=== PATIENT | female | born 1950 | race Caucasian/White ===

== ENCOUNTER → 2020-10-03 | Outpatient (CLI) | payer MEDICARE, OTHER ==
[2020-10-03 12:34] VITALS: BP 112/69; PULSE 80; RESP 16; TEMP 98.2
--- NOTE | 2020-10-03 12:59 | P.GSHP ---
History of Present Illness H&P Date: 10/03/20 Chief Complaint: mass right teresa Wu is a 70 year old white female seen in consultation for DR. Santizo regarding a mass in her right breast. She states she noted a lump in her right breast approximately 2 weeks ago. She had a bilateral mammogram in November 2018 the lateral attachment to the patient stated that they did not see any lesions of concern. She had a diagnostic mammogram of her right breast on which revealed a mass in the 12 o'clock position of the right breast corresponding to the palpable abnormality. She then underwent an ultrasound which revealed a 3.6 x 3.7 cm irregular mass at the same location in the right breast. She does not complain of any trauma to her breast. She has not noted any other lumps masses or nodules in her breast. No nipple discharge or skin changes. No history of any infection in her breast. She has not had any surgery in her breast. Caffeine: One cup per day Nicotine: Negative Theophylline: rare hormones: none Family history: sister: breast cancer at 58 2 maternal aunts: breast cancer Hormonal History: menarche: 14 , breast fed: yes, age at first : 19 menopause: 51 hormones: bio-identical 2 years BCP: 20 years Surgical History: back surgery (2) gallbladder tonsil Medical History: none Social History: smoke: stopped in 1979, first has been a smoker and she was with him for 24 years alcohol: wine in evening occasional drugs: none - Constitutional Constitutional: Denies chills, Denies fever - EENT Eyes: denies blurred vision, denies pain Ears: deny: decreased hearing, tinnitus Ears, nose, mouth and throat: Denies headache, Denies sore throat - Breasts Breasts: bilateral: as per HPI - Cardiovascular Cardiovascular: Denies chest pain, Denies shortness of breath - Respiratory Respiratory: Reports cough - Gastrointestinal Gastrointestinal: Denies abdominal pain, Denies diarrhea, Denies nausea, Denies vomiting - Genitourinary (Female) Genitourinary: Denies dysuria, Denies hematuria - Menstruation Menstruation: Reports postmenopausal - Musculoskeletal Musculoskeletal: Denies myalgias - Integumentary Integumentary: Denies pruritus, Denies rash - Neurological Neurological: Denies numbness, Denies weakness - Psychiatric Psychiatric: Denies anxiety, Denies depression - Endocrine Endocrine: Denies fatigue, Denies weight change - Hematologic/Lymphatic Comment: none - Allergic/Immunologic Allergic/Immunologic: Reports as per HPI Past Medical History Past Medical History: Hyperlipidemia History of Any Multi-Drug Resistant Organisms: None Reported Past Surgical History: Cholecystectomy, Tonsillectomy Additional Past Surgical History / Comment(s): laminectomy 1998 & 2000; cholecystectomy 1974; Past Anesthesia/Blood Transfusion Reactions: No Reported Reaction Past Psychological History: No Psychological Hx Reported Smoking Status: Former smoker Past Alcohol Use History: Occasional Additional Past Alcohol Use History / Comment(s): Started smoking in her 30's off and on until about the age of 39 Past Drug Use History: None Reported - Past Family History Father Family Medical History: Myocardial Infarction ([place]) Mother Family Medical History: COPD Sister(s) Family Medical History: Cancer Additional Family Medical History / Comment(s): right breast cancer Medications and Allergies Home Medications Medication Instructions Recorded Confirmed Type Ascorbic Acid [Vitamin C] 500 mg PO DAILY 10/02/20 10/03/20 History Cholecalciferol [Vitamin D3] 2,000 unit PO TID 10/02/20 10/03/20 History Ibuprofen [Motrin] 400 mg PO DAILY PRN 10/02/20 10/03/20 History Multivit-Min/Iron/Folic/Lutein 1 each PO DAILY 10/02/20 10/03/20 History [Centrum Silver Women Tablet] Rosuvastatin [Crestor] 5 mg PO HS 10/02/20 10/03/20 History Ubidecarenone [Co Q-10] 200 mg PO HS 10/02/20 10/03/20 History Allergies Allergy/AdvReac Type Severity Reaction Status Date / Time codeine AdvReac Abdominal Verified 10/03/20 12:24 Pain Surgical - Exam Vital Signs Temp Pulse Resp BP Pulse Ox 98.2 F 80 16 112/69 97 10/03/20 12:26 10/03/20 12:26 10/03/20 12:26 10/03/20 12:26 10/03/20 12:26 BMI 24.2 - General well developed, well nourished, no distress - Eyes normal ocular movement - ENT no hearing loss, no congestion - Neck no masses, trachea midline - Respiratory normal expansion, normal respiratory effort, clear to auscultation - Cardiovascular Rhythm: regular Heart Sounds: normal: S1, S2 - Abdomen Abdomen: soft, non tender, no guarding, no rigid, no rebound - Integumentary normal turgor - Neurologic no disoriented, no combative - Musculoskeletal normal gait - Psychiatric oriented to time, oriented to person, oriented to place, speech is normal breast exam: BRA: 36B inspection: Lateral ptosis grade 2/3 Palpation: Right breast: Multiple positional exam 7 x 4 cm mass in the 12 o'clock position no other dominant masses or nodules of concern Right axilla: No adenopathy of concern Left breast colon was a positional exam fibrocystic changes no dominant masses or nodules of concern Left axilla: No adenopathy of concern Results Diagnostic right breast mammogram and ultrasound reviewed Assessment and Plan Assessment: Impression: 1. Mass right breast 2. Abnormal right breast mammogram and ultrasound 3. Normal mammogram approximately 1 year ago by history 4. High cholesterol 5. Family history of cancer Plan: 1. Ultrasound-guided core biopsy right breast 2. Follow up after core biopsy 3. mammogram of the left breast Cc: Dr. Santizo [facility] [address] [place] [id number] encounter 30 minutes, > 50% of time in planning and counselling
== END | disposition home or self-care (01) ==
LOC: WWCWWP 11:33
PROVIDERS: ATTEND Surgery
DX: Z53.9 Procedure and treatment not carried out, unspecified reason (principal)

== ENCOUNTER → 2020-10-04 | Day surgery (SDC) | payer MEDICARE, OTHER ==
[2020-10-04 07:21] VITALS: RESP 16
[2020-10-04 08:48] VITALS: BP 109/65; PULSE 78; TEMP 98
--- NOTE | 2020-10-04 09:22 | USB ---
EXAMINATION TYPE: US biopsy breast VAD RT, MG diagnostic mammo RT wo CAD DATE OF EXAM: 10/04/2020 CLINICAL HISTORY: R92.8 Abnormal Mammogram. TECHNIQUE: Ultrasound guided core biopsy of right 1:00 breast. COMPARISON: NONE FINDINGS: The procedure of ultrasound guided core biopsy was explained to the patient. Benefits, alternatives, and risks were discussed. An informed consent was then obtained. The patient was placed in supine positioning for imaging and for the procedure. The overlying skin was prepped and draped in usual sterile fashion. Lidocaine buffered with bicarbonate was used as anesthetic into the skin and subcutaneous tissue up to area of concern in the right 1:00 breast. Under ultrasound guidance, a 12-gauge vacuum assisted biopsy gun device was used to obtain 4 core samples. Following this, a biopsy clip was left in lesion. Postprocedural mammogram demonstrates appropriate placement of microclip marker. The patient tolerated the procedure well without any immediate complication. The patient was kept in the radiology department for short stay after the procedure and then discharged home in stable condition. IMPRESSION: Successful, uncomplicated ultrasound guided core biopsy of area of concern in the right 1:00 breast, full pathology results to follow. Pathology Results: Malignant RIGHT BREAST, 1:00, ULTRASOUND GUIDED CORE BIOPSY: Invasive poorly differentiated ductal carcinoma (Grade 3). See Surgical Pathology Cancer Case Summary. Recommendation Surgical consult of the right breast. NORA
== END ==
LOC: RADUSWWP 07:08
PROVIDERS: ATTEND Surgery
DX: C50.911 Malignant neoplasm of unspecified site of right female breast (principal); Z17.1 Estrogen receptor negative status [ER-]; R92.8 Other abnormal and inconclusive findings on diagnostic imaging of breast
CPT/HCPCS: 88305; 88342; 88341; 77065; 19083; A4648; J2001

== ENCOUNTER → 2020-10-12 | Outpatient (CLI) | payer MEDICARE, OTHER ==
[2020-10-12 10:18] VITALS: BP 128/73; PULSE 80; RESP 18; TEMP 98
--- NOTE | 2020-10-12 10:48 | P.PN ---
Subjective Progress Note Date: 10/12/20 Principal diagnosis: right breast invasive ductal cancer tripple negative Jazmin is a 70 year old white female seen in consultation for DR. Santizo regarding a mass in her right breast. She states she noted a lump in her right breast approximately 2 weeks ago. She had a bilateral mammogram in November 2018. She had a diagnostic mammogram of her right breast on which revealed a mass in the 12 o'clock position of the right breast corresponding to the palpable abnormality. She then underwent an ultrasound which revealed a 3.6 x 3.7 cm irregular mass at the same location in the right breast. She does not complain of any trauma to her breast. She has not noted any other lumps masses or nodules in her breast. No nipple discharge or skin changes. No history of any infection in her breast. She has not had any surgery in her breast. She had an ultrasound core biopsy on 10-04-20. This revealed an invasive poorly differentiated ductal carcinoma grade 3, negative. Negative HER-2 negative. Caffeine: One cup per day Nicotine: Negative Theophylline: rare hormones: none Family history: sister: breast cancer at 58 2 maternal aunts: breast cancer Hormonal History: menarche: 14 , breast fed: yes, age at first : 19 menopause: 51 hormones: bio-identical 2 years BCP: 20 years Surgical History: back surgery (2) gallbladder tonsil Medical History: none Social History: smoke: stopped in 1979, first has been a smoker and she was with him for 24 years alcohol: wine in evening occasional drugs: none - Constitutional Constitutional: Denies chills, Denies fever - EENT Eyes: denies blurred vision, denies pain Ears: deny: decreased hearing, tinnitus Ears, nose, mouth and throat: Denies headache, Denies sore throat - Breasts Breasts: bilateral: as per HPI - Cardiovascular Cardiovascular: Denies chest pain, Denies shortness of breath - Respiratory Respiratory: Reports cough - Gastrointestinal Gastrointestinal: Denies abdominal pain, Denies diarrhea, Denies nausea, Denies vomiting - Genitourinary (Female) Genitourinary: Denies dysuria, Denies hematuria - Menstruation Menstruation: Reports postmenopausal - Musculoskeletal Musculoskeletal: Denies myalgias - Integumentary Integumentary: Denies pruritus, Denies rash - Neurological Neurological: Denies numbness, Denies weakness - Psychiatric Psychiatric: Denies anxiety, Denies depression - Endocrine Endocrine: Denies fatigue, Denies weight change - Hematologic/Lymphatic Comment: none - Allergic/Immunologic Allergic/Immunologic: Reports as per HPI Objective - Exam BMI - Constitutional General appearance: Present: average body habitus - EENT Eyes: Present: EOMI ENT: Present: hearing grossly normal - Neck Neck: Present: normal ROM - Respiratory Respiratory: bilateral: CTA - Cardiovascular Rhythm: regular Heart sounds: normal: S1, S2 - Integumentary Integumentary: Present: normal turgor - Musculoskeletal Musculoskeletal: Present: gait normal - Psychiatric Psychiatric: Present: A&O x's 3, appropriate affect, intact judgment & insight - Additional findings Additional findings: Breast examination.: Right breast mass 8 cm x 9 cm prior measurement was 7 x 4 cm questionable may be some inflammatory reaction/hematoma although no ecchymosis to suggest hematoma is noted Right axilla: No adenopathy of concern Assessment and Plan Plan: Impression: 1. right breast [id number] 2. high cholesterol Plan: 1. appointment with medical oncology 2. Presentation at tumor board 3. Possible mastectomy with sentinel node biopsy possible axillary node dissection 4. Patient given the option of seeing a plastic surgeon and she has declined at this time 5. Left breast mammogram this had not been done for over a year Tumor stage and risk and benefits of surgical intervention are discussed with the patient and her daughter. At this time the patient states that she is not interested in the lumpectomy and although she understands she will receive chemotherapy and this could shrink the tumor she would prefer to have surgery prior to chemotherapy intervention. She is going to see medical oncology prior to the final decision. She believes that the tumor has increased in size since she was last seen. The risk of the procedure include but are not limited to bleeding, infection, reaction to the anesthetic. The is a possibility of lymphedema, decreased sensation to the upper arm, or injury to the thoracodorsal or long thoracic nerves. The patient understands and wishes to proceed with surgery. CC: Dr. Santizo [facility] [address] [place] [id number] encounter 30 minutes, > 50 % of time in planning and counselling
--- NOTE | 2020-10-12 14:23 | MM ---
Reason for exam: additional evaluation requested from prior study. Last mammogram was performed less than 1 month ago. History: Patient is postmenopausal and has history of breast cancer at age 70. Family history of breast cancer in sister at age 50 and breast cancer in 2 maternal aunts. Malignant US biopsy breast VAD RT of the right breast, October 04, 2020. Ultrasound-guided core biopsy. MG 3D Diag Mammo W/Cad LT Spot compression CC and LM view(s) were taken of the left breast. Prior study comparison: October 04, 2020, right breast MG diagnostic mammo RT wo CAD. There are scattered fibroglandular densities. 8mm 2 o'clock mass with clip. This looks slightly irregular. Possible subtle isodense subareolar nodulrity on the CC view. These results were verbally communicated with the patient and result sheet given to the patient on 10/12/20. ASSESSMENT: Incomplete: need additional imaging evaluation, BI-RAD 0 RECOMMENDATION: Ultrasound of the left breast. (2 o'clock and periareolar)
--- NOTE | 2020-10-12 14:30 | USB ---
Reason for exam: additional evaluation requested from abnormal screening. History: Patient is postmenopausal and has history of breast cancer at age 70. Family history of breast cancer in sister at age 50 and breast cancer in 2 maternal aunts. Malignant US biopsy breast VAD RT of the right breast, October 04, 2020. Ultrasound-guided core biopsy. US Breast Limited LT Left limited breast ultrasound including focal area of concern, retroareolar and axilla demonstrates a 0.9 x 0.6 x 0.5cm oval, cluster, irregular lesion, partially cystic lesion at 2 o'clock, may have been previously biopsied, a 0.3 x 0.2 x 0.2cm oval, cystic lesion at 2 o'clock and ductal ectasia at the posterior nipple. These results were verbally communicated with the patient and result sheet given to the patient on 10/12/20. ASSESSMENT: Suspicious, BI-RAD 4 RECOMMENDATION: Ultrasound core biopsy of the left breast. Called office with mammographic findings and has scheduled an appointment for the patient for 10/25/20 at 2:[address] Levin. Biopsy scheduled for 10/17/20 at 8:30. PRELIMINARY REPORT CALLED AND FAXED TO DR. LEVIN ON 10/12/20.
== END | disposition home or self-care (01) ==
LOC: WWCWWP 09:27
PROVIDERS: ATTEND Surgery
DX: R92.8 Other abnormal and inconclusive findings on diagnostic imaging of breast (principal)
CPT/HCPCS: 77065; 76642; G0279; 77061

== ENCOUNTER → 2020-10-13 | Outpatient (CLI) | payer MEDICARE, OTHER ==
--- NOTE | 2020-10-13 17:46 | ECHOF ---
Referral Reason:[id number] MEASUREMENTS -------- HEIGHT: 162.6 cm WEIGHT: 64.4 kg BP: RVIDd: 3.3 cm (< 3.3) IVSd: 1.1 cm (0.6 - 1.1) LVIDd: 2.7 cm (3.9 - 5.3) LVPWd: 1.3 cm (0.6 - 1.1) IVSs: 1.5 cm LVIDs: 1.8 cm LVPWs: 1.7 cm LAESV Index (A-L): 23.38 ml/m Ao Diam: 2.9 cm (2.0 - 3.7) AV Cusp: 2.1 cm (1.5 - 2.6) MV EXCURSION: 16.649 mm (> 18.000) MV EF SLOPE: 143 mm/s (70 - 150) EPSS: 0.6 cm MV E Carlos: 0.66 m/s MV DecT: 235 ms MV A Carlos: 0.78 m/s MV E/A Ratio: 0.85 RAP: 5.00 mmHg RVSP: 32.49 mmHg FINDINGS -------- Sinus rhythm. This was a technically adequate study. The left ventricular size is normal. There is mild concentric left ventricular hypertrophy. Overa ll left ventricular systolic function is normal with, an EF between 55 - 60 %. The diastolic fillin g pattern is normal for the age of the patient 9.82. The right ventricle is normal in size. Normal LA size by volume 22+/-6 ml/m2. The right atrial size is normal. Interatrial and interventricular septum intact. The aortic valve is trileaflet and appears structurally normal. Trace amount of aortic regurgitatio n. There is no evidence of aortic stenosis. Mild mitral annular calcification present. There is trace mitral regurgitation. The tricuspid valve appears structurally normal. Mild tricuspid regurgitation present. Right vent ricular systolic pressure is normal at < 35 mmHg. The right ventricular systolic pressure, as measu red by Doppler, is 32.49mmHg. There is no pulmonic regurgitation present. The aortic root size is normal. Normal inferior vena cava with normal inspiratory collapse consistent with estimated right atrial pre ssure of 5 mmHg. There is no pericardial effusion. CONCLUSIONS -------- 1. There is mild concentric left ventricular hypertrophy. 2. Overall left ventricular systolic function is normal with, an EF between 55 - 60 %. 3. Trace amount of aortic regurgitation. 4. There is trace mitral regurgitation. 5. Mild tricuspid regurgitation present. BATCH ANALYST: Monique Pryor RDCS
== END | disposition home or self-care (01) ==
LOC: RADECHMAIN 14:48
PROVIDERS: ATTEND Internal Medicine Hematology & Oncology
DX: Z01.818 Encounter for other preprocedural examination (principal); I07.1 Rheumatic tricuspid insufficiency; Z88.5 Allergy status to narcotic agent
CPT/HCPCS: 93306

== ENCOUNTER → 2020-10-14 | Outpatient (CLI) | payer MEDICARE, OTHER ==
--- NOTE | 2020-10-15 11:48 | PE ---
Nuclear medicine PET/CT HISTORY: Breast carcinoma right, initial Patient received 12.2 mCi F-18 FDG intravenously in delayed scanning was performed from skull base to the mid thighs. Localization and attenuation correction CT scan was performed. Correlation to mammogram and ultrasound 10/12/2020 Chest and neck: There is no supraclavicular, cervical adenopathy. The superior mediastinum, retrocava l pretracheal mediastinum, bilateral hilar regions show adenopathy and associated hypermetabolic upta ke. Right breast mass is large and shows postbiopsy changes, associated hypermetabolic uptake. Left u pper lobe nodular density is present on axial image 89 measuring 12 mm without significant uptake. Ad ditional nodular uptake axial image 93 measures 1 cm and shows no suspicious uptake. No pleural or pe ricardial effusion. ABDOMEN: Pericaval node is present near the intrahepatic inferior vena cava with associated uptake. T here is abnormal uptake within the portal region, associated adenopathy. There is no ascites. Osseous structures show focus of uptake within the sacrum. Thoracic vertebral body also shows a focus of uptake. IMPRESSION: Metastatic disease.
== END | disposition home or self-care (01) ==
LOC: RADPETMAIN 08:17
PROVIDERS: ATTEND Internal Medicine Hematology & Oncology
DX: C50.211 Malignant neoplasm of upper-inner quadrant of right female breast (principal); C79.9 Secondary malignant neoplasm of unspecified site
CPT/HCPCS: 78815; A9552

== ENCOUNTER → 2020-10-17 | Day surgery (SDC) | payer MEDICARE, OTHER ==
[2020-10-17 07:53] VITALS: RESP 16
[2020-10-17 09:23] VITALS: BP 119/65; PULSE 77; TEMP 98.2
--- NOTE | 2020-10-17 16:32 | USB ---
EXAMINATION TYPE: US biopsy breast VAD LT DATE OF EXAM: 10/17/2020 CLINICAL HISTORY: R92.8 ABN MAMMO. TECHNIQUE: Ultrasound guided vaccuum assisted core biopsy of left breast. COMPARISON: 10/12/2020 FINDINGS: The ultrasound guided core biopsy procedure was explained to the patient. The risks, benefits, alternatives were discussed. An informed consent was then obtained. Timeout was performed. The patient was placed in supine positioning for imaging and for the procedure. The overlying skin was prepped with betadine and sterilely draped in usual sterile fashion. Lidocaine 1% was used as anesthetic into the skin and deeper breast tissue up to area of concern in the breast. A small skin skye was made with surgical scalpel. Under ultrasound guidance, a 12-gauge vacuum assisted biopsy device was used to obtain 4 core samples. A biopsy clip was left in lesion. Coil clip was placed. Good hemostasis was obtained with direct pressure. Discharge instructions were discussed with the patient. The patient will follow up with the referring physician for results. Postprocedure mammogram: The patient was transferred to mammography for physician ordered post procedure mammogram for clip placement verification. The clip is in the expected region of the biopsy. The patient tolerated the procedure well without any immediate complication. The patient was discharged to home in stable condition. IMPRESSION: 1. Successful ultrasound guided biopsy left breast. Recommendations: 1. Recommendations are pending pathology results. Pathology Results: Malignant LEFT BREAST, 2:00, ULTRASOUND GUIDED CORE BIOPSY: Invasive moderately differentiated ductal carcinoma (Grade 2). See Surgical Pathology Cancer Case Summary. Recommendation Surgical consult of the left breast. NORA
--- NOTE | 2020-10-17 16:32 | MM ---
EXAMINATION TYPE: US biopsy breast VAD LT DATE OF EXAM: 10/17/2020 CLINICAL HISTORY: R92.8 ABN MAMMO. TECHNIQUE: Ultrasound guided vaccuum assisted core biopsy of left breast. COMPARISON: 10/12/2020 FINDINGS: The ultrasound guided core biopsy procedure was explained to the patient. The risks, benef its, alternatives were discussed. An informed consent was then obtained. Timeout was performed. The patient was placed in supine positioning for imaging and for the procedure. The overlying skin w as prepped with betadine and sterilely draped in usual sterile fashion. Lidocaine 1% was used as ane sthetic into the skin and deeper breast tissue up to area of concern in the breast. A small skin lianna k was made with surgical scalpel. Under ultrasound guidance, a 12-gauge vacuum assisted biopsy device was used to obtain 4 core samples . A biopsy clip was left in lesion. Coil clip was placed. Good hemostasis was obtained with direct pressure. Discharge instructions were discussed with the ridge bryan. The patient will follow up with the referring physician for results. Postprocedure mammogram: The patient was transferred to mammography for physician ordered post proced ure mammogram for clip placement verification. The clip is in the expected region of the biopsy. The patient tolerated the procedure well without any immediate complication. The patient was dischar ged to home in stable condition. IMPRESSION: 1. Successful ultrasound guided biopsy left breast. Recommendations: 1. Recommendations are pending pathology results.
--- NOTE | 2020-10-24 10:23 | P.PN ---
Progress Note - Text Progress Note Date: 10/24/20 I have called Jazmin today and discuss the results of her left breast core biopsy. This is also an invasive ductal carcinoma. I've also discussed with Dr. Winston her PET scan findings. She was scheduled to begin chemotherapy later this week. She understands that the results of the left breast biopsy will not change her recommendation for adjuvant chemotherapy. She has had no complications related to the core biopsy. It will be seen again in January. She has any questions or concerns I will see her sooner.
== END ==
LOC: RADUSWWP 07:20
PROVIDERS: ATTEND Surgery
DX: C50.912 Malignant neoplasm of unspecified site of left female breast (principal); Z17.0 Estrogen receptor positive status [ER+]; R92.8 Other abnormal and inconclusive findings on diagnostic imaging of breast; Z88.5 Allergy status to narcotic agent
CPT/HCPCS: 88305; 88342; 88341; 77065; 19083; A4648; J2001

== ENCOUNTER → 2020-10-18 | Outpatient (CLI) | payer MEDICARE, OTHER ==
--- NOTE | 2020-10-19 09:06 | BMR ---
EXAMINATION TYPE: MR breast BILAT wo/w con DATE OF EXAM: 10/18/2020 COMPARISON: Outside 3-D right breast diagnostic mammogram September 28, 2020 BI-RADS 0. Outside diagno stic right breast ultrasound September 28, 2020 BI-RADS 5. Diagnostic left breast mammogram October BI-RADS 0. Diagnostic left breast ultrasound October 12, 2020 BI-RADS 4. 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 Repeat left breast ultrasound October 17, 2020, pathology pending. TECHNIQUE: A series of fat and water weighted images in the long and short axis views of both breasts are obtained in conjunction with dynamic contrast MRI with subtraction technique. The patient was i njected with 6.5 mL intravenous Gadavist gadolinium contrast. Three-dimensional and additional post processing imaging is created on independent workstation and reviewed during official interpretation of this study. FINDINGS: Scattered fibroglandular tissue redemonstrated bilaterally greatest in the subareolar regio n. T2 and STIR weighted images show occasional tiny punctate cyst at the level of the fibroglandular tissue bilaterally. T1 nonfat saturated images show no suspicious axillary adenopathy bilaterally. Dy namic postcontrast imaging shows moderate background fibroglandular enhancement anteriorly in both br easts. Delayed dynamic postcontrast imaging shows no suspicious abnormal intramammary adenopathy. With regards to the left breast there is artifact from 2 adjacent biopsies noted in the posterior dep th central aspect. There is 5 mm focus of adjacent enhancement lateral aspect of the clips correspond ing to the small scarlike opacity on mammogram in the lesion identified on ultrasound which was recen tly sampled. Remainder of left breast shows no suspicious enhancement. No abnormal skin thickening is seen. The chest wall is intact. With regards to the right breast large enhancing mass middle depth 12 to 1:00 position has artifact f rom biopsy clip centrally and measures roughly 3.8 cm AP diameter by 4.3 cm transversely subtraction image 398 series 702 and 4.6 cm craniocaudal dimension sagittal image 165 series 703. There are a few small adjacent rim-enhancing satellite foci along the posterior medial aspect of the mid to inferior lesion, for reference image 374 series 702. Anteriorly there is a contiguous lobulated enhancement s lightly outer aspect measuring 2.3 cm AP diameter by 1.2 cm transversely image 398 series 702 corresp onding to sagittal image 237 series 703 extending towards but not involving the skin surface. Total l ength of abnormal enhancement greatest AP diameter of 7.4 cm reference image 404 series 701 No additional areas of abnormal enhancement identified. No suspicious skin thickening is seen. Chest wall remains intact. Scattered pulmonary nodules are present correlating with recent PET CT, for reference medial anterior right upper lobe roughly 7 mm nodule axial image 75 series 601. IMPRESSION: Large lesion right breast corresponds to known poorly differentiated cancer interval deve lopment since November 2018. No skin involvement or chest wall invasion. No multicentric disease or ax illary adenopathy. Only area of concern left breast corresponds to level of repeat biopsy recently sh ould be correlated with repeat biopsy results, time of initial biopsy at this level presumed benign n ot provided. BI-RADS 6 biopsy-proven cancer right breast. BI-RADS 4 suspicious abnormality left breast recently sampled October 17, 2020. Recommendation: Probable metastatic disease noted on PET CT report October 14, 2020. Appropriate onco logic management advised.
== END | disposition home or self-care (01) ==
LOC: RADMRIMAIN 11:41
PROVIDERS: ATTEND Internal Medicine Hematology & Oncology
DX: C50.211 Malignant neoplasm of upper-inner quadrant of right female breast (principal)
CPT/HCPCS: C8937; C8908; A9585; 77049

== ENCOUNTER → 2020-10-30 | Outpatient (CLI) | payer MEDICARE, OTHER ==
--- NOTE | 2020-10-31 03:15 | MR ---
EXAMINATION TYPE: MR thoracic spine wo/w con DATE OF EXAM: 10/30/2020 COMPARISON: None HISTORY: Metastatic breast cancer CONTRAST: Standard multiplanar, multisequence MRI departmental protocol utilizing 6.5 mL intravenous Gadavist g adolinium contrast. There is 13 mm rounded focus of decreased signal on the T1 images in the T4 vertebral body. This show s slight enhancement thoracic vertebra have normal alignment. There is no significant compression def ormity. There is no paraspinal mass. The posterior elements are intact. Thoracic spinal cord has normal signal pattern. There is no spinal stenosis. Cervical spinal cord is intact. There are multiple lateral meningoceles in the lower thoracic spine with ectasia of the neura l foramina. IMPRESSION: T4 low signal lesion on T1 images with slight enhancement is consistent with metastatic disease and n ot changed compared to the PET CT scan 10/14/2020. No pathologic fracture. Normal thoracic spinal cord .
== END | disposition home or self-care (01) ==
LOC: RADMRIMAIN 15:45
PROVIDERS: ATTEND Internal Medicine Hematology & Oncology
DX: C50.211 Malignant neoplasm of upper-inner quadrant of right female breast (principal); C80.1 Malignant (primary) neoplasm, unspecified; M89.9 Disorder of bone, unspecified
CPT/HCPCS: 72157; A9585

== ENCOUNTER → 2020-10-31 | Outpatient (CLI) | payer MEDICARE, OTHER ==
--- NOTE | 2020-11-01 02:52 | MR ---
EXAMINATION TYPE: MR pelvis wo/w con DATE OF EXAM: 10/31/2020 COMPARISON: None HISTORY: Breast cancer CONTRAST: Standard multiplanar, multisequence MRI departmental protocol utilizing 12.2 mL intravenous gadoliniu m contrast. There is no free fluid in the pelvis. Intestinal pattern in the pelvis is fairly normal. Urinary blad steven appears normal. Uterus is anteverted. There is no evidence of a pelvic mass. The hip joints are i ntact. There is no evidence of hip dysplasia. No significant arthritic disease. Sacroiliac joints servando ear intact. There is 2.2 cm focus of increased signal on the T1 and T2 images involving the inferior aspect of th e S1 vertebral body. This shows some enhancement with the contrast. There is no expansion into the sp inal canal. IMPRESSION: Exam shows evidence of metastatic disease in the S1 vertebral body not changed compared to PET CT sca n of 10/14/2020.
== END | disposition home or self-care (01) ==
LOC: RADMRIMAIN 16:17
PROVIDERS: ATTEND Internal Medicine Hematology & Oncology
DX: C50.211 Malignant neoplasm of upper-inner quadrant of right female breast (principal); C80.1 Malignant (primary) neoplasm, unspecified
CPT/HCPCS: 72197; A9585

== ENCOUNTER → 2021-01-25 | Outpatient (CLI) | payer MEDICARE, OTHER ==
[2021-01-25 13:22] VITALS: BP 115/74; PULSE 97; RESP 18; TEMP 98.4
--- NOTE | 2021-01-25 14:10 | P.PN ---
Subjective Progress Note Date: 01/25/21 Principal diagnosis: right breast invasive ductal cancer Jazmin is a 70 year old white female seen in consultation for DR. Santizo regarding a mass in her right breast. She states she noted a lump in her right breast in September 2020. She had a diagnostic mammogram of her right breast on which revealed a mass in the 12 o'clock position of the right breast corresponding to the palpable abnormality. She then underwent an ultrasound which revealed a 3.6 x 3.7 cm irregular mass at the same location in the right breast. She does not complain of any trauma to her breast. She has not noted any other lumps masses or nodules in her breast. No nipple discharge or skin changes. No history of any infection in her breast. She has not had any surgery in her breast. 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 She was seen by medical oncology and started on AC chemotherapy. She has completed 4 fusions of AC. She has completed 3 infusions of Taxol. PET scan done prior to initiating chemotherapy revealed evidence of lesions suspicious for bony metastases in the spine. She states that she will be finished with her chemotherapy in approximately 1 week. She is going to have a PET scan performed in approximately 1 month. Following the PET scan the operative procedure will be determined. Caffeine: One cup per day Nicotine: Negative Theophylline: rare hormones: none Family history: sister: breast cancer at 58 2 maternal aunts: breast cancer Hormonal History: menarche: 14 , breast fed: yes, age at first : 19 menopause: 51 hormones: bio-identical 2 years BCP: 20 years Surgical History: back surgery (2) gallbladder tonsil Medical History: none Social History: smoke: stopped in 1979, first has been a smoker and she was with him for 24 years alcohol: wine in evening occasional drugs: none - Constitutional Constitutional: Denies chills, Denies fever - EENT Eyes: denies blurred vision, denies pain Ears: deny: decreased hearing, tinnitus Ears, nose, mouth and throat: Denies headache, Denies sore throat - Breasts Breasts: bilateral: as per HPI - Cardiovascular Cardiovascular: Denies chest pain, Denies shortness of breath - Respiratory Respiratory: Reports cough - Gastrointestinal Gastrointestinal: Denies abdominal pain, Denies diarrhea, Denies nausea, Denies vomiting - Genitourinary (Female) Genitourinary: Denies dysuria, Denies hematuria - Menstruation Menstruation: Reports postmenopausal - Musculoskeletal Musculoskeletal: Denies myalgias - Integumentary Integumentary: Denies pruritus, Denies rash - Neurological Neurological: Denies numbness, Denies weakness - Psychiatric Psychiatric: Denies anxiety, Denies depression - Endocrine Endocrine: Denies fatigue, Denies weight change - Hematologic/Lymphatic Comment: none - Allergic/Immunologic Allergic/Immunologic: Reports as per HPI Objective - Vital Signs Vital signs: Vital Signs Temp 98.4 F 01/25/21 13:17 Pulse 97 01/25/21 13:17 Resp 18 01/25/21 13:17 BP 115/74 01/25/21 13:17 Pulse Ox 97 01/25/21 13:17 Intake & Output 01/24/21 01/25/21 01/25/21 18:59 06:59 18:59 Weight 61.235 kg - Constitutional General appearance: Present: average body habitus - EENT Eyes: Present: EOMI ENT: Present: hearing grossly normal - Neck Neck: Present: normal ROM - Respiratory Respiratory: bilateral: CTA - Cardiovascular Rhythm: regular Heart sounds: normal: S1, S2 - Gastrointestinal General gastrointestinal: Present: soft - Integumentary Integumentary: Present: normal turgor - Musculoskeletal Musculoskeletal: Present: gait normal - Psychiatric Psychiatric: Present: A&O x's 3, appropriate affect, intact judgment & insight - Additional findings Additional findings: Breast Exam: BRA: 36C inspection: grade 2/3 ptosis bilateral Palpation: Right breast: Fibrocystic changes, approximately 4 x 2 cm fullness in the 12 o'clock position of the right breast consistent with the area where the tumor was present in the past no other dominant masses or nodules of concern Right axilla: No adenopathy of concern Light left breast: Fibrocystic changes no dominant masses or nodules of concern Left axilla: No adenopathy of concern Assessment and Plan Assessment: Impression: 1. Metastatic right breast invasive ductal carcinoma/excellent response to chemotherapy with marked decrease in size of the tumor still palpable fullness in the 12 o'clock position of the right breast 2. Fibrocystic breast changes 3. Prior PET scan suspicious for metastatic disease to the spine 4. Patient has completed 4 cycles of A/C and is presently receiving Taxol will have repeat PET scan following the Taxol Plan: 1. Complete Taxol with PET scan to follow this 2. Patient to follow up here after the PET scan 3. Probable lumpectomy CC: Dr. Winston/Dr. Santizo
== END ==
LOC: WWCWWP 12:51
PROVIDERS: ATTEND Surgery
DX: C50.911 Malignant neoplasm of unspecified site of right female breast (principal); N60.19 Diffuse cystic mastopathy of unspecified breast; Z87.891 Personal history of nicotine dependence

== ENCOUNTER → 2021-02-23 | Outpatient (CLI) | payer MEDICARE, OTHER ==
--- NOTE | 2021-02-26 08:40 | PE ---
EXAMINATION TYPE: PET CT fusion skull to thigh DATE OF EXAM: 02/23/2021 COMPARISON: Prior PET/CT October 14, 2020. HISTORY: Right-sided breast cancer progress study. Completed chemotherapy February 01, 2021. TECHNIQUE: Following the intravenous administration of 10.7 mCi of F-18 FDG, whole body images are p erformed from the skull base to the midthigh. Images are reviewed on the computer in the coronal, ax ial, and sagittal planes. Reconstructed rotating images are created on independent workstation and r eviewed on the computer. A localization and attenuation correction CT is performed in conjunction w ith the PET scan. Blood glucose level equals 147. SCAN: Subsequent Scan FINDINGS: SKULL BASE AND NECK: No new areas of abnormal hypermetabolic uptake. CHEST, MEDIASTINUM, AND HILAR REGION: Interval improvement in right breast and neoplasm size measurin g 2.6 x 2.0 cm current study axial image 116 with improvement from 3.7 x 3.0 cm in prior study with c entral surgical clip, max SUV is 9.61 currently. The max SUV not provided on prior report. Interval resolution of abnormal enlarged thoracic hypermetabolic adenopathy. No residual enlarged or abnormal hypermetabolic lymph nodes are seen. Increased hypermetabolic uptake in the right upper extremity along anterior and lateral muscle extend ing from shoulder level presumed postinflammatory. ABDOMEN AND PELVIS: Nonspecific bowel uptake. Normal excretion. Marked interval improvement in hyperm etabolic enlarged adenopathy in the diann hepatis and upper abdomen along with the peripancreatic reg ion. No new areas of abnormal hypermetabolic uptake. OSSEOUS STRUCTURES: S1 sclerotic lesion axial image 192 redemonstrated. No abnormal hypermetabolic up take currently. No new areas of abnormal hypermetabolic uptake. OTHER CT: New right Subclavian Mediport catheter terminates in right atrium. Subcentimeter left thyr oid nodule redemonstrated. [id number] mucosal thickening inferior right maxillary sinus. Mild bilateral lower lung linear scarring and/or atelectasis. Normal appendix from cecum. Some divert icula in the sigmoid colon. S-shaped scoliosis. IMPRESSION: Overall significant partial positive treatment response as detailed above.
== END | disposition home or self-care (01) ==
LOC: RADPETMAIN 07:27
PROVIDERS: ATTEND Internal Medicine Hematology & Oncology
DX: C50.211 Malignant neoplasm of upper-inner quadrant of right female breast (principal)
CPT/HCPCS: 78815; A9552

== ENCOUNTER → 2021-03-15 | Outpatient (CLI) | payer MEDICARE, OTHER ==
[2021-03-15 15:08] VITALS: BP 113/73; PULSE 88; RESP 18; TEMP 98.1
--- NOTE | 2021-03-15 16:25 | P.PN ---
Subjective Progress Note Date: 03/15/21 Principal diagnosis: stage 4 invasive ductal right breast cancer Jazmin is a 70 year old white female seen in consultation for DR. Santizo regarding a mass in her right breast. She states she noted a lump in her right breast in September 2020. She had a diagnostic mammogram of her right breast on which revealed a mass in the 12 o'clock position of the right breast corresponding to the palpable abnormality. She then underwent an ultrasound which revealed a 3.6 x 3.7 cm irregular mass at the same location in the right breast. She did not complain of any trauma to her breast. She had not noted any other lumps masses or nodules in her breast. No nipple discharge or skin changes. No history of any infection in her breast. She has not had any surgery in her breast. 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 She was seen by medical oncology and completed AC chemotherapy. She has had infusions of Taxol. PET scan done prior to initiating chemotherapy revealed evidence of lesions suspicious for bony metastases in the spine. Repeat PET scan much improved. Note from DR. Winston on 02-27-21 reviewed. She sates she finished her Taxol on February 01. The lesion started to grow again after this. She did not have genetic testing done. Additionally the patient had a left breast ultrasound-guided core biopsy on which was also positive for invasive moderately differentiated ductal c arcinoma. The patient is not complaining of any left breast lesions at this time. She had her first COVID shot in her left arm 2 weeks ago. Her case was discussed with Dr. Winston. After discussion with Dr. Winston he is recommended mastectomy. The patient is in agreement and would like to have bilateral mastectomy. Caffeine: One cup per day Nicotine: Negative Theophylline: rare hormones: none Family history: sister: breast cancer at 58 2 maternal aunts: breast cancer Hormonal History: menarche: 14 , breast fed: yes, age at first : 19 menopause: 51 hormones: bio-identical 2 years BCP: 20 years Surgical History: back surgery (2) gallbladder tonsil Medical History: none Social History: smoke: stopped in 1979, first has been a smoker and she was with him for 24 years alcohol: wine in evening occasional drugs: none - Constitutional Constitutional: Denies chills, Denies fever - EENT Eyes: denies blurred vision, denies pain Ears: deny: decreased hearing, tinnitus Ears, nose, mouth and throat: Denies headache, Denies sore throat - Breasts Breasts: bilateral: as per HPI - Cardiovascular Cardiovascular: Denies chest pain, Denies shortness of breath - Respiratory Respiratory: Reports cough - Gastrointestinal Gastrointestinal: Denies abdominal pain, Denies diarrhea, Denies nausea, Denies vomiting - Genitourinary (Female) Genitourinary: Denies dysuria, Denies hematuria - Menstruation Menstruation: Reports postmenopausal - Musculoskeletal Musculoskeletal: Denies myalgias - Integumentary Integumentary: Denies pruritus, Denies rash - Neurological Neurological: Denies numbness, Denies weakness - Psychiatric Psychiatric: Denies anxiety, Denies depression - Endocrine Endocrine: Denies fatigue, Denies weight change - Hematologic/Lymphatic Comment: none - Allergic/Immunologic Allergic/Immunologic: Reports as per HPI Objective - Vital Signs Vital signs: Vital Signs Temp 98.1 F 03/15/21 15:05 Pulse 88 03/15/21 15:05 Resp 18 03/15/21 15:05 BP 113/73 03/15/21 15:05 Pulse Ox 97 03/15/21 15:05 Intake & Output 03/14/21 03/15/21 03/15/21 18:59 06:59 18:59 Weight 63.049 kg - Exam BMI 23.9 - Constitutional General appearance: Present: average body habitus - EENT Eyes: Present: EOMI ENT: Present: hearing grossly normal - Neck Neck: Present: normal ROM - Respiratory Respiratory: bilateral: CTA - Cardiovascular Rhythm: regular Heart sounds: normal: S1, S2 - Gastrointestinal General gastrointestinal: Present: soft - Integumentary Integumentary: Present: normal turgor - Musculoskeletal Musculoskeletal: Present: gait normal - Psychiatric Psychiatric: Present: A&O x's 3, appropriate affect, intact judgment & insight - Additional findings Additional findings: Bresat exam: BRA: 36B inspection: grade 3 ptosis bilateral palpation: Right breast: Multi-positional exam large mass 6 x 4 cm 12 o'clock position Right axilla: No adenopathy of concern Left breast: Multiple positional exam fibrocystic changes no dominant masses or nodules of concern Left axilla: No adenopathy of concern Assessment and Plan Assessment: Impression: 1. Stage IV triple negative right breast cancer status post neoadjuvant c hemotherapy with increase in size of lesion over the past month; left breast invasive ductal carcinoma 2. PET scan from 02-23-21 improved Plan: 1. Bilateral mastectomy, bilateral sentinel node injection, bilateral sentinel node biopsy Risks and benefits of the procedure discussed with the patient. She understands and wishes to proceed. Risks include but are not limited to bleeding, infection, reaction to the anesthetic. We have discussed the options including lumpectomy and sentinel node biopsy versus bilateral mastectomy. She understands that she may have residual metastatic disease and despite the fact that she would prefer to have a bilateral mastectomy. We are going to leave the Port-A-Cath in place at this time. She has declined plastic surgery at this time was offered but declined. She understands that she had metastatic disease prior to the initiation of the neoadjuvant chemotherapy. She also understands that bilateral mastectomy will not increase her survival if the metastatic disease becomes active.
== END ==
LOC: WWCWWP 14:37
PROVIDERS: ATTEND Surgery
DX: C50.912 Malignant neoplasm of unspecified site of left female breast (principal); C50.911 Malignant neoplasm of unspecified site of right female breast; Z87.891 Personal history of nicotine dependence; Z92.21 Personal history of antineoplastic chemotherapy

== ENCOUNTER 2021-03-27 06:46 | Day surgery (SDC) | payer MEDICARE, OTHER ==
[2021-03-23 09:41] VITALS: BMI 24.0
[~2021-03-27 06:46] MED LIST: DEXAMETHASONE SOD PHOSPHATE 4 MG/ML 1 ML VIAL IV ONE; HEPARIN SODIUM,PORCINE/PF 5,000 UNIT/0.5 ML SYRINGE SQ PRN; LACTATED RINGERS 1,000 ML IV SCH; ONDANSETRON 4 MG/2 ML VIAL IVP ONE; Pre Op ABX Message 1 EACH MISC MISCELLANE ONE
[2021-03-27] MEDS ORDERED: HYDROmorphone 0.5 MG/0.5 ML SYRINGE IVP PRN (07:00)
[2021-03-27] MEDS ORDERED: ALPRAZolam 0.25 MG TAB ONE (07:38)
[2021-03-27] MEDS ORDERED: LIDOCAINE 1% (10MG/ML) FOR IV START INTRADERMA ONE (07:50)
--- NOTE | 2021-03-27 08:39 | P.NAPBC ---
NAPBC Queries - NAPBC Queries Was patient's case review presented at [facility] tumor board? If no, comment.: Yes Was patient's pathology reviewed at [facility]? If no, comment.: Yes Was breast conservation surgery offered? If no, comment.: Yes Was sentinel node biopsy offered? If no, comment.: Yes Was diagnosis confirmed by percutaneous core biopsy? If no, comment.: Yes Is patient mastectomy patient?: Yes Was a preop referral to reconstructive surgeon offered?: Yes Clinical Stage: stage 4 right breast cancer/ stage 1 left breast cancer
[2021-03-27] MEDS ORDERED: PHENYLEPHRINE-0.9% NACL SYG 1,000 MCG/10 ML SYRINGE ONE (08:41)
[2021-03-27] MEDS ORDERED: PROPOFOL 10 MG/ML 20 ML VIAL IV ONE (08:41)
[2021-03-27] MEDS ORDERED: LIDOCAINE 1% INJ 10MG/ML (20 ML MDV) ONE (08:41)
[2021-03-27] MEDS ORDERED: fentaNYL (PF) 50 MCG/ML 2 ML AMP ONE (08:41)
[2021-03-27] MEDS ORDERED: SUCCINYLCHOLINE CHLORIDE 100 MG/5 ML SYR IV ONE (08:41)
[2021-03-27] MEDS ORDERED: MIDAZOLAM 2 MG/2 ML VIAL ONE (08:41)
[2021-03-27] MEDS ORDERED: SODIUM CHLORIDE 0.9% 100 ML with ceFAZolin 2,000 MG IV ONE ×2 (08:57)
[2021-03-27] MEDS ORDERED: METHYLENE BLUE 50 MG/10 ML AMPUL MISCELLANE ONE ×2 (09:23)
--- NOTE | 2021-03-27 09:52 | NM ---
EXAMINATION TYPE: NM sentinel node injection, NM sentinel node injection DATE OF EXAM: 03/27/2021 COMPARISON: NONE HISTORY: Breast cancer. Presurgical sentinel lymph node injections TECHNIQUE AND FINDINGS: The procedure of sentinel lymph node injection was explained to the patient. The benefits, alternatives, and risks were discussed. An informed consent was then obtained. Overlying skin is cleaned with sterile alcohol. Following this, [id number] (accession [id number]), 524 (acces barbara [id number]) uCi Tc99m Tilmanocept was injected in the upper outer aspect of the bilateral nipple i ntradermally. The patient tolerated the procedure well without any immediate complication. The patient was kept in the radiology department for short stay after the procedure and then taken to surgery for surgical p rocedure what is presumed intraoperative gamma probe will be used for sentinel lymph node detection. IMPRESSION: Bilateral breast radiotracer injection for sentinel node localization as above.
[2021-03-27] MEDS ORDERED: LACTATED RINGERS 1,000 ML IV ONE (10:52)
--- NOTE | 2021-03-27 12:10 | P.OP ---
Date of Procedure: 03/27/21 Preoperative Diagnosis: Bilateral breast cancer, right stage IV, left stage I Postoperative Diagnosis: Same Procedure(s) Performed: Bilateral mastectomy with bilateral sentinel node injection and bilateral sentinel node biopsy Anesthesia: JAXSON Surgeon: Henny Levin Estimated Blood Loss (ml): 40 IV fluids (ml): 1,100 Urine output (ml): 200 Pathology: other (bilateral breaet and sentinal node biopsies) Condition: stable Disposition: floor Indications for Procedure: bilateral invasive ductal breast cancer, status post neoadjuvant chemotherapy Operative Findings: tumor right breast Description of Procedure: The patient is a 70-year-old white female status post bilateral breast core biopsy positive for invasive ductal carcinoma. Additionally patient was noted to have metastatic disease prior to neoadjuvant treatment. She underwent neoadjuvant treatment and continues to have a mass in the right breast and has opted for bilateral mastectomy. She understands that this will not treat the metastatic disease. Bilateral injection of radioactive periareolar tracer was placed before she was brought to the operative suite. Following induction of anesthesia 5 mL of half-strength methylene blue was then injected into the periareolar area on each side after each side was prepped using alcohol. The breast was massaged. Both breast and axilla were prepped and draped in a sterile fashion. The left side was approached initially. A superior and inferior skin flap was developed. This was carried down to the chest wall. The breast was removed from medial to lateral. The breast was removed at the area of the pectoralis major muscle. Examination of the axilla revealed 2 radioactive lymph nodes which were blue. The first node had a 10 second count of 1594 and the second had a 10 second count of 1300. The 10 second background count was approximately 50. No other palpable or blue nodes were noted . The chest wall and the axilla were well irr igated. Surgicel in powder form was placed. The deep tissues were closed using 3-0 Vicryl suture. Prior to this 2 ELIZABETH drains were placed and secured with nylon suture. The skin was closed using a 4-0 Monocryl. The breast was marked with a short suture superior, and long suture laterally. The area of the right breast was then approached. All instruments and gowns were changed. The marking on the right breast was performed for superior and inferior skin flaps. These were developed using electrocautery device as well as the Harmonic scalpel. The tumor itself was noted to be close to the underlying skin. We were however able to dissect this free with a plane which appeared to be free from any tumor. Following this the breast was removed from medial to lateral using the electrocautery device and the Harmonic scalpel. The breast was removed. The breast was marked with a short suture superior and lateral being a long suture. The area of the axilla was approached. Careful dissection was performed in the axilla and a blue radioactive lymph node was identified. The 10 second count on was 533, the 10 second background count was 30. This node was removed using the electrocautery device and the Harmonic scalpel. After we were assured that hemostasis was attained Surgicel in powder form was placed. The deep tissues were closed using 3-0 Vicryl suture. The skin was closed using 4-0 Monocryl. 2 ELIZABETH drains have been placed and were secured using a nylon suture. All instrument and sponge counts were correct at the end of the case. The drains were holding suction without difficulty. The patient tolerated the procedure in stable condition.
[2021-03-27] MEDS ORDERED: MAG HYDROX/AL HYDROX/SIMETH 30 ML CUP PO PRN (12:11)
[2021-03-27] MEDS ORDERED: NALOXONE 0.4 MG/ML 1 ML VIAL IV PRN (12:11)
[2021-03-27] MEDS ORDERED: ONDANSETRON 4 MG/2 ML VIAL IVP PRN (12:11)
[2021-03-27] MEDS: MORPHINE SULFATE 4 MG/ML SYRINGE IV PRN ×2 (13:55→18:42)
[2021-03-27] MEDS: HEPARIN SODIUM,PORCINE/PF 5,000 UNIT/0.5 ML SYRINGE SQ SCH (17:50)
[2021-03-27] MEDS: DEXTROSE 5%-0.45% NACL 1,000 ML IV SCH ×2 (19:27→21:58)
[2021-03-27] MEDS: CALCIUM CARBONATE 500 MG CHEWABLE PO SCH (19:56)
--- NOTE | 2021-03-27 20:18 | P.CONS ---
History of Present Illness - Reason for Consult Consult date: 03/27/21 Medical management Requesting physician: Henny Gomes - Chief Complaint Mastectomy - History of Present Illness Consultation: This is a very pleasant 70-year-old patient whose undergone bilateral mastectomy. Patient is a Hemovac in place. Patient was diagnosed of breast cancer in September 2020. This was a rather aggressive tumor triple negative. Did receive chemotherapy by Dr. Omalley. Patient has been at the operative site. No nausea vomiting. Did tolerate her dinner. Patient used to take lipid-lowering medications discontinued the treatment for cancer. Also is taking medications for insomnia. States that it for ALLERGIES sometimes. Denies any cardiac and pulmonary history. Review of systems: GEN.: Tired EYES: None HEENT: None NECK: None RESPIRATORY: None CARDIOVASCULAR: None GASTROINTESTINAL: None GENITOURINARY: None MUSCULOSKELETAL: None LYMPHATICS: None HEMATOLOGICAL: None PSYCHIATRY: None NEUROLOGICAL: None Past medical history to include: Breast cancer, hyperlipidemia, urinary stress incontinence insomnia Social history: Patient is a . Does not smoke. Alcohol occasionally. Physical examination: VITAL SIGNS: 97.6, 80, 16, 1 22 x 71, 95% on room air GENERAL: BMI 23.5, laying in bed, awake. EYES: Pupils equal. Conjunctiva normal. HEENT: External appearance of nose and ears normal, oral cavity grossly normal. NECK: JVD not raised; masses not palpable. HEART: First and second heart sounds are normal; no edema. LUNGS: Respiratory rate normal; clear to auscultation. CHEST wall: Dressing across the chest with Hemovac in place. ABDOMEN: Soft, nontender, liver spleen not palpable, no masses palpable. PSYCH: Alert and oriented x3; mood and affect normal. NEUROLOGICAL: Cranial nerves grossly intact; no facial asymmetry, power and sensation grossly intact. LYMPHATICS: No lymph nodes palpable in the axilla and neck INVESTIGATIONS, reviewed in the clinical context: Coronavirus [PCR]-not detected Assessment and plan: --Bilateral mastectomy with bilateral sentinel node injection and bilateral sentinel node biopsy for bilateral invasive ductal breast cancer status post neoadjuvant chemotherapy -Bilateral invasive ductal breast cancer status post neoadjuvant chemotherapy, with tumor in the right breast -Hyperlipidemia Currently off lipid-lowering medications -Chronic idiopathic insomnia Use melatonin when necessary -Chronic urinary stress and urge incontinence Care was discussed with the patient. Questions answered. Patient should follow-up with her family doctor upon discharge Thank you Dr. Gomes Past Medical History Past Medical History: Cancer, Hyperlipidemia Additional Past Medical History / Comment(s): BREAST CANCER History of Any Multi-Drug Resistant Organisms: None Reported Past Surgical History: Cholecystectomy, Tonsillectomy Additional Past Surgical History / Comment(s): laminectomy 1998 & 2000; Past Anesthesia/Blood Transfusion Reactions: No Reported Reaction Past Psychological History: No Psychological Hx Reported Smoking Status: Former smoker Past Alcohol Use History: Occasional Additional Past Alcohol Use History / Comment(s): Started smoking in her 30's off and on until about the age of 39 Past Drug Use History: None Reported - Past Family History Father Family Medical History: CVA/TIA, Myocardial Infarction (PR) Mother Family Medical History: Cancer, Congestive Heart Failure (CHF), COPD Additional Family Medical History / Comment(s): pancreatic cancer Sister(s) Family Medical History: Cancer Additional Family Medical History / Comment(s): right breast cancer Medications and Allergies Home Medications Medication Instructions Recorded Confirmed Type Cholecalciferol [Vitamin D3] 1,000 unit PO QAM 10/02/20 03/27/21 History Acetaminophen Tab [Tylenol Tab] 500 mg PO Q6H 01/25/21 03/27/21 History Calcium Carbonate [Calcium] 600 mg PO BID 01/25/21 03/27/21 History Loratadine [Claritin] 10 mg PO DAILY 01/25/21 03/27/21 History Melatonin 5 mg PO HS 01/25/21 03/27/21 History Vitamin B Complex 1 each PO QAM 01/25/21 03/27/21 History diphenhydrAMINE [Benadryl] 25 mg PO HS PRN 01/25/21 03/27/21 History Allergies Allergy/AdvReac Type Severity Reaction Status Date / Time codeine AdvReac Abdominal Verified 03/27/21 19:56 Pain paclitaxel [From Taxol] AdvReac Rash/Hives Verified 03/27/21 19:56 Physical Exam Vitals: Vital Signs Temp Pulse Resp BP BP Pulse Ox 03/27/21 20:00 97.6 F 80 16 122/71 95 03/27/21 17:10 98.0 F 79 16 133/76 96 03/27/21 16:10 77 16 137/73 97 03/27/21 15:10 78 16 129/76 97 03/27/21 14:40 78 16 146/78 98 03/27/21 14:10 85 16 149/82 97 03/27/21 13:55 79 16 144/78 97 03/27/21 13:40 79 16 148/73 94 L 03/27/21 13:25 97.7 F 80 16 149/80 97 03/27/21 13:15 91 18 125/66 97 03/27/21 13:00 89 18 127/69 97 03/27/21 12:45 89 18 125/68 99 03/27/21 12:30 88 18 130/71 99 03/27/21 12:16 97.2 F L 92 18 127/74 99 03/27/21 07:18 97.3 F L 86 16 115/68 97 Intake and Output 03/27/21 03/27/21 03/27/21 06:59 14:59 22:59 Intake Total 1600 Output Total 240 1400 Balance 1360 -1400 Intake: IV 1600 Output: Urine 200 1400 Estimated Blood Loss 40 Other: Voiding Method Toilet # Voids 2 Weight 62.1 kg
[2021-03-27] MEDS ORDERED: MELATONIN 5 MG TABLET PO SCH (21:00)
[2021-03-27] MEDS: HYDROcodone/APAP 5-325MG 1 EACH TAB PO PRN (21:57)
[2021-03-28] MEDS: HEPARIN SODIUM,PORCINE/PF 5,000 UNIT/0.5 ML SYRINGE SQ SCH ×2 (00:02→08:47)
[2021-03-28 00:39] VITALS: TEMP 98.1
[2021-03-28] MEDS: HYDROcodone/APAP 5-325MG 1 EACH TAB PO PRN ×2 (03:24→08:50)
[2021-03-28 06:42] LABS: Basophils % (A) 0 %; Eosinophils # (A) 0.1 k/uL (0-0.7); Eosinophils % (A) 1 %; HCT 37.1 % (34.0-46.0); HGB 12.7 gm/dL (11.4-16.0); Lymphocytes # (A) 2.1 k/uL (1.0-4.8); Lymphocytes % (A) 29 %; MCH 33.9 pg (25.0-35.0); MCHC 34.3 g/dL (31.0-37.0); MCV 98.9 fL (80.0-100.0); Mean Platelet Volume 7.1; Monocytes # (A) 0.5 k/uL (0-1.0); Monocytes % (A) 6 %; Neutrophils # (A) 4.6 k/uL (1.3-7.7); Neutrophils % (A) 62 %; Platelet Count 182 k/uL (150-450); RBC 3.75 m/uL (3.80-5.40); RDW 12.8 % (11.5-15.5); WBC 7.4 k/uL (3.8-10.6)
[2021-03-28] MEDS: CALCIUM CARBONATE 500 MG CHEWABLE PO SCH (08:47)
[2021-03-28 08:57] VITALS: BP 106/70; PULSE 71; RESP 16
[2021-03-28] MEDS ORDERED: CHOLECALCIFEROL 25 MCG (1000 IU) TABLET PO SCH (09:00)
[2021-03-28] MEDS ORDERED: NON FORMULARY DRUG (Vitamin B Complex [Vitamin B Complex] 1 EACH Capsule) PO SCH (09:00)
[2021-03-28] MEDS ORDERED: LORATADINE 10 MG TAB PO SCH (09:00)
--- NOTE | 2021-03-28 11:13 | P.PN ---
Subjective Progress Note Date: 03/28/21 Principal diagnosis: Postoperative day #1 bilateral mastectomy bilateral axillary mapping, bilateral sentinel node biopsy Postoperative day #1 bilateral mastectomy bilateral axillary mapping, bilateral sentinel node biopsy Patient is doing well postoperatively she is tolerating diet without difficulty. Her pain is under control. She has stable hemoglobin at 12.7, white count 7.4. ELIZABETH output is minimal and is serous in nature. Objective - Vital Signs Vital signs: Vital Signs Temp 98.1 F 03/28/21 08:15 Pulse 71 03/28/21 08:15 Resp 16 03/28/21 08:15 BP 106/70 03/28/21 08:15 Pulse Ox 97 03/28/21 08:15 Intake & Output 03/27/21 03/28/21 03/28/21 18:59 06:59 18:59 Intake Total 1600 1540 Output Total 1240 445 Balance 360 1095 Weight 62.1 kg Intake: IV 1600 Intake, IV Titration 1000 Amount Dextrose 5%-0.45% NaCl 1, 1000 000 ml @ 100 mls/hr IV . Q10H [facility] Rx#:[id number] Oral 540 Output: Drainage 45 #1 chest (right side) 10 #2 chest (right side) 5 #3 chest (left side) 20 #4 chest (left side) 10 Urine 1200 400 Estimated Blood Loss 40 Other: Voiding Method Toilet # Voids 2 1 - Constitutional General appearance: Present: average body habitus - EENT Eyes: Present: EOMI ENT: Present: hearing grossly normal - Neck Neck: Present: normal ROM - Respiratory Details: Mild wheeze left lower lung base otherwise clear bilateral - Cardiovascular Rhythm: regular Heart sounds: normal: S1, S2 - Integumentary Integumentary Comment(s): Incision clean and dry bilateral ELIZABETH output all 4 drains serous in nature ELIZABETH #1 10 mL right ELIZABETH #2 5 mL right ELIZABETH #3 20 mL left 2. Therefore 10 mL left - Musculoskeletal Musculoskeletal: Present: gait normal - Psychiatric Psychiatric: Present: A&O x's 3, appropriate affect, intact judgment & insight - Labs CBC & Chem 7: 03/28/21 06:19 Labs: Abnormal Lab Results - Last 24 Hours (Table) 03/28/21 Range/Units 06:19 RBC 3.75 L (3.80-5.40) m/uL Assessment and Plan Assessment: Impression: 1. Patient doing well postoperative status post bilateral mastectomy/bilateral sentinel node mapping/bilateral sentinel node biopsy Plan: 1. Discharged home to be followed as an outpatient
--- NOTE | 2021-03-28 11:15 | P.DS ---
Providers Attending physician: Henny Levin Consults: 03/27/21 12:16 Consult Physician Routine Consulting Provider: Jc Bean Consult Reason/Comments: medical managment Do you want consulting provider notified?: Yes Primary care physician: Miller El [facility] Course: Jazmin is a 70-year-old white female status post bilateral mastectomy and sentinel node biopsy on . Postoperatively she is doing well with no complications. She is going to be discharged home to be followed as an outpatient. Plan - Discharge Summary Discharge Rx Participant: Yes New Discharge Prescriptions: No Action Cholecalciferol [Vitamin D3] 1,000 unit PO QAM diphenhydrAMINE [Benadryl] 25 mg PO HS PRN PRN Reason: Allergy Symptoms Loratadine [Claritin] 10 mg PO DAILY Acetaminophen Tab [Tylenol Tab] 500 mg PO Q6H Vitamin B Complex 1 each PO QAM Melatonin 5 mg PO HS Calcium Carbonate [Calcium] 600 mg PO BID Discharge Medication List Cholecalciferol [Vitamin D3] 1,000 unit PO QAM 10/02/20 [History] Acetaminophen Tab [Tylenol Tab] 500 mg PO Q6H 01/25/21 [History] Calcium Carbonate [Calcium] 600 mg PO BID 01/25/21 [History] Loratadine [Claritin] 10 mg PO DAILY 01/25/21 [History] Melatonin 5 mg PO HS 01/25/21 [History] Vitamin B Complex 1 each PO QAM 01/25/21 [History] diphenhydrAMINE [Benadryl] 25 mg PO HS PRN 01/25/21 [History] Follow up Appointment(s)/Referral(s): Henny Levin MD [STAFF PHYSICIAN] - 1 Week Activity/Diet/Wound Care/Special Instructions: Do not drive if taking narcotic pain medication May shower after 48 hours Teach patient drain care/drain and record output of each drain daily and as needed Discharge Disposition: HOME SELF-CARE
--- NOTE | 2021-03-28 19:30 | P.PN ---
Progress Note - Text Progress Note Date: 03/28/21 - Chief Complaint Mastectomy Consultation: This is a very pleasant 70-year-old patient whose undergone bilateral mastectomy. Patient is a Hemovac in place. Patient was diagnosed of breast cancer in September 2020. This was a rather aggressive tumor triple negative. Did receive chemotherapy by Dr. Omalley. Patient has been at the operative site. No nausea vomiting. Did tolerate her dinner. Patient used to take lipid-lowering medications discontinued the treatment for cancer. Also is taking medications for insomnia. States that it for ALLERGIES sometimes. Denies any cardiac and pulmonary history. Today: Laying in bed. Pain control. Oral intake good. No nausea vomiting. Has been out of bed. Feeling much better. Review of systems: Was done for constitutional, cardiovascular, GI, pulmonary. relevant finding as above Today's medications reviewed in electronic records Past medical history to include: Breast cancer, hyperlipidemia, urinary stress incontinence insomnia Social history: Patient is a . Does not smoke. Alcohol occasionally. Physical examination: VITAL SIGNS: 98.1, 71, 16, 106/70, 97% room air GENERAL: BMI 23.5, comfortable EYES: Pupils equal. Conjunctiva normal. HEENT: External appearance of nose and ears normal, oral cavity grossly normal. NECK: JVD not raised; masses not palpable. HEART: First and second heart sounds are normal; no edema. LUNGS: Respiratory rate normal; clear to auscultation. CHEST wall: Dressing across the chest with Hemovac in place. ABDOMEN: Soft, nontender, liver spleen not palpable, no masses palpable. PSYCH: Alert and oriented x3; mood and affect normal. INVESTIGATIONS, reviewed in the clinical context: Coronavirus [PCR]-not detected Assessment and plan: --Bilateral mastectomy with bilateral sentinel node injection and bilateral sentinel node biopsy for bilateral invasive ductal breast cancer status post neoadjuvant chemotherapy -Bilateral invasive ductal breast cancer status post neoadjuvant chemotherapy, with tumor in the right breast -Hyperlipidemia Currently off lipid-lowering medications -Chronic idiopathic insomnia Use melatonin when necessary -Chronic urinary stress and urge incontinence Doing much better. Should follow up with PCP upon discharge. Discussed with patient. Thank you Dr. Gomes
== END 2021-03-28 13:09 | disposition home or self-care (01) ==
LOC: OR 06:46 → 6PED 12:36 → OR 03-28 13:09
PROVIDERS: ATTEND Surgery
DX: C50.211 Malignant neoplasm of upper-inner quadrant of right female breast (principal); C50.812 Malignant neoplasm of overlapping sites of left female breast; E78.5 Hyperlipidemia, unspecified; F51.01 Primary insomnia; N39.46 Mixed incontinence; Z79.899 Other long term (current) drug therapy; Z92.21 Personal history of antineoplastic chemotherapy; Z80.0 Family history of malignant neoplasm of digestive organs; Z80.3 Family history of malignant neoplasm of breast
CPT/HCPCS: 19307; 38792 ×2; 85025; 87635; A9520; J2250; J2270; J1100; J2405; J0690; J2001; J3010; J2370; J0330; J2704; Q9968; J1170; J1644 ×2; 88307; 88341; 88342

== ENCOUNTER → 2021-04-06 | Outpatient (CLI) | payer MEDICARE, OTHER ==
--- NOTE | 2021-04-06 15:21 | P.PN ---
Progress Note - Text Progress Note Date: 04/06/21 Jazmin is a 70 year old white female status post bilateral mastectomy on 03-27-21. The pathology on the left revealed no residual cancer in the left breast. [place] lymph node on the left was negative. On the right breast residual tumor 3.5 cm was identified all margins were negative. One sentinel node was removed which was positive for a 7 mm deposit of tumor. The patient states that she did well related to the mastectomies however she developed some nausea and vomiting and was seen in the emergency room and [facility] on Friday. The patient was treated with IV fluids and Zofran. She felt better after discharge from the ER and has not vomited today. The patient has not had any fever or chills. I performed all drains is minimal being less than 10 mL per day. Physical examination: Lungs: Bilateral wheezing at the bases Heart: Regular rate and rhythm Incisions: Bilateral clean and dry no evidence of any infection All ELIZABETH drains serous output with no evidence of any infection minimal in nature Impression/plan: 1. Patient doing well status post bilateral mastectomies 2. Nausea and vomiting does not appear to be related to the surgery/she has had this in the past and she has responded to fluids and Zofran, will discuss with Dr. Winston need for head CT to r/o mets should this continue 3. DC ELIZABETH drains 4. Follow up with Dr. Winston 5. One lymph node positive in the right axilla consider treatment with completion dissection versus radiation therapy 6. Follow-up here in 2 weeks 7. Presentation of case at tumor board Cc: Dr. Coles
[2021-04-06 15:32] VITALS: BP 153/92; PULSE 82; RESP 18; TEMP 98.2
== END ==
LOC: WWCWWP 15:03
PROVIDERS: ATTEND Surgery
DX: Z48.03 Encounter for change or removal of drains (principal); Z90.13 Acquired absence of bilateral breasts and nipples; Z85.3 Personal history of malignant neoplasm of breast; Z88.5 Allergy status to narcotic agent; Z88.8 Allergy status to other drugs, medicaments and biological substances

== ENCOUNTER 2021-04-11 23:25 | Inpatient (IN) | payer MEDICARE, OTHER ==
[2021-04-11] MEDS ORDERED: SODIUM CHLORIDE 0.9% 500 ML 500 ML IV STA (23:38)
[2021-04-11] MEDS ORDERED: SODIUM CHLORIDE 0.9% 1,000 ML IV STA ×2 (23:38)
[2021-04-11] MEDS ORDERED: LORazepam 2 MG/ML INJ IV PRN (23:39)
[2021-04-11] MEDS ORDERED: PROCHLORPERAZINE INJ 10 MG/2 ML VIAL IVP STA (23:39)
[2021-04-11] MEDS ORDERED: diphenhydrAMINE 50 MG/ML 1 ML VIAL IVP STA (23:39)
[2021-04-11] MEDS ORDERED: HYDROmorphone 1 MG/ML 1 ML SYRINGE IVP STA (23:39)
--- NOTE | 2021-04-11 23:40 | ED ---
Nausea/Vomiting/Diarrhea HPI - General Chief complaint: Nausea/Vomiting/Diarrhea Stated complaint: Nausea, vomiting Time Seen by Provider: 04/11/21 23:38 Source: patient, family, RN notes reviewed, old records reviewed Mode of arrival: wheelchair Limitations: no limitations - History of Present Illness Initial comments: This is a 68-year-old female who presents with significant illness. Persistent nausea vomiting and diarrhea. Weakness, unable to keep anything down persistent weight loss. Diagnosis but unsure final diagnosis, cancer unsure of his metastases breath long. We'll patient is unable to communicate secondary to severe persistent nausea vomiting MD complaint: nausea, vomiting, diarrhea, abdominal pain -: week(s) Description of Vomiting: food contents Description of Diarrhea: water Associated Abdominal Pain: Yes Location: diffuse Severity: severe Severity scale (1-10): 10 Quality: constant Consistency: constant Improves with: none Worsens with: eating, bowel movement, vomiting Context: other (Recent cancer diagnosis) Associated Symptoms: myalgias, diaphoresis, malaise, nausea/vomiting, shortness of breath, weakness - Related Data Home Medications Medication Instructions Recorded Confirmed Cholecalciferol [Vitamin D3 (10 1,000 unit PO DAILY 10/02/20 04/21/21 Mcg = 400 Iu)] Calcium Carbonate [Calcium] 600 mg PO BID 01/25/21 04/21/21 Vitamin B Complex 1 cap PO DAILY 01/25/21 04/21/21 HYDROcodone/APAP 7.5-325MG [[place] 1 tab PO Q6H PRN 04/12/21 04/21/21 7.5-325] Ondansetron HCl [Zofran] 4 mg PO QID PRN 04/12/21 04/21/21 Vitamin E 100 unit PO DAILY 04/12/21 04/21/21 Acetaminophen Tab [Tylenol] 500 mg PO Q6HR PRN 04/21/21 04/21/21 Dexamethasone [Decadron] See Taper PO QID 04/21/21 04/21/21 Pantoprazole Sodium [Protonix] 40 mg PO BID@0100,1300 04/21/21 04/21/21 Previous Rx's Medication Instructions Recorded Sennosides [Senokot] 8.6 mg PO BID PRN #30 tab 04/16/21 polyethylene glycoL 3350 [Miralax] 17 gm PO DAILY PRN 30 Days #30 04/16/21 powd.pack Apixaban [Eliquis Starter Pack 0 mg PO DIRECTED 30 Days #1 pack 04/23/21 (for VTE)] Allergies Allergy/AdvReac Type Severity Reaction Status Date / Time paclitaxel [From Taxol] Allergy Rash/Hives Verified 04/21/21 11:37 atorvastatin [From Lipitor] AdvReac SEVERE Verified 04/21/21 11:37 MUSCLE ACHES codeine AdvReac Abdominal Verified 04/21/21 11:37 Pain Review of Systems ROS Statement: Those systems with pertinent positive or pertinent negative responses have been documented in the HPI. ROS Other: All systems not noted in ROS Statement are negative. Past Medical History Past Medical History: Cancer, Hyperlipidemia History of Any Multi-Drug Resistant Organisms: None Reported Past Surgical History: Cholecystectomy, Tonsillectomy Additional Past Surgical History / Comment(s): laminectomy 1998 & 2000; double masectomy Past Anesthesia/Blood Transfusion Reactions: No Reported Reaction Past Psychological History: No Psychological Hx Reported Smoking Status: Former smoker Past Alcohol Use History: Occasional Past Drug Use History: None Reported - Past Family History Father Family Medical History: CVA/TIA, Myocardial Infarction ([place]) Mother Family Medical History: Cancer, Congestive Heart Failure (CHF), COPD Additional Family Medical History / Comment(s): pancreatic cancer Sister(s) Family Medical History: Cancer Additional Family Medical History / Comment(s): right breast cancer General Exam Limitations: altered mental status General appearance: alert, in no apparent distress, anxious, in distress Head exam: Present: atraumatic, normocephalic, normal inspection Eye exam: Present: normal appearance, PERRL, EOMI. Absent: scleral icterus, conjunctival injection, periorbital swelling ENT exam: Present: normal exam, mucous membranes moist Neck exam: Present: normal inspection. Absent: tenderness, meningismus, lymphadenopathy Respiratory exam: Present: normal lung sounds bilaterally. Absent: respiratory distress, wheezes, rales, rhonchi, stridor Cardiovascular Exam: Present: regular rate, normal rhythm, normal heart sounds. Absent: systolic murmur, diastolic murmur, rubs, gallop, clicks GI/Abdominal exam: Present: soft, normal bowel sounds. Absent: distended, tenderness, guarding, rebound, rigid Extremities exam: Present: normal inspection, full ROM, normal capillary refill. Absent: tenderness, pedal edema, joint swelling, calf tenderness Back exam: Present: normal inspection Neurological exam: Present: alert, oriented X3, CN II-XII intact Psychiatric exam: Present: normal affect, normal mood Skin exam: Present: warm, dry, intact, normal color. Absent: rash Course Vital Signs 04/11/21 04/12/21 04/12/21 23:26 03:21 06:39 Temperature 97.5 F L Pulse Rate 78 87 87 Respiratory 20 16 16 Rate Blood Pressure 203/102 130/83 127/72 O2 Sat by Pulse 96 97 98 Oximetry 04/12/21 04/12/21 07:27 11:59 Temperature Pulse Rate 75 78 Respiratory 20 16 Rate Blood Pressure 135/74 133/72 O2 Sat by Pulse 98 98 Oximetry - Reevaluation(s) Reevaluation #1: Medical record is reviewed Patient symptoms are significantly improved here in the ER Patient informed results and questions answered Patient reevaluated continuing to feel unwell symptoms worsening - Consultations Consultation #1: Spoke with limited who agree to admit the patient Medical Decision Making - Medical Decision Making 70 female history of cancer coming in with severe nausea vomiting and diarrhea. Patient will be admitted for symptom management - Lab Data Result diagrams: 04/13/21 06:05 04/15/21 03:40 Lab Results 04/12/21 04/12/21 04/12/21 Range/Units 00:17 00:17 00:17 WBC 9.1 (3.8-10.6) k/uL RBC 4.20 (3.80-5.40) m/uL Hgb 14.2 (11.4-16.0) gm/dL Hct 40.1 (34.0-46.0) % MCV 95.6 (80.0-100.0) fL MCH 33.9 (25.0-35.0) pg MCHC 35.5 (31.0-37.0) g/dL RDW 12.5 (11.5-15.5) % Plt Count 203 (150-450) k/uL MPV 7.4 Neutrophils % 82 % Lymphocytes % 11 % Monocytes % 5 % Eosinophils % 1 % Basophils % 0 % Neutrophils # 7.4 (1.3-7.7) k/uL Lymphocytes # 1.0 (1.0-4.8) k/uL Monocytes # 0.4 (0-1.0) k/uL Eosinophils # 0.1 (0-0.7) k/uL Basophils # 0.0 (0-0.2) k/uL Sodium 133 L (137-145) mmol/L Potassium 4.3 (3.5-5.1) mmol/L Chloride 103 (98-107) mmol/L Carbon Dioxide 23 (22-30) mmol/L Anion Gap 7 mmol/L BUN 15 (7-17) mg/dL Creatinine 0.49 L (0.52-1.04) mg/dL Est GFR (CKD-EPI)AfAm >90 (>60 ml/min/1.73 sqM) Est GFR (CKD-EPI)NonAf >90 (>60 ml/min/1.73 sqM) BUN/Creatinine Ratio (12.00-20.00) Ratio Glucose 162 H (74-99) mg/dL Plasma Lactic Acid Benny 1.7 (0.7-2.0) mmol/L Calcium 8.5 (8.4-10.2) mg/dL Phosphorus 3.2 (2.5-4.5) mg/dL Magnesium 2.1 (1.6-2.3) mg/dL Total Bilirubin 0.4 (0.2-1.3) mg/dL AST 29 (14-36) U/L ALT 12 (4-34) U/L Alkaline Phosphatase 58 (38-126) U/L Creatine Kinase 31 (30-135) U/L Troponin I (0.000-0.034) ng/mL Total Protein 6.4 (6.3-8.2) g/dL Albumin 4.1 (3.5-5.0) g/dL Globulin (1.6-3.3) g/dL Albumin/Globulin Ratio (1.60-3.17) g/dL Urine Color Urine Appearance (Clear) Urine pH (5.0-8.0) Ur Specific [place] (1.001-1.035) Urine Protein (Negative) Urine Glucose (UA) (Negative) Urine Ketones (Negative) Urine Blood (Negative) Urine Nitrite (Negative) Urine Bilirubin (Negative) Urine Urobilinogen (<2.0) mg/dL Ur Leukocyte Esterase (Negative) Coronavirus (PCR) (Not Detectd) 04/12/21 04/12/21 04/12/21 Range/Units 00:17 01:30 03:30 WBC (3.8-10.6) k/uL RBC (3.80-5.40) m/uL Hgb (11.4-16.0) gm/dL Hct (34.0-46.0) % MCV (80.0-100.0) fL MCH (25.0-35.0) pg MCHC (31.0-37.0) g/dL RDW (11.5-15.5) % Plt Count (150-450) k/uL MPV Neutrophils % % Lymphocytes % % Monocytes % % Eosinophils % % Basophils % % Neutrophils # (1.3-7.7) k/uL Lymphocytes # (1.0-4.8) k/uL Monocytes # (0-1.0) k/uL Eosinophils # (0-0.7) k/uL Basophils # (0-0.2) k/uL Sodium (137-145) mmol/L Potassium (3.5-5.1) mmol/L Chloride (98-107) mmol/L Carbon Dioxide (22-30) mmol/L Anion Gap mmol/L BUN (7-17) mg/dL Creatinine (0.52-1.04) mg/dL Est GFR (CKD-EPI)AfAm (>60 ml/min/1.73 sqM) Est GFR (CKD-EPI)NonAf (>60 ml/min/1.73 sqM) BUN/Creatinine Ratio (12.00-20.00) Ratio Glucose (74-99) mg/dL Plasma Lactic Acid Benny (0.7-2.0) mmol/L Calcium (8.4-10.2) mg/dL Phosphorus (2.5-4.5) mg/dL Magnesium (1.6-2.3) mg/dL Total Bilirubin (0.2-1.3) mg/dL AST (14-36) U/L ALT (4-34) U/L Alkaline Phosphatase (38-126) U/L Creatine Kinase (30-135) U/L Troponin I <0.012 (0.000-0.034) ng/mL Total Protein (6.3-8.2) g/dL Albumin (3.5-5.0) g/dL Globulin (1.6-3.3) g/dL Albumin/Globulin Ratio (1.60-3.17) g/dL Urine Color Colorless Urine Appearance Clear (Clear) Urine pH 6.0 (5.0-8.0) Ur Specific [place] 1.006 (1.001-1.035) Urine Protein Negative (Negative) Urine Glucose (UA) Negative (Negative) Urine Ketones Negative (Negative) Urine Blood Negative (Negative) Urine Nitrite Negative (Negative) Urine Bilirubin Negative (Negative) Urine Urobilinogen <2.0 (<2.0) mg/dL Ur Leukocyte Esterase Negative (Negative) Coronavirus (PCR) Not Detected (Not Detectd) 04/13/21 04/13/21 Range/Units 06:05 06:05 WBC 9.9 (3.8-10.6) k/uL RBC 3.83 (3.80-5.40) m/uL Hgb 12.3 (11.4-16.0) gm/dL Hct 37.1 (34.0-46.0) % MCV 96.9 (80.0-100.0) fL MCH 32.1 (25.0-35.0) pg MCHC 33.2 (31.0-37.0) g/dL RDW 13.2 (11.5-15.5) % Plt Count 182 (150-450) k/uL MPV 6.7 Neutrophils % 85 % Lymphocytes % 9 % Monocytes % 5 % Eosinophils % 1 % Basophils % 0 % Neutrophils # 8.4 H (1.3-7.7) k/uL Lymphocytes # 0.8 L (1.0-4.8) k/uL Monocytes # 0.5 (0-1.0) k/uL Eosinophils # 0.1 (0-0.7) k/uL Basophils # 0.0 (0-0.2) k/uL Sodium 136 (137-145) mmol/L Potassium 3.7 (3.5-5.1) mmol/L Chloride 107 (98-107) mmol/L Carbon Dioxide 23.2 (22-30) mmol/L Anion Gap 5.80 mmol/L BUN 10.0 (7-17) mg/dL Creatinine 0.5 L (0.52-1.04) mg/dL Est GFR (CKD-EPI)AfAm 114.5 (>60 ml/min/1.73 sqM) Est GFR (CKD-EPI)NonAf 98.8 (>60 ml/min/1.73 sqM) BUN/Creatinine Ratio 20.00 (12.00-20.00) Ratio Glucose 151 H (74-99) mg/dL Plasma Lactic Acid [place]enny (0.7-2.0) mmol/L Calcium 7.2 L (8.4-10.2) mg/dL Phosphorus (2.5-4.5) mg/dL Magnesium 2.1 (1.6-2.3) mg/dL Total Bilirubin 0.7 (0.2-1.3) mg/dL AST 20 (14-36) U/L ALT 11 (4-34) U/L Alkaline Phosphatase 58 (38-126) U/L Creatine Kinase (30-135) U/L Troponin I (0.000-0.034) ng/mL Total Protein 4.8 L (6.3-8.2) g/dL Albumin 3.40 L (3.5-5.0) g/dL Globulin 1.4 L (1.6-3.3) g/dL Albumin/Globulin Ratio 2.43 (1.60-3.17) g/dL Urine Color Urine Appearance (Clear) Urine pH (5.0-8.0) Ur Specific [place] (1.001-1.035) Urine Protein (Negative) Urine Glucose (UA) (Negative) Urine Ketones (Negative) Urine Blood (Negative) Urine Nitrite (Negative) Urine Bilirubin (Negative) Urine Urobilinogen (<2.0) mg/dL Ur Leukocyte Esterase (Negative) Coronavirus (PCR) (Not Detectd) - Radiology Data Radiology results: report reviewed (X-rays nonspecific), image reviewed Disposition Clinical Impression: Dehydration, Gastroenteritis, Intractable nausea and vomiting Disposition: ADMITTED IP TO THIS HOSP Condition: Fair Is patient prescribed a controlled substance at d/c from ED?: No
[2021-04-12 00:46] LABS: Basophils % (A) 0 %; Eosinophils # (A) 0.1 k/uL (0-0.7); Eosinophils % (A) 1 %; HCT 40.1 % (34.0-46.0); HGB 14.2 gm/dL (11.4-16.0); Lymphocytes % (A) 11 %; MCH 33.9 pg (25.0-35.0); MCHC 35.5 g/dL (31.0-37.0); MCV 95.6 fL (80.0-100.0); Mean Platelet Volume 7.4; Monocytes # (A) 0.4 k/uL (0-1.0); Monocytes % (A) 5 %; Neutrophils # (A) 7.4 k/uL (1.3-7.7); Neutrophils % (A) 82 %; Platelet Count 203 k/uL (150-450); RDW 12.5 % (11.5-15.5); WBC 9.1 k/uL (3.8-10.6)
[2021-04-12] MEDS ORDERED: NALOXONE 0.4 MG/ML 1 ML VIAL IV PRN (01:03)
[2021-04-12 01:07] LABS: ALT 12 U/L (4-34); AST 29 U/L (14-36); African American GFR (CKD) >90 (>60 ml/min/1.73 sqM); Albumin 4.1 g/dL (3.5-5.0); Alkaline Phosphatase 58 U/L (38-126); Anion Gap 7 mmol/L; Blood Urea Nitrogen 15 mg/dL (7-17); Calcium 8.5 mg/dL (8.4-10.2); Carbon Dioxide 23 mmol/L (22-30); Chloride 103 mmol/L (98-107); Creatine Kinase 31 U/L (30-135); Glucose 162 mg/dL (74-99); Magnesium 2.1 mg/dL (1.6-2.3); Non-African American GFR(CKD) >90 (>60 ml/min/1.73 sqM); Phosphorus 3.2 mg/dL (2.5-4.5); Potassium 4.3 mmol/L (3.5-5.1); Sodium 133 mmol/L (137-145); Total Bilirubin 0.4 mg/dL (0.2-1.3); Total Protein 6.4 g/dL (6.3-8.2)
[2021-04-12] MEDS: DEXTROSE 5%-0.45% NACL 1,000 ML IV SCH ×2 (03:22→11:51)
[2021-04-12] MEDS: HYDROmorphone 1 MG/ML 1 ML SYRINGE IVP PRN ×3 (03:22→20:30)
[2021-04-12 04:22] LABS: Appearance,Urine Clear (Clear); Bilirubin,Urine Negative (Negative); Blood,Urine Negative (Negative); Color,Urine Colorless; Glucose,Urine (UA) Negative (Negative); Ketones,Urine Negative (Negative); Leukocyte Esterase,Urine Negative (Negative); Nitrite,Urine Negative (Negative); Protein,Urine Negative (Negative); Specific Gravity,Urine 1.006 (1.001-1.035); Urobilinogen,Urine <2.0 mg/dL (<2.0)
[2021-04-12] MEDS: ONDANSETRON 4 MG/2 ML VIAL IVP PRN ×3 (11:56→23:25)
[2021-04-12] MEDS: SODIUM CHLORIDE 0.9% 1,000 ML IV SCH ×2 (11:58→22:33)
--- NOTE | 2021-04-12 12:43 | XR ---
EXAMINATION TYPE: XR abdomen 2V DATE OF EXAM: 04/12/2021 12:33 PM CLINICAL HISTORY: Nausea and vomiting TECHNIQUE: Single supine KUB image of the abdomen is obtained. COMPARISON: None. FINDINGS: Stool and gas are seen within the colon. There is a paucity of gas within the small bowel. These findings are suggestive of nonspecific, nonobstructive bowel gas pattern. No free air on the up right view. Blunting of the costophrenic angle suggestive of tiny pleural effusions. Degenerative sarah beth nges of the lower lumbar spine and hips. IMPRESSION: 1. Nonspecific, nonobstructive bowel gas pattern. No free air. 2. Minimal blunting of the cost phrenic angles may represent tiny pleural effusions.
--- NOTE | 2021-04-12 14:18 | P.HPIM ---
History of Present Illness 70-year-old female came in with intractable nausea vomiting. Patient last received chemotherapy for complaint of breast cancer month of January. is still having nausea vomiting denied any significant abdominal pain patient the didn't have a bowel movement for about a week.abdominal x-ray which did not show any increased bowel gas pattern on her bowel obstruction. Her abdomen is soft. Patient is bit hyponatremic and patient is on D5 half-normal saline which was switched to normal saline. Oncology evaluation that are pending and MRI of the head to evaluate for metastatic disease. Review of Systems REVIEW OF SYSTEMS: CONSTITUTIONAL: No fever, no malaise, no fatigue. HEENT: No recent visual problems or hearing problems. Denied any sore throat. CARDIOVASCULAR: No chest pain, orthopnea, PND, no palpitations, no syncope. PULMONARY: No shortness of breath, no cough, no hemoptysis. GASTROINTESTINAL: As mentioned in HPI NEUROLOGICAL: No headaches, no weakness, no numbness. HEMATOLOGICAL: Denies any bleeding or petechiae. GENITOURINARY: Denies any burning micturition, frequency, or urgency. MUSCULOSKELETAL/RHEUMATOLOGICAL: Denies any joint pain, swelling, or any muscle pain. ENDOCRINE: Denies any polyuria or polydipsia. The rest of the 14-point review of systems is negative. Past Medical History Past Medical History: Cancer, Hyperlipidemia Additional Past Medical History / Comment(s): Bilateral breast cancer treated with chemo/double mastectomy with +R sentinel node History of Any Multi-Drug Resistant Organisms: None Reported Past Surgical History: Cholecystectomy, Tonsillectomy Additional Past Surgical History / Comment(s): 03/27/21 double mastectomy, bilateral breast core biopsy, laminectomy 1998 & 2000 Past Anesthesia/Blood Transfusion Reactions: No Reported Reaction Smoking Status: Former smoker - Past Family History Father Family Medical History: CVA/TIA, Myocardial Infarction ([place]) Mother Family Medical History: Cancer, Congestive Heart Failure (CHF), COPD Additional Family Medical History / Comment(s): pancreatic cancer Sister(s) Family Medical History: Cancer Additional Family Medical History / Comment(s): right breast cancer Medications and Allergies Home Medications Medication Instructions Recorded Confirmed Type Cholecalciferol [Vitamin D3] 1,000 unit PO QAM 10/02/20 04/12/21 History Calcium Carbonate [Calcium] 600 mg PO BID 01/25/21 04/12/21 History Vitamin B Complex 1 cap PO QAM 01/25/21 04/12/21 History HYDROcodone/APAP 7.5-325MG [[place] 1 tab PO Q6H PRN 04/12/21 04/12/21 History 7.5-325] Ondansetron HCl [Zofran] 4 mg PO QID PRN 04/12/21 04/12/21 History Vitamin E 100 unit PO DAILY 04/12/21 04/12/21 History Allergies Allergy/AdvReac Type Severity Reaction Status Date / Time paclitaxel [From Taxol] Allergy Rash/Hives Verified 04/12/21 06:44 atorvastatin [From Lipitor] AdvReac SEVERE Verified 04/12/21 06:44 MUSCLE ACHES codeine AdvReac Abdominal Verified 04/12/21 06:44 Pain Physical Exam Vitals: Vital Signs Temp Pulse Pulse Resp BP BP Pulse Ox 04/12/21 13:48 97.7 F 81 16 149/79 92 L 04/12/21 11:59 78 16 133/72 98 04/12/21 07:27 75 20 135/74 98 04/12/21 06:39 87 16 127/72 98 04/12/21 03:21 87 16 130/83 97 04/11/21 23:26 97.5 F L 78 20 203/102 96 Intake and Output 04/11/21 04/12/21 04/12/21 22:59 06:59 14:59 Other: Weight 61.235 kg 61.235 kg PHYSICAL EXAMINATION: GENERAL: The patient is alert and oriented x3, not in any acute distress. Well developed, well nourished. HEENT: Pupils are round and equally reacting to light. EOMI. No scleral icterus. No conjunctival pallor. Normocephalic, atraumatic. No pharyngeal erythema. No thyromegaly. CARDIOVASCULAR: S1 and S2 present. No murmurs, rubs, or gallops. PULMONARY: Chest is clear to auscultation, no wheezing or crackles. ABDOMEN: Soft, nontender, nondistended, sluggish bowel sounds. No palpable organomegaly. MUSCULOSKELETAL: No joint swelling or deformity. EXTREMITIES: No cyanosis, clubbing, or pedal edema. NEUROLOGICAL: Gross neurological examination did not reveal any focal deficits. SKIN: No rashes. Results CBC & Chem 7: 04/12/21 00:17 04/12/21 00:17 Labs: Abnormal Lab Results - Last 24 Hours (Table) 04/12/21 Range/Units 00:17 Sodium 133 L (137-145) mmol/L Creatinine 0.49 L (0.52-1.04) mg/dL Glucose 162 H (74-99) mg/dL Thrombosis Risk Factor Assmnt - Choose All That Apply Any of the Below Risk Factors Present?: Yes Other Risk Factors: Yes Each Risk Factor Represents 2 Points: Age 61-74 years, Malignancy Other congenital or acquired thrombophilia - If yes, enter type in comment: No Thrombosis Risk Factor Assessment Total Risk Factor Score: 4 Thrombosis Risk Factor Assessment Level: Moderate Risk Assessment and Plan Plan: -Intractable nausea vomiting: Secondary to mucositis or peptic ulcer disease or gastritis: Patient will be started on Protonix IV fluid supportive care. -Triple negative breast cancer oncology evaluated the patient, MRI of the brain was ordered by oncology evaluate metastatic disease -Constipation secondary to [place] patient will be started on senna and MiraLAX on as-needed basis -Hyperlipidemia -DVT prophylaxis with Lovenox
[2021-04-12] MEDS: PROCHLORPERAZINE INJ 10 MG/2 ML VIAL IVP PRN (19:41)
[2021-04-12] MEDS: PANTOPRAZOLE 40 MG/10 ML VIAL IVP SCH (20:30)
--- NOTE | 2021-04-12 21:53 | P.CONS ---
History of Present Illness - Reason for Consult Consult date: 04/12/21 nausea and vomiting - Breast Cancer Requesting physician: Johann Watters - Chief Complaint Nausea and Vomiting - History of Present Illness Jazmin presented with persistent nausea and vomiting, not relieved with antiemetics. She is currently receiving taxol, which is a low emetgenic. Oncologic HX: Jazmin presented with rapidly enlarging R breast mass noted only few weeks ago , reported discomfort in breast without nipple drainage or skin changes. She had US of breast at [facility] reporting 3.5 cm R Breast mass. 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 She reported 1 sister with breast cancer, 2 maternal aunts with breast cancer Denied using Estrogen-based products. Denies anorexia or weight loss She is a lifetime non smoker, denies ETOH use 11/07/20: Tolerated cycle#1 of AC chemotherapy well (mild nausea & fatigue). 11/15/20-s/p 2 cycles of AC with neulasta, notes mild weakness in the legs, she does have insomnia the night of steroids, she has Hx of insomnia/broken sleep, worse now, uses mediation CDs, tylenol PM and benadryl. Continues on pepcid if she has heartburn. She has used some motrin. Denies F, chills, oral irr itation, she notes occasional labored breathing when she is fatigued, no other resp symptoms to report, no diarrhea, constipation (uses colace PRN), no swellling, or new pain. No other c/o questions or concerns. 02/27/21: PET Scan: improved R breast disease, but resolved systemic disease Review of Systems All systems: negative Constitutional: Reports as per HPI Past Medical History Past Medical History: Cancer, Hyperlipidemia Additional Past Medical History / Comment(s): Bilateral breast cancer treated with chemo/double mastectomy with +R sentinel node History of Any Multi-Drug Resistant Organisms: None Reported Past Surgical History: Cholecystectomy, Tonsillectomy Additional Past Surgical History / Comment(s): 03/27/21 double mastectomy, bilateral breast core biopsy, laminectomy 1998 & 2000 Past Anesthesia/Blood Transfusion Reactions: No Reported Reaction Smoking Status: Former smoker - Past Family History Father Family Medical History: CVA/TIA, Myocardial Infarction ([place]) Mother Family Medical History: Cancer, Congestive Heart Failure (CHF), COPD Additional Family Medical History / Comment(s): pancreatic cancer Sister(s) Family Medical History: Cancer Additional Family Medical History / Comment(s): right breast cancer Medications and Allergies Home Medications Medication Instructions Recorded Confirmed Type Cholecalciferol [Vitamin D3] 1,000 unit PO QAM 10/02/20 04/12/21 History Calcium Carbonate [Calcium] 600 mg PO BID 01/25/21 04/12/21 History Vitamin B Complex 1 cap PO QAM 01/25/21 04/12/21 History HYDROcodone/APAP 7.5-325MG [[place] 1 tab PO Q6H PRN 04/12/21 04/12/21 History 7.5-325] Ondansetron HCl [Zofran] 4 mg PO QID PRN 04/12/21 04/12/21 History Vitamin E 100 unit PO DAILY 04/12/21 04/12/21 History Allergies Allergy/AdvReac Type Severity Reaction Status Date / Time paclitaxel [From Taxol] Allergy Rash/Hives Verified 04/12/21 06:44 atorvastatin [From Lipitor] AdvReac SEVERE Verified 04/12/21 06:44 MUSCLE ACHES codeine AdvReac Abdominal Verified 04/12/21 06:44 Pain Physical Exam Vitals: Vital Signs Temp Pulse Pulse Resp BP BP Pulse Ox 04/12/21 19:57 98.8 F 80 16 147/77 96 04/12/21 13:48 97.7 F 81 16 149/79 92 L 04/12/21 11:59 78 16 133/72 98 04/12/21 07:27 75 20 135/74 98 04/12/21 06:39 87 16 127/72 98 04/12/21 03:21 87 16 130/83 97 04/11/21 23:26 97.5 F L 78 20 203/102 96 Intake and Output 04/12/21 04/12/21 04/12/21 06:59 14:59 22:59 Other: # Voids 1 Weight 61.235 kg 61.235 kg - Constitutional General appearance: cooperative, no acute distress - EENT Eyes: EOMI, PERRLA ENT: NA/AT, normal oropharynx - Neck Neck: normal ROM - Respiratory Respiratory: bilateral: CTA - Cardiovascular Rhythm: regularly irregular - Gastrointestinal General gastrointestinal: soft - Integumentary Integumentary: pale - Neurologic Neurologic: CNII-XII intact - Musculoskeletal Musculoskeletal: generalized weakness - Psychiatric Psychiatric: A&O x's 3, appropriate affect, intact judgment & insight Results CBC & Chem 7: 04/12/21 00:17 04/12/21 00:17 Labs: Abnormal Lab Results - Last 24 Hours (Table) 04/12/21 Range/Units 00:17 Sodium 133 L (137-145) mmol/L Creatinine 0.49 L (0.52-1.04) mg/dL Glucose 162 H (74-99) mg/dL Assessment and Plan (1) Dehydration Current Visit: Yes Status: Acute Code(s): E86.0 - DEHYDRATION SNOMED Code(s): 87686786 (2) Gastroenteritis Current Visit: Yes Status: Acute Code(s): K52.9 - NONINFECTIVE GASTROENTERITIS AND COLITIS, UNSPECIFIED SNOMED Code(s): 18570852 (3) Intractable nausea and vomiting Current Visit: Yes Status: Acute Code(s): R11.2 - NAUSEA WITH VOMITING, UNSPECIFIED SNOMED Code(s): 930845906 Plan: Assessment and Recommendations: Breast Cancer: - Will assess MRI Brain for metastatic disease with persistent nausea and vomiting Physician Attest: I have completed the full history and physical and agree with above dictation, dictated as a scribe
[2021-04-13] MEDS: HYDROmorphone 1 MG/ML 1 ML SYRINGE IVP PRN (01:27)
[2021-04-13] MEDS: PROCHLORPERAZINE INJ 10 MG/2 ML VIAL IVP PRN ×3 (02:29→16:20)
[2021-04-13] MEDS: ONDANSETRON 4 MG/2 ML VIAL IVP PRN ×2 (05:27→11:21)
[2021-04-13 06:45] LABS: Basophils % (A) 0 %; Eosinophils # (A) 0.1 k/uL (0-0.7); Eosinophils % (A) 1 %; HCT 37.1 % (34.0-46.0); HGB 12.3 gm/dL (11.4-16.0); Lymphocytes # (A) 0.8 k/uL (1.0-4.8); Lymphocytes % (A) 9 %; MCH 32.1 pg (25.0-35.0); MCHC 33.2 g/dL (31.0-37.0); MCV 96.9 fL (80.0-100.0); Mean Platelet Volume 6.7; Monocytes # (A) 0.5 k/uL (0-1.0); Monocytes % (A) 5 %; Neutrophils # (A) 8.4 k/uL (1.3-7.7); Neutrophils % (A) 85 %; Platelet Count 182 k/uL (150-450); RBC 3.83 m/uL (3.80-5.40); RDW 13.2 % (11.5-15.5); WBC 9.9 k/uL (3.8-10.6)
--- NOTE | 2021-04-13 07:16 | MR ---
EXAMINATION TYPE: MR brain wo/w con DATE OF EXAM: 04/13/2021 COMPARISON: NONE HISTORY: Metastatic disease, recently diagnosed breast cancer. TECHNIQUE: Multiplanar, multisequence images of the brain and brainstem is performed without and with IV contras t, utilizing 6.5 mL intravenous Gadavist . FINDINGS: Diffusion weighted images demonstrate no evidence of a recent infarct . There is mild vent ricular and sulcal prominence. Postcontrast images show multiple ring-enhancing foci with surrounding T2 hyperintense signal or vaso genic edema estimated near 50 scattered lesions. Approximately 20 lesions within the cerebellum are p resent. For reference of larger lesions right superior cerebellum bilaterally measures 2.5 x 1.7 cm a xial image 24. Lesion with most prominent vasogenic edema is superficial left parietal 1.9 x 1.5 cm l esion axial image 61. Midline structures demonstrate normal morphology. There is low lying cerebellar tonsils into foramen magnum measured 9 mm sagittal image 11. 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 The dural venous sinuses appear patent. The visualized sinuses are clear and the globes are intact . Increased fluid signal bilateral mastoid air cells should be correlated with point tenderness to ex clude mastoiditis. IMPRESSION: Significant brain metastatic disease as detailed above.
[2021-04-13] MEDS: PANTOPRAZOLE 40 MG/10 ML VIAL IVP SCH ×2 (08:32→20:41)
[2021-04-13] MEDS: ENOXAPARIN 40 MG/0.4 ML SYRINGE SQ SCH (08:32)
[2021-04-13] MEDS ORDERED: DEXAMETHASONE SOD PHOSPHATE 10 MG/ML 1 ML VIAL IV STA (10:13)
[2021-04-13] MEDS: DEXAMETHASONE SOD PHOSPHATE 4 MG/ML 1 ML VIAL IV SCH ×2 (10:43→16:21)
--- NOTE | 2021-04-13 12:44 | P.CONS ---
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 She has developed progressive nausea and vomiting over the past week with associated headache; MRI of the brain revealed significant intracranial metastases. She was initially diagnosed in September 2020, with a right breast cancer and metastatic disease found in mediastinal/hilar adenopathy, upper abdominal adenopathy and a small sacral metastasis. She initiated chemotherapy, finishing in January 2021. Posttreatment PET/CT revealed resolution of metastatic disease with residual right breast lesion. 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 Unfortunately, over the past week the patient has developed progressive difficulty with severe nausea and vomiting. She has had intermittent headaches. She states she was evaluated in the ER at [place], and treated with anti-emetics. She states that following one of the treatments with a steroid, she felt much better for 24 hours. She states she has had a little bit of unsteadiness with gait. Currently, the patient has trouble sitting up in bed without feeling severe nausea. Her MRI of the brain from April 13 showed a significant intracranial burden with greater than 20 lesions, measuring up to 2 cm with moderate vasogenic edema. Review of Systems Constitutional: Denies chills, Denies fever Eyes: denies blurred vision Ears: deny: decreased hearing Ears, nose, mouth and throat: Reports headache Cardiovascular: Denies chest pain Respiratory: Denies cough Gastrointestinal: Reports nausea, Reports vomiting, Denies abdominal pain Genitourinary: Denies flank pain Musculoskeletal: Reports gait dysfunction Neurological: Reports balance difficulties, Reports confusion, Reports headaches, Denies ataxia, Denies convulsions, Denies loss of vision, Denies numbness, Denies paresthesias Psychiatric: Denies anxiety, Denies confusion Past Medical History Past Medical History: Cancer, Hyperlipidemia Additional Past Medical History / Comment(s): Bilateral breast cancer treated with chemo/double mastectomy with +R sentinel node History of Any Multi-Drug Resistant Organisms: None Reported Past Surgical History: Cholecystectomy, Tonsillectomy Additional Past Surgical History / Comment(s): 03/27/21 double mastectomy, bilateral breast core biopsy, laminectomy 1998 & 2000 Past Anesthesia/Blood Transfusion Reactions: No Reported Reaction Smoking Status: Former smoker - Past Family History Father Family Medical History: CVA/TIA, Myocardial Infarction ([place]) Mother Family Medical History: Cancer, Congestive Heart Failure (CHF), COPD Additional Family Medical History / Comment(s): pancreatic cancer Sister(s) Family Medical History: Cancer Additional Family Medical History / Comment(s): right breast cancer Medications and Allergies Home Medications Medication Instructions Recorded Confirmed Type Cholecalciferol [Vitamin D3] 1,000 unit PO QAM 10/02/20 04/12/21 History Calcium Carbonate [Calcium] 600 mg PO BID 01/25/21 04/12/21 History RX: Vitamin B Complex 1 cap PO QAM 01/25/21 04/12/21 History HYDROcodone/APAP 7.5-325MG [Cl[place] 1 tab PO Q6H PRN 04/12/21 04/12/21 History 7.5-325] Ondansetron HCl [Zofran] 4 mg PO QID PRN 04/12/21 04/12/21 History RX: Vitamin E 100 unit PO DAILY 04/12/21 04/12/21 History Allergies Allergy/AdvReac Type Severity Reaction Status Date / Time paclitaxel [From Taxol] Allergy Rash/Hives Verified 04/12/21 06:44 atorvastatin [From Lipitor] AdvReac SEVERE Verified 04/12/21 06:44 MUSCLE ACHES codeine AdvReac Abdominal Verified 04/12/21 06:44 Pain Physical Exam Vitals: Vital Signs Temp Pulse Resp BP Pulse Ox 04/13/21 04:43 98.3 F 81 16 134/77 93 L 04/12/21 19:57 98.8 F 80 16 147/77 96 04/12/21 13:48 97.7 F 81 16 149/79 92 L Intake and Output 04/12/21 04/13/21 04/13/21 22:59 06:59 14:59 Intake Total 1200 Balance 1200 Intake: Intake, IV Titration 1200 Amount Sodium Chloride 0.9% 1, 1200 000 ml @ 100 mls/hr IV . Q10H [facility] Rx#:[id number] Other: # Voids 1 - Constitutional General appearance: no acute distress - EENT Eyes: EOMI, PERRLA ENT: hearing grossly normal - Neck Neck: no lymphadenopathy - Respiratory Respiratory: bilateral: CTA - Cardiovascular Rhythm: regular - Gastrointestinal General gastrointestinal: no tenderness - Integumentary Integumentary: no pale, no rash - Neurologic Neurologic: CNII-XII intact - Musculoskeletal Musculoskeletal: generalized weakness, strength equal bilaterally - Psychiatric Psychiatric: A&O x's 3 (Incorrect date by a few days; tired), appropriate af fect Results CBC & Chem 7: 04/13/21 06:05 04/12/21 00:17 Labs: Abnormal Lab Results - Last 24 Hours (Table) 04/13/21 Range/Units 06:05 Neutrophils # 8.4 H (1.3-7.7) k/uL Lymphocytes # 0.8 L (1.0-4.8) k/uL MRI - head: report reviewed, image reviewed Assessment and Plan Assessment: The patient is a 70-year-old female with a history of a stage IV triple negative cancer of the right breast. She has developed progressive nausea and vomiting over the past week with associated headache; MRI of the brain revealed significant intracranial metastases. Plan: 1. Brain metastases: As detailed above, the patient presents with a significant burden of metastatic disease to the brain. This is likely the reason for her intractable nausea and vomiting as well as headaches. She was started on a 10 mg IV push of Decadron at the time of our consultation. She previously noted some improvement earlier this week when she had a treatment with Decadron at the ER in [place]. I discussed with the patient and her family that considering there are numerous lesions bilaterally I would recommend whole brain radiation and that any focal radiosurgery would be inappropriate. I explained that radiotherapy does typical ly result in a tumor response. I discussed that I would recommend urgent initiation of radiotherapy as soon as this afternoon if the patient is agreeable. I explained that the Decadron would likely provide some symptomatic relief. Will ensure patient is on GI prophylaxis. I discussed the patient would first undergo CT simulation for treatment planning. I explained that radiotherapy would be delivered Friday through Friday, 5 days a week for approximately 10 fractions. Although this patient's treatment will start while she is inpatient, if she improves clinically it is very reasonable to finish as an outpatient following d/c. I discussed possible side effects of this treatment which includes, but is not limited to; fatigue, skin irritation, reversible alopecia, headaches, nausea, otitis, and late effects such as fatigue and neurocognitive decline. The patient and her family discussed things and elected to go forward with radiotherapy today. Time: I spent 45 minutes with this patient, of which greater than 50% of that time was spent counseling, coordinating care, and reviewing the risks, benefits, and all potential complications of radiation. Time with Patient: Greater than 30
[2021-04-13 13:17] VITALS: BMI 23.1
[2021-04-13 13:23] LABS: African American GFR (CKD) 114.5 (60.0-200.0); Albumin 3.4 g/dL (3.80-4.90); Albumin/Globulin Ratio 2.43 (1.60-3.17); Anion Gap 5.8 mmol/L (4.00-12.00); Calcium 7.2 mg/dL (8.7-10.3); Carbon Dioxide 23.2 mmol/L (21.6-31.8); Globulin 1.4 g/dL (1.6-3.3); Magnesium 2.1 mg/dL (1.5-2.4); Non-African American GFR(CKD) 98.8 (60.0-200.0); Potassium 3.7 mmol/L (3.5-5.5); Total Bilirubin 0.7 mg/dL (0.2-1.2); Total Protein 4.8 g/dL (6.2-8.2)
--- NOTE | 2021-04-13 15:37 | P.PN ---
Subjective 70-year-old female came in with intractable nausea vomiting. Patient last received chemotherapy for complaint of breast cancer month of January. is still having nausea vomiting denied any significant abdominal pain patient the didn't have a bowel movement for about a week.abdominal x-ray which did not show any increased bowel gas pattern on her bowel obstruction. Her abdomen is soft. Patient is bit hyponatremic and patient is on D5 half-normal saline which was switched to normal saline. Oncology evaluation that are pending and MRI of the head to evaluate for metastatic disease. 04/13/2021 and stent patient had an MRI of the head which showed multiple metastatic lesion to the brain in the patient was started on Decadron with sign ificant improvement in her nausea vomiting. Patient will be started on diet. Patient will be initiated on radiation therapy. Constitutional: Denied any fatigue denied any fever. Cardio vascular: denied any chest pain, palpitations Gastrointestinal denied any nausea vomiting Pulmonary: Denied any shortness of breath cough Neurologic denied any new focal deficits All inpatient medications were reviewed and appropriate changes in these medications as dictated in the interval history and assessment and plan. Objective - Vital Signs Vital signs: Vital Signs Temp 98.3 F 04/13/21 04:43 Pulse 81 04/13/21 04:43 Resp 16 04/13/21 04:43 BP 134/77 04/13/21 04:43 Pulse Ox 93 L 04/13/21 04:43 Intake & Output 04/12/21 04/13/21 04/13/21 18:59 06:59 18:59 Intake Total 1200 Balance 1200 Weight 61.235 kg 61.235 kg Intake: Intake, IV Titration 1200 Amount Sodium Chloride 0.9% 1, 1200 000 ml @ 100 mls/hr IV . Q10H [facility] Rx#:[id number] Other: # Voids 1 1 - Exam PHYSICAL EXAMINATION: GENERAL: The patient is alert and oriented x3, not in any acute distress. Well developed, well nourished. HEENT: Pupils are round and equally reacting to light. EOMI. No scleral icterus. No conjunctival pallor. Normocephalic, atraumatic. No pharyngeal erythema. No thyromegaly. CARDIOVASCULAR: S1 and S2 present. No murmurs, rubs, or gallops. PULMONARY: Chest is clear to auscultation, no wheezing or crackles. ABDOMEN: Soft, nontender, nondistended, sluggish bowel sounds. No palpable organomegaly. MUSCULOSKELETAL: No joint swelling or deformity. EXTREMITIES: No cyanosis, clubbing, or pedal edema. NEUROLOGICAL: Gross neurological examination did not reveal any focal deficits. SKIN: No rashes. - Labs CBC & Chem 7: 04/13/21 06:05 04/13/21 06:05 Labs: Abnormal Lab Results - Last 24 Hours (Table) 04/13/21 04/13/21 Range/Units 06:05 06:05 Neutrophils # 8.4 H (1.3-7.7) k/uL Lymphocytes # 0.8 L (1.0-4.8) k/uL Creatinine 0.5 L (0.6-1.5) mg/dL Glucose 151 H (70-110) mg/dL Calcium 7.2 L (8.7-10.3) mg/dL Total Protein 4.8 L (6.2-8.2) g/dL Albumin 3.40 L (3.80-4.90) g/dL Globulin 1.4 L (1.6-3.3) g/dL Assessment and Plan Plan: -Intractable nausea vomiting: Secondary to metastatic lesions in the brain, continue with Decadron continue with the symptomatic treatment for nausea patient will undergo radiation of the brain. -Triple negative breast cancer with metastatic disease to brain -Constipation secondary to [place] patient will be started on senna and MiraLAX on as-needed basis -Hyperlipidemia -DVT prophylaxis with Lovenox
[2021-04-13] MEDS: ACETAMINOPHEN TAB 325 MG TAB PO PRN (15:47)
[2021-04-13] MEDS: SODIUM CHLORIDE 0.9% 1,000 ML IV SCH ×2 (16:20→20:44)
--- NOTE | 2021-04-13 20:02 | P.PN ---
Subjective Progress Note Date: 04/13/21 Principal diagnosis: progressive metastatic breast cancer MRI of the brain unfortunetly revealing progressive and metastatic disease Objective - Vital Signs Vital signs: Vital Signs Temp 98.3 F 04/13/21 04:43 Pulse 81 04/13/21 04:43 Resp 16 04/13/21 04:43 BP 134/77 04/13/21 04:43 Pulse Ox 93 L 04/13/21 04:43 Intake & Output 04/12/21 04/13/21 04/13/21 18:59 06:59 18:59 Intake Total 1200 Balance 1200 Weight 61.235 kg Intake: Intake, IV Titration 1200 Amount Sodium Chloride 0.9% 1, 1200 000 ml @ 100 mls/hr IV . Q10H [facility] Rx#:[id number] Other: # Voids 1 1 - Exam - Constitutional General appearance: cooperative, no acute distress - EENT Eyes: EOMI, PERRLA ENT: NA/AT, normal oropharynx - Neck Neck: normal ROM - Respiratory Respiratory: bilateral: CTA - Cardiovascular Rhythm: regularly irregular - Gastrointestinal General gastrointestinal: soft - Integumentary Integumentary: pale - Neurologic Neurologic: CNII-XII intact - Musculoskeletal Musculoskeletal: generalized weakness - Psychiatric Psychiatric: A&O x's 3, appropriate affect, intact judgment & insight - Labs CBC & Chem 7: 04/13/21 06:05 04/13/21 06:05 Labs: Abnormal Lab Results - Last 24 Hours (Table) 04/13/21 Range/Units 06:05 Neutrophils # 8.4 H (1.3-7.7) k/uL Lymphocytes # 0.8 L (1.0-4.8) k/uL Assessment and Plan (1) Dehydration Current Visit: Yes Status: Acute Code(s): E86.0 - DEHYDRATION SNOMED Code(s): 81100194 (2) Gastroenteritis Current Visit: Yes Status: Acute Code(s): K52.9 - NONINFECTIVE GASTROENTERITIS AND COLITIS, UNSPECIFIED SNOMED Code(s): 09210673 (3) Intractable nausea and vomiting Current Visit: Yes Status: Acute Code(s): R11.2 - NAUSEA WITH VOMITING, UNSPECIFIED SNOMED Code(s): 732666809 Plan: Assessment and Recommendations: Breast Cancer: - new progressive metastatic disease to Brain New Brain Mets: - Dr. Dougherty from Radiation Oncology [facility]ulted - Dexamethasone 4mg q6 hours and PPI initiated - Not a candidate for neurosurgery Physician Attest: I have completed the full history and physical and agree with above dictation, dictated as a scribe
[2021-04-13] MEDS: ACETAMINOPHEN IV (For NPO) 1,000 MG in EMPTY BAG 1 BAG IVPB PRN (21:23)
[2021-04-14] MEDS: DEXAMETHASONE SOD PHOSPHATE 4 MG/ML 1 ML VIAL IV SCH ×2 (00:11→06:22)
[2021-04-14] MEDS: ONDANSETRON 4 MG/2 ML VIAL IVP PRN ×2 (00:59→07:43)
[2021-04-14] MEDS: SODIUM CHLORIDE 0.9% 1,000 ML IV SCH ×3 (01:00→21:31)
[2021-04-14] MEDS: PANTOPRAZOLE 40 MG/10 ML VIAL IVP SCH ×2 (07:42→21:30)
[2021-04-14] MEDS: ENOXAPARIN 40 MG/0.4 ML SYRINGE SQ SCH (07:42)
[2021-04-14] MEDS: ACETAMINOPHEN IV (For NPO) 1,000 MG in EMPTY BAG 1 BAG IVPB PRN (08:24)
[2021-04-14] MEDS: polyethylene glycoL 3350 17 GM POWD.PACK PO PRN (11:53)
[2021-04-14] MEDS: SENNOSIDES 8.6 MG TAB PO PRN (11:54)
--- NOTE | 2021-04-14 12:00 | PN ---
PROGRESS NOTE DATE OF SERVICE: April 14, 2021. CHIEF COMPLAINT: Headaches. HISTORY: Jazmin was seen today in followup. She still has some headaches but overall it is better. She has been seen by a radiation oncology yesterday and started her first whole-brain radiation treatment. She denies any nausea or vomiting and no fever or chills. CURRENT MEDICATION: Reviewed in her electronic medical record. PHYSICAL EXAMINATION: She is alert, oriented x3. Does not appear to be in distress. Her vital signs are temperature 98.7 afebrile, pulse 71 regular, respiration 20, blood pressure 160/74. HEENT is normocephalic, atraumatic. Neck is supple. Chest equal expansion bilaterally. Lungs are clear. Heart is regular. Abdomen is soft. Extremities reveal no edema. LABORATORY DATA: From yesterday, WBC 9.9, hemoglobin 12.3, hematocrit 37.1, platelets 132. IMPRESSION: Metastatic triple negative breast carcinoma, now the patient presented with multiple and diffuse brain metastases. RECOMMENDATIONS: 1. The patient to continue whole-brain radiation as scheduled. 2. We will switch her to Decadron. 3. Continue antiemetics. 4. Continue DVT prophylaxis. 5. Add PPI. MMODL / IJN: [id number] /
[2021-04-14] MEDS: dexAMETHasone 4 MG TAB PO SCH ×3 (13:45→21:30)
--- NOTE | 2021-04-14 16:10 | P.PN ---
Subjective 70-year-old female came in with intractable nausea vomiting. Patient last received chemotherapy for complaint of breast cancer month of January. is still having nausea vomiting denied any significant abdominal pain patient the didn't have a bowel movement for about a week.abdominal x-ray which did not show any increased bowel gas pattern on her bowel obstruction. Her abdomen is soft. Patient is bit hyponatremic and patient is on D5 half-normal saline which was switched to normal saline. Oncology evaluation that are pending and MRI of the head to evaluate for metastatic disease. 04/13/2021 and stent patient had an MRI of the head which showed multiple metastatic lesion to the brain in the patient was started on Decadron with sign ificant improvement in her nausea vomiting. Patient will be started on diet. Patient will be initiated on radiation therapy. 04/14/2021 Patient nausea significantly improved, diet will be advanced. We also need to assess her physical therapy needs. Patient will need the radiation therapy for which patient laid transportation logistics will be evaluated by social work. Constitutional: Denied any fatigue denied any fever. Cardio vascular: denied any chest pain, palpitations Gastrointestinal denied any nausea vomiting Pulmonary: Denied any shortness of breath cough Neurologic denied any new focal deficits All inpatient medications were reviewed and appropriate changes in these medications as dictated in the interval history and assessment and plan. Objective - Vital Signs Vital signs: Vital Signs Temp 98.0 F 04/14/21 12:45 Pulse 66 04/14/21 12:45 Resp 16 04/14/21 12:45 BP 123/55 04/14/21 12:45 Pulse Ox 96 04/14/21 12:45 Intake & Output 04/13/21 04/14/21 04/14/21 18:59 06:59 18:59 Intake Total 1300 Balance 1300 Weight 61.235 kg Intake: Intake, IV Titration 1000 Amount Sodium Chloride 0.9% 1, 1000 000 ml @ 100 mls/hr IV . Q10H [facility] Rx#:[id number] Oral 300 Other: Voiding Method Toilet # Voids 1 3 - Exam PHYSICAL EXAMINATION: GENERAL: The patient is alert and oriented x3, not in any acute distress. Well developed, well nourished. HEENT: Pupils are round and equally reacting to light. EOMI. No scleral icterus. No conjunctival pallor. Normocephalic, atraumatic. No pharyngeal erythema. No thyromegaly. CARDIOVASCULAR: S1 and S2 present. No murmurs, rubs, or gallops. PULMONARY: Chest is clear to auscultation, no wheezing or crackles. ABDOMEN: Soft, nontender, nondistended, sluggish bowel sounds. No palpable organomegaly. MUSCULOSKELETAL: No joint swelling or deformity. EXTREMITIES: No cyanosis, clubbing, or pedal edema. NEUROLOGICAL: Gross neurological examination did not reveal any focal deficits. SKIN: No rashes. - Labs CBC & Chem 7: 04/13/21 06:05 04/13/21 06:05 Assessment and Plan Plan: -Intractable nausea vomiting: Secondary to metastatic lesions in the brain, c ontinue with Decadron continue with the symptomatic treatment for nausea patient will undergo radiation of the brain. -Triple negative breast cancer with metastatic disease to brain. Patient is presently on Decadron patient is admitted visiting edema. Patient will need a whole brain radiation for which social work will assess logistics of transportation from her home to radiation therapy location. -Generalized weakness: The physical therapy and occupational therapy evaluation -Constipation secondary to [place] patient will be started on senna and MiraLAX on as-needed basis -Hyperlipidemia -DVT prophylaxis with Lovenox
[2021-04-14] MEDS: ACETAMINOPHEN TAB 325 MG TAB PO PRN (17:16)
[2021-04-15] MEDS: ACETAMINOPHEN TAB 325 MG TAB PO PRN ×2 (05:09→19:56)
[2021-04-15] MEDS: SODIUM CHLORIDE 0.9% 1,000 ML IV SCH (05:10)
[2021-04-15] MEDS: polyethylene glycoL 3350 17 GM POWD.PACK PO PRN (08:28)
[2021-04-15] MEDS: dexAMETHasone 4 MG TAB PO SCH ×4 (08:29→23:21)
[2021-04-15] MEDS: ENOXAPARIN 40 MG/0.4 ML SYRINGE SQ SCH (08:30)
[2021-04-15] MEDS: PANTOPRAZOLE 40 MG/10 ML VIAL IVP SCH ×2 (08:30→23:22)
[2021-04-15 10:07] LABS: Anion Gap 7.9 mmol/L (4.00-12.00); Calcium 6.3 mg/dL (8.7-10.3); Carbon Dioxide 20.1 mmol/L (21.6-31.8); Potassium 3.4 mmol/L (3.5-5.5)
[2021-04-15] MEDS ORDERED: POTASSIUM CHLORIDE ER 20 MEQ TAB.ER PO STA (10:13)
[2021-04-15 10:33] LABS: African American GFR (CKD) 123.2 (60.0-200.0); Non-African American GFR(CKD) 106.3 (60.0-200.0)
[2021-04-15] MEDS: SENNOSIDES 8.6 MG TAB PO PRN (11:12)
[2021-04-15] MEDS ORDERED: CALCIUM GLUCONATE 1 GM in SODIUM CHLORIDE 0.9% 100 ML IVPB ONE (11:30)
--- NOTE | 2021-04-15 11:48 | P.PN ---
Subjective 70-year-old female came in with intractable nausea vomiting. Patient last received chemotherapy for complaint of breast cancer month of January. is still having nausea vomiting denied any significant abdominal pain patient the didn't have a bowel movement for about a week.abdominal x-ray which did not show any increased bowel gas pattern on her bowel obstruction. Her abdomen is soft. Patient is bit hyponatremic and patient is on D5 half-normal saline which was switched to normal saline. Oncology evaluation that are pending and MRI of the head to evaluate for metastatic disease. 04/13/2021 and stent patient had an MRI of the head which showed multiple metastatic lesion to the brain in the patient was started on Decadron with sign ificant improvement in her nausea vomiting. Patient will be started on diet. Patient will be initiated on radiation therapy. 04/14/2021 Patient nausea significantly improved, diet will be advanced. We also need to assess her physical therapy needs. Patient will need the radiation therapy for which patient laid transportation logistics will be evaluated by social work. 04/15/2021 Patient nausea improved will advance her diet today, patient is still didn't move her bowel. Physical therapy at evaluate the patient patient is still feeling weak. Patient the will need to be transported from her home to here for radiation therapy and these will be addressed by case management and social work tomorrow. Constitutional: Denied any fatigue denied any fever. Cardio vascular: denied any chest pain, palpitations Gastrointestinal denied any nausea vomiting Pulmonary: Denied any shortness of breath cough Neurologic denied any new focal deficits All inpatient medications were reviewed and appropriate changes in these medications as dictated in the interval history and assessment and plan. Objective - Vital Signs Vital signs: Vital Signs Temp 98.4 F 04/15/21 04:41 Pulse 68 04/15/21 04:41 Resp 16 04/15/21 04:41 BP 132/74 04/15/21 04:41 Pulse Ox 92 L 04/15/21 04:41 Intake & Output 04/14/21 04/15/21 04/15/21 18:59 06:59 18:59 Intake Total 1300 1100 Balance 1300 1100 Intake: Intake, IV Titration 1300 1100 Amount ACETAMINOPHEN IV (For NPO 100 ) 1,000 mg In Empty Bag 1 bag @ 400 mls/hr IVPB Q6HR [facility] Rx#:[id number] Sodium Chloride 0.9% 1, 1200 1100 000 ml @ 100 mls/hr IV . Q10H [facility] Rx#:[id number] Other: Voiding Method Toilet Incontinent # Voids 1 2 - Exam PHYSICAL EXAMINATION: GENERAL: The patient is alert and oriented x3, not in any acute distress. Well developed, well nourished. HEENT: Pupils are round and equally reacting to light. EOMI. No scleral icterus. No conjunctival pallor. Normocephalic, atraumatic. No pharyngeal erythema. No thyromegaly. CARDIOVASCULAR: S1 and S2 present. No murmurs, rubs, or gallops. PULMONARY: Chest is clear to auscultation, no wheezing or crackles. ABDOMEN: Soft, nontender, nondistended, sluggish bowel sounds. No palpable organomegaly. MUSCULOSKELETAL: No joint swelling or deformity. EXTREMITIES: No cyanosis, clubbing, or pedal edema. NEUROLOGICAL: Gross neurological examination did not reveal any focal deficits. SKIN: No rashes. - Labs CBC & Chem 7: 04/13/21 06:05 04/15/21 03:40 Labs: Abnormal Lab Results - Last 24 Hours (Table) 04/15/21 Range/Units 03:40 Potassium 3.4 L (3.5-5.5) mmol/L Chloride 113 H (96-109) mmol/L Carbon Dioxide 20.1 L (21.6-31.8) mmol/L Creatinine 0.4 L (0.6-1.5) mg/dL BUN/Creatinine Ratio 25.00 H (12.00-20.00) Ratio Glucose 162 H (70-110) mg/dL Calcium 6.3 L* (8.7-10.3) mg/dL Assessment and Plan Plan: -Intractable nausea vomiting: Secondary to metastatic lesions in the brain, continue with Decadron continue with the symptomatic treatment for nausea patient will undergo radiation of the brain. -Triple negative breast cancer with metastatic disease to brain. Patient is presently on Decadron patient has vasogenic edema. Patient will need a whole brain radiation for which social work will assess logistics of transportation from her home to radiation therapy location. -Hypokalemia and hypocalcemia: We'll order replacement -Generalized weakness: The physical therapy and occupational therapy evaluation -Constipation secondary to [place] patient will be started on senna and MiraLAX on as-needed basis -Hyperlipidemia -DVT prophylaxis with Lovenox
[2021-04-16 02:33] LABS: Glucose,Whole Blood 155 mg/dL (75-99)
[2021-04-16] MEDS: PANTOPRAZOLE 40 MG/10 ML VIAL IVP SCH (08:04)
[2021-04-16] MEDS: ENOXAPARIN 40 MG/0.4 ML SYRINGE SQ SCH (08:04)
[2021-04-16] MEDS: dexAMETHasone 4 MG TAB PO SCH ×2 (08:05→12:58)
[2021-04-16 12:30] VITALS: BP 157/89; PULSE 55; RESP 18; TEMP 97.5
--- NOTE | 2021-04-16 18:53 | P.PN ---
Subjective Progress Note Date: 04/16/21 Principal diagnosis: Intractable vomiting, brain mets In f/u today pt states felling pretty good, she is up ambulating, no falling or feelings of dizziness, no nausea or vomiting. She has started WBRT. Objective - Vital Signs Vital signs: Vital Signs Temp 97.5 F L 04/16/21 12:29 Pulse 55 L 04/16/21 12:29 Resp 18 04/16/21 12:29 BP 157/89 04/16/21 12:29 Pulse Ox 97 04/16/21 12:29 Intake & Output 04/15/21 04/16/21 04/16/21 18:59 06:59 18:59 Intake Total 1448 Balance 1448 Weight 61.235 kg Intake: Intake, IV Titration 648 Amount Calcium Gluconate 1 gm In 110 Sodium Chloride 0.9% 100 ml @ 100 mls/hr IVPB ONCE ONE Rx#:[id number] Sodium Chloride 0.9% 1, 538 000 ml @ 100 mls/hr IV . Q10H [facility] Rx#:[id number] Oral 800 Other: Voiding Method Toilet Incontinent - Constitutional General appearance: Present: average body habitus, cooperative - EENT Eyes: Present: anicteric sclerae, EOMI ENT: Present: hearing grossly normal, normal oropharynx - Respiratory Respiratory: bilateral: CTA - Cardiovascular Rhythm: regular Heart sounds: normal: S1, S2 Abnormal Heart Sounds: Absent: systolic murmur, diastolic murmur, rub, S3 Gallop, S4 Gallop, click, other - Peripheral edema leg Peripheral Edema: bilateral: None - Gastrointestinal General gastrointestinal: Present: normal bowel sounds, soft. Absent: absent bowel sounds, decreased bowel sounds, distended, hepatomegaly, hyperactive bowel sounds, organomegaly, rigid, scaphoid, splenomegaly, tenderness, umbilical hernia, ventral hernia - Integumentary Integumentary: Present: normal - Neurologic Neurologic: Present: CNII-XII intact - Musculoskeletal Musculoskeletal: Present: strength equal bilaterally - Psychiatric Psychiatric: Present: A&O x's 3, appropriate affect, intact judgment & insight - Labs CBC & Chem 7: 04/13/21 06:05 04/15/21 03:40 Labs: Abnormal Lab Results - Last 24 Hours (Table) 04/16/21 Range/Units 02:32 POC Glucose (mg/dL) 155 H (75-99) mg/dL Assessment and Plan (1) Brain metastases Narrative/Plan: Pt has been seen and evaluated by Rad ONc, simulated and started WBRT. She will cont plan per Rad Onc Tapering dex and PPI BID Erx to Ai [place]-done Status: Acute Priority: High Code(s): C79.31 - SECONDARY MALIGNANT NEOPLASM OF BRAIN SNOMED Code(s): 16168433 (2) Intractable nausea and vomiting Narrative/Plan: 2/2 brain mets, resolved with steroids, antiemetics and tx of brain met with XRT Status: Resolved Code(s): R11.2 - NAUSEA WITH VOMITING, UNSPECIFIED SNOMED Code(s): 097955899 (3) Breast cancer Narrative/Plan: Metastatic disease-f/u with primary Onc for further treatment plans once rad iation complete, appt in chart Status: Chronic Priority: High Code(s): C50.919 - MALIGNANT NEOPLASM OF UNSP SITE OF UNSPECIFIED FEMALE BREAST SNOMED Code(s): 271786168 Plan: Pt requesting palliative care. Pt needing help with transportation Spoke to [employer] about pt needs, she will look into it and help pt
--- NOTE | 2021-04-16 22:45 | DS ---
DISCHARGE SUMMARY DATE OF SERVICE: 04/16/2021 FINAL DIAGNOSES: 1. Intractable vomiting secondary to metastatic lesion in the brain. 2. 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 3. Hypokalemia. 4. Generalized weakness. 5. Hyperlipidemia. HISTORY OF PRESENT ILLNESS: This 70-year-old woman with a past medical history of multiple medical problems, being followed by Dr. Winston and primary physician Dr. Cali in the outpatient setting. The patient was admitted with intractable vomiting which was thought to be secondary to brain METS. The patient was started on Decadron. The patient was also evaluated by Hematology/Oncology. Patient improved significantly. On exam, vitals are stable. Cardiovascular S1, S2. Abdomen soft. Nervous system: No focal deficits. Patient keen on going home. DISCHARGE ADVICE AND MEDICATIONS: 1. Discharge diet is cardiac diet. 2. Activity limited until followup. 3. Follow up with Dr. Cali in 2-3 days. 4. Follow up with Dr. Winston as recommended. 5. Calcium 600 mg p.o. b.i.d. 6. Hydrocodone 7.5 q.6h p.r.n. 7. Vitamin B complex 1 p.o. 8. Vitamin D3 1000 daily. 9. Vitamin E daily. 10.Zofran p.r.n. 11.Decadron 4 mg p.o. q.i.d. 12.MiraLAX 17 g p.o. daily. 13.Protonix 40 mg b.i.d. 14.Senokot 8.6 mg p.o. b.i.d. The patient will be discharged in stable condition with guarded prognosis. Palliative care is also requested. MMODL / IJN: [id number] /
== END 2021-04-16 15:07 | disposition home health service (06) | DRG 54 ==
LOC: EC 23:25 → 5NMEDONC 04-12 01:03 → OBSVTOIN 04-13 13:05
PROVIDERS: ADMIT Hospitalist; ATTEND Hospitalist
PROC: D0001ZZ Beam Radiation of Brain using Photons 1 - 10 MeV (ICD-10-PCS; principal; 2021-04-13)
DX: C79.31 Secondary malignant neoplasm of brain (principal); G93.6 Cerebral edema; C77.1 Secondary and unspecified malignant neoplasm of intrathoracic lymph nodes; C79.51 Secondary malignant neoplasm of bone; C77.3 Secondary and unspecified malignant neoplasm of axilla and upper limb lymph nodes; E87.1 Hypo-osmolality and hyponatremia; E86.0 Dehydration; K12.30 Oral mucositis (ulcerative), unspecified; D05.11 Intraductal carcinoma in situ of right breast; Z17.1 Estrogen receptor negative status [ER-]; Z51.5 Encounter for palliative care; Z20.822 Contact with and (suspected) exposure to COVID-19; R11.2 Nausea with vomiting, unspecified; E87.6 Hypokalemia; G47.00 Insomnia, unspecified; K59.03 Drug induced constipation; T39.1X5A Adverse effect of 4-Aminophenol derivatives, initial encounter; R26.81 Unsteadiness on feet; E78.5 Hyperlipidemia, unspecified; Z79.899 Other long term (current) drug therapy; Z90.49 Acquired absence of other specified parts of digestive tract; Z90.89 Acquired absence of other organs; Z90.13 Acquired absence of bilateral breasts and nipples; Z87.39 Personal history of other diseases of the musculoskeletal system and connective tissue; Z87.891 Personal history of nicotine dependence; Z98.890 Other specified postprocedural states; Z88.5 Allergy status to narcotic agent; Z88.8 Allergy status to other drugs, medicaments and biological substances; Z82.49 Family history of ischemic heart disease and other diseases of the circulatory system; Z82.5 Family history of asthma and other chronic lower respiratory diseases; Z80.0 Family history of malignant neoplasm of digestive organs; Z80.3 Family history of malignant neoplasm of breast; Z82.3 Family history of stroke
CPT/HCPCS: 36415; 70553; 74019; 77280; 77290; 77307; 77334; 77412; 77417; 80048; 80053; 81003; 82550; 83605; 83735; 84100; 84484; 85025; 87635; 93005; 96361; 96374; 96375; 99285

== ENCOUNTER 2021-04-18 | Emergency (ER) | payer MEDICARE, OTHER ==
--- NOTE | 2021-04-18 16:51 | ED ---
Arrhythmia/Palpitations HPI - General Chief Complaint: Arrhythmia/Palpitations Stated Complaint: irregular heartbeat Time Seen by Provider: 04/18/21 16:51 Source: patient Mode of arrival: ambulatory Limitations: no limitations - History of Present Illness Initial Comments: Jazmin Nguyen very pleasant 70-year-old female with a known history of breast cancer, diagnosed in the last week with brain metastases. Patient presents the ER today via private vehicle for evaluation of an irregular heartbeat. Patient reports that she had a busy morning, she had renal radiation and went to the lab to do her regularly scheduled blood work. Patient states that upon returning home per home health care nurse came by to assess her and with a listen to her heart said it sounded irregular and advised her to come to the hospital for evaluation. She no chest pain or palpitations at that time. Patient denies any shortness of breath chest pain or palpitations at all in the past couple of days. Patient was recently hospitalized for dehydration nausea or vomiting but reports she's been doing quite well and really felt great today and didn't patient independent hospital. - Related Data Home Medications Medication Instructions Recorded Confirmed Cholecalciferol [Vitamin D3 (10 1,000 unit PO QAM 10/02/20 04/12/21 Mcg = 400 Iu)] Calcium Carbonate [Calcium] 600 mg PO BID 01/25/21 04/12/21 Vitamin B Complex 1 cap PO QAM 01/25/21 04/12/21 HYDROcodone/APAP 7.5-325MG [[place] 1 tab PO Q6H PRN 04/12/21 04/12/21 7.5-325] Ondansetron HCl [Zofran] 4 mg PO QID PRN 04/12/21 04/12/21 Vitamin E 100 unit PO DAILY 04/12/21 04/12/21 Previous Rx's Medication Instructions Recorded Dexamethasone [Decadron] 4 mg PO QID #74 tablet 04/16/21 Pantoprazole Sodium [Protonix] 40 mg PO BID #60 tablet. 04/16/21 Sennosides [Senokot] 8.6 mg PO BID PRN #30 tab 04/16/21 polyethylene glycoL 3350 [Miralax] 17 gm PO DAILY PRN 30 Days #30 04/16/21 powd.pack Allergies Allergy/AdvReac Type Severity Reaction Status Date / Time paclitaxel [From Taxol] Allergy Rash/Hives Verified 04/18/21 16:47 atorvastatin [From Lipitor] AdvReac SEVERE Verified 04/18/21 16:47 MUSCLE ACHES codeine AdvReac Abdominal Verified 04/18/21 16:47 Pain Review of Systems ROS Statement: Those systems with pertinent positive or pertinent negative responses have been documented in the HPI. ROS Other: All systems not noted in ROS Statement are negative. Past Medical History Past Medical History: Cancer, Hyperlipidemia Additional Past Medical History / Comment(s): Bilateral breast cancer treated with chemo/double mastectomy with +R sentinel node History of Any Multi-Drug Resistant Organisms: None Reported Past Surgical History: Cholecystectomy, Tonsillectomy Additional Past Surgical History / Comment(s): 03/27/21 double mastectomy, bilate ral breast core biopsy, laminectomy 1998 & 2000 Past Anesthesia/Blood Transfusion Reactions: No Reported Reaction Past Psychological History: No Psychological Hx Reported Smoking Status: Former smoker Past Alcohol Use History: None Reported Past Drug Use History: None Reported - Past Family History Father Family Medical History: CVA/TIA, Myocardial Infarction ([place]) Mother Family Medical History: Cancer, Congestive Heart Failure (CHF), COPD Additional Family Medical History / Comment(s): pancreatic cancer Sister(s) Family Medical History: Cancer Additional Family Medical History / Comment(s): right breast cancer General Exam - General Exam Comments Initial Comments: Physical Exam GENERAL: Patient is nontoxic and well-hydrated and is in no distress. HENT: Normocephalic, Atraumatic. EYES: PERRL, EOMI PULMONARY: Unlabored respirations. No audible rales rhonchi or wheezing was noted. CARDIOVASCULAR: There is a regular rate and rhythm without any murmurs gallops or rubs. ABDOMEN: Soft and nontender with normal bowel sounds. SKIN: Surgical incisions on bilateral breasts consistent with recent mastectomy : Deferred NEUROLOGIC: Patient is alert and oriented x3. Moving all extremities spontaneously MUSCULOSKELETAL: Normal extremities with adequate strength and full range of motion. No lower extremity swelling or edema. No calf tenderness. PSYCHIATRIC: Normal psychiatric evaluation. Limitations: no limitations Course Vital Signs 04/18/21 16:43 Temperature 98.1 F Pulse Rate 75 Respiratory 18 Rate Blood Pressure 132/87 O2 Sat by Pulse 97 Oximetry EKG Findings - EKG Comments: EKG Findings:: EKG was obtained due to complaint of palpitations, EKG was obtained at 1653, rate is 61, rhythm is sinus, there is a normal axis, MS is shortened at 106, QRS [address] Q[address] elevations or depressions no evidence of ischemia, infarction or arrhythmia Medical Decision Making - Medical Decision Making Pt was seen and evaluated history is obtained from the patient Patient with recent diagnosis of brain metastases undergoing radiation, has completed chemotherapy for breast cancer Home health care nurse was concerned that the patient had some irregular heartbeat, patient was asymptomatic and had absolutely no complaints was feeling the best today she has in over a week EKG is sinus rhythm At this time I do not feel the patient requires any additional testing, she feels as though her heart rate may have been fast due to exertion. She is comfortable with plan for discharge home and continued out patient management. Disposition Clinical Impression: Heart palpitations Disposition: HOME SELF-CARE Condition: Stable Instructions (If sedation given, give patient instructions): Heart Palpitations (ED) Is patient prescribed a controlled substance at d/c from ED?: No Referrals: Elaina Coles MD [Primary Care Provider] - 1-2 days
== END 2021-04-18 17:20 | disposition home or self-care (01) ==
CPT/HCPCS: 93005; 99284

== ENCOUNTER → 2021-04-18 | Outpatient (CLI) | payer MEDICARE, OTHER ==
[2021-04-18 19:33] LABS: Basophils # (A) 0.02 X 10*3/uL (0.00-0.10); Basophils % (A) 0.2 %; Eosinophils # (A) 0 X 10*3/uL (0.04-0.35); Eosinophils % (A) 0 %; HCT 43.9 % (37.2-46.3); Lymphocytes # (A) 1.35 X 10*3/uL (0.90-5.00); Lymphocytes % (A) 13.6 %; MCH 32.5 pg (27.0-32.0); MCHC 34.2 g/dL (32.0-37.0); MCV 95.2 fL (80.0-97.0); Mean Platelet Volume 10.4 fL (9.5-12.2); Monocytes # (A) 0.84 X 10*3/uL (0.20-1.00); Monocytes % (A) 8.4 %; Neutrophils # (A) 7.62 X 10*3/uL (1.80-7.70); Neutrophils % (A) 76.6 %; Platelet Count 205 X 10*3/uL (140-440); RBC 4.61 X 10*6/uL (4.10-5.20); RDW 12.1 % (11.5-14.5); WBC 9.95 X 10*3/uL (4.50-10.00)
[2021-04-18 21:26] LABS: African American GFR (CKD) 107.8 (60.0-200.0); Anion Gap 11.2 mmol/L (4.00-12.00); BUN/Creat Ratio 28.33 Ratio (12.00-20.00); Calcium 9.6 mg/dL (8.7-10.3); Carbon Dioxide 22.8 mmol/L (21.6-31.8); Potassium 3.8 mmol/L (3.5-5.5)
== END | disposition home or self-care (01) ==
LOC: LABWHC1 11:10
PROVIDERS: ATTEND Registered Nurse
DX: E87.6 Hypokalemia (principal); E83.51 Hypocalcemia
CPT/HCPCS: 36415; 80048; 85025

== ENCOUNTER 2021-04-21 08:36 | Inpatient (IN) | payer MEDICARE, OTHER ==
--- NOTE | 2021-04-21 09:13 | ED ---
General Adult HPI - General Chief complaint: Extremity Injury, Lower Stated complaint: Left leg pain Time Seen by Provider: 04/21/21 08:40 Source: patient, RN notes reviewed, old records reviewed Mode of arrival: ambulatory Limitations: no limitations - History of Present Illness Initial comments: This is a 70-year-old female presents emergency Department has metastatic breast cancer. Patient comes in today because over the last few days she's had some pain to her upper left leg she states she's had chronic hip issues this felt a little different and she noted that her Was a little bigger than her right calf. Patient also states that there is no tenderness to palpating the calf. Patient denies any redness. Patient came in because she was still quite concerned about a blood clot in her leg. Patient denies any difficulty breathing shortness of breath per patient denies any palpitations or chest pain. Patient denies any fever or chills. - Related Data Home Medications Medication Instructions Recorded Confirmed Cholecalciferol [Vitamin D3 (10 1,000 unit PO QAM 10/02/20 04/12/21 Mcg = 400 Iu)] Calcium Carbonate [Calcium] 600 mg PO BID 01/25/21 04/12/21 Vitamin B Complex 1 cap PO QAM 01/25/21 04/12/21 HYDROcodone/APAP 7.5-325MG [[place] 1 tab PO Q6H PRN 04/12/21 04/12/21 7.5-325] Ondansetron HCl [Zofran] 4 mg PO QID PRN 04/12/21 04/12/21 Vitamin E 100 unit PO DAILY 04/12/21 04/12/21 Previous Rx's Medication Instructions Recorded Dexamethasone [Decadron] 4 mg PO QID #74 tablet 04/16/21 Pantoprazole Sodium [Protonix] 40 mg PO BID #60 tablet. 04/16/21 Sennosides [Senokot] 8.6 mg PO BID PRN #30 tab 04/16/21 polyethylene glycoL 3350 [Miralax] 17 gm PO DAILY PRN 30 Days #30 04/16/21 powd.pack Allergies Allergy/AdvReac Type Severity Reaction Status Date / Time paclitaxel [From Taxol] Allergy Rash/Hives Verified 04/21/21 08:41 atorvastatin [From Lipitor] AdvReac SEVERE Verified 04/21/21 08:41 MUSCLE ACHES codeine AdvReac Abdominal Verified 04/21/21 08:41 Pain Review of Systems ROS Statement: Those systems with pertinent positive or pertinent negative responses have been documented in the HPI. ROS Other: All systems not noted in ROS Statement are negative. Past Medical History Past Medical History: Cancer, Hyperlipidemia Additional Past Medical History / Comment(s): Bilateral breast cancer treated with chemo/double mastectomy with +R sentinel node History of Any Multi-Drug Resistant Organisms: None Reported Past Surgical History: Cholecystectomy, Tonsillectomy Additional Past Surgical History / Comment(s): 03/27/21 double mastectomy, bilateral breast core biopsy, laminectomy 1998 & 2000 Past Anesthesia/Blood Transfusion Reactions: No Reported Reaction Past Psychological History: No Psychological Hx Reported Smoking Status: Former smoker Past Alcohol Use History: Rare Past Drug Use History: None Reported - Past Family History Father Family Medical History: CVA/TIA, Myocardial Infarction ([place]) Mother Family Medical History: Cancer, Congestive Heart Failure (CHF), COPD Additional Family Medical History / Comment(s): pancreatic cancer Sister(s) Family Medical History: Cancer Additional Family Medical History / Comment(s): right breast cancer General Exam - General Exam Comments Initial Comments: GENERAL: Patient is well-developed and well-nourished. Patient is nontoxic and well- hydrated and is in no acute distress. ENT: Neck is soft and supple. No significant lymphadenopathy is noted. Oropharynx is clear. Moist mucous membranes. Neck has full range of motion without eliciting any pain. EYES: The sclera were anicteric and conjunctiva were pink and moist. Extraocular movements were intact and pupils were equal round and reactive to light. Eyelids were unremarkable. PULMONARY: Unlabored respirations. Good breath sounds bilaterally. No audible rales rhonchi or wheezing was noted. CARDIOVASCULAR: There is a regular rate and rhythm without any murmurs gallops or rubs. ABDOMEN: Soft and nontender with normal bowel sounds. SKIN: Skin is clear with no lesions or rashes and otherwise unremarkable. NEUROLOGIC: Patient is alert and oriented x3. Cranial nerves II through XII are grossly intact. Motor and sensory are also intact. Normal speech, volume and content. Symmetrical smile. MUSCULOSKELETAL: Normal extremities with adequate strength and full range of motion. The left lower leg does appear to be. Then the right there is no edema there is no calf tenderness and there is no redness. LYMPHATICS: No significant lymphadenopathy is noted PSYCHIATRIC: Normal psychiatric evaluation. Limitations: no limitations Course Vital Signs 04/21/21 08:41 Temperature 98.1 F Pulse Rate 76 Respiratory 18 Rate Blood Pressure 126/80 O2 Sat by Pulse 98 Oximetry Medical Decision Making - Medical Decision Making Ultrasound of the leg showed DVT in the common femoral vein to the popliteal. Started the patient on high-dose epi. I spoke with oncology they wanted the patient admitted admitted the patient and wrote admitting orders and consult oncology. Disposition Clinical Impression: DVT (deep venous thrombosis), History of breast cancer Disposition: ADMITTED IP TO THIS HOSP Referrals: Elaina Coles MD [Primary Care Provider] - 1-2 days Time of Disposition: 11:19
--- NOTE | 2021-04-21 09:42 | US ---
EXAMINATION TYPE: US venous doppler duplex LE LT DATE OF EXAM: 04/21/2021 9:32 AM COMPARISON: NONE CLINICAL HISTORY: 70-year-old female Swollen leg and some tenderness. LEFT leg pain and edema SIDE PERFORMED: Left TECHNIQUE: The lower extremity deep venous system is examined utilizing real time linear array sonog nnamdi with graded compression, doppler sonography and color-flow sonography. FINDINGS: VESSELS IMAGED: Common Femoral Vein Deep Femoral Vein Greater Saphenous Vein * Femoral Vein Popliteal Vein Small Saphenous Vein * Proximal Calf Veins (* superficial vessels) Left Leg: positive for occlusive DVT left CFV extending into popliteal vein IMPRESSION: Occlusive DVT of the CFV extending down into the popliteal vein.
[2021-04-21] MEDS ORDERED: HEPARIN SODIUM 1,000 UN/ML (10ML VL) IV STA (11:13)
[2021-04-21] MEDS ORDERED: SODIUM CHLORIDE 0.9% 1,000 ML IV ONE (11:19)
[2021-04-21] MEDS: HEPARIN SOD,PORK IN 0.45% NACL 25,000 UNIT in 0.45% NACL 1 250ML.BAG IV SCH (11:40)
[2021-04-21 11:56] LABS: ALT 25 U/L (4-34); AST 34 U/L (14-36); African American GFR (CKD) >90 (>60 ml/min/1.73 sqM); Albumin 4.3 g/dL (3.5-5.0); Alkaline Phosphatase 63 U/L (38-126); Anion Gap 9 mmol/L; Blood Urea Nitrogen 18 mg/dL (7-17); Calcium 9.2 mg/dL (8.4-10.2); Carbon Dioxide 24 mmol/L (22-30); Chloride 98 mmol/L (98-107); Glucose 177 mg/dL (74-99); Non-African American GFR(CKD) >90 (>60 ml/min/1.73 sqM); Potassium 4.2 mmol/L (3.5-5.1); Sodium 131 mmol/L (137-145); Total Protein 6.5 g/dL (6.3-8.2)
[2021-04-21 12:00] LABS: Basophils % (A) 0 %; Eosinophils % (A) 0 %; Lymphocytes # (A) 0.5 k/uL (1.0-4.8); Lymphocytes % (A) 4 %; MCH 32.8 pg (25.0-35.0); MCHC 34.8 g/dL (31.0-37.0); MCV 94.2 fL (80.0-100.0); Mean Platelet Volume 7.6; Monocytes # (A) 0.6 k/uL (0-1.0); Monocytes % (A) 4 %; Neutrophils % (A) 92 %; Platelet Count 139 k/uL (150-450); RBC 4.67 m/uL (3.80-5.40); WBC 14.2 k/uL (3.8-10.6)
[2021-04-21] MEDS ORDERED: ONDANSETRON 4 MG/2 ML VIAL IVP PRN (12:01)
[2021-04-21] MEDS ORDERED: MELATONIN 3 MG TABLET PO PRN (12:01)
[2021-04-21] MEDS ORDERED: NALOXONE 0.4 MG/ML 1 ML VIAL IV PRN (12:01)
[2021-04-21] MEDS ORDERED: bisacodyL 5 MG TABLET.DR PO PRN (12:01)
[2021-04-21 12:04] LABS: Prothrombin Time 10.8 sec (9.0-12.0)
[2021-04-21] MEDS ORDERED: HYDROcodone/APAP 7.5-325MG 1 EACH TAB PO PRN (12:04)
[2021-04-21] MEDS ORDERED: ACETAMINOPHEN TAB 500 MG TAB PO PRN (12:04)
[2021-04-21] MEDS ORDERED: SENNOSIDES 8.6 MG TAB PO PRN (12:04)
[2021-04-21] MEDS ORDERED: polyethylene glycoL 3350 17 GM POWD.PACK PO PRN (12:04)
[2021-04-21 12:07] LABS: Partial Thromboplastin Time 19.4 sec (22.0-30.0)
[2021-04-21 12:10] LABS: HGB 15.3 gm/dL (11.4-16.0)
--- NOTE | 2021-04-21 13:13 | P.HPIM ---
History of Present Illness H&P Date: 04/21/21 Chief Complaint: left lower extremity swelling and pain Patient is a 70-year-old female with known metastatic breast cancer (triple negative disease) initially with metastases to the hilar area, upper abdominal adenopathy, and sacral metastasis. She completed her initial rounds of chemotherapy in January 2021. Post treatment PET/CT revealed resolution of metastatic disease with residual right breast lesion. She then underwent bilateral mastectomy on March 27 for 3.5 cm high-grade invasive ductal carcinoma right breath. She was seen here starting 04/12 due to intractable nausea and vomiting. She underwent MRI of the brain on April 13 which showed multiple areas of brain metastatic lesions, greater than 50 in total with vasogenic edema and measuring up to 2 cm in greatest diameter. During that hospital stay she was seen by hematology oncology as well as radiation oncology. They recommended whole brain radiation and Decadron therapy. On 04/21 she presented to the ER with complaints of lower extremity edema. She underwent a venous Doppler which demonstrated occlusive DVT of the common femoral on the left extending down into the popliteal vein. Patient seen and examined at bedside. She reports increased pain and swelling in the left leg for the last 3 days, not similar to prior sciatic. She was diagnosed with brain mets on April 13, 2021 and reports that her nausea and vomiting resolved with steroids and her headache is managed with tylenol at this time. She has completed 6 treatments and 4 more are due, the next due on Friday at 11:30ish. No shortness of breath or chest pain. No new cough. No unexplained diarrhea. Pertinent positives and negatives as discussed in HPI, a complete review of systems was performed and all other systems are negative. General: non toxic, no distress, appears at stated age Derm: warm, dry Head: atraumatic, normocephalic, symmetric Eyes: EOMI, no lid lag, anicteric sclera, pupils equal round reactive to light ENT: Nose and ears atraumatic, no thrush, no pharyngeal erythema Neck: No thyromegaly, no cervical lymphadenopathy, trachea midline, supple Mouth: no lip lesion, mucus membranes moist Cardiovascular: S1S2 reg, no murmur, positive posterior tibial pulse bilateral, no edema, capillary refill less than 2 seconds Lungs: clear to ascultation bilateral, no ronchi, no rales, no wheeze, no accessory muscle use Abdominal: soft, nontender to palpation, no guarding, no appreciable organomegaly, normal bowel sounds Ext: no gross muscle atrophy, muscle strength muscle strength 5 out of 5 in all 4 extremities, no contractures Neuro: Pupils equal round reactive to light extraocular motion intact, uvula elevation equal, no tongue deviation, speech is fluent and articulate, muscle strength 5 out of 5 in bilateral upper and lower extremities, painter 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 Psych: Alert, oriented, appropriate affect Tripe negative metastatic breast cancer with numerous brain mets now with left lower extremity DVT. - Dr. Winston is primary oncologist - D/W Dr. Dougherty who is in agreement with heparin gtt: lower incidence of hemorrhage with breast cancer and now that she has had 6 treament - Start heparin gtt without bolus - Frequent neuro checks - monitor closely - likely home on eliquis after 24-48 hours of monitoring - patient aware to call nurse with any neurologic abnormality Leukocytosis - suspect reactive to steroids - follow CBC Thrombocytopenia, mild - follow CBC Hyponatremia - likely due to decreased intake - repeat in AM - IVF The patient is admitted with an anticipated greater than 2 midnight stay for evaluation of DVT in the setting of Breast cancer with mets to Brain. Surrogate decision-maker: Daughter DVT prophylaxis: on heparin gtt Discussed with: patient, nursing, ED physician, Dr. Arroyo, Dr. Dougherty Anticipated discharge date: in 2-[address]: home A total of 75 minutes was spent on the care of this complex patient more than 50% of the time was spent in counseling and care coordination. Past Medical History Past Medical History: Cancer, Hyperlipidemia Additional Past Medical History / Comment(s): Bilateral breast cancer treated w ith chemo/double mastectomy with +R sentinel node, DDD History of Any Multi-Drug Resistant Organisms: None Reported Past Surgical History: Cholecystectomy, Tonsillectomy Additional Past Surgical History / Comment(s): 03/27/21 double mastectomy, bilateral breast core biopsy, laminectomy 1998 & 2000 Past Anesthesia/Blood Transfusion Reactions: No Reported Reaction Past Psychological History: No Psychological Hx Reported Smoking Status: Former smoker Past Alcohol Use History: Rare Past Drug Use History: None Reported - Past Family History Father Family Medical History: CVA/TIA, Myocardial Infarction ([place]) Mother Family Medical History: Cancer, Congestive Heart Failure (CHF), COPD Additional Family Medical History / Comment(s): pancreatic cancer Sister(s) Family Medical History: Cancer Additional Family Medical History / Comment(s): right breast cancer Medications and Allergies Home Medications Medication Instructions Recorded Confirmed Type Cholecalciferol [Vitamin D3 (10 1,000 unit PO DAILY 10/02/20 04/21/21 History Mcg = 400 Iu)] Calcium Carbonate [Calcium] 600 mg PO BID 01/25/21 04/21/21 History Vitamin B Complex 1 cap PO DAILY 01/25/21 04/21/21 History HYDROcodone/APAP 7.5-325MG [[place] 1 tab PO Q6H PRN 04/12/21 04/21/21 History 7.5-325] Ondansetron HCl [Zofran] 4 mg PO QID PRN 04/12/21 04/21/21 History Vitamin E 100 unit PO DAILY 04/12/21 04/21/21 History Sennosides [Senokot] 8.6 mg PO BID PRN #30 tab 04/16/21 04/21/21 Rx polyethylene glycoL 3350 [Miralax] 17 gm PO DAILY PRN 30 Days #30 04/16/21 04/21/21 Rx powd.pack Acetaminophen Tab [Tylenol Tab] 500 mg PO Q6HR PRN 04/21/21 04/21/21 History Dexamethasone [Decadron] See Taper PO QID 04/21/21 04/21/21 History Pantoprazole Sodium [Protonix] 40 mg PO BID@0100,1300 04/21/21 04/21/21 History Allergies Allergy/AdvReac Type Severity Reaction Status Date / Time paclitaxel [From Taxol] Allergy Rash/Hives Verified 04/21/21 11:37 atorvastatin [From Lipitor] AdvReac SEVERE Verified 04/21/21 11:37 MUSCLE ACHES codeine AdvReac Abdominal Verified 04/21/21 11:37 Pain Physical Exam Osteopathic Statement: *. No significant issues noted on an osteopathic structural exam other than those noted in the History and Physical/Consult. Vitals: Vital Signs Temp Pulse Resp BP Pulse Ox 04/21/21 11:25 57 L 16 132/82 98 04/21/21 08:41 98.1 F 76 18 126/80 98 Intake and Output 06/09/3004/21/21 04/21/21 22:59 06:59 14:59 Other: Weight 58.967 kg Results CBC & Chem 7: 04/21/21 11:34 04/21/21 11:34
[2021-04-21] MEDS: PANTOPRAZOLE 40 MG TABLET PO SCH (15:17)
[2021-04-21] MEDS: dexAMETHasone 4 MG TAB PO SCH ×3 (15:17→20:45)
[2021-04-21] MEDS: CALCIUM CARBONATE 500 MG CHEWABLE PO SCH (20:45)
[2021-04-22] MEDS: PANTOPRAZOLE 40 MG TABLET PO SCH ×2 (00:03→09:27)
[2021-04-22 09:04] LABS: HCT 41.4 % (34.0-46.0); HGB 14.6 gm/dL (11.4-16.0); MCH 33.8 pg (25.0-35.0); MCHC 35.2 g/dL (31.0-37.0); MCV 96.1 fL (80.0-100.0); Mean Platelet Volume 7.5; Platelet Count 136 k/uL (150-450); WBC 11.6 k/uL (3.8-10.6)
[2021-04-22] MEDS: HEPARIN SOD,PORK IN 0.45% NACL 25,000 UNIT in 0.45% NACL 1 250ML.BAG IV SCH (09:24)
[2021-04-22] MEDS: NON FORMULARY DRUG (Vitamin B Complex [Vitamin B Complex] 1 EACH Capsule) PO SCH (09:26)
[2021-04-22] MEDS: CALCIUM CARBONATE 500 MG CHEWABLE PO SCH ×2 (09:26→21:02)
[2021-04-22] MEDS: dexAMETHasone 4 MG TAB PO SCH ×4 (09:26→21:02)
[2021-04-22] MEDS: CHOLECALCIFEROL 25 MCG (1000 IU) TABLET PO SCH (09:26)
[2021-04-22] MEDS: VITAMIN E 100 UNIT PO SCH (09:27)
[2021-04-22 09:51] LABS: ALT 29 U/L (4-34); AST 28 U/L (14-36); African American GFR (CKD) >90 (>60 ml/min/1.73 sqM); Albumin 3.6 g/dL (3.5-5.0); Alkaline Phosphatase 60 U/L (38-126); Anion Gap 6 mmol/L; Blood Urea Nitrogen 17 mg/dL (7-17); Calcium 8.5 mg/dL (8.4-10.2); Carbon Dioxide 24 mmol/L (22-30); Chloride 100 mmol/L (98-107); Glucose 251 mg/dL (74-99); Non-African American GFR(CKD) >90 (>60 ml/min/1.73 sqM); Sodium 130 mmol/L (137-145); Total Protein 5.7 g/dL (6.3-8.2)
[2021-04-22 10:12] LABS: Potassium 4.9 mmol/L (3.5-5.1)
--- NOTE | 2021-04-22 10:17 | P.PN ---
Subjective Progress Note Date: 04/22/21 Principal diagnosis: left leg swelling Patient is a 70-year-old female with known metastatic breast cancer (triple negative disease) initially with metastases to the hilar area, upper abdominal adenopathy, and sacral metastasis. She completed her initial rounds of chemo therapy in January 2021. Post treatment PET/CT revealed resolution of metastatic disease with residual right breast lesion. She then underwent bilateral mastectomy on March 27 for 3.5 cm high-grade invasive ductal carcinoma right breath. She was seen here starting 04/12 due to intractable nausea and vomiting. She underwent MRI of the brain on April 13 which showed multiple areas of brain metastatic lesions, greater than 50 in total with vasogenic edema and measuring up to 2 cm in greatest diameter. During that hospital stay she was seen by hematology oncology as well as radiation oncology. They recommended whole brain radiation and Decadron therapy. On 04/21 she presented to the ER with complaints of lower extremity edema. She underwent a venous Doppler which demonstrated occlusive DVT of the common femoral on the left extending down into the popliteal vein. SHe was started on a heparin gtt and Dr. Dougherty was notified and in agreement with plan of care. He recommende 48 hours of monitoring. Patient seen and examined at bedside. Leg pain and swelling is better, no shortness of breath, no headache, no weakness General: non toxic, no distress, appears at stated age Derm: warm, dry Head: atraumatic, normocephalic, symmetric Eyes: EOMI, no lid lag, anicteric sclera Mouth: no lip lesion, mucus membranes dry Cardiovascular: S1S2 reg, no murmur, positive posterior tibial pulse bilateral, Lungs: CTA bilateral, no rhonchi, no rales , no accessory muscle use Abdominal: soft, nontender to palpation, no guarding, no appreciable organomegaly Ext: no gross muscle atrophy, trace edema left lower extremity, no contractures Neuro: CN II-XI grossly intact, no focal neuro deficits Psych: Alert, oriented, appropriate affect Tripe negative metastatic breast cancer with numerous brain mets now with left lower extremity DVT. - Dr. Winston is primary oncologist - D/W Dr. Dougherty who is in agreement with heparin gtt: lower incidence of hemorrhage with breast cancer and now that she has had 6 treament - Frequent neuro checks - monitor closely - likely home on eliquis after 24-48 hours of monitoring - patient aware to call nurse with any neurologic abnormality Leukocytosis - suspect reactive to steroids - follow CBC Thrombocytopenia, mild - follow CBC Hyponatremia - likely due to decreased intake - repeat in AM - encourage oral intake - Check urine sodium, serum osmol and urine osmol DVT prophylaxis: on [id number] gtt Discussed with: patient, nursing, Dr. Arroyo, Anticipated discharge date: in 2-[address]: home A total of 75 minutes was spent on the care of this complex patient more than 50% of the time was spent in counseling and care coordination. Objective - Vital Signs Vital signs: Vital Signs Temp 97.9 F 04/22/21 04:00 Pulse 57 L 04/22/21 04:00 Resp 16 04/22/21 04:00 BP 120/65 04/22/21 04:00 Pulse Ox 97 04/22/21 04:00 Intake & Output 04/21/21 04/22/21 04/22/21 18:59 06:59 18:59 Intake Total 73.767 93.754 72.489 Balance 73.767 93.754 72.489 Weight 58.967 kg 57.5 kg Intake: Intake, IV Titration 73.767 93.754 72.489 Amount Heparin Sod,Pork in 0.45% 73.767 93.754 72.489 NaCl 25,000 unit In 0.45 % NaCl 1 250ml.bag @ 18 UNITS/KG/HR 10.614 mls/hr IV .[id number] REPLACED BY [facility] Rx#: [id number] Other: Voiding Method Bedpan # Voids 1 - Labs CBC & Chem 7: 04/22/21 08:24 04/22/21 08:24 Labs: Abnormal Lab Results - Last 24 Hours (Table) 04/21/21 04/21/21 04/21/21 Range/Units 11:34 11:34 11:34 WBC 14.2 H (3.8-10.6) k/uL Plt Count 139 L (150-450) k/uL Neutrophils # 13.0 H (1.3-7.7) k/uL Lymphocytes # 0.5 L (1.0-4.8) k/uL APTT 19.4 L (22.0-30.0) sec Sodium 131 L (137-145) mmol/L BUN 18 H (7-17) mg/dL Creatinine 0.46 L (0.52-1.04) mg/dL Glucose 177 H (74-99) mg/dL Total Protein (6.3-8.2) g/dL 04/21/21 04/22/21 04/22/21 Range/Units 17:55 01:19 08:24 WBC 11.6 H (3.8-10.6) k/uL Plt Count 136 L (150-450) k/uL Neutrophils # (1.3-7.7) k/uL Lymphocytes # (1.0-4.8) k/uL APTT 41.8 H 74.8 H (22.0-30.0) sec Sodium (137-145) mmol/L BUN (7-17) mg/dL Creatinine (0.52-1.04) mg/dL Glucose (74-99) mg/dL Total Protein (6.3-8.2) g/dL 04/22/21 04/22/21 Range/Units 08:24 08:24 WBC (3.8-10.6) k/uL Plt Count (150-450) k/uL Neutrophils # (1.3-7.7) k/uL Lymphocytes # (1.0-4.8) k/uL APTT 77.3 H (22.0-30.0) sec Sodium 130 L (137-145) mmol/L BUN (7-17) mg/dL Creatinine 0.47 L (0.52-1.04) mg/dL Glucose 251 H (74-99) mg/dL Total Protein 5.7 L (6.3-8.2) g/dL
--- NOTE | 2021-04-22 10:26 | P.CONS ---
History of Present Illness - Reason for Consult Consult date: 04/22/21 DVT, breast cancer Requesting physician: Selin Garza - Chief Complaint Left leg swelling - History of Present Illness Ms. Nguyen is a very pleasant 70 yo female with a history of triple negative right breast cancer, status post neoadjuvant chemotherapy followed by bilateral mastectomy on 03/27/21 who is here for left lower extremity swelling. Workup in the ER with Doppler revealed common femoral vein DVT in the left lower extremity. She did have a recent hospitalization, , for intractable nausea, vomiting, and headache. Workup during that hospital stay revealed multiple brain metastases on MRI of the brain. She was started on Decadron as well as whole brain radiation under Dr. Dougherty. She has received 6 out of 10 treatments so far. Her headache and nausea and vomiting are significantly improved. She has been relatively sedentary recently due to her recurrent hospitalizations and symptoms from her brain metastases. She was admitted and started on a heparin drip. MRI from her previous admission has been reviewed, although she has multiple lesions there is no hemorrhagic concern on the MRI. Primary team also discussed her case with Dr. Dougherty, Rad onc, who is also agreeable with anticoagulation. Oncologic History: Pt follows with Dr. Tish Wu presented with rapidly enlarging R breast mass noted only few weeks ago , reported discomfort in breast without nipple drainage or skin changes. She had US of breast at [place] reporting 3.5 cm R Breast mass. 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 She reported 1 sister with breast cancer, 2 maternal aunts with breast cancer Denied using Estrogen-based products. Denies anorexia or weight loss She is a lifetime non smoker, denies ETOH use 11/07/20: Tolerated cycle#1 of AC chemotherapy well (mild nausea & fatigue). 11/15/20-s/p 2 cycles of AC with neulasta, notes mild weakness in the legs, she does have insomnia the night of steroids, she has Hx of insomnia/broken sleep, worse now, uses mediation CDs, tylenol PM and benadryl. Continues on pepcid if she has heartburn. She has used some motrin. Denies F, chills, oral irritation, she notes occasional labored breathing when she is fatigued, no other resp symptoms to report, no diarrhea, constipation (uses colace PRN), no swellling, or new pain. No other c/o questions or concerns. 11/30/20: Tolerating Well, fatigue today. ANC: 0.06 today 12/27/20: Feels Ok, C/O grade II nausea after chemotherapy, no vomiting. Tolerated cycle#1 of DD Taxol well with increasing fatigue. 01/24/21: Feels well, tolerating DD Taxol well, denies skeletal/visceral pain 02/27/21: Feels Ok, completed chemotherapy. PET Scan: improved R breast disease, but resolved systemic disease. Plan on proceeding with surgery followed by surveillance and assessing for possible adjuvant breast RT 03/27/21: IPD for bilateral mastectomy with SLN biopsy 04/13-05/30: IPD for intractable N/V/WOOD, work up with MRI revealed multiple brain met's. Decadron started as well as WBRT. Past Medical History Past Medical History: Cancer, Hyperlipidemia Additional Past Medical History / Comment(s): Bilateral breast cancer treated with chemo/double mastectomy with +R sentinel node, DDD History of Any Multi-Drug Resistant Organisms: None Reported Past Surgical History: Cholecystectomy, Tonsillectomy Additional Past Surgical History / Comment(s): 03/27/21 double mastectomy, bilateral breast core biopsy, laminectomy 1998 & 2000 Past Anesthesia/Blood Transfusion Reactions: No Reported Reaction Past Psychological History: No Psychological Hx Reported Smoking Status: Former smoker Past Alcohol Use History: Rare Past Drug Use History: None Reported - Past Family History Father Family Medical History: CVA/TIA, Myocardial Infarction (PA) Mother Family Medical History: Cancer, Congestive Heart Failure (CHF), COPD Additional Family Medical History / Comment(s): pancreatic cancer Sister(s) Family Medical History: Cancer Additional Family Medical History / Comment(s): right breast cancer Medications and Allergies Home Medications Medication Instructions Recorded Confirmed Type Cholecalciferol [Vitamin D3 (10 1,000 unit PO DAILY 10/02/20 04/21/21 History Mcg = 400 Iu)] Calcium Carbonate [Calcium] 600 mg PO BID 01/25/21 04/21/21 History Vitamin B Complex 1 cap PO DAILY 01/25/21 04/21/21 History HYDROcodone/APAP 7.5-325MG [[place] 1 tab PO Q6H PRN 04/12/21 04/21/21 History 7.5-325] Ondansetron HCl [Zofran] 4 mg PO QID PRN 04/12/21 04/21/21 History Vitamin E 100 unit PO DAILY 04/12/21 04/21/21 History Sennosides [Senokot] 8.6 mg PO BID PRN #30 tab 04/16/21 04/21/21 Rx polyethylene glycoL 3350 [Miralax] 17 gm PO DAILY PRN 30 Days #30 04/16/21 04/21/21 Rx powd.pack Acetaminophen Tab [Tylenol Tab] 500 mg PO Q6HR PRN 04/21/21 04/21/21 History Dexamethasone [Decadron] See Taper PO QID 04/21/21 04/21/21 History Pantoprazole Sodium [Protonix] 40 mg PO BID@0100,1300 04/21/21 04/21/21 History Allergies Allergy/AdvReac Type Severity Reaction Status Date / Time paclitaxel [From Taxol] Allergy Rash/Hives Verified 04/21/21 11:37 atorvastatin [From Lipitor] AdvReac SEVERE Verified 04/21/21 11:37 MUSCLE ACHES codeine AdvReac Abdominal Verified 04/21/21 11:37 Pain Physical Exam Vitals: Vital Signs Temp Pulse Pulse Pulse Resp BP BP 04/22/21 04:00 97.9 F 57 L 16 120/65 04/22/21 00:00 98.0 F 60 16 122/63 04/21/21 20:00 16 04/21/21 19:39 98.5 F 68 16 115/53 04/21/21 16:00 98.7 F 70 18 127/58 04/21/21 11:58 98.1 F 58 L 18 135/65 04/21/21 11:25 57 L 16 132/82 Pulse Ox 04/22/21 04:00 97 04/22/21 00:00 96 04/21/21 20:00 04/21/21 19:39 95 04/21/21 16:00 97 04/21/21 11:58 97 04/21/21 11:25 98 Intake and Output 04/21/21 04/22/21 04/22/21 22:59 06:59 14:59 Intake Total 73.767 93.754 72.489 Balance 73.767 93.754 72.489 Intake: Intake, IV Titration 73.767 93.754 72.489 Amount Heparin Sod,Pork in 0.45% 73.767 93.754 72.489 NaCl 25,000 unit In 0.45 % NaCl 1 250ml.bag @ 18 UNITS/KG/HR 10.614 mls/hr IV .[id number] [facility] Rx#: [id number] Other: Voiding Method Bedpan Bedpan # Voids 1 1 Weight 57.5 kg Gen: No acute distress HEENT: No conjunctival pallor. Mucosa moist. Neck: Supple Lungs: No respiratory distress Heart: Normal rate. LLE swelling, nonpitting edema. Some calf warmth in left. Abdomen: Soft MSK: No obvious deformities Neuro: Alert and oriented 3 Psych: Appropriate affect Skin: No jaundice Results CBC & Chem 7: 04/22/21 08:24 04/22/21 08:24 Labs: Abnormal Lab Results - Last 24 Hours (Table) 04/21/21 04/21/21 04/21/21 Range/Units 11:34 11:34 11:34 WBC 14.2 H (3.8-10.6) k/uL Plt Count 139 L (150-450) k/uL Neutrophils # 13.0 H (1.3-7.7) k/uL Lymphocytes # 0.5 L (1.0-4.8) k/uL APTT 19.4 L (22.0-30.0) sec Sodium 131 L (137-145) mmol/L BUN 18 H (7-17) mg/dL Creatinine 0.46 L (0.52-1.04) mg/dL Glucose 177 H (74-99) mg/dL 04/21/21 04/22/21 04/22/21 Range/Units 17:55 01:19 08:24 WBC 11.6 H (3.8-10.6) k/uL Plt Count 136 L (150-450) k/uL Neutrophils # (1.3-7.7) k/uL Lymphocytes # (1.0-4.8) k/uL APTT 41.8 H 74.8 H (22.0-30.0) sec Sodium (137-145) mmol/L BUN (7-17) mg/dL Creatinine (0.52-1.04) mg/dL Glucose (74-99) mg/dL 04/22/21 Range/Units 08:24 WBC (3.8-10.6) k/uL Plt Count (150-450) k/uL Neutrophils # (1.3-7.7) k/uL Lymphocytes # (1.0-4.8) k/uL APTT 77.3 H (22.0-30.0) sec Sodium (137-145) mmol/L BUN (7-17) mg/dL Creatinine (0.52-1.04) mg/dL Glucose (74-99) mg/dL Comments: LE Doppler with left common femoral vein occlusive DVT. MRI - head: report reviewed Assessment and Plan Assessment: Left lower extremity common femoral veins acute DVT Leukocytosis, reactive due to steroids Thrombocytopenia, likely consumptive due to DVT Triple negative breast cancer status post bilateral mastectomy and neoadjuvant chemotherapy Diffuse brain metastases currently on Decadron and whole brain radiation Plan: Ms. Nguyen is a very pleasant 70-year-old female with multiple comorbidities including newly found brain metastases, triple negative breast cancer status post neoadjuvant chemotherapy and bilateral mastectomy on 03/27/21. She is here for left lower extremity swelling, found to have common femoral vein DVT. She was found to have diffuse brain metastases on MRI as a workup for intractable nausea vomiting and headaches about a week ago. She was started on Decadron and is undergoing whole brain radiation, status post dose 6 out of 10. DVT is provoked from recent surgery, hospitalization, steroids, and malignancy. She will benefit from ongoing anticoagulation for now. Case was discussed with primary team who has also reviewed her case with patient's radiation oncologist. It was felt safe to start anticoagulation and she has been on a heparin drip since admission without any neurologic complications. Also addressed due to the extent of her lower extremity DVT. Continue bedrest to complete 24 hours anticoagulation with heparin drip. Continue to monitor for neurologic symptoms of possible hemorrhage. Breast cancer is less likely to cause hemorrhagic brain metastases however patient does have a large burden of disease. If patient continues to be stable over the next day, no objections from oncology stand point for discharge on oral anticoagulation such as Eliquis or Xarelto, with continued follow up with Dr. Dougherty and Dr. Alsawah. Discussed with patient she is agreeable to the plan. All of her questions were answered. Discussed with primary team.
[2021-04-22 13:07] LABS: Glucose,Whole Blood 217 mg/dL (75-99)
[2021-04-22] MEDS: INSULIN ASPART (NovoLOG) 100 UNIT/ML VIAL SQ SCH ×3 (13:24→21:02)
[2021-04-22 16:58] LABS: Glucose,Whole Blood 238 mg/dL (75-99)
[2021-04-22 18:24] VITALS: RESP 16
[2021-04-22 20:56] LABS: Glucose,Whole Blood 219 mg/dL (75-99)
[2021-04-23] MEDS: PANTOPRAZOLE 40 MG TABLET PO SCH ×2 (00:11→08:13)
[2021-04-23 06:17] LABS: Glucose,Whole Blood 193 mg/dL (75-99)
[2021-04-23] MEDS: INSULIN ASPART (NovoLOG) 100 UNIT/ML VIAL SQ SCH ×2 (06:52→12:37)
[2021-04-23] MEDS: VITAMIN E 100 UNIT PO SCH (07:56)
[2021-04-23] MEDS: NON FORMULARY DRUG (Vitamin B Complex [Vitamin B Complex] 1 EACH Capsule) PO SCH (07:56)
[2021-04-23] MEDS: dexAMETHasone 4 MG TAB PO SCH ×2 (08:13→12:37)
[2021-04-23] MEDS: CALCIUM CARBONATE 500 MG CHEWABLE PO SCH (08:13)
[2021-04-23] MEDS: CHOLECALCIFEROL 25 MCG (1000 IU) TABLET PO SCH (08:13)
[2021-04-23] MEDS ORDERED: APIXABAN 5 MG TAB PO SCH (10:00)
[2021-04-23 10:10] VITALS: BP 112/72; PULSE 62; TEMP 97.6
--- NOTE | 2021-04-23 11:28 | P.DS ---
Providers Date of admission: 04/21/21 11:19 Expected date of discharge: 04/23/21 Attending physician: Selin Garza DO Consults: 04/21/21 11:19 Consult Physician Urgent Consulting Provider: Laury Arroyo Reason/Comments: DVT, history of breast cancer Do you want consulting provider notified?: Yes Primary care physician: Elaina Coles MD Hospital Course: Discharge Diagnosis: Left lower extremity DVT History of metastatic breast cancer with brain metastases Leukocytosis likely due to steroids: Improving Mild thrombocytopenia: Stable Hyponatremia: Stable Hospital Course: Patient is a 70-year-old female with known metastatic breast cancer (triple negative disease) initially with metastases to the hilar area, upper abdominal adenopathy, and sacral metastasis. She completed her initial rounds of chemotherapy in January 2021. Post treatment PET/CT revealed resolution of metastatic disease with residual right breast lesion. She then underwent bilateral mastectomy on March 27 for 3.5 cm high-grade invasive ductal carcinoma right breath. She was seen here starting 04/12 due to intractable nausea and vomiting. She underwent MRI of the brain on April 13 which showed multiple areas of brain metastatic lesions, greater than 50 in total with vasogenic edema and measuring up to 2 cm in greatest diameter. During that hospital stay she was seen by hematology oncology as well as radiation oncology. They recommended whole brain radiation and Decadron therapy. On 04/21 she presented to the ER with complaints of lower extremity edema. She underwent a venous Doppler which demonstrated occlusive DVT of the common femoral on the left extending down into the popliteal vein. Her radiation oncologist was okay with starting the patient on anticoagulation. Patient was seen by oncology who also had no objections to the patient started on anticoagulation. Patient was monitored on the heparin drip for 48 hours. Patient had no change in her neurological status. She was then transitioned to Eliquis. She was then deemed stable for discharge. credit risk analytics manager discussed with the patient about her cost for Eliquis and patient was given a coupon for 1 month supply. Patient seen and examined at bedside.[] Vital signs reviewed and stable. General: [non toxic], [no distress], [appears at stated age] Derm: [warm], [dry] Head: [atraumatic], [normocephalic], [symmetric] Eyes: [EOMI], [no lid lag], [anicteric sclera] Mouth: [no lip lesion], [mucus membranes moist] Cardiovascular: [S1S2 reg], [no murmur], [positive posterior tibial pulse bilateral], Lungs: [CTA bilateral], [no rhonchi, no rales] , [no accessory muscle use] Abdominal: [soft], [ nontender to palpation], [no guarding], [no appreciable organomegaly] Ext: [no gross muscle atrophy], [no edema], [no contractures] Neuro: [ CN II-XI grossly intact], [no focal neuro deficits] Psych: [Alert], [oriented], [appropriate affect] A total of [32] minutes of time were spent preparing this complex discharge summary . Patient Condition at Discharge: Poor Plan - Discharge Summary Discharge Rx Participant: Yes New Discharge Prescriptions: New Apixaban [Eliquis Starter Pack (for VTE)] 0 mg PO DIRECTED 30 Days #1 pack Continue Cholecalciferol [Vitamin D3 (10 Mcg = 400 Iu)] 1,000 unit PO DAILY Vitamin B Complex 1 cap PO DAILY Calcium Carbonate [Calcium] 600 mg PO BID HYDROcodone/APAP 7.5-325MG [[place] 7.5-325] 1 tab PO Q6H PRN PRN Reason: Pain Sennosides [Senokot] 8.6 mg PO BID PRN #30 tab PRN Reason: Constipation Acetaminophen Tab [Tylenol] 500 mg PO Q6HR PRN PRN Reason: Pain Pantoprazole Sodium [Protonix] 40 mg PO BID@0100,1300 Vitamin E 100 unit PO DAILY Ondansetron HCl [Zofran] 4 mg PO QID PRN PRN Reason: Nausea And Vomiting polyethylene glycoL 3350 [Miralax] 17 gm PO DAILY PRN 30 Days #30 powd.pack PRN Reason: Constipation Dexamethasone [Decadron] See Taper PO QID Discharge Medication List Cholecalciferol [Vitamin D3 (10 Mcg = 400 Iu)] 1,000 unit PO DAILY 10/02/20 [History] Calcium Carbonate [Calcium] 600 mg PO BID 01/25/21 [History] Vitamin B Complex 1 cap PO DAILY 01/25/21 [History] HYDROcodone/APAP 7.5-325MG [[place] 7.5-325] 1 tab PO Q6H PRN 04/12/21 [History] Ondansetron HCl [Zofran] 4 mg PO QID PRN 04/12/21 [History] Vitamin E 100 unit PO DAILY 04/12/21 [History] Sennosides [Senokot] 8.6 mg PO BID PRN #30 tab 04/16/21 [Rx] polyethylene glycoL 3350 [Miralax] 17 gm PO DAILY PRN 30 Days #30 powd.pack 04/16/21 [Rx] Acetaminophen Tab [Tylenol] 500 mg PO Q6HR PRN 04/21/21 [History] Dexamethasone [Decadron] See Taper PO QID 04/21/21 [History] Pantoprazole Sodium [Protonix] 40 mg PO BID@0100,1300 04/21/21 [History] Apixaban [Eliquis Starter Pack (for VTE)] 0 mg PO DIRECTED 30 Days #1 pack 04/23/21 [Rx] Follow up Appointment(s)/Referral(s): Elaina Coles MD [Primary Care Provider] - 1-2 days Residential Home[facility] [NON-STAFF] - Patient Instructions/Handouts: Deep Vein Thrombosis (ED) Discharge Disposition: HOME SELF-CARE
[2021-04-23 12:35] LABS: Glucose,Whole Blood 176 mg/dL (75-99)
--- NOTE | 2021-04-23 13:08 | P.PN ---
Subjective Progress Note Date: 04/23/21 Principal diagnosis: LLE DVT The patient is a 70 year old female with a history of metastatic triple negative breast cancer. She was recently diagnosed with significant brain metastases and started whole-brain radiotherapy. She developed some pain in the left lower extremity late this past week. She proceeded to the ER on Friday AM and was found to have DVT. She was started on anticoagulation. The patient was seen in the AM on 04/23. She states she is feeling well. She feels the left lower leg swelling has improved. She denies headaches, nausea or confusion. Objective - Vital Signs Vital signs: Vital Signs Temp 97.6 F 04/23/21 07:20 Pulse 62 04/23/21 07:20 Resp 16 04/23/21 07:20 BP 112/72 04/23/21 07:20 Pulse Ox 99 04/23/21 07:20 Intake & Output 04/22/21 04/23/21 04/23/21 18:59 06:59 18:59 Intake Total 1255.226 4949.157 Balance 9604.375 5563.157 Weight 55.7 kg Intake: IV 20 Invasive Line 1 20 Intake, IV Titration 72.489 231.157 Amount Heparin Sod,Pork in 0.45% 72.489 231.157 NaCl 25,000 unit In 0.45 % NaCl 1 250ml.bag @ 18 UNITS/KG/HR 10.614 mls/hr IV .[id number] [facility] Rx#: [id number] Oral 1700 840 Other: Voiding Method Bedpan Toilet Toilet # Voids 1 1 1 - Constitutional General appearance: Present: no acute distress - EENT Eyes: Present: EOMI, PERRLA ENT: Present: hearing grossly normal - Neck Neck: Absent: lymphadenopathy - Respiratory Respiratory: bilateral: CTA - Cardiovascular Rhythm: regular - Gastrointestinal General gastrointestinal: Absent: tenderness - Integumentary Integumentary: Absent: pale, rash - Neurologic Neurologic: Present: CNII-XII intact - Musculoskeletal Musculoskeletal: Present: strength equal bilaterally - Psychiatric Psychiatric: Present: A&O x's 3, appropriate affect - Labs CBC & Chem 7: 04/22/21 08:24 04/22/21 08:24 Labs: Abnormal Lab Results - Last 24 Hours (Table) 04/22/21 04/22/21 04/22/21 Range/Units 12:58 15:30 16:55 APTT 57.1 H (22.0-30.0) sec POC Glucose (mg/dL) 217 H 238 H (75-99) mg/dL 04/22/21 04/23/21 04/23/21 Range/Units 20:48 06:16 06:45 APTT 65.3 H (22.0-30.0) sec POC Glucose (mg/dL) 219 H 193 H (75-99) mg/dL 04/23/21 Range/Units 12:33 APTT (22.0-30.0) sec POC Glucose (mg/dL) 176 H (75-99) mg/dL Assessment and Plan Plan: The patient is a 70 year old female with a history of metastatic triple negative breast cancer. She was recently diagnosed with significant brain metastases and started whole-brain radiotherapy. She developed some pain in the left lower extremity late this past week. She proceeded to the ER on Friday AM and was found to have DVT. She was started on anticoagulation. 1. LLE DVT : Agreed with proceeding on anticoagulation. Patient has had 6/10 treatments at the time of the DVT and I feel that her risk of bleeding from these lesions is low. She has had no changes in her breathing and feels her leg swelling is improving since starting heparin. She will be transitioned to oral medication and discharged this afternoon. 2. Brain metastases: Patient had treatment #7/ today - plans to finish as outpatient. Taper to 4 mg TID this week of decadron. No progressive symptoms at this time. Time with Patient: Less than 30
--- NOTE | 2021-04-23 14:58 | P.PN ---
Subjective Progress Note Date: 04/23/21 Principal diagnosis: Metastatic Breast Cancer - New Brain Mets and DVT No signs of hemorrhagic lesions, Dr. Dougherty is following and patient currently undergoing radiation therefore anticoagulation PO is ok Objective - Vital Signs Vital signs: Vital Signs Temp 97.6 F 04/23/21 07:20 Pulse 62 04/23/21 07:20 Resp 16 04/23/21 07:20 BP 112/72 04/23/21 07:20 Pulse Ox 99 04/23/21 07:20 Intake & Output 04/22/21 04/23/21 04/23/21 18:59 06:59 18:59 Intake Total 5346.751 2051.157 Balance 8132.546 1109.157 Weight 55.7 kg Intake: IV 20 Invasive Line 1 20 Intake, IV Titration 72.489 231.157 Amount Heparin Sod,Pork in 0.45% 72.489 231.157 NaCl 25,000 unit In 0.45 % NaCl 1 250ml.bag @ 18 UNITS/KG/HR 10.614 mls/hr IV .[id number] [facility] [place] Rx#: [id number] Oral 1700 840 Other: Voiding Method Bedpan Toilet Toilet # Voids 1 1 1 - Exam - Constitutional General appearance: Present: no acute distress - EENT Eyes: Present: EOMI, PERRLA ENT: Present: hearing grossly normal - Neck Neck: Absent: lymphadenopathy - Respiratory Respiratory: bilateral: CTA - Cardiovascular Rhythm: regular - Gastrointestinal General gastrointestinal: Absent: tenderness - Integumentary Integumentary: Absent: pale, rash - Neurologic Neurologic: Present: CNII-XII intact - Musculoskeletal Musculoskeletal: Present: strength equal bilaterally - Psychiatric Psychiatric: Present: A&O x's 3, appropriate affect - Labs CBC & Chem 7: 04/22/21 08:24 04/22/21 08:24 Labs: Abnormal Lab Results - Last 24 Hours (Table) 04/22/21 04/22/21 04/22/21 Range/Units 15:30 16:55 20:48 APTT 57.1 H (22.0-30.0) sec POC Glucose (mg/dL) 238 H 219 H (75-99) mg/dL 04/23/21 04/23/21 04/23/21 Range/Units 06:16 06:45 12:33 APTT 65.3 H (22.0-30.0) sec POC Glucose (mg/dL) 193 H 176 H (75-99) mg/dL Assessment and Plan Plan: 1. LLE DVT : - Ok to with procee on PO anticoagulation. - Patient has had 6/10 treatments at the time of the DVT and I feel that her risk of bleeding from these lesions is low. 2. Brain metastases: Patient had treatment #05/19 today - will follow with radiation oncology as outpatient. - Per Radiation Oncology, Taper to 4 mg TID this week of decadron. No progressive symptoms at this time. 3. History of Negative Breast Cancer Discussed with radiation Oncology
== END 2021-04-23 14:09 | disposition home or self-care (01) | DRG 299 ==
LOC: EC 08:36 → 5NMEDONC 11:19 → 3SCARD 12:24
PROVIDERS: ADMIT Internal Medicine; ATTEND Internal Medicine
DX: I82.412 Acute embolism and thrombosis of left femoral vein (principal); G93.6 Cerebral edema; E87.1 Hypo-osmolality and hyponatremia; C79.31 Secondary malignant neoplasm of brain; C79.51 Secondary malignant neoplasm of bone; C77.1 Secondary and unspecified malignant neoplasm of intrathoracic lymph nodes; C78.1 Secondary malignant neoplasm of mediastinum; I82.432 Acute embolism and thrombosis of left popliteal vein; T38.0X5A Adverse effect of glucocorticoids and synthetic analogues, initial encounter; Z20.822 Contact with and (suspected) exposure to COVID-19; G47.00 Insomnia, unspecified; E78.5 Hyperlipidemia, unspecified; D72.829 Elevated white blood cell count, unspecified; D69.6 Thrombocytopenia, unspecified; Z79.899 Other long term (current) drug therapy; Z85.3 Personal history of malignant neoplasm of breast; Z87.891 Personal history of nicotine dependence; Z90.13 Acquired absence of bilateral breasts and nipples; Z92.21 Personal history of antineoplastic chemotherapy; Z92.3 Personal history of irradiation; Z90.49 Acquired absence of other specified parts of digestive tract; Z88.5 Allergy status to narcotic agent; Z88.8 Allergy status to other drugs, medicaments and biological substances
CPT/HCPCS: 36415; 77412; 77417; 80048; 80053; 83735; 83930; 83935; 84300; 85025; 85027; 85610; 85730; 87635; 93005; 99285

== ENCOUNTER 2021-05-18 12:15 | Inpatient (IN) | payer MEDICARE, OTHER ==
--- NOTE | 2021-05-18 12:47 | ED ---
General Adult HPI - General Chief complaint: Back Pain/Injury Stated complaint: Back pain Time Seen by Provider: 05/18/21 12:33 Source: patient Mode of arrival: wheelchair Limitations: no limitations - History of Present Illness Initial comments: 70 year-old female patient with history of breast cancer with mets to brain, presents to the emergency department for evaluation of increased weakness, low back pain, and left leg paresthesia. Patient states that she started a new chemotherapy medication 4 days ago. States that in that time she has become qu ite weak and lost all energy. States she is having numbness and tingling in her hands and feet. She states she did have a fall yesterday. She did scrape her head on the way down. Denies any headache, blurred vision, double vision, nausea or vomiting. States she is having increased low back pain that started before the fall. States the pain seems to be more on the right, but has a "buzzing" sensation to the left leg. States that she spoke to her radiation oncologist who instructed her to come to the ED and be admitted for an MRI. She states she has also been having some wheezing. She did start albuterol inhaler yesterday. Patient denies any recent rash, fever, chills, cough, shortness of breath, chest pain, abdominal pain, diarrhea, constipation, back pain, hematuria, dysuria, urinary urgency, urinary frequency, or any other complaints. - Related Data Home Medications Medication Instructions Recorded Confirmed Calcium Carbonate [Calcium] 600 mg PO BID 01/25/21 05/18/21 HYDROcodone/APAP 7.5-325MG [[place] 1 tab PO Q6H PRN 04/12/21 05/18/21 7.5-325] Ondansetron HCl [Zofran] 4 mg PO QID PRN 04/12/21 05/18/21 Vitamin E 100 unit PO DAILY 04/12/21 05/18/21 Acetaminophen Tab [Tylenol] 500 mg PO Q6HR PRN 04/21/21 05/18/21 Dexamethasone [Decadron] See Taper PO QID 04/21/21 05/18/21 Pantoprazole Sodium [Protonix] 40 mg PO DAILY 04/21/21 05/18/21 Albuterol Inhaler [Ventolin Hfa 2 puff INHALATION RT-QID PRN 05/18/21 05/18/21 Inhaler] Apixaban [Eliquis Starter Pack 5 mg PO BID 05/18/21 05/18/21 (for VTE)] Capecitabine [Xeloda] 1,000 mg PO BID 05/18/21 05/18/21 Cholecalciferol [Vitamin D3 (25 25 mcg PO DAILY 05/18/21 05/18/21 Mcg = 1000 Iu)] Previous Rx's Medication Instructions Recorded Sennosides [Senokot] 8.6 mg PO BID PRN #30 tab 04/16/21 polyethylene glycoL 3350 [Miralax] 17 gm PO DAILY PRN 30 Days #30 04/16/21 powd.pack Allergies Allergy/AdvReac Type Severity Reaction Status Date / Time paclitaxel [From Taxol] Allergy Rash/Hives Verified 05/18/21 14:03 atorvastatin [From Lipitor] AdvReac SEVERE Verified 05/18/21 14:03 MUSCLE ACHES codeine AdvReac Abdominal Verified 05/18/21 14:03 Pain Review of Systems ROS Statement: Those systems with pertinent positive or pertinent negative responses have been documented in the HPI. ROS Other: All systems not noted in ROS Statement are negative. Past Medical History Past Medical History: Cancer, Hyperlipidemia Additional Past Medical History / Comment(s): breast, brain mets History of Any Multi-Drug Resistant Organisms: None Reported Past Surgical History: Back Surgery, Breast Surgery, Cholecystectomy Additional Past Surgical History / Comment(s): 03/27/21 double mastectomy, bilateral breast core biopsy, laminectomy 1998 & 2000 Past Anesthesia/Blood Transfusion Reactions: No Reported Reaction Past Psychological History: No Psychological Hx Reported Smoking Status: Former smoker Past Alcohol Use History: Rare Past Drug Use History: None Reported - Past Family History Father Family Medical History: CVA/TIA, Myocardial Infarction ([place]) Mother Family Medical History: Cancer, Congestive Heart Failure (CHF), COPD Additional Family Medical History / Comment(s): pancreatic cancer Sister(s) Family Medical History: Cancer Additional Family Medical History / Comment(s): right breast cancer General Exam Limitations: no limitations General appearance: alert, in no apparent distress, other (This is a well- developed, well-nourished adult female patient in no acute distress. Vital signs upon presentation are temperature 98.1F, pulse 100, respirations 20, blood pressure 123/75, pulse ox 99% on room air.) Head exam: Present: other (Superficial abrasion noted to the occipital scalp. No soft tissue swelling. No tenderness over the area.) Eye exam: Present: normal appearance, PERRL, EOMI. Absent: scleral icterus, conjunctival injection, nystagmus, periorbital swelling ENT exam: Present: normal exam, normal oropharynx, mucous membranes moist Neck exam: Present: normal inspection, full ROM, other (Nontender, no step-off, no deformity to firm midline palpation of the posterior cervical spine. Full range of motion without pain or limitation.). Absent: tenderness, meningismus, lymphadenopathy Respiratory exam: Present: normal lung sounds bilaterally. Absent: respiratory distress, wheezes, rales, rhonchi, stridor Cardiovascular Exam: Present: regular rate, normal rhythm, normal heart sounds. Absent: systolic murmur, diastolic murmur, rubs, gallop, clicks GI/Abdominal exam: Present: soft, normal bowel sounds. Absent: distended, tenderness, guarding, rebound, rigid Extremities exam: Present: full ROM, normal capillary refill, other (1+ pitting edema noted to the left foot and lower leg. Skin is pink, warm, dry. Cap refill less than 3 seconds. Pedal pulses 2+.). Absent: tenderness, pedal edema, joint swelling, calf tenderness Back exam: Present: normal inspection. Absent: vertebral tenderness Neurological exam: Present: alert Psychiatric exam: Present: normal affect, normal mood Skin exam: Present: warm, dry, intact, normal color. Absent: rash Course Vital Signs 05/18/21 12:17 Temperature 98.1 F Pulse Rate 100 Respiratory 20 Rate Blood Pressure 123/75 O2 Sat by Pulse 99 Oximetry EKG Findings - EKG Comments: EKG Findings:: EKG obtained at 1404 shows normal sinus rhythm with a ventricular rate of 83, KS interval 118, QRS duration 80, QT 366, QTc 430. No evidence of ST elevation or depression. Medical Decision Making - Medical Decision Making 70-year-old female patient with past medical history significant for breast cancer with metastasis to the brain presents for evaluation of generalized weakness and increased back pain with paresthesia to the left lower extremity. Physical examination reveals good strength to the bilateral lower extremities. He is neurologically intact with no focal deficits. Labs reviewed and did reveal decreased sodium, level is 124 corrected for glucose. We will administer normal saline infusion for correction over the next 24 hours. She is given a dose of insulin for elevated blood glucose, patient is currently taking dexam ethasone. She was started on IV Rocephin for urinary tract infection. Did consult Dr. Dougherty radiation oncology as he did send urine and mentioned wanting to her to have an MRI. Case was discussed with my attending Dr. Segura. - Lab Data Result diagrams: 05/18/21 13:48 05/18/21 13:48 Lab Results 05/18/21 05/18/21 05/18/21 Range/Units 13:48 13:48 13:48 WBC 6.9 (3.8-10.6) k/uL RBC 3.49 L (3.80-5.40) m/uL Hgb 11.7 (11.4-16.0) gm/dL Hct 32.3 L (34.0-46.0) % MCV 92.5 (80.0-100.0) fL MCH 33.4 (25.0-35.0) pg MCHC 36.1 (31.0-37.0) g/dL RDW 13.6 (11.5-15.5) % Plt Count 173 (150-450) k/uL MPV 7.0 Neutrophils % 93 % Lymphocytes % 4 % Monocytes % 2 % Eosinophils % 0 % Basophils % 0 % Neutrophils # 6.4 (1.3-7.7) k/uL Lymphocytes # 0.3 L (1.0-4.8) k/uL Monocytes # 0.2 (0-1.0) k/uL Eosinophils # 0.0 (0-0.7) k/uL Basophils # 0.0 (0-0.2) k/uL PT 9.8 (9.0-12.0) sec INR 0.9 (<1.2) APTT 20.1 L (22.0-30.0) sec Sodium (137-145) mmol/L Potassium (3.5-5.1) mmol/L Chloride (98-107) mmol/L Carbon Dioxide (22-30) mmol/L Anion Gap mmol/L BUN (7-17) mg/dL Creatinine (0.52-1.04) mg/dL Est GFR (CKD-EPI)AfAm (>60 ml/min/1.73 sqM) Est GFR (CKD-EPI)NonAf (>60 ml/min/1.73 sqM) Glucose (74-99) mg/dL Plasma Lactic Acid Benny (0.7-2.0) mmol/L Calcium (8.4-10.2) mg/dL Magnesium (1.6-2.3) mg/dL Total Bilirubin (0.2-1.3) mg/dL AST (14-36) U/L ALT (4-34) U/L Alkaline Phosphatase (38-126) U/L Troponin I (0.000-0.034) ng/mL Total Protein (6.3-8.2) g/dL Albumin (3.5-5.0) g/dL Urine Color Light Yellow Urine Appearance Cloudy H (Clear) Urine pH 6.0 (5.0-8.0) Ur Specific [place] 1.012 (1.001-1.035) Urine Protein Negative (Negative) Urine Glucose (UA) 4+ H (Negative) Urine Ketones Negative (Negative) Urine Blood Negative (Negative) Urine Nitrite Negative (Negative) Urine Bilirubin Negative (Negative) Urine Urobilinogen <2.0 (<2.0) mg/dL Ur Leukocyte Esterase Large H (Negative) Urine RBC 1 (0-5) /hpf Urine WBC 122 H (0-5) /hpf Urine WBC Clumps Few H (None) /hpf Ur Squamous Epith Cells <1 (0-4) /hpf Urine Bacteria Occasional H (None) /hpf Urine Mucus Rare H (None) /hpf 05/18/21 05/18/21 05/18/21 Range/Units 13:48 13:48 13:48 WBC (3.8-10.6) k/uL RBC (3.80-5.40) m/uL Hgb (11.4-16.0) gm/dL Hct (34.0-46.0) % MCV (80.0-100.0) fL MCH (25.0-35.0) pg MCHC (31.0-37.0) g/dL RDW (11.5-15.5) % Plt Count (150-450) k/uL MPV Neutrophils % % Lymphocytes % % Monocytes % % Eosinophils % % Basophils % % Neutrophils # (1.3-7.7) k/uL Lymphocytes # (1.0-4.8) k/uL Monocytes # (0-1.0) k/uL Eosinophils # (0-0.7) k/uL Basophils # (0-0.2) k/uL PT (9.0-12.0) sec INR (<1.2) APTT (22.0-30.0) sec Sodium 120 L (137-145) mmol/L Potassium 3.9 (3.5-5.1) mmol/L Chloride 91 L (98-107) mmol/L Carbon Dioxide 23 (22-30) mmol/L Anion Gap 6 mmol/L BUN 15 (7-17) mg/dL Creatinine 0.39 L (0.52-1.04) mg/dL Est GFR (CKD-EPI)AfAm >90 (>60 ml/min/1.73 sqM) Est GFR (CKD-EPI)NonAf >90 (>60 ml/min/1.73 sqM) Glucose 323 H (74-99) mg/dL Plasma Lactic Acid Benny 1.1 (0.7-2.0) mmol/L Calcium 8.3 L (8.4-10.2) mg/dL Magnesium 1.9 (1.6-2.3) mg/dL Total Bilirubin 0.7 (0.2-1.3) mg/dL AST 19 (14-36) U/L ALT 18 (4-34) U/L Alkaline Phosphatase 72 (38-126) U/L Troponin I <0.012 (0.000-0.034) ng/mL Total Protein 5.4 L (6.3-8.2) g/dL Albumin 3.3 L (3.5-5.0) g/dL Urine Color Urine Appearance (Clear) Urine pH (5.0-8.0) Ur Specific [place] (1.001-1.035) Urine Protein (Negative) Urine Glucose (UA) (Negative) Urine Ketones (Negative) Urine Blood (Negative) Urine Nitrite (Negative) Urine Bilirubin (Negative) Urine Urobilinogen (<2.0) mg/dL Ur Leukocyte Esterase (Negative) Urine RBC (0-5) /hpf Urine WBC (0-5) /hpf Urine WBC Clumps (None) /hpf Ur Squamous Epith Cells (0-4) /hpf Urine Bacteria (None) /hpf Urine Mucus (None) /hpf Disposition Clinical Impression: Hyponatremia, Weakness, Urinary tract infection, Hyperglycemia Disposition: ADMITTED IP TO THIS HOSP Condition: Serious Referrals: Elaina Coles MD [Primary Care Provider] - 1-2 days Decision to Admit Reason: Admit from EC Decision Date: 05/18/21 Decision Time: 15:29
[2021-05-18 14:20] LABS: Basophils % (A) 0 %; Eosinophils % (A) 0 %; HCT 32.3 % (34.0-46.0); HGB 11.7 gm/dL (11.4-16.0); Lymphocytes # (A) 0.3 k/uL (1.0-4.8); Lymphocytes % (A) 4 %; MCH 33.4 pg (25.0-35.0); MCHC 36.1 g/dL (31.0-37.0); MCV 92.5 fL (80.0-100.0); Monocytes # (A) 0.2 k/uL (0-1.0); Monocytes % (A) 2 %; Neutrophils # (A) 6.4 k/uL (1.3-7.7); Neutrophils % (A) 93 %; Platelet Count 173 k/uL (150-450); RBC 3.49 m/uL (3.80-5.40); RDW 13.6 % (11.5-15.5); WBC 6.9 k/uL (3.8-10.6)
[2021-05-18 14:30] LABS: ALT 18 U/L (4-34); AST 19 U/L (14-36); African American GFR (CKD) >90 (>60 ml/min/1.73 sqM); Albumin 3.3 g/dL (3.5-5.0); Alkaline Phosphatase 72 U/L (38-126); Anion Gap 6 mmol/L; Blood Urea Nitrogen 15 mg/dL (7-17); Calcium 8.3 mg/dL (8.4-10.2); Carbon Dioxide 23 mmol/L (22-30); Chloride 91 mmol/L (98-107); Glucose 323 mg/dL (74-99); Magnesium 1.9 mg/dL (1.6-2.3); Non-African American GFR(CKD) >90 (>60 ml/min/1.73 sqM); Potassium 3.9 mmol/L (3.5-5.1); Sodium 120 mmol/L (137-145); Total Bilirubin 0.7 mg/dL (0.2-1.3); Total Protein 5.4 g/dL (6.3-8.2)
[2021-05-18 14:33] LABS: Appearance,Urine Cloudy (Clear); Bacteria,Urine Occasional /hpf; Bilirubin,Urine Negative (Negative); Blood,Urine Negative (Negative); Color,Urine Light Yellow; Glucose,Urine (UA) 4+ (Negative); Ketones,Urine Negative (Negative); Leukocyte Esterase,Urine Large (Negative); Mucus,Urine Rare /hpf; Nitrite,Urine Negative (Negative); Protein,Urine Negative (Negative); RBC,Urine 1 /hpf (0-5); Specific Gravity,Urine 1.012 (1.001-1.035); Squamous Epithelial Cell,Urine <1 /hpf (0-4); Urobilinogen,Urine <2.0 mg/dL (<2.0); WBC,Urine 122 /hpf (0-5)
[2021-05-18 14:36] LABS: INR 0.9 (<1.2); Prothrombin Time 9.8 sec (9.0-12.0)
[2021-05-18 14:39] LABS: Partial Thromboplastin Time 20.1 sec (22.0-30.0)
[2021-05-18] MEDS ORDERED: cefTRIAXone IN SWFI 1,000 MG/10 ML SYRINGE IVP STA (15:10)
[2021-05-18] MEDS ORDERED: NALOXONE 0.4 MG/ML 1 ML VIAL IV PRN ×2 (15:22→17:03)
[2021-05-18] MEDS ORDERED: INSULIN ASPART (NovoLOG) 100 UNIT/ML VIAL SQ STA (15:26)
[2021-05-18] MEDS: SODIUM CHLORIDE 0.9% 1,000 ML IV SCH (16:04)
--- NOTE | 2021-05-18 16:13 | XR ---
EXAMINATION TYPE: XR chest 2V DATE OF EXAM: 05/18/2021 COMPARISON: NONE HISTORY: Shortness of breath TECHNIQUE: Frontal and lateral views of the chest are obtained. FINDINGS: Scattered senescent parenchymal changes noted. Hyperinflation compatible with COPD. No evidence for infiltrate. No evidence for atelectasis. Heart size is stable. Mediastinal structures are stable and grossly unremarkable. No evidence for hilar prominence. Degenerative changes dorsal spine. IMPRESSION: 1. No evidence for acute pulmonary disease.
[2021-05-18] MEDS ORDERED: bisacodyL 5 MG TABLET.DR PO PRN (17:03)
[2021-05-18] MEDS ORDERED: DOCUSATE 100 MG CAP PO PRN (17:03)
[2021-05-18] MEDS ORDERED: traMADol 50 MG TAB PO PRN (17:03)
[2021-05-18] MEDS ORDERED: ONDANSETRON 4 MG TAB PO PRN (17:05)
[2021-05-18] MEDS ORDERED: polyethylene glycoL 3350 17 GM POWD.PACK PO PRN (17:05)
[2021-05-18] MEDS ORDERED: ALBUTEROL NEBULIZED 2.5 MG/3 ML INHALATION PRN (17:05)
--- NOTE | 2021-05-18 17:16 | P.HPIM ---
History of Present Illness H&P Date: 05/18/21 Chief Complaint: Weakness 70 year old woman with metastatic breast cancer to the brain on xelojda and dexamethasone taper presented with weakness, back pain. Patient says that she has had increasing weakness for last 2 weeks since dropping from 4mg BID to 4mg daily of dexamethasone. Over the last week, she has also noticed sharp back pain with increasing leg weakness. She has recently completed 8 cycles of chemotherapy and is now newly on Xelojda. She denies chest pain, fevers, chills, n/v, palps, syncope, cough, dyspnea, abd pain, dysuria, dyschezia, ISHAAN, numbness of LEs. She reports weakness of LEs and dysuria. In the ER, she was noted to be afebrile and HDS. Chemistries concerning for hyponatremia to 120, elevated glucose to 323. UA significant for large LE with 122 WBCs, occasional bacteria. CXR negative for acute cardiopulmonary pathology. Review of Systems All Systems reviewed and pertinent positives and negatives noted in HPI, all other symptoms are negative Past Medical History Past Medical History: Cancer, Deep Vein Thrombosis (DVT), Hyperlipidemia Additional Past Medical History / Comment(s): breast, brain mets History of Any Multi-Drug Resistant Organisms: None Reported Past Surgical History: Back Surgery, Breast Surgery, Cholecystectomy Additional Past Surgical History / Comment(s): 03/27/21 double mastectomy, bilateral breast core biopsy, laminectomy 1998 & 2000 Past Anesthesia/Blood Transfusion Reactions: No Reported Reaction Smoking Status: Former smoker - Past Family History Father Family Medical History: CVA/TIA, Myocardial Infarction ([place]) Mother Family Medical History: Cancer, Congestive Heart Failure (CHF), COPD Additional Family Medical History / Comment(s): pancreatic cancer Sister(s) Family Medical History: Cancer Additional Family Medical History / Comment(s): right breast cancer Medications and Allergies Home Medications Medication Instructions Recorded Confirmed Type Calcium Carbonate [Calcium] 600 mg PO BID 01/25/21 05/18/21 History HYDROcodone/APAP 7.5-325MG [[place] 1 tab PO Q6H PRN 04/12/21 05/18/21 History 7.5-325] Ondansetron HCl [Zofran] 4 mg PO QID PRN 04/12/21 05/18/21 History Vitamin E 100 unit PO DAILY 04/12/21 05/18/21 History Sennosides [Senokot] 8.6 mg PO BID PRN #30 tab 04/16/21 05/18/21 Rx polyethylene glycoL 3350 [Miralax] 17 gm PO DAILY PRN 30 Days #30 04/16/21 05/18/21 Rx powd.pack Acetaminophen Tab [Tylenol] 500 mg PO Q6HR PRN 04/21/21 05/18/21 History Dexamethasone [Decadron] See Taper PO QID 04/21/21 05/18/21 History Pantoprazole Sodium [Protonix] 40 mg PO DAILY 04/21/21 05/18/21 History Albuterol Inhaler [Ventolin Hfa 2 puff INHALATION RT-QID PRN 05/18/21 05/18/21 History Inhaler] Apixaban [Eliquis Starter Pack 5 mg PO BID 05/18/21 05/18/21 History (for VTE)] Capecitabine [Xeloda] 1,000 mg PO BID 05/18/21 05/18/21 History Cholecalciferol [Vitamin D3 (25 25 mcg PO DAILY 05/18/21 05/18/21 History Mcg = 1000 Iu)] Allergies Allergy/AdvReac Type Severity Reaction Status Date / Time paclitaxel [From Taxol] Allergy Rash/Hives Verified 05/18/21 14:03 atorvastatin [From Lipitor] AdvReac SEVERE Verified 05/18/21 14:03 MUSCLE ACHES codeine AdvReac Abdominal Verified 05/18/21 14:03 Pain Physical Exam Osteopathic Statement: *. No significant issues noted on an osteopathic structural exam other than those noted in the History and Physical/Consult. Vitals: Vital Signs Temp Pulse Resp BP Pulse Ox 05/18/21 15:28 90 18 135/77 98 05/18/21 12:17 98.1 F 100 20 123/75 99 Intake and Output 05/18/21 05/18/21 05/18/21 06:59 14:59 22:59 Other: Weight 55.792 kg 55.792 kg Gen: awake, alert HEENT: normocephalic, atraumatic, good hearing acuity, moist mucous membranes Resp: good air exchange, breathing comfortably with no accessory muscle use CVS: good distal perfusion x 4, GI: soft, NTTP, ND : Positive SPT, no CVAT, park catheter not present MSK: no pitting edema, no clubbing Neuro: non-focal, moving all extremities Psych: cooperative, euthymic mood Results CBC & Chem 7: 05/18/21 13:48 05/18/21 13:48 Labs: Abnormal Lab Results - Last 24 Hours (Table) 05/18/21 05/18/21 05/18/21 Range/Units 13:48 13:48 13:48 RBC 3.49 L (3.80-5.40) m/uL Hct 32.3 L (34.0-46.0) % Lymphocytes # 0.3 L (1.0-4.8) k/uL APTT 20.1 L (22.0-30.0) sec Sodium (137-145) mmol/L Chloride (98-107) mmol/L Creatinine (0.52-1.04) mg/dL Glucose (74-99) mg/dL Calcium (8.4-10.2) mg/dL Total Protein (6.3-8.2) g/dL Albumin (3.5-5.0) g/dL Urine Appearance Cloudy H (Clear) Urine Glucose (UA) 4+ H (Negative) Ur Leukocyte Esterase Large H (Negative) Urine WBC 122 H (0-5) /hpf Urine WBC Clumps Few H (None) /hpf Urine Bacteria Occasional H (None) /hpf Urine Mucus Rare H (None) /hpf 05/18/21 Range/Units 13:48 RBC (3.80-5.40) m/uL Hct (34.0-46.0) % Lymphocytes # (1.0-4.8) k/uL APTT (22.0-30.0) sec Sodium 120 L (137-145) mmol/L Chloride 91 L (98-107) mmol/L Creatinine 0.39 L (0.52-1.04) mg/dL Glucose 323 H (74-99) mg/dL Calcium 8.3 L (8.4-10.2) mg/dL Total Protein 5.4 L (6.3-8.2) g/dL Albumin 3.3 L (3.5-5.0) g/dL Urine Appearance (Clear) Urine Glucose (UA) (Negative) Ur Leukocyte Esterase (Negative) Urine WBC (0-5) /hpf Urine WBC Clumps (None) /hpf Urine Bacteria (None) /hpf Urine Mucus (None) /hpf Thrombosis Risk Factor Assmnt - Choose All That Apply Other Risk Factors: Yes Each Risk Factor Represents 2 Points: Age 61-74 years, Malignancy Each Risk Factor Represents 3 Points: History of DVT/PE Other congenital or acquired thrombophilia - If yes, enter type in comment: No Thrombosis Risk Factor Assessment Total Risk Factor Score: 7 Thrombosis Risk Factor Assessment Level: High Risk Assessment and Plan Assessment: Lower extremity weakness Back pain -Admit to inpatient -MRI of the back -PT -Pain control, bowel regimen -Continue dexamethasone 4 mg daily Hyponatremia -Normal saline 100 mL per hour -Nephrology consult -Serum osmolality, urine osmolality Urinary tract infection -Follow up urine culture -Ceftriaxone daily Breast cancer with metastasis to the brain -Oncology consult -Hold Xeloda Patient is a full code On Eliquis for DVT prophylaxis
[2021-05-18 17:57] LABS: Glucose,Whole Blood 400 mg/dL (75-99)
[2021-05-18] MEDS: INSULIN ASPART (NovoLOG) 100 UNIT/ML VIAL SQ SCH ×2 (18:30→21:10)
[2021-05-18 20:54] LABS: Glucose,Whole Blood 288 mg/dL (75-99)
[2021-05-18] MEDS: APIXABAN 5 MG TAB PO SCH (21:10)
[2021-05-18] MEDS: CALCIUM CARBONATE 500 MG CHEWABLE PO SCH (21:20)
[2021-05-18] MEDS: oxyCODONE-APAP 5-325MG 1 EACH TAB PO PRN (22:14)
[2021-05-19 07:30] LABS: Basophils % (A) 0 %; Eosinophils % (A) 0 %; HCT 28.7 % (34.0-46.0); HGB 10.5 gm/dL (11.4-16.0); Lymphocytes # (A) 0.6 k/uL (1.0-4.8); Lymphocytes % (A) 14 %; MCH 34.1 pg (25.0-35.0); MCHC 36.6 g/dL (31.0-37.0); MCV 93.1 fL (80.0-100.0); Monocytes # (A) 0.2 k/uL (0-1.0); Monocytes % (A) 4 %; Neutrophils # (A) 3.5 k/uL (1.3-7.7); Neutrophils % (A) 81 %; Platelet Count 188 k/uL (150-450); RBC 3.08 m/uL (3.80-5.40); RDW 13.7 % (11.5-15.5); WBC 4.4 k/uL (3.8-10.6)
[2021-05-19 07:58] LABS: African American GFR (CKD) >90 (>60 ml/min/1.73 sqM); Anion Gap 2 mmol/L; Blood Urea Nitrogen 11 mg/dL (7-17); Calcium 7.8 mg/dL (8.4-10.2); Carbon Dioxide 24 mmol/L (22-30); Chloride 99 mmol/L (98-107); Glucose 207 mg/dL (74-99); Non-African American GFR(CKD) >90 (>60 ml/min/1.73 sqM); Potassium 3.6 mmol/L (3.5-5.1); Sodium 125 mmol/L (137-145)
[2021-05-19 08:02] LABS: Glucose,Whole Blood 210 mg/dL (75-99)
[2021-05-19] MEDS: CALCIUM CARBONATE 500 MG CHEWABLE PO SCH ×2 (08:16→20:29)
[2021-05-19] MEDS: PANTOPRAZOLE 40 MG TABLET PO SCH (08:16)
[2021-05-19] MEDS: APIXABAN 5 MG TAB PO SCH ×2 (08:16→20:29)
[2021-05-19] MEDS: INSULIN ASPART (NovoLOG) 100 UNIT/ML VIAL SQ SCH ×4 (08:16→20:43)
[2021-05-19] MEDS: VITAMIN E (DL,TOCOPHERYL ACET) 400 UNIT (180 MG) CAP PO SCH ×2 (08:16→08:29)
[2021-05-19] MEDS: dexAMETHasone 4 MG TAB PO SCH (08:16)
[2021-05-19] MEDS: CHOLECALCIFEROL 25 MCG (1000 IU) TABLET PO SCH (08:16)
[2021-05-19] MEDS: SODIUM CHLORIDE 0.9% 1,000 ML IV SCH (08:28)
[2021-05-19] MEDS ORDERED: ENOXAPARIN 40 MG/0.4 ML SYRINGE SQ SCH (09:00)
--- NOTE | 2021-05-19 10:20 | P.NPCON ---
History of Present Illness - Reason for Consult hyponatremia - History of Present Illness Reason for consultation: Hyponatremia History of present illness: Patient is a 70-year-old female seen in renal consultation for hyponatremia. Patient presented to the hospital after she sustained a fall from her wh eelchair. She denies any syncopal episodes. No vomiting or diarrhea. Oral intake has been fair. She does admit to drinking quite a bit of fluids daily. Patient has history of breast cancer with metastatic disease to the brain and is maintained on chemotherapy. Her sodium level on admission was 120 and she was started on normal saline. This morning is up to 125. Good urine output. No hematuria or dysuria. She is currently being treated for UTI. Not on any diuretics. No history of kidney disease. Creatinine 0.3. Vital signs are stable. General: The patient appeared well nourished and normally developed. HEENT: Head exam is unremarkable. Neck is without jugular venous distension. LUNGS: Breath sounds decreased. HEART: Rate and Rhythm are regular. ABDOMEN: Soft, no distention. EXTREMITITES: No edema. Past Medical History Past Medical History: Cancer, Deep Vein Thrombosis (DVT), Hyperlipidemia Additional Past Medical History / Comment(s): breast, brain mets History of Any Multi-Drug Resistant Organisms: None Reported Past Surgical History: Back Surgery, Breast Surgery, Cholecystectomy Additional Past Surgical History / Comment(s): 03/27/21 double mastectomy, bilateral breast core biopsy, laminectomy 1998 & 2000 Past Anesthesia/Blood Transfusion Reactions: No Reported Reaction Smoking Status: Former smoker - Past Family History Father Family Medical History: CVA/TIA, Myocardial Infarction ([place]) Mother Family Medical History: Cancer, Congestive Heart Failure (CHF), COPD Additional Family Medical History / Comment(s): pancreatic cancer Sister(s) Family Medical History: Cancer Additional Family Medical History / Comment(s): right breast cancer Medications and Allergies Home Medications Medication Instructions Recorded Confirmed Type Calcium Carbonate [Calcium] 600 mg PO BID 01/25/21 05/18/21 History HYDROcodone/APAP 7.5-325MG [[place] 1 tab PO Q6H PRN 04/12/21 05/18/21 History 7.5-325] Ondansetron HCl [Zofran] 4 mg PO QID PRN 04/12/21 05/18/21 History Vitamin E 100 unit PO DAILY 04/12/21 05/18/21 History Sennosides [Senokot] 8.6 mg PO BID PRN #30 tab 04/16/21 05/18/21 Rx polyethylene glycoL 3350 [Miralax] 17 gm PO DAILY PRN 30 Days #30 04/16/21 05/18/21 Rx [email or web address] Acetaminophen Tab [Tylenol] 500 mg PO Q6HR PRN 04/21/21 05/18/21 History Dexamethasone [Decadron] See Taper PO QID 04/21/21 05/18/21 History Pantoprazole Sodium [Protonix] 40 mg PO DAILY 04/21/21 05/18/21 History Albuterol Inhaler [Ventolin Hfa 2 puff INHALATION RT-QID PRN 05/18/21 05/18/21 History Inhaler] Apixaban [Eliquis Starter Pack 5 mg PO BID 05/18/21 05/18/21 History (for VTE)] Capecitabine [Xeloda] 1,000 mg PO BID 05/18/21 05/18/21 History Cholecalciferol [Vitamin D3 (25 25 mcg PO DAILY 05/18/21 05/18/21 History Mcg = 1000 Iu)] Allergies Allergy/AdvReac Type Severity Reaction Status Date / Time paclitaxel [From Taxol] Allergy Rash/Hives Verified 05/18/21 14:03 atorvastatin [From Lipitor] AdvReac SEVERE Verified 05/18/21 14:03 MUSCLE ACHES codeine AdvReac Abdominal Verified 05/18/21 14:03 Pain Physical Exam Vitals: Vital Signs Temp Pulse Pulse Resp BP BP Pulse Ox 05/19/21 04:40 97.8 F 79 16 121/71 97 05/18/21 19:18 97.8 F 90 16 106/64 97 05/18/21 15:28 90 18 135/77 98 05/18/21 12:17 98.1 F 100 20 123/75 99 Intake and Output 05/18/21 05/19/21 05/19/21 22:59 06:59 14:59 Intake Total 200 Balance 200 Intake: Intake, IV Titration 200 Amount Sodium Chloride 0.9% 1, 200 000 ml @ 50 mls/hr IV . Q20H [facility] Rx#:[id number] Other: Voiding Method Bedside Commode # Voids 1 3 Weight 55.792 kg Results - Lab Results Most recent lab results Calcium 7.8 mg/dL (8.4-10.2) L 05/19/21 07:11 Magnesium 2.0 mg/dL (1.6-2.3) 05/19/21 07:11 05/19/21 07:11 05/19/21 07:11 Assessment and Plan Plan: Assessment: 1. Hypovolemic hyponatremia improved with IV hydration. 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 Sodium level 120 on admission and is 125 today. 2. Breast cancer with metastatic disease. Maintained on chemotherapy outpatie nt. 3. UTI maintained on antibiotics. Plan: Maintain normal saline. Check serum and urine osmolality and urine sodium level. Check TSH. 1200 mL fluid restriction. Encouraged oral intake. Repeat sodium level this evening. Thank you for the consultation. I will continue to follow the patient with you during her hospital stay.
[2021-05-19 12:53] LABS: Glucose,Whole Blood 287 mg/dL (75-99)
--- NOTE | 2021-05-19 13:44 | P.PN ---
Subjective Progress Note Date: 05/19/21 No new complaints. Overall feels improved but still weak. Objective - Vital Signs Vital signs: Vital Signs Temp 98.0 F 05/19/21 12:53 Pulse 82 05/19/21 12:53 Resp 16 05/19/21 12:53 BP 112/71 05/19/21 12:53 Pulse Ox 98 05/19/21 12:53 Intake & Output 05/18/21 05/19/21 05/19/21 18:59 06:59 18:59 Intake Total 200 Balance 200 Weight 55.792 kg Intake: Intake, IV Titration 200 Amount Sodium Chloride 0.9% 1, 200 000 ml @ 50 mls/hr IV . Q20H [facility] Rx#:[id number] Other: Voiding Method Bedside Commode Bedside Commode # Voids 1 3 - Exam Gen: awake, alert HEENT: normocephalic, atraumatic, good hearing acuity, moist mucous membranes Resp: good air exchange, breathing comfortably with no accessory muscle use CVS: good distal perfusion x 4, GI: soft, NTTP, ND : Positive SPT, no CVAT, park catheter not present MSK: no pitting edema, no clubbing Neuro: non-focal, moving all extremities Psych: cooperative, euthymic mood - Labs CBC & Chem 7: 05/19/21 07:11 05/19/21 07:11 Labs: Abnormal Lab Results - Last 24 Hours (Table) 05/18/21 05/18/21 05/18/21 Range/Units 13:48 13:48 13:48 RBC 3.49 L (3.80-5.40) m/uL Hgb (11.4-16.0) gm/dL Hct 32.3 L (34.0-46.0) % Lymphocytes # 0.3 L (1.0-4.8) k/uL APTT 20.1 L (22.0-30.0) sec Sodium (137-145) mmol/L Chloride (98-107) mmol/L Creatinine (0.52-1.04) mg/dL Glucose (74-99) mg/dL POC Glucose (mg/dL) (75-99) mg/dL Osmolality (280-301) mosm/kg Calcium (8.4-10.2) mg/dL Total Protein (6.3-8.2) g/dL Albumin (3.5-5.0) g/dL Urine Appearance Cloudy H (Clear) Urine Glucose (UA) 4+ H (Negative) Ur Leukocyte Esterase Large H (Negative) Urine WBC 122 H (0-5) /hpf Urine WBC Clumps Few H (None) /hpf Urine Bacteria Occasional H (None) /hpf Urine Mucus Rare H (None) /hpf 05/18/21 05/18/21 05/18/21 Range/Units 13:48 17:56 19:15 RBC (3.80-5.40) m/uL Hgb (11.4-16.0) gm/dL Hct (34.0-46.0) % Lymphocytes # (1.0-4.8) k/uL APTT (22.0-30.0) sec Sodium 120 L 123 L (137-145) mmol/L Chloride 91 L (98-107) mmol/L Creatinine 0.39 L (0.52-1.04) mg/dL Glucose 323 H (74-99) mg/dL POC Glucose (mg/dL) 400 H (75-99) mg/dL Osmolality (280-301) mosm/kg Calcium 8.3 L (8.4-10.2) mg/dL Total Protein 5.4 L (6.3-8.2) g/dL Albumin 3.3 L (3.5-5.0) g/dL Urine Appearance (Clear) Urine Glucose (UA) (Negative) Ur Leukocyte Esterase (Negative) Urine WBC (0-5) /hpf Urine WBC Clumps (None) /hpf Urine Bacteria (None) /hpf Urine Mucus (None) /hpf 05/18/21 05/19/21 05/19/21 Range/Units 20:52 07:11 07:11 RBC 3.08 L (3.80-5.40) m/uL Hgb 10.5 L (11.4-16.0) gm/dL Hct 28.7 L (34.0-46.0) % Lymphocytes # 0.6 L (1.0-4.8) k/uL APTT (22.0-30.0) sec Sodium 125 L (137-145) mmol/L Chloride (98-107) mmol/L Creatinine 0.30 L (0.52-1.04) mg/dL Glucose 207 H (74-99) mg/dL POC Glucose (mg/dL) 288 H (75-99) mg/dL Osmolality (280-301) mosm/kg Calcium 7.8 L (8.4-10.2) mg/dL Total Protein (6.3-8.2) g/dL Albumin (3.5-5.0) g/dL Urine Appearance (Clear) Urine Glucose (UA) (Negative) Ur Leukocyte Esterase (Negative) Urine WBC (0-5) /hpf Urine WBC Clumps (None) /hpf Urine Bacteria (None) /hpf Urine Mucus (None) /hpf 05/19/21 05/19/21 05/19/21 Range/Units 07:11 08:01 12:50 RBC (3.80-5.40) m/uL Hgb (11.4-16.0) gm/dL Hct (34.0-46.0) % Lymphocytes # (1.0-4.8) k/uL APTT (22.0-30.0) sec Sodium (137-145) mmol/L Chloride (98-107) mmol/L Creatinine (0.52-1.04) mg/dL Glucose (74-99) mg/dL POC Glucose (mg/dL) 210 H 287 H (75-99) mg/dL Osmolality 271 L (280-301) mosm/kg Calcium (8.4-10.2) mg/dL Total Protein (6.3-8.2) g/dL Albumin (3.5-5.0) g/dL Urine Appearance (Clear) Urine Glucose (UA) (Negative) Ur Leukocyte Esterase (Negative) Urine WBC (0-5) /hpf Urine WBC Clumps (None) /hpf Urine Bacteria (None) /hpf Urine Mucus (None) /hpf Microbiology - Last 24 Hours (Table) 05/18/21 13:48 Urine Culture - Preliminary Urine,Voided Assessment and Plan Assessment: Lower extremity weakness Back pain -Admit to inpatient -MRI of the back -PT -Pain control, bowel regimen -Continue dexamethasone 4 mg daily Hyponatremia -Normal saline 100 mL per hour -Nephrology consult -Serum osmolality, urine osmolality Urinary tract infection -Follow up urine culture -Ceftriaxone daily Breast cancer with metastasis to the brain -Oncology consult -Hold Xeloda Patient is a full code On Eliquis for DVT prophylaxis
[2021-05-19 17:10] LABS: Glucose,Whole Blood 317 mg/dL (75-99)
[2021-05-19] MEDS: SENNOSIDES 8.6 MG TAB PO PRN (20:29)
[2021-05-19 20:39] LABS: Glucose,Whole Blood 301 mg/dL (75-99)
[2021-05-19] MEDS: oxyCODONE-APAP 5-325MG 1 EACH TAB PO PRN (22:45)
[2021-05-20] MEDS: SODIUM CHLORIDE 0.9% 1,000 ML IV SCH ×2 (04:12→20:00)
[2021-05-20 05:41] LABS: African American GFR (CKD) >90 (>60 ml/min/1.73 sqM); Anion Gap 5 mmol/L; Blood Urea Nitrogen 15 mg/dL (7-17); Carbon Dioxide 22 mmol/L (22-30); Chloride 101 mmol/L (98-107); Glucose 174 mg/dL (74-99); Magnesium 2.1 mg/dL (1.6-2.3); Non-African American GFR(CKD) >90 (>60 ml/min/1.73 sqM); Potassium 3.8 mmol/L (3.5-5.1); Sodium 128 mmol/L (137-145)
[2021-05-20 07:18] LABS: Glucose,Whole Blood 218 mg/dL (75-99)
[2021-05-20] MEDS: APIXABAN 5 MG TAB PO SCH ×2 (08:33→21:08)
[2021-05-20] MEDS: PANTOPRAZOLE 40 MG TABLET PO SCH (08:33)
[2021-05-20] MEDS: ACETAMINOPHEN TAB 325 MG TAB PO PRN (08:33)
[2021-05-20] MEDS: INSULIN ASPART (NovoLOG) 100 UNIT/ML VIAL SQ SCH ×4 (08:33→21:08)
[2021-05-20] MEDS: dexAMETHasone 4 MG TAB PO SCH (08:33)
[2021-05-20] MEDS: CHOLECALCIFEROL 25 MCG (1000 IU) TABLET PO SCH (08:33)
[2021-05-20] MEDS: CALCIUM CARBONATE 500 MG CHEWABLE PO SCH ×2 (08:38→21:38)
[2021-05-20] MEDS: VITAMIN E (DL,TOCOPHERYL ACET) 400 UNIT (180 MG) CAP PO SCH (08:38)
--- NOTE | 2021-05-20 09:57 | P.PN ---
Subjective Patient is seen in follow-up for hyponatremia. Sodium level gradually improving. Oral intake fair. No edema. Vital signs are stable. General: The patient appeared well nourished and normally developed. HEENT: Head exam is unremarkable. Neck is without jugular venous distension. LUNGS: Breath sounds decreased. HEART: Rate and Rhythm are regular. ABDOMEN: Soft, no distention. EXTREMITITES: No edema. Objective - Vital Signs Vital signs: Vital Signs Temp 97.4 F L 05/20/21 04:55 Pulse 86 05/20/21 04:55 Resp 16 05/20/21 04:55 BP 117/73 05/20/21 04:55 Pulse Ox 97 05/20/21 04:55 Intake & Output 05/19/21 05/20/21 05/20/21 18:59 06:59 18:59 Intake Total 600 Balance 600 Intake: Intake, IV Titration 600 Amount Sodium Chloride 0.9% 1, 600 000 ml @ 50 mls/hr IV . Q20H [facility] Rx#:[id number] Other: Voiding Method Bedside Commode Bedside Commode # Voids 2 - Labs CBC & Chem 7: 05/19/21 07:11 05/20/21 05:00 Labs: Abnormal Lab Results - Last 24 Hours (Table) 05/19/21 05/19/21 05/19/21 Range/Units 07:11 12:50 16:38 Sodium 127 L (137-145) mmol/L Creatinine (0.52-1.04) mg/dL Glucose (74-99) mg/dL POC Glucose (mg/dL) 287 H (75-99) mg/dL Osmolality 271 L (280-301) mosm/kg Calcium (8.4-10.2) mg/dL 05/19/21 05/19/21 05/20/21 Range/Units 17:08 20:37 05:00 Sodium 128 L (137-145) mmol/L Creatinine 0.41 L (0.52-1.04) mg/dL Glucose 174 H (74-99) mg/dL POC Glucose (mg/dL) 317 H 301 H (75-99) mg/dL Osmolality (280-301) mosm/kg Calcium 8.0 L (8.4-10.2) mg/dL 05/20/21 Range/Units 07:11 Sodium (137-145) mmol/L Creatinine (0.52-1.04) mg/dL Glucose (74-99) mg/dL POC Glucose (mg/dL) 218 H (75-99) mg/dL Osmolality (280-301) mosm/kg Calcium (8.4-10.2) mg/dL Microbiology - Last 24 Hours (Table) 05/18/21 13:48 Urine Culture - Preliminary Urine,Voided Gram Neg Bacilli Assessment and Plan Plan: Assessment: 1. Hypovolemic hyponatremia improved with IV hydration. 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 Sodium level 120 on admission and is 128 today. TSH normal. Urine osmolality 410 and urine sodium 45. 2. Breast cancer with metastatic disease. Maintained on chemotherapy outpatient. 3. UTI maintained on antibiotics. Urine culture positive for gram-negative bacilli. Plan: Maintain normal saline. 1200 mL fluid restriction. Encouraged oral intake. Repeat labs in the morning.
[2021-05-20 12:04] LABS: Glucose,Whole Blood 260 mg/dL (75-99)
--- NOTE | 2021-05-20 12:36 | P.PN ---
Subjective Progress Note Date: 05/20/21 Patient reports her strength is overall improving. Lower extremity weakness is improved as well. Nursing tells me she is a 1 person assist. Sodium improving to 128 Objective - Vital Signs Vital signs: Vital Signs Temp 97.4 F L 05/20/21 04:55 Pulse 86 05/20/21 04:55 Resp 16 05/20/21 04:55 BP 117/73 05/20/21 04:55 Pulse Ox 97 05/20/21 04:55 Intake & Output 05/19/21 05/20/21 05/20/21 18:59 06:59 18:59 Intake Total 600 Balance 600 Intake: Intake, IV Titration 600 Amount Sodium Chloride 0.9% 1, 600 000 ml @ 50 mls/hr IV . Q20H [facility] Rx#:[id number] Other: Voiding Method Bedside Commode Bedside Commode Bedside Commode # Voids 2 - Exam Gen: awake, alert HEENT: normocephalic, atraumatic, good hearing acuity, moist mucous membranes Resp: good air exchange, breathing comfortably with no accessory muscle use CVS: good distal perfusion x 4, GI: soft, NTTP, ND : Positive SPT, no CVAT, park catheter not present MSK: no pitting edema, no clubbing Neuro: non-focal, moving all extremities Psych: cooperative, euthymic mood - Labs CBC & Chem 7: 05/19/21 07:11 05/20/21 05:00 Labs: Abnormal Lab Results - Last 24 Hours (Table) 05/19/21 05/19/21 05/19/21 Range/Units 07:11 12:50 16:38 Sodium 127 L (137-145) mmol/L Creatinine (0.52-1.04) mg/dL Glucose (74-99) mg/dL POC Glucose (mg/dL) 287 H (75-99) mg/dL Osmolality 271 L (280-301) mosm/kg Calcium (8.4-10.2) mg/dL 05/19/21 05/19/21 05/20/21 Range/Units 17:08 20:37 05:00 Sodium 128 L (137-145) mmol/L Creatinine 0.41 L (0.52-1.04) mg/dL Glucose 174 H (74-99) mg/dL POC Glucose (mg/dL) 317 H 301 H (75-99) mg/dL Osmolality (280-301) mosm/kg Calcium 8.0 L (8.4-10.2) mg/dL 05/20/21 05/20/21 Range/Units 07:11 11:55 Sodium (137-145) mmol/L Creatinine (0.52-1.04) mg/dL Glucose (74-99) mg/dL POC Glucose (mg/dL) 218 H 260 H (75-99) mg/dL Osmolality (280-301) mosm/kg Calcium (8.4-10.2) mg/dL Microbiology - Last 24 Hours (Table) 05/18/21 13:48 Urine Culture - Preliminary Urine,Voided Gram Neg Bacilli Assessment and Plan Assessment: Lower extremity weakness Back pain -Admit to inpatient -MRI of the back -PT -Pain control, bowel regimen -Continue dexamethasone 4 mg daily Hyponatremia -Fluid restriction to 1200 mL -Nephrology consult -Serum osmolality, urine osmolality Urinary tract infection -Follow up urine culture -Ceftriaxone daily Breast cancer with metastasis to the brain -Oncology consult -Hold Xeloda Patient is a full code On Eliquis for DVT prophylaxis
[2021-05-20 17:14] LABS: Glucose,Whole Blood 368 mg/dL (75-99)
[2021-05-20 20:53] LABS: Glucose,Whole Blood 268 mg/dL (75-99)
[2021-05-20] MEDS: oxyCODONE-APAP 5-325MG 1 EACH TAB PO PRN (21:12)
[2021-05-20] MEDS: SENNOSIDES 8.6 MG TAB PO PRN (21:13)
[2021-05-21 07:31] LABS: Glucose,Whole Blood 178 mg/dL (75-99)
[2021-05-21 07:37] LABS: African American GFR (CKD) >90 (>60 ml/min/1.73 sqM); Anion Gap 3 mmol/L; Blood Urea Nitrogen 14 mg/dL (7-17); Carbon Dioxide 22 mmol/L (22-30); Chloride 104 mmol/L (98-107); Glucose 165 mg/dL (74-99); Magnesium 2.1 mg/dL (1.6-2.3); Non-African American GFR(CKD) >90 (>60 ml/min/1.73 sqM); Potassium 3.8 mmol/L (3.5-5.1); Sodium 129 mmol/L (137-145)
[2021-05-21] MEDS: CALCIUM CARBONATE 500 MG CHEWABLE PO SCH ×2 (09:56→20:56)
[2021-05-21] MEDS: APIXABAN 5 MG TAB PO SCH ×2 (09:56→20:56)
[2021-05-21] MEDS: VITAMIN E (DL,TOCOPHERYL ACET) 400 UNIT (180 MG) CAP PO SCH (09:57)
[2021-05-21] MEDS: CHOLECALCIFEROL 25 MCG (1000 IU) TABLET PO SCH (09:57)
[2021-05-21] MEDS: INSULIN ASPART (NovoLOG) 100 UNIT/ML VIAL SQ SCH ×4 (09:57→20:57)
[2021-05-21] MEDS: PANTOPRAZOLE 40 MG TABLET PO SCH ×2 (09:57→17:38)
[2021-05-21] MEDS: DEXAMETHASONE SOD PHOSPHATE 4 MG/ML 1 ML VIAL IV SCH ×3 (10:03→23:10)
[2021-05-21] MEDS: dexAMETHasone 4 MG TAB PO SCH (10:18)
[2021-05-21 12:31] LABS: Glucose,Whole Blood 260 mg/dL (75-99)
--- NOTE | 2021-05-21 12:38 | P.PN ---
Subjective Progress Note Date: 05/21/21 No new copmlaints. Na is improving. Pending Rad Onc and Onc consults. Objective - Vital Signs Vital signs: Vital Signs Temp 98 F 05/21/21 04:45 Pulse 78 05/21/21 04:45 Resp 20 05/21/21 04:45 BP 127/73 05/21/21 04:45 Pulse Ox 98 05/21/21 04:45 Intake & Output 05/20/21 05/21/21 05/21/21 18:59 06:59 18:59 Intake Total 1320 1140 Balance 1320 1140 Intake: Intake, IV Titration 600 Amount Sodium Chloride 0.9% 1, 600 000 ml @ 50 mls/hr IV . Q20H [facility] Rx#:[id number] Oral 1320 540 Other: Voiding Method Bedside Commode Bedside Commode # Voids 4 2 1 # Bowel Movements 1 - Exam Gen: awake, alert HEENT: normocephalic, atraumatic, good hearing acuity, moist mucous membranes Resp: good air exchange, breathing comfortably with no accessory muscle use CVS: good distal perfusion x 4, GI: soft, NTTP, ND : Positive SPT, no CVAT, park catheter not present MSK: no pitting edema, no clubbing Neuro: non-focal, moving all extremities Psych: cooperative, euthymic mood - Labs CBC & Chem 7: 05/19/21 07:11 05/21/21 06:21 Labs: Abnormal Lab Results - Last 24 Hours (Table) 05/20/21 05/20/21 05/21/21 Range/Units 17:11 20:40 06:21 Sodium 129 L (137-145) mmol/L Creatinine 0.37 L (0.52-1.04) mg/dL Glucose 165 H (74-99) mg/dL POC Glucose (mg/dL) 368 H 268 H (75-99) mg/dL Calcium 8.0 L (8.4-10.2) mg/dL 05/21/21 Range/Units 07:25 Sodium (137-145) mmol/L Creatinine (0.52-1.04) mg/dL Glucose (74-99) mg/dL POC Glucose (mg/dL) 178 H (75-99) mg/dL Calcium (8.4-10.2) mg/dL Microbiology - Last 24 Hours (Table) 05/18/21 13:48 Urine Culture - Final Urine,Voided Escherichia coli Assessment and Plan Assessment: Lower extremity weakness Back pain -Admit to inpatient -MRI of the back -PT -Pain control, bowel regimen -Dexamethasone 4 mg daily --> increased to 4mg q8h on 05/21 Hyponatremia -Fluid restriction to 1200 mL -Nephrology consult -Serum osmolality, urine osmolality Urinary tract infection -Follow up urine culture -Ceftriaxone daily Breast cancer with metastasis to the brain -Oncology consult -Hold Xeloda Patient is a full code On Eliquis for DVT prophylaxis
[2021-05-21] MEDS: SODIUM CHLORIDE 0.9% 1,000 ML IV SCH (12:50)
--- NOTE | 2021-05-21 12:54 | P.CONS ---
History of Present Illness - Reason for Consult Consult date: 05/21/21 Metastatic Cancer Requesting physician: Etienne Dougherty - Chief Complaint Lower extremity weakness and lower back pain - History of Present Illness Jazmin presented with rapidly enlarging R breast mass noted only few weeks ago , reported discomfort in breast without nipple drainage or skin changes. She had US of breast at [place] reporting 3.5 cm R Breast mass. 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 She reported 1 sister with breast cancer, 2 maternal aunts with breast cancer Denied using Estrogen-based products. Denies anorexia or weight loss She is a lifetime non smoker, denies ETOH use 11/07/20: Tolerated cycle#1 of AC chemotherapy well (mild nausea & fatigue). 11/15/20-s/p 2 cycles of AC with neulasta, notes mild weakness in the legs, she does have insomnia the night of steroids, she has Hx of insomnia/broken sleep, worse now, uses mediation CDs, tylenol PM and benadryl. Continues on pepcid if she has heartburn. She has used some motrin. Denies F, chills, oral irritation, she notes occasional labored breathing when she is fatigued, no other resp symptoms to report, no diarrhea, constipation (uses colace PRN), no swellling, or new pain. No other c/o questions or concerns. 11/30/20: Tolerating Well, fatigue today. ANC: 0.06 today 12/27/20: Feels Ok, C/O grade II nausea after chemotherapy, no vomiting. Tolerated cycle#1 of DD Taxol well with increasing fatigue. 01/24/21: Feels well, tolerating DD Taxol well, denies skeletal/visceral pain 02/27/21: Feels Ok, completed chemotherapy. PET Scan: improved R breast disease, but resolved systemic disease 05/01/21: Had bilateral mastectomies > Residual 3.5 cm R breast mass, + SLNB (1- 1) > 2 weeks after > diffuse brain mets > WBRT > LLE DVT > Eliquis. C/O generalized weakness 05/11/21: Feels stronger, ambulating well, minimal residual dizziness/loss of balance. She recently completed radiation to brain and started on xeloda, however only 3 days in and ended up admitted with UTI. She complains of new back pain, increased neuropathy, right >Left, and recent fall. Review of Systems All systems: negative Constitutional: Reports as per HPI Past Medical History Past Medical History: Cancer, Deep Vein Thrombosis (DVT), Hyperlipidemia Additional Past Medical History / Comment(s): breast, brain mets History of Any Multi-Drug Resistant Organisms: None Reported Past Surgical History: Back Surgery, Breast Surgery, Cholecystectomy Additional Past Surgical History / Comment(s): 03/27/21 double mastectomy, bilateral breast core biopsy, laminectomy 1998 & 2000 Past Anesthesia/Blood Transfusion Reactions: No Reported Reaction Smoking Status: Former smoker - Past Family History Father Family Medical History: CVA/TIA, Myocardial Infarction ([place]) Mother Family Medical History: Cancer, Congestive Heart Failure (CHF), COPD Additional Family Medical History / Comment(s): pancreatic cancer Sister(s) Family Medical History: Cancer Additional Family Medical History / Comment(s): right breast cancer Medications and Allergies Home Medications Medication Instructions Recorded Confirmed Type Calcium Carbonate [Calcium] 600 mg PO BID 01/25/21 05/18/21 History HYDROcodone/APAP 7.5-325MG [[place] 1 tab PO Q6H PRN 04/12/21 05/18/21 History 7.5-325] Ondansetron HCl [Zofran] 4 mg PO QID PRN 04/12/21 05/18/21 History Vitamin E 100 unit PO DAILY 04/12/21 05/18/21 History Sennosides [Senokot] 8.6 mg PO BID PRN #30 tab 04/16/21 05/18/21 Rx polyethylene glycoL 3350 [Miralax] 17 gm PO DAILY PRN 30 Days #30 04/16/21 05/18/21 Rx [email or web address] Acetaminophen Tab [Tylenol] 500 mg PO Q6HR PRN 04/21/21 05/18/21 History Dexamethasone [Decadron] See Taper PO QID 04/21/21 05/18/21 History Pantoprazole Sodium [Protonix] 40 mg PO DAILY 04/21/21 05/18/21 History Albuterol Inhaler [Ventolin Hfa 2 puff INHALATION RT-QID PRN 05/18/21 05/18/21 History Inhaler] Apixaban [Eliquis Starter Pack 5 mg PO BID 05/18/21 05/18/21 History (for VTE)] Capecitabine [Xeloda] 1,000 mg PO BID 05/18/21 05/18/21 History Cholecalciferol [Vitamin D3 (25 25 mcg PO DAILY 05/18/21 05/18/21 History Mcg = 1000 Iu)] Allergies Allergy/AdvReac Type Severity Reaction Status Date / Time paclitaxel [From Taxol] Allergy Rash/Hives Verified 05/18/21 14:03 atorvastatin [From Lipitor] AdvReac SEVERE Verified 05/18/21 14:03 MUSCLE ACHES codeine AdvReac Abdominal Verified 05/18/21 14:03 Pain Physical Exam Vitals: Vital Signs Temp Pulse Pulse Resp BP Pulse Ox 05/21/21 04:45 98 F 78 20 127/73 98 05/20/21 19:30 97.6 F 85 20 107/68 97 05/20/21 15:27 78 05/20/21 15:14 80 Intake and Output 05/20/21 05/21/21 05/21/21 22:59 06:59 14:59 Intake Total 1420 1040 Balance 1420 1040 Intake: Intake, IV Titration 600 Amount Sodium Chloride 0.9% 1, 600 000 ml @ 50 mls/hr IV . Q20H [facility] Rx#:[id number] Oral 1420 440 Other: Voiding Method Bedside Commode Bedside Commode # Voids 4 2 1 # Bowel Movements 1 - Constitutional General appearance: cooperative, no acute distress - EENT Eyes: EOMI ENT: hard of hearing, NA/AT - Neck Neck: normal ROM - Respiratory Respiratory: bilateral: diminished - Cardiovascular Rhythm: regularly irregular leg Peripheral Edema: bilateral: Other (Decreased sensation to touch on inner aspect though and soles feet L>R) - Gastrointestinal General gastrointestinal: normal bowel sounds, soft, tenderness - Integumentary Integumentary: pale - Neurologic poor historian, no loss of bladder - Musculoskeletal Musculoskeletal: generalized weakness, right sided weakness, left sided weakness - Psychiatric Psychiatric: A&O x's 3 Results CBC & Chem 7: 05/21/21 06:21 05/21/21 06:21 Labs: Abnormal Lab Results - Last 24 Hours (Table) 05/20/21 05/20/2105/21/21 Range/Units 17:11 20:40 06:21 Sodium 129 L (137-145) mmol/L Creatinine 0.37 L (0.52-1.04) mg/dL Glucose 165 H (74-99) mg/dL POC Glucose (mg/dL) 368 H 268 H (75-99) mg/dL Calcium 8.0 L (8.4-10.2) mg/dL 05/21/21 05/21/21 Range/Units 07:25 12:25 Sodium (137-145) mmol/L Creatinine (0.52-1.04) mg/dL Glucose (74-99) mg/dL POC Glucose (mg/dL) 178 H 260 H (75-99) mg/dL Calcium (8.4-10.2) mg/dL Microbiology - Last 24 Hours (Table) 05/18/21 13:48 Urine Culture - Final Urine,Voided Escherichia coli Chest x-ray: report reviewed Assessment and Plan (1) Lower extremity weakness Current Visit: Yes Status: Acute Code(s): R29.898 - OTH SYMPTOMS AND SIGNS INVOLVING THE MUSCULOSKELETAL SYSTEM SNOMED Code(s): 900522219 (2) Back pain Current Visit: Yes Status: Acute Code(s): M54.9 - DORSALGIA, UNSPECIFIED SNOMED Code(s): 031564704 (3) Neuropathy Current Visit: Yes Status: Acute Code(s): G62.9 - POLYNEUROPATHY, UNSPECIFIED SNOMED Code(s): 662878396 (4) Hyponatremia Current Visit: Yes Status: Acute Code(s): E87.1 - HYPO-OSMOLALITY AND HYPONATREMIA SNOMED Code(s): 16744718 (5) Urinary tract infection Current Visit: Yes Status: Acute Code(s): N39.0 - URINARY TRACT INFECTION, SITE NOT SPECIFIED SNOMED Code(s): 47984354 (6) Brain metastases Current Visit: No Status: Acute Priority: High Code(s): C79.31 - SECONDARY MALIGNANT NEOPLASM OF BRAIN SNOMED Code(s): 43137651 (7) Breast cancer Current Visit: No Status: Chronic Priority: High Code(s): C50.919 - MALIGNANT NEOPLASM OF UNSP SITE OF UNSPECIFIED FEMALE BREAST SNOMED Code(s): 162770736 Plan: Assessment and Recommendations: Will need to confirm no progression of disease involving spinal cord with new onset lower back pain and unilateral sensation. 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
[2021-05-21 13:30] LABS: Basophils % (A) 1 %; Eosinophils % (A) 0 %; HCT 30.8 % (34.0-46.0); HGB 10.4 gm/dL (11.4-16.0); Lymphocytes % (A) 17 %; MCH 32.4 pg (25.0-35.0); MCHC 33.8 g/dL (31.0-37.0); MCV 96.1 fL (80.0-100.0); Mean Platelet Volume 7.8; Monocytes # (A) 0.2 k/uL (0-1.0); Monocytes % (A) 4 %; Neutrophils # (A) 4.3 k/uL (1.3-7.7); Neutrophils % (A) 77 %; Platelet Count 215 k/uL (150-450); RDW 14.9 % (11.5-15.5); WBC 5.6 k/uL (3.8-10.6)
[2021-05-21 13:54] LABS: ALT 14 U/L (4-34); AST 17 U/L (14-36); African American GFR (CKD) >90 (>60 ml/min/1.73 sqM); Albumin 2.8 g/dL (3.5-5.0); Albumin/Globulin Ratio 1.4; Alkaline Phosphatase 48 U/L (38-126); Anion Gap 4 mmol/L; Blood Urea Nitrogen 14 mg/dL (7-17); Calcium 7.8 mg/dL (8.4-10.2); Carbon Dioxide 22 mmol/L (22-30); Chloride 103 mmol/L (98-107); Glucose 165 mg/dL (74-99); Magnesium 2.1 mg/dL (1.6-2.3); Non-African American GFR(CKD) >90 (>60 ml/min/1.73 sqM); Potassium 3.8 mmol/L (3.5-5.1); Sodium 129 mmol/L (137-145); Total Bilirubin 0.3 mg/dL (0.2-1.3); Total Protein 4.8 g/dL (6.3-8.2)
[2021-05-21] MEDS: oxyCODONE-APAP 5-325MG 1 EACH TAB PO PRN ×2 (15:18→22:21)
[2021-05-21 16:03] LABS: Appearance,Urine Clear (Clear); Bilirubin,Urine Negative (Negative); Blood,Urine Negative (Negative); Color,Urine Light Yellow; Glucose,Urine (UA) 4+ (Negative); Ketones,Urine Negative (Negative); Leukocyte Esterase,Urine Negative (Negative); Nitrite,Urine Negative (Negative); Protein,Urine Negative (Negative); Specific Gravity,Urine 1.016 (1.001-1.035); Urobilinogen,Urine <2.0 mg/dL (<2.0)
--- NOTE | 2021-05-21 17:27 | MR ---
EXAMINATION TYPE: MR lspine/sacrum wo/w con DATE OF EXAM: 05/21/2021 COMPARISON: None HISTORY: Weakness, breast cancer, evaluate for cord compression. CONTRAST: Standard multiplanar, multisequence MRI departmental protocol utilizing 5.5 mL intravenous Gadavist g adolinium contrast. Lumbar vertebra have normal alignment. There is degenerative disc space narrowing at L4-5 and L5-S1. There is posterior disc herniation at L2-3 in the midline. There is developmentally adequate spinal c anal and no spinal stenosis. There is hypertrophic facet arthropathy and some lateral recess stenosis at L3-4 on the right side. There is similar facet arthropathy on the left side at L4-5 with lateral recess stenosis. The sacroiliac joints appear intact. On the T2 and T1 images there is abnormal decreased signal at measures 2 cm in the inferior aspect of the S1 and S2 vertebral body. There is no expansion. There is some mild enhancement in the anterior aspect of the lesion. There is no spinal stenosis in the sacrum. The coccyx is intact. There is no lumbar paraspinal mass. IMPRESSION: Spondylotic changes in the lumbar spine with lateral recess stenosis and disc herniation as above. No spinal stenosis. Lesion in the S1 and S2 vertebral body is consistent with metastatic disease.
--- NOTE | 2021-05-21 18:04 | PN ---
PROGRESS NOTE Patient is seen for followup for hyponatremia. Patient is maintained on saline and her sodium level has improved and currently staying at about 129 mEq/dL. Saline is at 50 mL an hour. Blood pressure is on the lower side with systolic around 107-106 mmHg. Urine osmolality was on the higher side at 410 and 467. EXAMINATION: On examination today, blood pressure 127/73, heart rate of 78 per minute, she is afebrile. Examination of lower extremities shows no evidence of edema. CLAIMS VICE PRESIDENT exam grossly intact. Abdomen is soft, nontender. The patient appears euvolemic. LAB: Show sodium 129 today, potassium 3.8, BUN 14, serum creatinine 0.38. ASSESSMENT: 1. Hypovolemic hyponatremia, maintained on saline at about 50 mL an hour with improvement in serum sodium and it is staying at 129 mEq/L now. Since blood pressure is on the lower side I will add a dose of sodium chloride tab as well. 2. Metastatic breast cancer, maintained on chemotherapy. 3. Urinary tract infection, maintained on antibiotics. Urine culture has grown E coli. PLAN: Continue with antibiotics. Continue with saline 50 mL an hour. Add sodium chloride tabs. Monitor for volume overload and repeat labs in a.m. MMODL / IJN: [id number] /
[2021-05-21 18:12] LABS: Glucose,Whole Blood 303 mg/dL (75-99)
--- NOTE | 2021-05-21 18:12 | MR ---
EXAMINATION TYPE: MR thoracic spine wo/w con DATE OF EXAM: 05/21/2021 COMPARISON: None HISTORY: Weakness, breast cancer, evaluate for cord compression. CONTRAST: Standard multiplanar, multisequence MRI departmental protocol utilizing 5.5 mL intravenous Gadavist g adolinium contrast. Thoracic vertebra have normal alignment. Disc spaces are fairly normal. There is no compression fract ure. There is a somewhat rounded low signal focus on T1 and T2 images measuring 10 mm in the T4 verte bral body. There is no compression fracture. There is also a low signal 1 cm focus in the T8 vertebra l body. There is a 7 mm low signal area on the right side of the T10 vertebral body. There is no paraspinal mass. There is enlargement of the neural foramen on the right side at T9-10 co nsistent with a lateral meningocele. There is minimal enhancement of the T4 vertebral body. The poste rior elements appear intact. IMPRESSION: Low signal lesions in the T4 and T8 and T10 vertebra consistent with metastatic disease. T8 and T10 l esions appear new compared to old exam. No evidence of spinal stenosis. Normal thoracic spinal cord.
[2021-05-21 20:10] LABS: Glucose,Whole Blood 346 mg/dL (75-99)
[2021-05-21] MEDS: SODIUM CHLORIDE TAB 1 GM TAB PO SCH (20:57)
[2021-05-21] MEDS: SENNOSIDES 8.6 MG TAB PO PRN (22:20)
[2021-05-22 06:53] LABS: HGB 10.9 gm/dL (11.4-16.0); MCH 32.4 pg (25.0-35.0); MCHC 34.1 g/dL (31.0-37.0); MCV 94.9 fL (80.0-100.0); Mean Platelet Volume 6.7; Platelet Count 229 k/uL (150-450); RBC 3.38 m/uL (3.80-5.40); RDW 15.9 % (11.5-15.5)
[2021-05-22 07:51] LABS: Glucose,Whole Blood 251 mg/dL (75-99)
--- NOTE | 2021-05-22 08:42 | P.CONS ---
History of Present Illness - Reason for Consult Consult date: 05/21/21 weakness, lower back pain Requesting physician: Lang Morocho - Chief Complaint weakness - History of Present Illness The patient is a 70-year-old female with a history of metastatic triple negative cancer of the right breast initially presenting with bone metastases and thorac ic adenopathy. She initially had an excellent response to chemotherapy, underwent bilateral mastectomy and recently had significant CHEMIC MANGLER progression. She completed a course of whole brain radiotherapy on April 26. She was doing well, until recently she had increased difficulty with ambulation and she was admitted to the ER found to be hyponatremic and have a UTI. The patient was admitted to the ER on May 18. She states that she had been experiencing increasing weakness and difficulty with ambulation over the past couple weeks. This seemed to coincide with a decrease in her dexamethasone. She had titrated down to 2 mg dexamethasone daily. She felt the lower extremities were weak bilaterally, and she was having some lower back pain. She also stated that she was having frequent urination. Upon hospitalization, the patient was found to be hyponatremic, have a UTI and has had glucoses in the 300-400 range. She states that she previously was considered borderline diabetic. Since her hospital stay, the patient reports she is feeling a little bit better. She still feels that the lower extremities are weaker than they should be and is requiring 1 person assist to walk. She states that at home she was previously only using a walker occasionally 2 recently requiring a wheelchair. She states her lower back pain was typically 3-4 out of 10, and that she was taking pain medication at night. She also felt like she was having some weakness in the right upper extremity. She denied difficulty with headaches, nausea, blurred vision or dizziness. The patient underwent an MRI of the thoracic and lumbosacral spine. There is a lesion noted at S1-2, which was previously seen on her old PET scan. This seemed to have resolved on the most recent postchemotherapy scan however. MRI of the thoracic spine revealed a few small lesions within the vertebral bodies, but no nerve impingement or spinal cord compression. Of note, the patient just started Xeloda this past week. Review of Systems Constitutional: Denies chills, Denies fever Eyes: denies blurred vision Ears: deny: decreased hearing Ears, nose, mouth and throat: Denies headache Cardiovascular: Denies chest pain Respiratory: Denies cough, Denies dyspnea Gastrointestinal: Denies bloating Genitourinary: Denies flank pain Musculoskeletal: Reports muscle weakness, Denies arm numbness/tingling Integumentary: Denies rash Neurological: Reports weakness, Denies aphasia, Denies ataxia, Denies burning pain, Denies confusion, Denies convulsions, Denies double vision, Denies numbness, Denies paralysis Psychiatric: Denies anxiety, Denies confusion Past Medical History Past Medical History: Cancer, Deep Vein Thrombosis (DVT), Hyperlipidemia Additional Past Medical History / Comment(s): breast, brain mets History of Any Multi-Drug Resistant Organisms: None Reported Past Surgical History: Back Surgery, Breast Surgery, Cholecystectomy Additional Past Surgical History / Comment(s): 03/27/21 double mastectomy, bilateral breast core biopsy, laminectomy 1998 & 2000 Past Anesthesia/Blood Transfusion Reactions: No Reported Reaction Smoking Status: Former smoker - Past Family History Father Family Medical History: CVA/TIA, Myocardial Infarction ([place]) Mother Family Medical History: Cancer, Congestive Heart Failure (CHF), COPD Additional Family Medical History / Comment(s): pancreatic cancer Sister(s) Family Medical History: Cancer Additional Family Medical History / Comment(s): right breast cancer Medications and Allergies Home Medications Medication Instructions Recorded Confirmed Type Calcium Carbonate [Calcium] 600 mg PO BID 01/25/21 05/18/21 History HYDROcodone/APAP 7.5-325MG [[place] 1 tab PO Q6H PRN 04/12/21 05/18/21 History 7.5-325] Ondansetron HCl [Zofran] 4 mg PO QID PRN 04/12/21 05/18/21 History Vitamin E 100 unit PO DAILY 04/12/21 05/18/21 History Sennosides [Senokot] 8.6 mg PO BID PRN #30 tab 04/16/21 05/18/21 Rx polyethylene glycoL 3350 [Miralax] 17 gm PO DAILY PRN 30 Days #30 04/16/21 05/18/21 Rx powd.pack Acetaminophen Tab [Tylenol] 500 mg PO Q6HR PRN 04/21/21 05/18/21 History Dexamethasone [Decadron] See Taper PO QID 04/21/21 05/18/21 History Pantoprazole Sodium [Protonix] 40 mg PO DAILY 04/21/21 05/18/21 History Albuterol Inhaler [Ventolin Hfa 2 puff INHALATION RT-QID PRN 05/18/21 05/18/21 History Inhaler] Apixaban [Eliquis Starter Pack 5 mg PO BID 05/18/21 05/18/21 History (for VTE)] Capecitabine [Xeloda] 1,000 mg PO BID 05/18/21 05/18/21 History Cholecalciferol [Vitamin D3 (25 25 mcg PO DAILY 05/18/21 05/18/21 History Mcg = 1000 Iu)] Allergies Allergy/AdvReac Type Severity Reaction Status Date / Time paclitaxel [From Taxol] Allergy Rash/Hives Verified 05/18/21 14:03 atorvastatin [From Lipitor] AdvReac SEVERE Verified 05/18/21 14:03 MUSCLE ACHES codeine AdvReac Abdominal Verified 05/18/21 14:03 Pain Physical Exam Vitals: Vital Signs Temp Pulse Resp BP Pulse Ox 05/22/21 05:00 98 F 93 20 116/79 97 05/21/21 19:35 97.5 F L 79 20 113/69 98 05/21/21 13:33 97.4 F L 93 18 106/66 97 Intake and Output 05/21/21 05/22/21 05/22/21 22:59 06:59 14:59 Intake Total 1830 240 Balance 1830 240 Intake: Intake, IV Titration 650 Amount Sodium Chloride 0.9% 1, 600 000 ml @ 50 mls/hr IV . Q20H [facility] Rx#:[id number] cefTRIAXone 1 gm In 50 Sodium Chloride 0.9% 50 ml @ 100 mls/hr IVPB Q24HR [facility] Rx#:[id number] Oral 1180 240 Other: Voiding Method Bedside Commode # Voids 3 2 - Constitutional General appearance: no acute distress - EENT Eyes: EOMI, PERRLA ENT: hearing grossly normal - Neck Neck: no lymphadenopathy - Respiratory Respiratory: bilateral: CTA - Cardiovascular Rhythm: regular - Gastrointestinal General gastrointestinal: no distended, no tenderness - Integumentary Integumentary: no calor, no cellulitis - Neurologic Neurologic: CNII-XII intact - Musculoskeletal Musculoskeletal: generalized weakness (5/5 strength bilateral UE, except RUE has 4/5 abduction, 4/5 bilateral LE strength) - Psychiatric Psychiatric: A&O x's 3, appropriate affect Results CBC & Chem 7: 05/22/21 05:42 05/21/21 06:21 Labs: Abnormal Lab Results - Last 24 Hours (Table) 05/21/21 05/21/21 05/21/21 Range/Units 06:21 06:21 12:25 RBC 3.20 L (3.80-5.40) m/uL Hgb 10.4 L (11.4-16.0) gm/dL Hct 30.8 L (34.0-46.0) % RDW (11.5-15.5) % Sodium 129 L (137-145) mmol/L Creatinine 0.38 L (0.52-1.04) mg/dL Glucose 165 H (74-99) mg/dL POC Glucose (mg/dL) 260 H (75-99) mg/dL Osmolality 272 L (280-301) mosm/kg Calcium 7.8 L (8.4-10.2) mg/dL Total Protein 4.8 L (6.3-8.2) g/dL Albumin 2.8 L (3.5-5.0) g/dL Urine Glucose (UA) (Negative) 05/21/21 05/21/21 05/21/21 Range/Units 14:55 18:07 19:54 RBC (3.80-5.40) m/uL Hgb (11.4-16.0) gm/dL Hct (34.0-46.0) % RDW (11.5-15.5) % Sodium (137-145) mmol/L Creatinine (0.52-1.04) mg/dL Glucose (74-99) mg/dL POC Glucose (mg/dL) 303 H 346 H (75-99) mg/dL Osmolality (280-301) mosm/kg Calcium (8.4-10.2) mg/dL Total Protein (6.3-8.2) g/dL Albumin (3.5-5.0) g/dL Urine Glucose (UA) 4+ H (Negative) 05/22/21 05/22/21 Range/Units 05:42 07:46 RBC 3.38 L (3.80-5.40) m/uL Hgb 10.9 L (11.4-16.0) gm/dL Hct 32.0 L (34.0-46.0) % RDW 15.9 H (11.5-15.5) % Sodium (137-145) mmol/L Creatinine (0.52-1.04) mg/dL Glucose (74-99) mg/dL POC Glucose (mg/dL) 251 H (75-99) mg/dL Osmolality (280-301) mosm/kg Calcium (8.4-10.2) mg/dL Total Protein (6.3-8.2) g/dL Albumin (3.5-5.0) g/dL Urine Glucose (UA) (Negative) Assessment and Plan Assessment: The patient is a 70-year-old female with a history of metastatic triple negative cancer of the right breast initially presenting with bone metastases and thoracic adenopathy. She initially had an excellent response to chemotherapy, underwent bilateral mastectomy and recently had significant CHEMIC MANGLER progression. She completed a course of whole brain radiotherapy on April 26. She was doing well, until recently she had increased difficulty with ambulation and she was admitted to the ER found to be hyponatremic and have a UTI. Plan: 1. Weakness lower extremities: MRI of the thoracic and lumbosacral spine did not reveal any cord or cauda compression. There has been recurrence of a sacral lesion at S1 to 2, which may be the cause of her lower back pain. Uncertain as to the exact etiology of the lower extremity weakness. There may be a component of steroid myopathy. Patient reports slight improvement since hospitalization. The patient has been placed on 4 mg twice a day of dexamethasone. 2. UTI: On antibiotics, likely a higher risk due to uncontrolled blood sugar. Hyperglycemia likely due to dexamethasone use. 3. Metastatic triple negative breast cancer: Patient had just started on Xeloda; she has only had 3 days of treatment which is inadequate to assess efficacy. I have reviewed the patient's MRIs, and will likely offer her a palliative course of radiation to the sacral lesion. Although I'm not certain this is the cause of her weakness as there does not appear to be any nerve impingement, this certainly could be a source of pain and could limit her mobility. I will discuss this case and further detail with medical oncology. It may also be reasonable to recheck an MRI of the brain, to ensure that she has had a good response to whole brain radiotherapy even though this is an early time point. Time: I spent 35 minutes with this patient, of which greater than 50% of that time was spent counseling, coordinating care, and reviewing the risks, benefits, and all potential complications of radiation. Time with Patient: Greater than 30
[2021-05-22 09:23] LABS: Band Neutrophils % 2 %; Myelocytes % 2 %; Neutrophils % (M) 86 %; Nucleated Red Blood Cells 2 /100 WBC (0-0); Total Cells Counted 200
[2021-05-22 09:24] LABS: Monocytes # (M) 0.13 k/uL (0-1.0); Myelocytes # (M) 0.13 k/uL (0); WBC 6.7 k/uL (3.8-10.6)
[2021-05-22 09:25] LABS: Anisocytosis (M) Present
[2021-05-22 09:26] LABS: Polychromasia Present
[2021-05-22] MEDS: CHOLECALCIFEROL 25 MCG (1000 IU) TABLET PO SCH (10:00)
[2021-05-22] MEDS: PANTOPRAZOLE 40 MG TABLET PO SCH ×2 (10:00→18:12)
[2021-05-22] MEDS: CALCIUM CARBONATE 500 MG CHEWABLE PO SCH ×2 (10:00→22:14)
[2021-05-22] MEDS: APIXABAN 5 MG TAB PO SCH ×2 (10:00→22:12)
[2021-05-22] MEDS: DEXAMETHASONE SOD PHOSPHATE 4 MG/ML 1 ML VIAL IV SCH ×2 (10:01→15:52)
[2021-05-22] MEDS: INSULIN ASPART (NovoLOG) 100 UNIT/ML VIAL SQ SCH ×4 (10:01→22:12)
[2021-05-22] MEDS: VITAMIN E (DL,TOCOPHERYL ACET) 400 UNIT (180 MG) CAP PO SCH (10:02)
[2021-05-22 11:56] LABS: Glucose,Whole Blood 262 mg/dL (75-99)
[2021-05-22 12:15] LABS: African American GFR (CKD) 114.5 (60.0-200.0); Albumin 3.5 g/dL (3.80-4.90); Albumin/Globulin Ratio 2.33 (1.60-3.17); Anion Gap 7.3 mmol/L (4.00-12.00); Calcium 8.2 mg/dL (8.7-10.3); Carbon Dioxide 22.7 mmol/L (21.6-31.8); Globulin 1.5 g/dL (1.6-3.3); Magnesium 1.9 mg/dL (1.5-2.4); Non-African American GFR(CKD) 98.8 (60.0-200.0); Potassium 4.2 mmol/L (3.5-5.5); Total Bilirubin 0.6 mg/dL (0.3-1.2)
[2021-05-22] MEDS: SODIUM CHLORIDE TAB 1 GM TAB PO SCH ×2 (13:44→22:12)
--- NOTE | 2021-05-22 13:49 | PN ---
PROGRESS NOTE Patient is seen for followup for hyponatremia, currently doing better. Serum sodium increased to 132. Patient is maintained on normal saline at 50 mL an hour. She was also started on sodium chloride tabs yesterday. PHYSICAL EXAMINATION: On examination today, blood pressure 102/68, heart rate 104 per minute, she is afebrile. Examination of the heart S1, S2. Examination of the lungs, bilateral breath sounds are heard. Abdomen is soft, nontender. Examination of lower extremities shows trace edema bilaterally. [employer] exam grossly intact. LAB: Show sodium 132, potassium 4.2, chloride 102, BUN 15, creatinine 0.5, hemoglobin 10.9 g/dL. ASSESSMENT: 1. Hyponatremia as well as hypovolemic, currently maintained on saline at 50 mL an hour with improvement in sodium level. Sodium chloride tab was added yesterday. I will discontinue the saline for now. 2. Metastatic breast cancer, maintained on chemotherapy. 3. Urinary tract infection, maintained on antibiotics. Urine culture grew E coli. PLAN: Encourage increased oral intake, particularly protein. DC saline for now. Continue with the sodium chloride tabs. Monitor for fluid retention and edema. Repeat sodium in a.m. MMODL / IJN: [id number] /
--- NOTE | 2021-05-22 15:13 | P.PN ---
Subjective Progress Note Date: 05/22/21 Principal diagnosis: Neuropathy, weakness, Pain Reviewed MRI's of spine, Sacral mass increased, discussed with Dr. Han and will plan for palliative radiation. Objective - Vital Signs Vital signs: Vital Signs Temp 97.7 F 05/22/21 12:40 Pulse 104 H 05/22/21 12:40 Resp 18 05/22/21 12:40 BP 102/68 05/22/21 12:40 Pulse Ox 98 05/22/21 12:40 Intake & Output 05/21/21 05/22/21 05/22/21 18:59 06:59 18:59 Intake Total 1730 340 Balance 1730 340 Intake: Intake, IV Titration 650 Amount Sodium Chloride 0.9% 1, 600 000 ml @ 50 mls/hr IV . Q20H [facility] Rx#:[id number] cefTRIAXone 1 gm In 50 Sodium Chloride 0.9% 50 ml @ 100 mls/hr IVPB Q24HR [facility] Rx#:[id number] Oral 1080 340 Other: Voiding Method Bedside Commode Bedside Commode Bedside Commode # Voids 3 2 - Exam - Constitutional General appearance: cooperative, no acute distress - EENT Eyes: EOMI ENT: hard of hearing, NA/AT - Neck Neck: normal ROM - Respiratory Respiratory: bilateral: diminished - Cardiovascular Rhythm: regularly irregular leg Peripheral Edema: bilateral: Other (Decreased sensation to touch on inner aspect though and soles feet L>R) - Gastrointestinal General gastrointestinal: normal bowel sounds, soft, tenderness - Integumentary Integumentary: pale - Neurologic poor historian, no loss of bladder - Musculoskeletal Musculoskeletal: generalized weakness, right sided weakness, left sided weakness - Psychiatric Psychiatric: A&O x's 3 - Labs CBC & Chem 7: 05/22/21 05:42 05/22/21 05:42 Labs: Abnormal Lab Results - Last 24 Hours (Table) 05/21/21 05/21/21 05/21/21 Range/Units 14:55 18:07 19:54 RBC (3.80-5.40) m/uL Hgb (11.4-16.0) gm/dL Hct (34.0-46.0) % RDW (11.5-15.5) % Lymphocytes # (Manual) (1.0-4.8) k/uL Myelocytes # (Manual) (0) k/uL Nucleated RBCs (0-0) /100 WBC Sodium (135-145) mmol/L Creatinine (0.6-1.5) mg/dL BUN/Creatinine Ratio (12.00-20.00) Ratio Glucose (70-110) mg/dL POC Glucose (mg/dL) 303 H 346 H (75-99) mg/dL Calcium (8.7-10.3) mg/dL Total Protein (6.2-8.2) g/dL Albumin (3.80-4.90) g/dL Globulin (1.6-3.3) g/dL Urine Glucose (UA) 4+ H (Negative) 05/22/21 05/22/21 05/22/21 Range/Units 05:42 05:42 07:46 RBC 3.38 L (3.80-5.40) m/uL Hgb 10.9 L (11.4-16.0) gm/dL Hct 32.0 L (34.0-46.0) % RDW 15.9 H (11.5-15.5) % Lymphocytes # (Manual) 0.60 L (1.0-4.8) k/uL Myelocytes # (Manual) 0.13 H (0) k/uL Nucleated RBCs 2 H (0-0) /100 WBC Sodium 132 L (135-145) mmol/L Creatinine 0.5 L (0.6-1.5) mg/dL BUN/Creatinine Ratio 30.00 H (12.00-20.00) Ratio Glucose 248 H (70-110) mg/dL POC Glucose (mg/dL) 251 H (75-99) mg/dL Calcium 8.2 L (8.7-10.3) mg/dL Total Protein 5.0 L (6.2-8.2) g/dL Albumin 3.50 L (3.80-4.90) g/dL Globulin 1.5 L (1.6-3.3) g/dL Urine Glucose (UA) (Negative) 05/22/21 Range/Units 11:49 RBC (3.80-5.40) m/uL Hgb (11.4-16.0) gm/dL Hct (34.0-46.0) % RDW (11.5-15.5) % Lymphocytes # (Manual) (1.0-4.8) k/uL Myelocytes # (Manual) (0) k/uL Nucleated RBCs (0-0) /100 WBC Sodium (135-145) mmol/L Creatinine (0.6-1.5) mg/dL BUN/Creatinine Ratio (12.00-20.00) Ratio Glucose (70-110) mg/dL POC Glucose (mg/dL) 262 H (75-99) mg/dL Calcium (8.7-10.3) mg/dL Total Protein (6.2-8.2) g/dL Albumin (3.80-4.90) g/dL Globulin (1.6-3.3) g/dL Urine Glucose (UA) (Negative) Assessment and Plan (1) Lower extremity weakness Current Visit: Yes Status: Acute Code(s): R29.898 - OTH SYMPTOMS AND SIGNS INVOLVING THE MUSCULOSKELETAL SYSTEM SNOMED Code(s): 258340852 (2) Back pain Current Visit: Yes Status: Acute Code(s): M54.9 - DORSALGIA, UNSPECIFIED SNOMED Code(s): 178738671 (3) Neuropathy Current Visit: Yes Status: Acute Code(s): G62.9 - POLYNEUROPATHY, UNS PECIFIED SNOMED Code(s): 221487325 (4) Hyponatremia Current Visit: Yes Status: Acute Code(s): E87.1 - HYPO-OSMOLALITY AND HYPONATREMIA SNOMED Code(s): 06898954 (5) Urinary tract infection Current Visit: Yes Status: Acute Code(s): N39.0 - URINARY TRACT INFECTION, SITE NOT SPECIFIED SNOMED Code(s): 42824062 (6) Brain metastases Current Visit: No Status: Acute Priority: High Code(s): C79.31 - SECONDARY MALIGNANT NEOPLASM OF BRAIN SNOMED Code(s): 68621186 (7) Breast cancer Current Visit: No Status: Chronic Priority: High Code(s): C50.919 - MALIGNANT NEOPLASM OF UNSP SITE OF UNSPECIFIED FEMALE BREAST SNOMED Code(s): 070897183 Plan: Assessment and Recommendations: Will need to confirm no progression of disease involving spinal cord with new onset lower back pain and unilateral sensation. 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 Han Peripheral Neuropathy: WOrsening: - PT/OT - IPR Assessment - Primary team to aggressively control GLUCOSE to improve symptoms - Add Cymbalta Discussed with Radiation Oncology, Patient and Daughter Alise in Detail At this time continue with Palliative care measures. Hospice would be deemed apprpriate if quality of life was unable to be acheived with current treatment, palliative is appropriate at this time, although hospice care is felt to be better utilized after trial with current plan. Physician Attest: I have completed the full history and physical and developed the above impression and plan, agree with dictation, dictated as a scribe.
[2021-05-22] MEDS: SODIUM CHLORIDE 0.9% 1,000 ML IV SCH (15:53)
--- NOTE | 2021-05-22 15:57 | P.PN ---
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 She presented to our facility on 05/18/21 with a chief complaint of weakness of her lower extremities and back pain. Patient was admitted under our services with consultation to oncology. She was found to have a UTI with urine culture positive for E. coli and place on IV antibiotic Rocephin. She had an EKG done which revealed normal sinus rhythm at 83 bpm with no noted T-wave or ST abnormalities. A chest x-ray was completed which was negative for acute cardiopulmonary process. MRI lumbar spine showed spondylitic changes in the lumbar spine with lateral recess stenosis and disc herniation with lesions in the S1 and S2 vertebral body consistent with metastatic disease. MRI thoracic spine also showing lesions in T4 and T8 as well as T10 vertebra consistent with metastatic disease. Physical exam: Patient seen and fully evaluated at bedside this morning she was sitting up in chair reading a magazine. Patient's daughter coming in to discuss MRI results w [facility] oncology and plan of care. Patient reports back pain and leg pain was controlled throughout the night however reports that she did have significant amount of increased pain this morning. She denies having any headache, lightheadedness, dizziness, chest pain, palpitations, or shortness of breath. Patient denies having any numbness or tingling in extremities. General: non toxic, chronically ill appearing, no acute distress, appears at stated age Derm: warm, dry, pale Head: atraumatic, normocephalic, symmetric Eyes: EOMI, no lid lag, anicteric sclera Mouth: no lip lesion, mucus membranes moist Cardiovascular: S1S2 reg, no murmur, positive posterior tibial pulses bilaterally Lungs: CTA bilateral, no rhonchi, no rales , no accessory muscle use Abdominal: soft, nontender to palpation, no guarding, no appreciable organomegaly Ext: no gross muscle atrophy, no edema, no contractures Neuro: CN II-XI grossly intact, no focal neuro deficits Psych: Alert, oriented, appropriate affect Plan of care: Breast cancer with metastasis to brain and spinal cord vertebra -MRI lumbar spine showed spondylitic changes in the lumbar spine with lateral recess stenosis and disc herniation with lesions in the S1 and S2 vertebral body consistent with metastatic disease. -MRI thoracic spine also showing lesions in T4 and T8 as well as T10 vertebra consistent with metastatic disease. -Oncology following currently recommending to continue palliative treatment, appreciate further recommendations. -PT/OT -Symptomatic care and pain management -Bowel regimen -Dexamethasone 4 mg every 8 hours Urinary tract infection -Urine culture positive for E. coli, continue Rocephin Hyponatremia -Nephrology following place patient on sodium chloride tablets -Monitor I's and O's closely watching for fluid retention and edema -Continued close monitoring with repeat a.m. labs CODE STATUS: DO NOT RESUSCITATE/DO NOT INTUBATE DVT prophylaxis: Elisa Discussed with: Patient and RN Anticipated discharge date: Clinical course to determine Anticipated discharge place: Home with home care A total of 45 minutes was spent on the care of this complex patient more than 50% of the time was spent in counseling and care coordination. Objective - Vital Signs Vital signs: Vital Signs Temp 98 F 05/22/21 05:00 Pulse 93 05/22/21 05:00 Resp 20 05/22/21 05:00 BP 116/79 05/22/21 05:00 Pulse Ox 97 05/22/21 05:00 Intake & Output 05/21/21 05/22/21 05/22/21 18:59 06:59 18:59 Intake Total 1730 340 Balance 1730 340 Intake: Intake, IV Titration 650 Amount Sodium Chloride 0.9% 1, 600 000 ml @ 50 mls/hr IV . Q20H [facility] Rx#:[id number] cefTRIAXone 1 gm In 50 Sodium Chloride 0.9% 50 ml @ 100 mls/hr IVPB Q24HR [facility] Rx#:[id number] Oral 1080 340 Other: Voiding Method Bedside Commode Bedside Commode # Voids 3 2 - Labs CBC & Chem 7: 05/22/21 05:42 05/22/21 05:42 Labs: Abnormal Lab Results - Last 24 Hours (Table) 05/21/21 05/21/21 05/21/21 Range/Units 06:21 06:21 12:25 RBC 3.20 L (3.80-5.40) m/uL Hgb 10.4 L (11.4-16.0) gm/dL Hct 30.8 L (34.0-46.0) % RDW (11.5-15.5) % Lymphocytes # (Manual) (1.0-4.8) k/uL Myelocytes # (Manual) (0) k/uL Nucleated RBCs (0-0) /100 WBC Sodium 129 L (137-145) mmol/L Creatinine 0.38 L (0.52-1.04) mg/dL Glucose 165 H (74-99) mg/dL POC Glucose (mg/dL) 260 H (75-99) mg/dL Osmolality 272 L (280-301) mosm/kg Calcium 7.8 L (8.4-10.2) mg/dL Total Protein 4.8 L (6.3-8.2) g/dL Albumin 2.8 L (3.5-5.0) g/dL Urine Glucose (UA) (Negative) 05/21/21 05/21/21 05/21/21 Range/Units 14:55 18:07 19:54 RBC (3.80-5.40) m/uL Hgb (11.4-16.0) gm/dL Hct (34.0-46.0) % RDW (11.5-15.5) % Lymphocytes # (Manual) (1.0-4.8) k/uL Myelocytes # (Manual) (0) k/uL Nucleated RBCs (0-0) /100 WBC Sodium (137-145) mmol/L Creatinine (0.52-1.04) mg/dL Glucose (74-99) mg/dL POC Glucose (mg/dL) 303 H 346 H (75-99) mg/dL Osmolality (280-301) mosm/kg Calcium (8.4-10.2) mg/dL Total Protein (6.3-8.2) g/dL Albumin (3.5-5.0) g/dL Urine Glucose (UA) 4+ H (Negative) 05/22/21 05/22/21 Range/Units 05:42 07:46 RBC 3.38 L (3.80-5.40) m/uL Hgb 10.9 L (11.4-16.0) gm/dL Hct 32.0 L (34.0-46.0) % RDW 15.9 H (11.5-15.5) % Lymphocytes # (Manual) 0.60 L (1.0-4.8) k/uL Myelocytes # (Manual) 0.13 H (0) k/uL Nucleated RBCs 2 H (0-0) /100 WBC Sodium (137-145) mmol/L Creatinine (0.52-1.04) mg/dL Glucose (74-99) mg/dL POC Glucose (mg/dL) 251 H (75-99) mg/dL Osmolality (280-301) mosm/kg Calcium (8.4-10.2) mg/dL Total Protein (6.3-8.2) g/dL Albumin (3.5-5.0) g/dL Urine Glucose (UA) (Negative)
[2021-05-22 17:23] LABS: Glucose,Whole Blood 290 mg/dL (75-99)
[2021-05-22 20:18] LABS: Glucose,Whole Blood 289 mg/dL (75-99)
[2021-05-22] MEDS: DULoxetine HCL 30 MG CAPSULE.DR PO SCH (22:14)
[2021-05-22] MEDS: oxyCODONE-APAP 5-325MG 1 EACH TAB PO PRN (22:14)
[2021-05-22] MEDS: SENNOSIDES 8.6 MG TAB PO PRN (22:15)
[2021-05-23] MEDS: DEXAMETHASONE SOD PHOSPHATE 4 MG/ML 1 ML VIAL IV SCH ×3 (00:33→17:06)
[2021-05-23 06:00] LABS: Anisocytosis Slight; HCT 30.8 % (34.0-46.0); HGB 10.3 gm/dL (11.4-16.0); MCHC 33.3 g/dL (31.0-37.0); Macrocytosis Slight; Mean Platelet Volume 6.6; Platelet Count 229 k/uL (150-450); RBC 3.21 m/uL (3.80-5.40); RDW 16.5 % (11.5-15.5); WBC 7.4 k/uL (3.8-10.6)
--- NOTE | 2021-05-23 06:07 | P.CONS ---
History of Present Illness - Chief Complaint Medical debility - History of Present Illness I had the opportunity to see patient for inpatient rehab consultation with regard to medical debility. Patient admitted to [facility] May 18 with left leg weakness, falling down. Patient reports DVT. Patient reports MRI demonstrated a tumor and she is to undergo radiation therapy 5 days. T-spine MRI demonstrates decreased uptake T4, 8, 10 consistent with metastatic cyst. Lumbar MRI with spondylosis. Seen by Dr. Gage for hypovolemic hyponatremia who notes SIADH likely. Seen by Dr. schwarz for low back pain. Seen by Dr. Dougherty who notes metastatic triple negative breast disease. PT prescribed but I do not note any notes. I've added OT at this time. Previous functional history as elicited from patient: T10-year-old right-handed white female who is lives in one floor home alone. Retired. Describes independent own cooking, laundry, sitdown shower and gait with roller walker. More recently his been using wheelchair. PCP Aleksander Barbosa. History smoking but doesn't smoke or drink currently. Review of Systems Review of systems: ENT: Denies sneezes or discharge. Eyes: Denies discharge or photophobia. Cardiac: Denies chest pain or palpitation. Pulmonary: Denies cough or shortness of breath. Breast: Denies discharge or lumps. Gastrointestinal: Denies nausea, emesis, constipation, diarrhea. Genitourinary: Denies discharge or frequency. Musculoskeletal: Some mild back discomfort. Neurologic: Denies motor or sensory change. Endocrine: Denies shakes or sweats. Oncology: Denies cancers. Dermatologic: Denies rash, itching, pruritus. ALLERGY/immunology: Denies sneezes, rashes. Past Medical History Past Medical History: Cancer, Deep Vein Thrombosis (DVT), Hyperlipidemia Additional Past Medical History / Comment(s): breast, brain mets History of Any Multi-Drug Resistant Organisms: None Reported Past Surgical History: Back Surgery, Breast Surgery, Cholecystectomy Additional Past Surgical History / Comment(s): 03/27/21 double mastectomy, bilateral breast core biopsy, laminectomy 1998 & 2000 Past Anesthesia/Blood Transfusion Reactions: No Reported Reaction Smoking Status: Former smoker - Past Family History Father Family Medical History: CVA/TIA, Myocardial Infarction ([place]) Mother Family Medical History: Cancer, Congestive Heart Failure (CHF), COPD Additional Family Medical History / Comment(s): pancreatic cancer Sister(s) Family Medical History: Cancer Additional Family Medical History / Comment(s): right breast cancer Medications and Allergies Home Medications Medication Instructions Recorded Confirmed Type Calcium Carbonate [Calcium] 600 mg PO BID 01/25/21 05/18/21 History HYDROcodone/APAP 7.5-325MG [[place] 1 tab PO Q6H PRN 04/12/21 05/18/21 History 7.5-325] Ondansetron HCl [Zofran] 4 mg PO QID PRN 04/12/21 05/18/21 History Vitamin E 100 unit PO DAILY 04/12/21 05/18/21 History Sennosides [Senokot] 8.6 mg PO BID PRN #30 tab 04/16/21 05/18/21 Rx polyethylene glycoL 3350 [Miralax] 17 gm PO DAILY PRN 30 Days #30 04/16/21 05/18/21 Rx powd.pack Acetaminophen Tab [Tylenol] 500 mg PO Q6HR PRN 04/21/21 05/18/21 History Dexamethasone [Decadron] See Taper PO QID 04/21/21 05/18/21 History Pantoprazole Sodium [Protonix] 40 mg PO DAILY 04/21/21 05/18/21 History Albuterol Inhaler [Ventolin Hfa 2 puff INHALATION RT-QID PRN 05/18/21 05/18/21 History Inhaler] Apixaban [Eliquis Starter Pack 5 mg PO BID 05/18/21 05/18/21 History (for VTE)] Capecitabine [Xeloda] 1,000 mg PO BID 05/18/21 05/18/21 History Cholecalciferol [Vitamin D3 (25 25 mcg PO DAILY 05/18/21 05/18/21 History Mcg = 1000 Iu)] Allergies Allergy/AdvReac Type Severity Reaction Status Date / Time paclitaxel [From Taxol] Allergy Rash/Hives Verified 05/18/21 14:03 atorvastatin [From Lipitor] AdvReac SEVERE Verified 05/18/21 14:03 MUSCLE ACHES codeine AdvReac Abdominal Verified 05/18/21 14:03 Pain Physical Exam Vitals: Vital Signs Temp Pulse Resp BP Pulse Ox 05/23/21 04:46 98.5 F 76 16 106/67 97 05/22/21 19:47 98.1 F 74 16 108/67 96 05/22/21 12:40 97.7 F 104 H 18 102/68 98 Intake and Output 05/22/21 05/22/21 05/23/21 14:59 22:59 06:59 Intake Total 480 Output Total 480 Balance -480 480 Intake: Oral 480 Output: Urine 480 Other: Voiding Method Bedside Commode Bedside Commode # Voids 3 Skin: Good color, texture, turgor. General: Medium build and comfortable appearance. Head: Normocephalic, atraumatic. Eyes: Symmetric. Pupils equal round. Ears: Symmetric. Hearing within normal limits. Mouth: Clear. Neck: Supple. Carotid without bruit. Cardiac: Regular rate and rhythm. Lungs: Clear anteriorly and posteriorly. Abdomen: Soft active nontender. Extremities: Normal tone. Neurological: Mental status: Alert, cooperative, pleasant. Cranial nerves: Symmetric facial tone and trapezius. Motor: Normal strength and isolation all 4 limbs. Sensation: Intact throughout. DTRs: Symmetric and equal throughout. Mobility: Bed mobility without assistance or verbal cueing or loss of balance. Results CBC & Chem 7: 05/22/21 05:42 05/22/21 05:42 Labs: Abnormal Lab Results - Last 24 Hours (Table) 05/22/21 05/22/21 05/22/21 Range/Units 05:42 05:42 07:46 RBC 3.38 L (3.80-5.40) m/uL Hgb 10.9 L (11.4-16.0) gm/dL Hct 32.0 L (34.0-46.0) % RDW 15.9 H (11.5-15.5) % Lymphocytes # (Manual) 0.60 L (1.0-4.8) k/uL Myelocytes # (Manual) 0.13 H (0) k/uL Nucleated RBCs 2 H (0-0) /100 WBC Sodium 132 L (135-145) mmol/L Creatinine 0.5 L (0.6-1.5) mg/dL BUN/Creatinine Ratio 30.00 H (12.00-20.00) Ratio Glucose 248 H (70-110) mg/dL POC Glucose (mg/dL) 251 H (75-99) mg/dL Calcium 8.2 L (8.7-10.3) mg/dL Total Protein 5.0 L (6.2-8.2) g/dL Albumin 3.50 L (3.80-4.90) g/dL Globulin 1.5 L (1.6-3.3) g/dL 05/22/21 05/22/21 05/22/21 Range/Units 11:49 17:13 20:17 RBC (3.80-5.40) m/uL Hgb (11.4-16.0) gm/dL Hct (34.0-46.0) % RDW (11.5-15.5) % Lymphocytes # (Manual) (1.0-4.8) k/uL Myelocytes # (Manual) (0) k/uL Nucleated RBCs (0-0) /100 WBC Sodium (135-145) mmol/L Creatinine (0.6-1.5) mg/dL BUN/Creatinine Ratio (12.00-20.00) Ratio Glucose (70-110) mg/dL POC Glucose (mg/dL) 262 H 290 H 289 H (75-99) mg/dL Calcium (8.7-10.3) mg/dL Total Protein (6.2-8.2) g/dL Albumin (3.80-4.90) g/dL Globulin (1.6-3.3) g/dL Assessment and Plan (1) Back pain Current Visit: Yes Status: Acute Code(s): M54.9 - DORSALGIA, UNSPECIFIED SNOMED Code(s): 026710714 (2) Lower extremity weakness Current Visit: Yes Status: Acute Code(s): R29.898 - OTH SYMPTOMS AND SIGNS INVOLVING THE MUSCULOSKELETAL SYSTEM SNOMED Code(s): 217492090 (3) Brain metastases Current Visit: No Status: Acute Priority: High Code(s): C79.31 - SECONDARY MALIGNANT NEOPLASM OF BRAIN SNOMED Code(s): 83598557 Plan: Impression: 1. Medical debility. 2. Metastatic breast cancer. Comments and plan: At this time PT and OT are now prescribed. Follow therapies with yourself. Patient reports that she is no caregivers at home and so currently does not have a complete discharge plan.
[2021-05-23] MEDS: ACETAMINOPHEN TAB 325 MG TAB PO PRN (06:14)
[2021-05-23 06:29] LABS: ALT 14 U/L (4-34); AST 17 U/L (14-36); African American GFR (CKD) >90 (>60 ml/min/1.73 sqM); Albumin/Globulin Ratio 1.5; Alkaline Phosphatase 54 U/L (38-126); Anion Gap 3 mmol/L; Blood Urea Nitrogen 20 mg/dL (7-17); Calcium 8.7 mg/dL (8.4-10.2); Carbon Dioxide 24 mmol/L (22-30); Chloride 100 mmol/L (98-107); Glucose 256 mg/dL (74-99); Magnesium 2.1 mg/dL (1.6-2.3); Non-African American GFR(CKD) >90 (>60 ml/min/1.73 sqM); Potassium 4.8 mmol/L (3.5-5.1); Sodium 127 mmol/L (137-145); Total Bilirubin 0.4 mg/dL (0.2-1.3)
[2021-05-23 06:56] LABS: Glucose,Whole Blood 250 mg/dL (75-99)
[2021-05-23 07:36] LABS: Band Neutrophils % 1 %; Lymphocytes # (M) 0.59 k/uL (1.0-4.8); Neutrophils % (M) 87 %; Nucleated Red Blood Cells 0 /100 WBC (0-0); Total Cells Counted 200
[2021-05-23 07:37] LABS: Poikilocytosis (M) Present; Polychromasia Present
[2021-05-23] MEDS: PANTOPRAZOLE 40 MG TABLET PO SCH ×2 (07:47→17:46)
[2021-05-23] MEDS: APIXABAN 5 MG TAB PO SCH ×2 (07:47→20:52)
[2021-05-23] MEDS: CHOLECALCIFEROL 25 MCG (1000 IU) TABLET PO SCH (07:47)
[2021-05-23] MEDS: CALCIUM CARBONATE 500 MG CHEWABLE PO SCH ×2 (07:47→20:51)
[2021-05-23] MEDS: INSULIN ASPART (NovoLOG) 100 UNIT/ML VIAL SQ SCH ×4 (07:48→20:55)
[2021-05-23] MEDS: SODIUM CHLORIDE TAB 1 GM TAB PO SCH (07:49)
[2021-05-23] MEDS: oxyCODONE-APAP 5-325MG 1 EACH TAB PO PRN ×3 (07:50→21:04)
[2021-05-23] MEDS: VITAMIN E (DL,TOCOPHERYL ACET) 400 UNIT (180 MG) CAP PO SCH (09:43)
[2021-05-23] MEDS: DULoxetine HCL 30 MG CAPSULE.DR PO SCH ×2 (09:43→17:06)
[2021-05-23] MEDS ORDERED: TOLVAPTAN 15 MG 1/2 TABLET PO ONE (10:00)
[2021-05-23 12:08] LABS: Glucose,Whole Blood 362 mg/dL (75-99)
--- NOTE | 2021-05-23 12:20 | PN ---
PROGRESS NOTE HISTORY: Patient is seen for followup for hyponatremia. The patient was maintained on normal saline at 50 mL an hour along with sodium chloride tabs. Her sodium had improved to 132 yesterday, however, so saline was discontinued and her sodium dropped again to 127 today. EXAMINATION: Today patient is comfortable, awake. She denies any significant complaints. Blood pressure was 106/67, heart rate 76 per minute. She is afebrile. Examination of the heart S1, S2. Examination of the lungs, bilateral breath sounds are heard. Abdomen is soft, nontender. Examination of lower extremities shows no evidence of edema. CLINICAL SAFETY MANAGER exam is grossly intact. LABS: Sodium of 127, potassium 4.8, serum creatinine 0.4. ASSESSMENT: 1. Hyponatremia initially hypovolemic, somewhat improved with saline and sodium chloride tabs, but sodium dropped again this morning. Saline was discontinued. Sodium chloride tabs are maintain. I will add a dose of [place]. Patient is also encouraged to maintain good oral protein intake. 2. Metastatic breast cancer. 3. Escherichia coli urinary tract infection, maintained on antibiotics. PLAN: Samsca p.o. x1 now. Repeat sodium this afternoon and again in a.m. MMODL / IJN: [id number] /
--- NOTE | 2021-05-23 12:58 | P.PN ---
Subjective Progress Note Date: 05/23/21 Principal diagnosis: Neuropathy, weakness, Pain Patient started palliaitive radiation today, worked with therapy. She is complaining of increased right arm weakness will continue monitoring. Her blood sugars remain uncontrolled, will need to control to assist in peripheral neuro elli control. Re-education on cymbalta, discussed with patient and daughter Alise at bedside. Plan is to continue palliative radiation to completion while inpatient and working with PT?OT and then re-evaluate IPR versus home with PT/OT. Objective - Vital Signs Vital signs: Vital Signs Temp 97.4 F L 05/23/21 12:16 Pulse 84 05/23/21 12:16 Resp 16 05/23/21 12:16 BP 103/68 05/23/21 12:16 Pulse Ox 97 05/23/21 12:16 Intake & Output 05/22/21 05/23/21 05/23/21 18:59 06:59 18:59 Intake Total 480 Output Total 480 Balance -480 480 Intake: Oral 480 Output: Urine 480 Other: Voiding Method Bedside Commode Bedside Commode # Voids 3 - Exam - Constitutional General appearance: cooperative, no acute distress - EENT Eyes: EOMI ENT: hard of hearing, NA/AT - Neck Neck: normal ROM - Respiratory Respiratory: bilateral: diminished - Cardiovascular Rhythm: regularly irregular leg Peripheral Edema: bilateral: Other (Decreased sensation to touch on inner aspect though and soles feet L>R) - Gastrointestinal General gastrointestinal: normal bowel sounds, soft, tenderness - Integumentary Integumentary: pale - Neurologic poor historian, no loss of bladder - Musculoskeletal Musculoskeletal: generalized weakness, right sided weakness, left sided weakness - Psychiatric Psychiatric: A&O x's 3 - Labs CBC & Chem 7: 05/23/21 05:18 05/23/21 05:18 Labs: Abnormal Lab Results - Last 24 Hours (Table) 05/22/21 05/22/21 05/23/21 Range/Units 17:13 20:17 05:18 RBC 3.21 L (3.80-5.40) m/uL Hgb 10.3 L (11.4-16.0) gm/dL Hct 30.8 L (34.0-46.0) % RDW 16.5 H (11.5-15.5) % Lymphocytes # (Manual) 0.59 L (1.0-4.8) k/uL Sodium (137-145) mmol/L BUN (7-17) mg/dL Creatinine (0.52-1.04) mg/dL Glucose (74-99) mg/dL POC Glucose (mg/dL) 290 H 289 H (75-99) mg/dL Total Protein (6.3-8.2) g/dL Albumin (3.5-5.0) g/dL 05/23/21 05/23/21 05/23/21 Range/Units 05:18 06:44 11:50 RBC (3.80-5.40) m/uL Hgb (11.4-16.0) gm/dL Hct (34.0-46.0) % RDW (11.5-15.5) % Lymphocytes # (Manual) (1.0-4.8) k/uL Sodium 127 L (137-145) mmol/L BUN 20 H (7-17) mg/dL Creatinine 0.44 L (0.52-1.04) mg/dL Glucose 256 H (74-99) mg/dL POC Glucose (mg/dL) 250 H 362 H (75-99) mg/dL Total Protein 5.0 L (6.3-8.2) g/dL Albumin 3.0 L (3.5-5.0) g/dL Assessment and Plan (1) Lower extremity weakness Current Visit: Yes Status: Acute Code(s): R29.898 - OTH SYMPTOMS AND SIGNS INVOLVING THE MUSCULOSKELETAL SYSTEM SNOMED Code(s): 255954056 (2) Back pain Current Visit: Yes Status: Acute Code(s): M54.9 - DORSALGIA, UNSPECIFIED SNOMED Code(s): 644478319 (3) Neuropathy Current Visit: Yes Status: Acute Code(s): G62.9 - POLYNEUROPATHY, UNSPECIF IED SNOMED Code(s): 329643517 (4) Hyponatremia Current Visit: Yes Status: Acute Code(s): E87.1 - HYPO-OSMOLALITY AND HYPONATREMIA SNOMED Code(s): 04652851 (5) Urinary tract infection Current Visit: Yes Status: Acute Code(s): N39.0 - URINARY TRACT INFECTION, SITE NOT SPECIFIED SNOMED Code(s): 62580268 (6) Brain metastases Current Visit: No Status: Acute Priority: High Code(s): C79.31 - SECONDARY MALIGNANT NEOPLASM OF BRAIN SNOMED Code(s): 74598397 (7) Breast cancer Current Visit: No Status: Chronic Priority: High Code(s): C50.919 - MALIGNANT NEOPLASM OF UNSP SITE OF UNSPECIFIED FEMALE BREAST SNOMED Code(s): 056570799 Plan: Assessment and Recommendations: Will need to confirm no progression of disease involving spinal cord with new onset lower back pain and unilateral sensation. 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 Han Peripheral Neuropathy: WOrsening: - PT/OT - IPR Assessment - Primary team to aggressively control GLUCOSE to improve symptoms - Re-education and discussionCymbalta - Will need therapy, Plan xrt to complete inpatient and then hopes to re- evaluated IPR. Discussed with Radiation Oncology, Patient and Daughter Alise in Detail MOnitor left arm weakness COntinue percocet for pain and scheduled bowel regimen for constipation prevention. CBC and CMP in am ordered
[2021-05-23] MEDS: SENNOSIDES 8.6 MG TAB PO PRN ×2 (14:22→21:04)
--- NOTE | 2021-05-23 14:22 | P.PN ---
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 She presented to our facility on 05/18/21 with a chief complaint of weakness of her lower extremities and back pain. Patient was admitted under our services with consultation to oncology. She was found to have a UTI with urine culture positive for E. coli and place on IV antibiotic Rocephin. She had an EKG done which revealed normal sinus rhythm at 83 bpm with no noted T-wave or ST abnormalities. A chest x-ray was completed which was negative for acute cardiopulmonary process. MRI lumbar spine showed spondylitic changes in the lumbar spine with lateral recess stenosis and disc herniation with lesions in the S1 and S2 vertebral body consistent with metastatic disease. MRI thoracic spine also showing lesions in T4 and T8 as well as T10 vertebra consistent with metastatic disease. Physical exam: Patient seen and fully evaluated at bedside this morning, she was sitting up in chair brushing her teeth. Patient reports currently pain is controlled but rem ains weak and left lower extremity. Patient unable to care for herself at home secondary to this new weakness and a referral has been placed for inpatient rehabilitation Center. Patient currently denies having any further needs at this time including headache, lightheadedness, dizziness, chest pain, palpitations, or shortness of breath. General: non toxic, chronically ill appearing, no acute distress, appears at stated age Derm: warm, dry, pale Head: atraumatic, normocephalic, symmetric Eyes: EOMI, no lid lag, anicteric sclera Mouth: no lip lesion, mucus membranes moist Cardiovascular: S1S2 reg, no murmur, positive posterior tibial pulses bilaterally Lungs: CTA bilateral, no rhonchi, no rales , no accessory muscle use Abdominal: soft, nontender to palpation, no guarding, no appreciable organomegaly Ext: no gross muscle atrophy, no edema, no contractures Neuro: CN II-XI grossly intact, no focal neuro deficits Psych: Alert, oriented, appropriate affect Plan of care: Breast cancer with metastasis to brain and spinal cord vertebra -MRI lumbar spine showed spondylitic changes in the lumbar spine with lateral recess stenosis and disc herniation with lesions in the S1 and S2 vertebral body consistent with metastatic disease. -MRI thoracic spine also showing lesions in T4 and T8 as well as T10 vertebra consistent with metastatic disease. -Oncology following currently recommending to continue palliative treatment, appreciate further recommendations. -PT/OT -Symptomatic care and pain management -Bowel regimen -Dexamethasone 4 mg every 8 hours Urinary tract infection -Urine culture positive for E. coli, continue Rocephin Hyponatremia -Nephrology following placed patient on sodium chloride tablets -Monitor I's and O's closely watching for fluid retention and edema -Continued close monitoring with repeat a.m. labs CODE STATUS: DO NOT RESUSCITATE/DO NOT INTUBATE DVT prophylaxis: [place] Discussed with: Patient and RN Anticipated discharge date: Clinical course to determine Anticipated discharge place: Home with home care A total of 45 minutes was spent on the care of this complex patient more than 50% of the time was spent in counseling and care coordination. Objective - Vital Signs Vital signs: Vital Signs Temp 98.5 F 05/23/21 04:46 Pulse 76 05/23/21 04:46 Resp 16 05/23/21 04:46 BP 106/67 05/23/21 04:46 Pulse Ox 97 05/23/21 04:46 Intake & Output 05/22/21 05/23/21 05/23/21 18:59 06:59 18:59 Intake Total 480 Output Total 480 Balance -480 480 Intake: Oral 480 Output: Urine 480 Other: Voiding Method Bedside Commode Bedside Commode # Voids 3 - Labs CBC & Chem 7: 05/23/21 05:18 05/23/21 05:18 Labs: Abnormal Lab Results - Last 24 Hours (Table) 05/22/21 05/22/21 05/22/21 Range/Units 05:42 11:49 17:13 RBC (3.80-5.40) m/uL Hgb (11.4-16.0) gm/dL Hct (34.0-46.0) % RDW (11.5-15.5) % Lymphocytes # (Manual) (1.0-4.8) k/uL Sodium 132 L (135-145) mmol/L BUN (7-17) mg/dL Creatinine 0.5 L (0.6-1.5) mg/dL BUN/Creatinine Ratio 30.00 H (12.00-20.00) Ratio Glucose 248 H (70-110) mg/dL POC Glucose (mg/dL) 262 H 290 H (75-99) mg/dL Calcium 8.2 L (8.7-10.3) mg/dL Total Protein 5.0 L (6.2-8.2) g/dL Albumin 3.50 L (3.80-4.90) g/dL Globulin 1.5 L (1.6-3.3) g/dL 05/22/21 05/23/21 05/23/21 Range/Units 20:17 05:18 05:18 RBC 3.21 L (3.80-5.40) m/uL Hgb 10.3 L (11.4-16.0) gm/dL Hct 30.8 L (34.0-46.0) % RDW 16.5 H (11.5-15.5) % Lymphocytes # (Manual) 0.59 L (1.0-4.8) k/uL Sodium 127 L (135-145) mmol/L BUN 20 H (7-17) mg/dL Creatinine 0.44 L (0.6-1.5) mg/dL BUN/Creatinine Ratio (12.00-20.00) Ratio Glucose 256 H (70-110) mg/dL POC Glucose (mg/dL) 289 H (75-99) mg/dL Calcium (8.7-10.3) mg/dL Total Protein 5.0 L (6.2-8.2) g/dL Albumin 3.0 L (3.80-4.90) g/dL Globulin (1.6-3.3) g/dL 05/23/21 Range/Units 06:44 RBC (3.80-5.40) m/uL Hgb (11.4-16.0) gm/dL Hct (34.0-46.0) % RDW (11.5-15.5) % Lymphocytes # (Manual) (1.0-4.8) k/uL Sodium (135-145) mmol/L BUN (7-17) mg/dL Creatinine (0.6-1.5) mg/dL BUN/Creatinine Ratio (12.00-20.00) Ratio Glucose (70-110) mg/dL POC Glucose (mg/dL) 250 H (75-99) mg/dL Calcium (8.7-10.3) mg/dL Total Protein (6.2-8.2) g/dL Albumin (3.80-4.90) g/dL Globulin (1.6-3.3) g/dL
[2021-05-23 17:37] LABS: Glucose,Whole Blood 276 mg/dL (75-99)
[2021-05-23 20:09] LABS: Glucose,Whole Blood 310 mg/dL (75-99)
[2021-05-24 00:11] LABS: Glucose,Whole Blood 233 mg/dL (75-99)
[2021-05-24] MEDS: DEXAMETHASONE SOD PHOSPHATE 4 MG/ML 1 ML VIAL IV SCH ×4 (00:53→23:55)
[2021-05-24 06:22] LABS: Anisocytosis Slight; Basophils % (A) 0 %; Eosinophils % (A) 0 %; HCT 31.5 % (34.0-46.0); HGB 11.2 gm/dL (11.4-16.0); Lymphocytes # (A) 0.8 k/uL (1.0-4.8); Lymphocytes % (A) 11 %; MCH 34.2 pg (25.0-35.0); MCHC 35.7 g/dL (31.0-37.0); Macrocytosis Slight; Mean Platelet Volume 7.1; Monocytes # (A) 0.3 k/uL (0-1.0); Monocytes % (A) 5 %; Neutrophils % (A) 84 %; Platelet Count 237 k/uL (150-450); RBC 3.28 m/uL (3.80-5.40); RDW 16.5 % (11.5-15.5); WBC 7.2 k/uL (3.8-10.6)
[2021-05-24 07:18] LABS: Glucose,Whole Blood 275 mg/dL (75-99)
[2021-05-24] MEDS: PANTOPRAZOLE 40 MG TABLET PO SCH ×2 (07:47→18:04)
[2021-05-24] MEDS: CALCIUM CARBONATE 500 MG CHEWABLE PO SCH ×2 (07:47→20:22)
[2021-05-24] MEDS: INSULIN ASPART (NovoLOG) 100 UNIT/ML VIAL SQ SCH ×4 (07:48→20:23)
[2021-05-24] MEDS: APIXABAN 5 MG TAB PO SCH ×2 (07:49→20:23)
[2021-05-24] MEDS: DULoxetine HCL 30 MG CAPSULE.DR PO SCH ×2 (07:49→20:22)
[2021-05-24] MEDS: VITAMIN E (DL,TOCOPHERYL ACET) 400 UNIT (180 MG) CAP PO SCH (07:50)
[2021-05-24] MEDS: SODIUM CHLORIDE TAB 1 GM TAB PO SCH (07:50)
[2021-05-24] MEDS: CHOLECALCIFEROL 25 MCG (1000 IU) TABLET PO SCH (07:51)
[2021-05-24 10:48] LABS: African American GFR (CKD) 114.5 (60.0-200.0); Albumin 3.7 g/dL (3.80-4.90); Albumin/Globulin Ratio 2.47 (1.60-3.17); Anion Gap 8.3 mmol/L (4.00-12.00); Calcium 8.2 mg/dL (8.7-10.3); Carbon Dioxide 23.7 mmol/L (21.6-31.8); Globulin 1.5 g/dL (1.6-3.3); Magnesium 1.8 mg/dL (1.5-2.4); Non-African American GFR(CKD) 98.8 (60.0-200.0); Potassium 4.4 mmol/L (3.5-5.5); Total Bilirubin 0.9 mg/dL (0.2-1.2); Total Protein 5.2 g/dL (6.2-8.2)
[2021-05-24 11:37] LABS: Glucose,Whole Blood 202 mg/dL (75-99)
[2021-05-24 12:17] VITALS: BMI 21.1
[2021-05-24] MEDS: oxyCODONE-APAP 5-325MG 1 EACH TAB PO PRN ×2 (13:17→20:22)
[2021-05-24] MEDS: SENNOSIDES 8.6 MG TAB PO PRN (13:17)
--- NOTE | 2021-05-24 15:01 | P.PN ---
Subjective Progress Note Date: 05/24/21 Hospital course: Patient is a 70-year-old female with a past medical history of metastatic breast cancer to brain on Xelojda and dexamethasone taper. She presented to our facility on 05/18/21 with a chief complaint of weakness of her lower extremities and back pain. Patient was admitted under our services with consultation to oncology. She was found to have a UTI with urine culture positive for E. coli and place on IV antibiotic Rocephin. She had an EKG done which revealed normal sinus rhythm at 83 bpm with no noted T-wave or ST abnormalities. A chest x-ray was completed which was negative for acute cardiopulmonary process. MRI lumbar spine showed spondylitic changes in the lumbar spine with lateral recess stenosis and disc herniation with lesions in the S1 and S2 vertebral body consistent with metastatic disease. MRI thoracic spine also showing lesions in T4 and T8 as well as T10 vertebra consistent with metastatic disease. Physical exam: Patient seen and fully evaluated at bedside this morning. Patient reports currently pain is controlled but states she continues to remain weak in her lower extremities. Patient unable to care for herself at home secondary to this new weakness and a referral has been placed for inpatient rehabilitation Center and awaiting authorization. Patient currently denies having any further needs at this time including headache, lightheadedness, dizziness, chest pain, palpitations, or shortness of breath. General: non toxic, chronically ill appearing, no acute distress, appears at stated age Derm: warm, dry, pale Head: atraumatic, normocephalic, symmetric Eyes: EOMI, no lid lag, anicteric sclera Mouth: no lip lesion, mucus membranes moist Cardiovascular: S1S2 reg, no murmur, positive posterior tibial pulses bilaterally Lungs: CTA bilateral, no rhonchi, no rales , no accessory muscle use Abdominal: soft, nontender to palpation, no guarding, no appreciable organomegaly Ext: no gross muscle atrophy, no edema, no contractures Neuro: CN II-XI grossly intact, no focal neuro deficits Psych: Alert, oriented, appropriate affect Plan of care: Breast cancer with metastasis to brain and spinal cord vertebra -MRI lumbar spine showed spondylitic changes in the lumbar spine with lateral recess stenosis and disc herniation with lesions in the S1 and S2 vertebral body consistent with metastatic disease. -MRI thoracic spine also showing lesions in T4 and T8 as well as T10 vertebra consistent with metastatic disease. -Oncology following currently recommending to continue palliative treatment, appreciate further recommendations. -PT/OT -Symptomatic care and pain management -Bowel regimen -Dexamethasone 4 mg every 8 hours E. coli positive Urinary tract infection -Patient received 5 day course of IV antibiotics with Rocephin. Antibiotic therapy completed. Hyponatremia, improving -Nephrology following placed patient on sodium chloride tablets -Monitor I's and O's closely watching for fluid retention and edema -Continued close monitoring with repeat a.m. labs CODE STATUS: DO NOT RESUSCITATE/DO NOT INTUBATE DVT prophylaxis: [place] Discussed with: Patient and RN Anticipated discharge date: Clinical course to determine Anticipated discharge place: Possible inpatient rehabilitation Center, pending a uthorization A total of 45 minutes was spent on the care of this complex patient more than 50% of the time was spent in counseling and care coordination. Objective - Vital Signs Vital signs: Vital Signs Temp 98.1 F 05/24/21 04:49 Pulse 80 05/24/21 04:49 Resp 16 05/24/21 04:49 BP 124/73 05/24/21 04:49 Pulse Ox 95 05/24/21 04:49 Intake & Output 05/23/21 05/24/21 05/24/21 18:59 06:59 18:59 Intake Total 1580 Balance 1580 Intake: Intake, IV Titration 50 Amount cefTRIAXone 1 gm In 50 Sodium Chloride 0.9% 50 ml @ 100 mls/hr IVPB Q24HR [facility] Rx#:[id number] Oral 1530 Other: Voiding Method Bedside Commode # Voids 1 2 - Labs CBC & Chem 7: 05/24/21 05:55 05/24/21 05:55 Labs: Abnormal Lab Results - Last 24 Hours (Table) 05/23/21 05/23/21 05/23/21 Range/Units 11:50 17:36 20:08 RBC (3.80-5.40) m/uL Hgb (11.4-16.0) gm/dL Hct (34.0-46.0) % RDW (11.5-15.5) % Lymphocytes # (1.0-4.8) k/uL Sodium (137-145) mmol/L Creatinine (0.6-1.5) mg/dL BUN/Creatinine Ratio (12.00-20.00) Ratio Glucose (70-110) mg/dL POC Glucose (mg/dL) 362 H 276 H 310 H (75-99) mg/dL Calcium (8.7-10.3) mg/dL Total Protein (6.2-8.2) g/dL Albumin (3.80-4.90) g/dL Globulin (1.6-3.3) g/dL 05/23/21 05/24/21 05/24/21 Range/Units 21:46 00:09 05:55 RBC 3.28 L (3.80-5.40) m/uL Hgb 11.2 L (11.4-16.0) gm/dL Hct 31.5 L (34.0-46.0) % RDW 16.5 H (11.5-15.5) % Lymphocytes # 0.8 L (1.0-4.8) k/uL Sodium 129 L (137-145) mmol/L Creatinine (0.6-1.5) mg/dL BUN/Creatinine Ratio (12.00-20.00) Ratio Glucose (70-110) mg/dL POC Glucose (mg/dL) 233 H (75-99) mg/dL Calcium (8.7-10.3) mg/dL Total Protein (6.2-8.2) g/dL Albumin (3.80-4.90) g/dL Globulin (1.6-3.3) g/dL 05/24/21 05/24/21 Range/Units 05:55 07:14 RBC (3.80-5.40) m/uL Hgb (11.4-16.0) gm/dL Hct (34.0-46.0) % RDW (11.5-15.5) % Lymphocytes # (1.0-4.8) k/uL Sodium 133 L (137-145) mmol/L Creatinine 0.5 L (0.6-1.5) mg/dL BUN/Creatinine Ratio 44.00 H (12.00-20.00) Ratio Glucose 253 H (70-110) mg/dL POC Glucose (mg/dL) 275 H (75-99) mg/dL Calcium 8.2 L (8.7-10.3) mg/dL Total Protein 5.2 L (6.2-8.2) g/dL Albumin 3.70 L (3.80-4.90) g/dL Globulin 1.5 L (1.6-3.3) g/dL
[2021-05-24 17:09] LABS: Glucose,Whole Blood 238 mg/dL (75-99)
--- NOTE | 2021-05-24 19:33 | PN ---
PROGRESS NOTE Patient is seen for followup for hyponatremia. She did get a dose of tolvaptan yesterday and her sodium is up to 133 today. Patient denies any significant complaints. PHYSICAL EXAMINATION: Blood pressure is 114/72, heart rate 85 per minute. She is afebrile. Examination of the heart S1, S2. Examination of the lungs, bilateral breath sounds are heard. Abdomen is soft, nontender. Examination of lower extremities shows no significant edema. [employer]ICER exam grossly intact. LAB: Show sodium 133, potassium 4.4, serum creatinine 0.5 mg/dL. ASSESSMENT: 1. Hyponatremia, initially hypovolemic and improved with saline. Currently euvolemic. Serum sodium had dropped again during her hospitalization while she was maintained on saline and sodium chloride tabs, therefore, she got a dose of Samsca yesterday and sodium today is up to 133. I will decrease the sodium chloride tab to once a day and eventually discontinue over the next few days depending on the serum sodium level. 2. Underlying metastatic breast cancer. PLAN: Decrease sodium chloride tab to 1 g daily and eventually discontinue down the road over the next few days depending on repeat sodium level. MMODL / IJN: [id number] /
[2021-05-24 20:12] LABS: Glucose,Whole Blood 303 mg/dL (75-99)
[2021-05-24] MEDS: ALPRAZolam 0.5 MG TAB PO PRN (22:01)
--- NOTE | 2021-05-24 23:05 | P.PN ---
Subjective Progress Note Date: 05/24/21 Principal diagnosis: Neuropathy, weakness, Pain Up in chair she is feeling ok. A little better today. Day two of radiation therapy Objective - Vital Signs Vital signs: Vital Signs Temp 97.8 F 05/24/21 20:35 Pulse 79 05/24/21 20:35 Resp 18 05/24/21 20:35 BP 112/68 05/24/21 20:35 Pulse Ox 96 05/24/21 20:35 Intake & Output 05/24/21 05/24/21 05/25/21 06:59 18:59 06:59 Intake Total 650 200 Balance 650 200 Weight 55.792 kg Intake: Intake, IV Titration 50 Amount cefTRIAXone 1 gm In 50 Sodium Chloride 0.9% 50 ml @ 100 mls/hr IVPB Q24HR [facility] Rx#:[id number] Oral 600 200 Other: Voiding Method Bedside Commode Bedside Commode # Voids 2 3 # Bowel Movements 1 - Exam - Constitutional General appearance: cooperative, no acute distress - EENT Eyes: EOMI ENT: hard of hearing, NA/AT - Neck Neck: normal ROM - Respiratory Respiratory: bilateral: diminished - Cardiovascular Rhythm: regularly irregular leg Peripheral Edema: bilateral: Other (Decreased sensation to touch on inner aspect though and soles feet L>R) - Gastrointestinal General gastrointestinal: normal bowel sounds, soft, tenderness - Integumentary Integumentary: pale - Neurologic poor historian, no loss of bladder - Musculoskeletal Musculoskeletal: generalized weakness, right sided weakness, left sided weakness - Psychiatric Psychiatric: A&O x's 3 - Labs CBC & Chem 7: 05/24/21 05:55 05/24/21 05:55 Labs: Abnormal Lab Results - Last 24 Hours (Table) 05/24/21 05/24/21 05/24/21 Range/Units 00:09 05:55 05:55 RBC 3.28 L (3.80-5.40) m/uL Hgb 11.2 L (11.4-16.0) gm/dL Hct 31.5 L (34.0-46.0) % RDW 16.5 H (11.5-15.5) % Lymphocytes # 0.8 L (1.0-4.8) k/uL Sodium 133 L (135-145) mmol/L Creatinine 0.5 L (0.6-1.5) mg/dL BUN/Creatinine Ratio 44.00 H (12.00-20.00) Ratio Glucose 253 H (70-110) mg/dL POC Glucose (mg/dL) 233 H (75-99) mg/dL Calcium 8.2 L (8.7-10.3) mg/dL Total Protein 5.2 L (6.2-8.2) g/dL Albumin 3.70 L (3.80-4.90) g/dL Globulin 1.5 L (1.6-3.3) g/dL 05/24/21 05/24/21 05/24/21 Range/Units 07:14 11:35 17:07 RBC (3.80-5.40) m/uL Hgb (11.4-16.0) gm/dL Hct (34.0-46.0) % RDW (11.5-15.5) % Lymphocytes # (1.0-4.8) k/uL Sodium (135-145) mmol/L Creatinine (0.6-1.5) mg/dL BUN/Creatinine Ratio (12.00-20.00) Ratio Glucose (70-110) mg/dL POC Glucose (mg/dL) 275 H 202 H 238 H (75-99) mg/dL Calcium (8.7-10.3) mg/dL Total Protein (6.2-8.2) g/dL Albumin (3.80-4.90) g/dL Globulin (1.6-3.3) g/dL 05/24/21 Range/Units 20:11 RBC (3.80-5.40) m/uL Hgb (11.4-16.0) gm/dL Hct (34.0-46.0) % RDW (11.5-15.5) % Lymphocytes # (1.0-4.8) k/uL Sodium (135-145) mmol/L Creatinine (0.6-1.5) mg/dL BUN/Creatinine Ratio (12.00-20.00) Ratio Glucose (70-110) mg/dL POC Glucose (mg/dL) 303 H (75-99) mg/dL Calcium (8.7-10.3) mg/dL Total Protein (6.2-8.2) g/dL Albumin (3.80-4.90) g/dL Globulin (1.6-3.3) g/dL Assessment and Plan (1) Lower extremity weakness Current Visit: Yes Status: Acute Code(s): R29.898 - OTH SYMPTOMS AND SIGNS INVOLVING THE MUSCULOSKELETAL SYSTEM SNOMED Code(s): 308834971 (2) Back pain Current Visit: Yes Status: Acute Code(s): M54.9 - DORSALGIA, UNSPECIFIED SNOMED Code(s): 975892158 (3) Neuropathy Current Visit: Yes Status: Acute Code(s): G62.9 - POLYNEUROPATHY, UNSPECIFIED SNOMED Code(s): 995850035 (4) Hyponatremia Current Visit: Yes Status: Acute Code(s): E87.1 - HYPO-OSMOLALITY AND HYPONATREMIA SNOMED Code(s): 74962273 (5) Urinary tract infection Current Visit: Yes Status: Acute Code(s): N39.0 - URINARY TRACT INFECTION, SITE NOT SPECIFIED SNOMED Code(s): 72458242 (6) Brain metastases Current Visit: No Status: Acute Priority: High Code(s): C79.31 - SECONDARY MALIGNANT NEOPLASM OF BRAIN SNOMED Code(s): 99150888 (7) Breast cancer Current Visit: No Status: Chronic Priority: High Code(s): C50.919 - MALIGNANT NEOPLASM OF UNSP SITE OF UNSPECIFIED FEMALE BREAST SNOMED Code(s): 305295809 Plan: Assessment and Recommendations: Will need to confirm no progression of disease involving spinal cord with new onset lower back pain and unilateral sensation. 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 Han Peripheral Neuropathy: WOrsening: - PT/OT - IPR Assessment - Primary team to aggressively control GLUCOSE to improve symptoms - Re-education and discussionCymbalta - Will need therapy, Plan xrt to complete inpatient and then hopes to re-ev aluated IPR. Discussed with Radiation Oncology, Patient and Daughter Alise in Detail MOnitor left arm weakness COntinue percocet for pain and scheduled bowel regimen for constipation prevention. CBC and CMP in am ordered COntinue plan of care radiation to completion then re-evaluate discharge with IPR versus home with PT/OT
[2021-05-25 03:14] LABS: Glucose,Whole Blood 216 mg/dL (75-99)
[2021-05-25] MEDS: oxyCODONE-APAP 5-325MG 1 EACH TAB PO PRN ×3 (06:00→20:49)
[2021-05-25 07:15] LABS: Glucose,Whole Blood 242 mg/dL (75-99)
[2021-05-25] MEDS: APIXABAN 5 MG TAB PO SCH ×2 (08:07→20:50)
[2021-05-25] MEDS: CHOLECALCIFEROL 25 MCG (1000 IU) TABLET PO SCH (08:07)
[2021-05-25] MEDS: SODIUM CHLORIDE TAB 1 GM TAB PO SCH (08:07)
[2021-05-25] MEDS: CALCIUM CARBONATE 500 MG CHEWABLE PO SCH ×2 (08:08→20:49)
[2021-05-25] MEDS: DULoxetine HCL 30 MG CAPSULE.DR PO SCH ×2 (08:08→20:49)
[2021-05-25] MEDS: DEXAMETHASONE SOD PHOSPHATE 4 MG/ML 1 ML VIAL IV SCH ×3 (08:08→23:35)
[2021-05-25] MEDS: INSULIN ASPART (NovoLOG) 100 UNIT/ML VIAL SQ SCH ×4 (08:08→20:50)
[2021-05-25] MEDS: PANTOPRAZOLE 40 MG TABLET PO SCH ×2 (08:08→16:45)
[2021-05-25] MEDS: VITAMIN E (DL,TOCOPHERYL ACET) 400 UNIT (180 MG) CAP PO SCH (08:09)
--- NOTE | 2021-05-25 09:49 | P.PN ---
Subjective Progress Note Date: 05/25/21 Principal diagnosis: Neuropathy, weakness, Pain COntinues to feel better each day Objective - Vital Signs Vital signs: Vital Signs Temp 97.6 F 05/25/21 05:00 Pulse 70 05/25/21 05:00 Resp 18 05/25/21 05:00 BP 115/71 05/25/21 05:00 Pulse Ox 97 05/25/21 05:00 Intake & Output 05/24/21 05/25/21 05/25/21 18:59 06:59 18:59 Intake Total 650 200 300 Balance 650 200 300 Weight 55.792 kg Intake: Intake, IV Titration 50 Amount cefTRIAXone 1 gm In 50 Sodium Chloride 0.9% 50 ml @ 100 mls/hr IVPB Q24HR [facility] Rx#:[id number] Oral 600 200 Other 300 Other: Voiding Method Bedside Commode Bedside Commode # Voids 3 1 # Bowel Movements 1 1 - Exam - Constitutional General appearance: cooperative, no acute distress - EENT Eyes: EOMI ENT: hard of hearing, NA/AT - Neck Neck: normal ROM - Respiratory Respiratory: bilateral: diminished - Cardiovascular Rhythm: regularly irregular leg Peripheral Edema: bilateral: Other (Decreased sensation to touch on inner aspect though and soles feet L>R) - Gastrointestinal General gastrointestinal: normal bowel sounds, soft, tenderness - Integumentary Integumentary: pale - Neurologic poor historian, no loss of bladder - Musculoskeletal Musculoskeletal: generalized weakness, right sided weakness, left sided weakness - Psychiatric Psychiatric: A&O x's 3 - Labs CBC & Chem 7: 05/24/21 05:55 05/24/21 05:55 Labs: Abnormal Lab Results - Last 24 Hours (Table) 05/24/21 05/24/21 05/24/21 Range/Units 05:55 11:35 17:07 Sodium 133 L (135-145) mmol/L Creatinine 0.5 L (0.6-1.5) mg/dL BUN/Creatinine Ratio 44.00 H (12.00-20.00) Ratio Glucose 253 H (70-110) mg/dL POC Glucose (mg/dL) 202 H 238 H (75-99) mg/dL Calcium 8.2 L (8.7-10.3) mg/dL Total Protein 5.2 L (6.2-8.2) g/dL Albumin 3.70 L (3.80-4.90) g/dL Globulin 1.5 L (1.6-3.3) g/dL 05/24/21 05/25/21 05/25/21 Range/Units 20:11 03:13 07:13 Sodium (135-145) mmol/L Creatinine (0.6-1.5) mg/dL BUN/Creatinine Ratio (12.00-20.00) Ratio Glucose (70-110) mg/dL POC Glucose (mg/dL) 303 H 216 H 242 H (75-99) mg/dL Calcium (8.7-10.3) mg/dL Total Protein (6.2-8.2) g/dL Albumin (3.80-4.90) g/dL Globulin (1.6-3.3) g/dL Assessment and Plan (1) Lower extremity weakness Current Visit: Yes Status: Acute Code(s): R29.898 - OTH SYMPTOMS AND SIGNS INVOLVING THE MUSCULOSKELETAL SYSTEM SNOMED Code(s): 481532871 (2) Back pain Current Visit: Yes Status: Acute Code(s): M54.9 - DORSALGIA, UNSPECIFIED SNOMED Code(s): 714483222 (3) Neuropathy Current Visit: Yes Status: Acute Code(s): G62.9 - POLYNEUROPATHY, UNSPECIFIED SNOMED Code(s): 909116668 (4) Hyponatremia Current Visit: Yes Status: Acute Code(s): E87.1 - HYPO-OSMOLALITY AND HYPONATREMIA SNOMED Code(s): 18700756 (5) Urinary tract infection Current Visit: Yes Status: Acute Code(s): N39.0 - URINARY TRACT INFECTION, SITE NOT SPECIFIED SNOMED Code(s): 92024094 (6) Brain metastases Current Visit: No Status: Acute Priority: High Code(s): C79.31 - SECONDARY MALIGNANT NEOPLASM OF BRAIN SNOMED Code(s): 57762489 (7) Breast cancer Current Visit: No Status: Chronic Priority: High Code(s): C50.919 - MALIGNANT NEOPLASM OF UNSP SITE OF UNSPECIFIED FEMALE BREAST SNOMED Code(s): 556847772 Plan: Assessment and Recommendations: Will need to confirm no progression of disease involving spinal cord with new onset lower back pain and unilateral sensation. 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 Han Peripheral Neuropathy: WOrsening: - PT/OT Daily please - IPR Assessment - Primary team to aggressively control GLUCOSE to improve symptoms - Re-education and discussionCymbalta - Will need therapy, Plan xrt to complete inpatient and then hopes to re-ev aluated IPR. Discussed with Radiation Oncology, Patient and Daughter Alise in Detail MOnitor left arm weakness COntinue percocet for pain and scheduled bowel regimen for constipation prevention. CBC and CMP in am ordered COntinue plan of care radiation to completion then re-evaluate discharge with IPR versus home with PT/OT Physician Attest: I have completed the full history and physical and agree with above, dictated as a ascribe.
[2021-05-25 11:37] LABS: Glucose,Whole Blood 308 mg/dL (75-99)
--- NOTE | 2021-05-25 16:23 | P.PN ---
<Aaron Butler - Last Filed: 05/25/21 16:17> Subjective Progress Note Date: 05/25/21 Hospital course: Patient is a 70-year-old female with a past medical history of metastatic breast cancer to brain on Xelojda and dexamethasone taper. She presented to our facility on 05/18/21 with a chief complaint of weakness of her lower extremities and back pain. Patient was admitted under our services with consultation to oncology. She was found to have a UTI with urine culture positive for E. coli and place on IV antibiotic Rocephin. She had an EKG done which revealed normal sinus rhythm at 83 bpm with no noted T-wave or ST abnormalities. A chest x-ray was completed which was negative for acute cardiopulmonary process. MRI lumbar spine showed spondylitic changes in the lumbar spine with lateral recess stenosis and disc herniation with lesions in the S1 and S2 vertebral body c onsistent with metastatic disease. MRI thoracic spine also showing lesions in T4 and T8 as well as T10 vertebra consistent with metastatic disease. Plan is for patient to remain in hospital through Friday to complete course of palliative radiation treatment. Physical exam: Patient seen and fully evaluated at bedside this morning. Patient reports curren tly pain is controlled and states that her strength seems to have begun to improve and her left lower extremity. Patient states she still remains weak but has noticed an improvement. Patient is sitting and visiting with her daughter at bedside. She denies having any further needs at this time including headache, lightheadedness, dizziness, chest pain, palpitations, or shortness of breath. General: non toxic, chronically ill appearing, no acute distress, appears at stated age Derm: warm, dry, pale Head: atraumatic, normocephalic, symmetric Eyes: EOMI, no lid lag, anicteric sclera Mouth: no lip lesion, mucus membranes moist Cardiovascular: S1S2 reg, no murmur, positive posterior tibial pulses bilaterally Lungs: CTA bilateral, no rhonchi, no rales , no accessory muscle use Abdominal: soft, nontender to palpation, no guarding, no appreciable organomegaly Ext: no gross muscle atrophy, no edema, no contractures Neuro: CN II-XI grossly intact, no focal neuro deficits Psych: Alert, oriented, appropriate affect Plan of care: Breast cancer with metastasis to brain and spinal cord vertebra -MRI lumbar spine showed spondylitic changes in the lumbar spine with lateral recess stenosis and disc herniation with lesions in the S1 and S2 vertebral body consistent with metastatic disease. -MRI thoracic spine also showing lesions in T4 and T8 as well as T10 vertebra consistent with metastatic disease. -Oncology following currently recommending to continue palliative treatment and patient to remain in hospital through Friday to complete palliative radiation treatment. -PT/OT -Symptomatic care and pain management -Bowel regimen -Dexamethasone 4 mg every 8 hours E. coli positive Urinary tract infection -Patient received 5 day course of IV antibiotics with Rocephin. Antibiotic therapy completed. Hyponatremia, improving -Nephrology following placed patient on sodium chloride tablets -Monitor I's and O's closely watching for fluid retention and edema -Continued close monitoring with repeat a.m. labs CODE STATUS: DO NOT RESUSCITATE/DO NOT INTUBATE DVT prophylaxis: Elisa Discussed with: Patient, patient's daughter and RN Anticipated discharge date: plan is for patient to remain in hospital through Friday to complete entire course of palliative radiation treatment prior to being discharged home with daughter. Anticipated discharge place: home with daughter and home health palliative care. A total of 45 minutes was spent on the care of this complex patient more than 50% of the time was spent in counseling and care coordination. Objective - Vital Signs Vital signs: Vital Signs Temp 97.7 F 05/25/21 11:37 Pulse 86 05/25/21 11:37 Resp 16 05/25/21 11:37 BP 110/66 05/25/21 11:37 Pulse Ox 96 05/25/21 11:37 Intake & Output 05/24/21 05/25/21 05/25/21 18:59 06:59 18:59 Intake Total 650 200 860 Balance 650 200 860 Weight 55.792 kg Intake: Intake, IV Titration 50 Amount cefTRIAXone 1 gm In 50 Sodium Chloride 0.9% 50 ml @ 100 mls/hr IVPB Q24HR [facility] Rx#:[id number] Oral 600 200 320 Other 540 Other: Voiding Method Bedside Commode Bedside Commode Bedside Commode # Voids 3 1 # Bowel Movements 1 1 - Labs CBC & Chem 7: 05/24/21 05:55 05/24/21 05:55 Labs: Abnormal Lab Results - Last 24 Hours (Table) 05/24/21 05/24/21 05/25/21 Range/Units 17:07 20:11 03:13 POC Glucose (mg/dL) 238 H 303 H 216 H (75-99) mg/dL 05/25/21 05/25/21 Range/Units 07:13 11:36 POC Glucose (mg/dL) 242 H 308 H (75-99) mg/dL <Selin Garza A - Last Filed: 05/25/21 21:44> Objective - Vital Signs Vital signs: Vital Signs Temp 97.5 F L 05/25/21 20:45 Pulse 84 05/25/21 20:45 Resp 16 05/25/21 20:45 BP 110/66 05/25/21 20:45 Pulse Ox 97 05/25/21 20:45 Intake & Output 05/25/21 05/25/21 05/26/21 06:59 18:59 06:59 Intake Total 200 860 Balance 200 860 Intake: Oral 200 320 Other 540 Other: Voiding Method Bedside Commode Bedside Commode # Voids 1 # Bowel Movements 1 - Labs CBC & Chem 7: 05/24/21 05:55 05/24/21 05:55 Labs: Abnormal Lab Results - Last 24 Hours (Table) 05/25/21 05/25/21 05/25/21 Range/Units 03:13 07:13 11:36 POC Glucose (mg/dL) 216 H 242 H 308 H (75-99) mg/dL 05/25/21 05/25/21 Range/Units 17:42 20:00 POC Glucose (mg/dL) 248 H 325 H (75-99) mg/dL Assessment and Plan Assessment: Aaron Butler NP rendered care for this patient independently, reviewed the findings and plan as documented in the note above. I did not physically speak with or examine the patient on this date.
[2021-05-25] MEDS: ACETAMINOPHEN TAB 325 MG TAB PO PRN (16:49)
[2021-05-25 17:43] LABS: Glucose,Whole Blood 248 mg/dL (75-99)
[2021-05-25 20:02] LABS: Glucose,Whole Blood 325 mg/dL (75-99)
[2021-05-25] MEDS: ALPRAZolam 0.5 MG TAB PO PRN (22:35)
[2021-05-25 22:54] LABS: % Iron Saturation 36.97 (12.00-45.00)
[2021-05-25 23:35] LABS: Folate, Serum 15.3 ng/mL
[2021-05-26 07:25] LABS: Glucose,Whole Blood 221 mg/dL (75-99)
[2021-05-26 07:29] LABS: Anisocytosis Slight; HGB 10.9 gm/dL (11.4-16.0); MCH 33.8 pg (25.0-35.0); MCHC 35.2 g/dL (31.0-37.0); Macrocytosis Slight; Mean Platelet Volume 6.9; Platelet Count 230 k/uL (150-450); RBC 3.23 m/uL (3.80-5.40); RDW 16.5 % (11.5-15.5); WBC 5.8 k/uL (3.8-10.6)
[2021-05-26] MEDS: CALCIUM CARBONATE 500 MG CHEWABLE PO SCH ×2 (07:48→21:25)
[2021-05-26] MEDS: DEXAMETHASONE SOD PHOSPHATE 4 MG/ML 1 ML VIAL IV SCH ×3 (07:48→22:19)
[2021-05-26] MEDS: PANTOPRAZOLE 40 MG TABLET PO SCH ×2 (07:48→17:53)
[2021-05-26] MEDS: APIXABAN 5 MG TAB PO SCH ×2 (07:48→21:25)
[2021-05-26] MEDS: INSULIN ASPART (NovoLOG) 100 UNIT/ML VIAL SQ SCH ×4 (07:48→22:17)
[2021-05-26] MEDS: VITAMIN E (DL,TOCOPHERYL ACET) 400 UNIT (180 MG) CAP PO SCH (07:49)
[2021-05-26] MEDS: DULoxetine HCL 30 MG CAPSULE.DR PO SCH ×2 (07:49→21:25)
[2021-05-26] MEDS: CHOLECALCIFEROL 25 MCG (1000 IU) TABLET PO SCH (07:49)
[2021-05-26] MEDS: SODIUM CHLORIDE TAB 1 GM TAB PO SCH (07:49)
[2021-05-26 09:17] LABS: African American GFR (CKD) 123.2 (60.0-200.0); Anion Gap 4.5 mmol/L (4.00-12.00); BUN/Creat Ratio 47.5 Ratio (12.00-20.00); Calcium 7.8 mg/dL (8.7-10.3); Carbon Dioxide 25.5 mmol/L (21.6-31.8); Magnesium 1.9 mg/dL (1.5-2.4); Non-African American GFR(CKD) 106.3 (60.0-200.0); Potassium 4.2 mmol/L (3.5-5.5)
[2021-05-26] MEDS: ACETAMINOPHEN TAB 325 MG TAB PO PRN ×2 (10:28→17:03)
[2021-05-26 12:36] LABS: Glucose,Whole Blood 255 mg/dL (75-99)
--- NOTE | 2021-05-26 12:57 | P.PN ---
<Aaron Butler - Last Filed: 05/26/21 17:00> Subjective Progress Note Date: 05/26/21 Hospital course: Patient is a 70-year-old female with a past medical history of metastatic breast cancer to brain on Xelojda and dexamethasone taper. She presented to our facility on 05/18/21 with a chief complaint of weakness of her lower extremities and back pain. Patient was admitted under our services with consultation to oncology. She was found to have a UTI with urine culture positive for E. coli and place on IV antibiotic Rocephin. She had an EKG done which revealed normal sinus rhythm at 83 bpm with no noted T-wave or ST abnormalities. A chest x-ray was completed which was negative for acute cardiopulmonary process. MRI lumbar spine showed spondylitic changes in the lumbar spine with lateral recess stenosis and disc herniation with lesions in the S1 and S2 vertebral body c onsistent with metastatic disease. MRI thoracic spine also showing lesions in T4 and T8 as well as T10 vertebra consistent with metastatic disease. Plan is for patient to remain in hospital through Friday to complete course of palliative radiation treatment. Physical exam: Patient seen and fully evaluated at bedside this morning. Patient resting comfor tably in bed. She reports feeling a little sore and she just ambulated down the reyes with assistance. Patient has been making progress with ambulation daily. She continues to receive palliative radiation treatments with planned for discharge home with family on Friday. Patient denies having any other complaints at this time including headache, lightheadedness, dizziness, chest pain, palpitations, or shortness of breath. General: non toxic, chronically ill appearing, no acute distress, appears at stated age Derm: warm, dry, pale Head: atraumatic, normocephalic, symmetric Eyes: EOMI, no lid lag, anicteric sclera Mouth: no lip lesion, mucus membranes moist Cardiovascular: S1S2 reg, no murmur, positive posterior tibial pulses bilaterally Lungs: CTA bilateral, no rhonchi, no rales , no accessory muscle use Abdominal: soft, nontender to palpation, no guarding, no appreciable organomegaly Ext: no gross muscle atrophy, no edema, no contractures Neuro: CN II-XI grossly intact, no focal neuro deficits Psych: Alert, oriented, appropriate affect Plan of care: Breast cancer with metastasis to brain and spinal cord vertebra -MRI lumbar spine showed spondylitic changes in the lumbar spine with lateral recess stenosis and disc herniation with lesions in the S1 and S2 vertebral body consistent with metastatic disease. -MRI thoracic spine also showing lesions in T4 and T8 as well as T10 vertebra consistent with metastatic disease. -Oncology following currently recommending to continue palliative treatment and patient to remain in hospital through Friday to complete palliative radiation treatment. -PT/OT -Symptomatic care and pain management -Bowel regimen -Dexamethasone 4 mg every 8 hours E. coli positive Urinary tract infection -Patient received 5 day course of IV antibiotics with Rocephin. Antibiotic therapy completed. Hyponatremia, improving -Nephrology following placed patient on sodium chloride tablets -Monitor I's and O's closely watching for fluid retention and edema -Continued close monitoring with repeat a.m. labs CODE STATUS: DO NOT RESUSCITATE/DO NOT INTUBATE DVT prophylaxis: Elisa Discussed with: Patient and RN Anticipated discharge date: plan is for patient to remain in hospital through Friday to complete entire course of palliative radiation treatment prior to being discharged home with daughter. Anticipated discharge place: home with daughter and home health palliative care. A total of 45 minutes was spent on the care of this complex patient more than 50% of the time was spent in counseling and care coordination. Objective - Vital Signs Vital signs: Vital Signs Temp 97.4 F L 05/26/21 12:45 Pulse 82 05/26/21 12:45 Resp 16 05/26/21 12:45 BP 114/72 05/26/21 12:45 Pulse Ox 97 05/26/21 12:45 Intake & Output 05/25/21 05/26/21 05/26/21 18:59 06:59 18:59 Intake Total 860 290 Balance 860 290 Intake: Oral 320 290 Other 540 Other: Voiding Method Bedside Commode Toilet Toilet # Voids 3 # Bowel Movements 2 - Labs CBC & Chem 7: 05/26/21 06:17 05/26/21 06:17 Labs: Abnormal Lab Results - Last 24 Hours (Table) 05/24/21 05/25/21 05/25/21 Range/Units 05:55 17:42 20:00 RBC (3.80-5.40) m/uL Hgb (11.4-16.0) gm/dL Hct (34.0-46.0) % RDW (11.5-15.5) % Sodium (135-145) mmol/L Creatinine (0.6-1.5) mg/dL BUN/Creatinine Ratio (12.00-20.00) Ratio Glucose (70-110) mg/dL POC Glucose (mg/dL) 248 H 325 H (75-99) mg/dL Calcium (8.7-10.3) mg/dL Vitamin B12 2326.0 H (200.0-944.0) pg/mL 05/26/21 05/26/21 05/26/21 Range/Units 06:17 06:17 07:24 RBC 3.23 L (3.80-5.40) m/uL Hgb 10.9 L (11.4-16.0) gm/dL Hct 31.0 L (34.0-46.0) % RDW 16.5 H (11.5-15.5) % Sodium 126 L (135-145) mmol/L Creatinine 0.4 L (0.6-1.5) mg/dL BUN/Creatinine Ratio 47.50 H (12.00-20.00) Ratio Glucose 232 H (70-110) mg/dL POC Glucose (mg/dL) 221 H (75-99) mg/dL Calcium 7.8 L (8.7-10.3) mg/dL Vitamin B12 (200.0-944.0) pg/mL 05/26/21 Range/Units 12:34 RBC (3.80-5.40) m/uL Hgb (11.4-16.0) gm/dL Hct (34.0-46.0) % RDW (11.5-15.5) % Sodium (135-145) mmol/L Creatinine (0.6-1.5) mg/dL BUN/Creatinine Ratio (12.00-20.00) Ratio Glucose (70-110) mg/dL POC Glucose (mg/dL) 255 H (75-99) mg/dL Calcium (8.7-10.3) mg/dL Vitamin B12 (200.0-944.0) pg/mL <Selin Garza - Last Filed: 05/26/21 17:37> Subjective Aaron Butler NP rendered care for this patient independently, reviewed the findings and plan as documented in the note above. I did not physically speak with or examine the patient on this date. anemia, likely multifactorial - stable follow CBC Hyponatremia is worsening today. Patient received a dose of Ancef. We'll follow sodium levels closely. Objective - Vital Signs Vital signs: Vital Signs Temp 97.4 F L 05/26/21 12:45 Pulse 82 05/26/21 12:45 Resp 16 05/26/21 12:45 BP 114/72 05/26/21 12:45 Pulse Ox 97 05/26/21 12:45 Intake & Output 05/25/21 05/26/21 05/26/21 18:59 06:59 18:59 Intake Total 860 290 600 Output Total 1 Balance 860 290 599 Intake: Oral 320 290 600 Other 540 Output: Urine 1 Other: Voiding Method Bedside Commode Toilet Toilet # Voids 3 3 # Bowel Movements 2 1 - Labs CBC & Chem 7: 05/26/21 06:17 05/26/21 06:17 Labs: Abnormal Lab Results - Last 24 Hours (Table) 05/24/21 05/25/21 05/25/21 Range/Units 05:55 17:42 20:00 RBC (3.80-5.40) m/uL Hgb (11.4-16.0) gm/dL Hct (34.0-46.0) % RDW (11.5-15.5) % Sodium (135-145) mmol/L Creatinine (0.6-1.5) mg/dL BUN/Creatinine Ratio (12.00-20.00) Ratio Glucose (70-110) mg/dL POC Glucose (mg/dL) 248 H 325 H (75-99) mg/dL Calcium (8.7-10.3) mg/dL Vitamin B12 2326.0 H (200.0-944.0) pg/mL 05/26/21 05/26/21 05/26/21 Range/Units 06:17 06:17 07:24 RBC 3.23 L (3.80-5.40) m/uL Hgb 10.9 L (11.4-16.0) gm/dL Hct 31.0 L (34.0-46.0) % RDW 16.5 H (11.5-15.5) % Sodium 126 L (135-145) mmol/L Creatinine 0.4 L (0.6-1.5) mg/dL BUN/Creatinine Ratio 47.50 H (12.00-20.00) Ratio Glucose 232 H (70-110) mg/dL POC Glucose (mg/dL) 221 H (75-99) mg/dL Calcium 7.8 L (8.7-10.3) mg/dL Vitamin B12 (200.0-944.0) pg/mL 05/26/21 Range/Units 12:34 RBC (3.80-5.40) m/uL Hgb (11.4-16.0) gm/dL Hct (34.0-46.0) % RDW (11.5-15.5) % Sodium (135-145) mmol/L Creatinine (0.6-1.5) mg/dL BUN/Creatinine Ratio (12.00-20.00) Ratio Glucose (70-110) mg/dL POC Glucose (mg/dL) 255 H (75-99) mg/dL Calcium (8.7-10.3) mg/dL Vitamin B12 (200.0-944.0) pg/mL
[2021-05-26] MEDS ORDERED: TOLVAPTAN 15 MG 1/2 TABLET PO ONE (15:00)
[2021-05-26 17:49] LABS: Glucose,Whole Blood 254 mg/dL (75-99)
[2021-05-26] MEDS: ALPRAZolam 0.5 MG TAB PO PRN (21:32)
[2021-05-26] MEDS: oxyCODONE-APAP 5-325MG 1 EACH TAB PO PRN (21:32)
[2021-05-26 21:47] LABS: Glucose,Whole Blood 274 mg/dL (75-99)
[2021-05-27 07:21] LABS: Glucose,Whole Blood 198 mg/dL (75-99)
[2021-05-27] MEDS: INSULIN ASPART (NovoLOG) 100 UNIT/ML VIAL SQ SCH ×4 (08:02→20:35)
[2021-05-27] MEDS: APIXABAN 5 MG TAB PO SCH ×2 (08:03→20:35)
[2021-05-27] MEDS: DULoxetine HCL 30 MG CAPSULE.DR PO SCH ×2 (08:03→20:35)
[2021-05-27] MEDS: DEXAMETHASONE SOD PHOSPHATE 4 MG/ML 1 ML VIAL IV SCH ×3 (08:03→23:57)
[2021-05-27] MEDS: CALCIUM CARBONATE 500 MG CHEWABLE PO SCH ×2 (08:03→20:35)
[2021-05-27] MEDS: SODIUM CHLORIDE TAB 1 GM TAB PO SCH (08:03)
[2021-05-27] MEDS: PANTOPRAZOLE 40 MG TABLET PO SCH ×2 (08:03→17:45)
[2021-05-27] MEDS: VITAMIN E (DL,TOCOPHERYL ACET) 400 UNIT (180 MG) CAP PO SCH (08:03)
[2021-05-27] MEDS: CHOLECALCIFEROL 25 MCG (1000 IU) TABLET PO SCH (08:03)
[2021-05-27] MEDS: SENNOSIDES 8.6 MG TAB PO PRN (08:09)
[2021-05-27 11:07] LABS: Anisocytosis Slight; HGB 11.7 gm/dL (11.4-16.0); MCH 34.1 pg (25.0-35.0); MCHC 35.4 g/dL (31.0-37.0); MCV 96.4 fL (80.0-100.0); Macrocytosis Slight; Mean Platelet Volume 6.8; Platelet Count 238 k/uL (150-450); RBC 3.43 m/uL (3.80-5.40); RDW 16.4 % (11.5-15.5); WBC 8.9 k/uL (3.8-10.6)
--- NOTE | 2021-05-27 11:11 | P.PN ---
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 She presented to our facility on 05/18/21 with a chief complaint of weakness of her lower extremities and back pain. Patient was admitted under our services with consultation to oncology. She was found to have a UTI with urine culture positive for E. coli and place on IV antibiotic Rocephin. She had an EKG done which revealed normal sinus rhythm at 83 bpm with no noted T-wave or ST abnormalities. A chest x-ray was completed which was negative for acute cardiopulmonary process. MRI lumbar spine showed spondylitic changes in the lumbar spine with lateral recess stenosis and disc herniation with lesions in the S1 and S2 vertebral body c onsistent with metastatic disease. MRI thoracic spine also showing lesions in T4 and T8 as well as T10 vertebra consistent with metastatic disease. Plan is for patient to remain in hospital through Friday to complete course of palliative radiation treatment. Physical exam: Patient seen and fully evaluated at bedside this morning. She was getting up wi th physical therapy, reports feeling well this morning. Patient states she did have a little episode of dizziness/lightheadedness otherwise denies having any complaints. She continues to make progress with ambulation daily. Next radiation treatment scheduled tomorrow. Patient denies having any other complaints at this time including headache, lightheadedness, dizziness, chest pain, palpitations, or shortness of breath. General: non toxic, chronically ill appearing, no acute distress, appears at stated age Derm: warm, dry, pale Head: atraumatic, normocephalic, symmetric Eyes: EOMI, no lid lag, anicteric sclera Mouth: no lip lesion, mucus membranes moist Cardiovascular: S1S2 reg, no murmur, positive posterior tibial pulses bilaterally Lungs: CTA bilateral, no rhonchi, no rales , no accessory muscle use Abdominal: soft, nontender to palpation, no guarding, no appreciable organomegaly Ext: no gross muscle atrophy, no edema, no contractures Neuro: CN II-XI grossly intact, no focal neuro deficits Psych: Alert, oriented, appropriate affect Plan of care: Breast cancer with metastasis to brain and spinal cord vertebra -MRI lumbar spine showed spondylitic changes in the lumbar spine with lateral recess stenosis and disc herniation with lesions in the S1 and S2 vertebral body consistent with metastatic disease. -MRI thoracic spine also showing lesions in T4 and T8 as well as T10 vertebra consistent with metastatic disease. -Oncology following currently recommending to continue palliative treatment and patient to remain in hospital through Friday to complete palliative radiation treatment. -PT/OT -Symptomatic care and pain management -Bowel regimen -Dexamethasone 4 mg every 8 hours Hyponatremia -Nephrology following -Continue sodium chloride tablets -Monitor I's and O's closely watching for fluid retention and edema -Continued close monitoring with repeat a.m. labs E. coli positive Urinary tract infection -Patient received 5 day course of IV antibiotics with Rocephin. Antibiotic therapy completed. CODE STATUS: DO NOT RESUSCITATE/DO NOT INTUBATE DVT prophylaxis: Gloriaquis Discussed with: Patient and RN Anticipated discharge date: plan is for patient to remain in hospital through Friday to complete entire course of palliative radiation treatment prior to being discharged home with daughter. Anticipated discharge place: home with daughter and home health palliative care. A total of 45 minutes was spent on the care of this complex patient more than 50% of the time was spent in counseling and care coordination. Objective - Vital Signs Vital signs: Vital Signs Temp 97.7 F 05/27/21 04:50 Pulse 85 05/27/21 04:50 Resp 20 05/27/21 04:50 BP 130/78 05/27/21 04:50 Pulse Ox 96 05/27/21 04:50 Intake & Output 05/26/21 05/27/21 05/27/21 18:59 06:59 18:59 Intake Total 600 360 Output Total 1 Balance 599 360 Intake: Oral 600 360 Output: Urine 1 Other: Voiding Method Toilet Toilet # Voids 3 2 # Bowel Movements 1 1 - Labs CBC & Chem 7: 05/27/21 10:34 05/27/21 10:34 Labs: Abnormal Lab Results - Last 24 Hours (Table) 05/26/21 05/26/21 05/26/21 Range/Units 12:34 17:47 21:46 POC Glucose (mg/dL) 255 H 254 H 274 H (75-99) mg/dL 05/27/21 Range/Units 07:19 POC Glucose (mg/dL) 198 H (75-99) mg/dL <Kayla,Selin A - Last Filed: 05/27/21 18:44> Subjective Patient seen and examined independently. Patient was also seen by Aaron Butler NP and case was discussed. I am in agreement with subjective, physical exam, assessment and plan as written above and amended below. Doing well. Able to move better. No nausea or vomiting. Pain is well controlled. General: non toxic, no distress, appears at stated age Derm: warm, dry Head: atraumatic, normocephalic, symmetric Eyes: EOMI, no lid lag, anicteric sclera Mouth: no lip lesion, mucus membranes moist Cardiovascular: S1S2 reg, no murmur, positive posterior tibial pulse bilateral, Lungs: CTA bilateral, no rhonchi, no rales , no accessory muscle use Psych: Alert, oriented, appropriate affect Objective - Vital Signs Vital signs: Vital Signs Temp 97.8 F 05/27/21 12:43 Pulse 93 05/27/21 12:43 Resp 17 05/27/21 12:43 BP 108/71 05/27/21 12:43 Pulse Ox 95 05/27/21 12:43 Intake & Output 05/26/21 05/27/21 05/27/21 18:59 06:59 18:59 Intake Total 600 360 750 Output Total 1 Balance 599 360 750 Intake: Oral 600 360 750 Output: Urine 1 Other: Voiding Method Toilet Toilet # Voids 3 2 3 # Bowel Movements 1 1 - Labs CBC & Chem 7: 05/27/21 10:34 05/27/21 16:01 Labs: Abnormal Lab Results - Last 24 Hours (Table) 05/26/21 05/27/21 05/27/21 Range/Units 21:46 07:19 10:34 RBC 3.43 L (3.80-5.40) m/uL Hct 33.0 L (34.0-46.0) % RDW 16.4 H (11.5-15.5) % Sodium (137-145) mmol/L BUN (7-17) mg/dL Creatinine (0.52-1.04) mg/dL Glucose (74-99) mg/dL POC Glucose (mg/dL) 274 H 198 H (75-99) mg/dL Calcium (8.4-10.2) mg/dL 05/27/21 05/27/21 05/27/21 Range/Units 10:34 11:58 16:01 RBC (3.80-5.40) m/uL Hct (34.0-46.0) % RDW (11.5-15.5) % Sodium 126 L 126 L (137-145) mmol/L BUN 19 H (7-17) mg/dL Creatinine 0.43 L (0.52-1.04) mg/dL Glucose 264 H (74-99) mg/dL POC Glucose (mg/dL) 261 H (75-99) mg/dL Calcium 8.1 L (8.4-10.2) mg/dL 05/27/21 Range/Units 17:22 RBC (3.80-5.40) m/uL Hct (34.0-46.0) % RDW (11.5-15.5) % Sodium (137-145) mmol/L BUN (7-17) mg/dL Creatinine (0.52-1.04) mg/dL Glucose (74-99) mg/dL POC Glucose (mg/dL) 233 H (75-99) mg/dL Calcium (8.4-10.2) mg/dL
[2021-05-27 11:17] LABS: African American GFR (CKD) >90 (>60 ml/min/1.73 sqM); Anion Gap 5 mmol/L; Blood Urea Nitrogen 19 mg/dL (7-17); Calcium 8.1 mg/dL (8.4-10.2); Carbon Dioxide 23 mmol/L (22-30); Chloride 98 mmol/L (98-107); Glucose 264 mg/dL (74-99); Non-African American GFR(CKD) >90 (>60 ml/min/1.73 sqM); Potassium 3.9 mmol/L (3.5-5.1); Sodium 126 mmol/L (137-145)
[2021-05-27 12:00] LABS: Glucose,Whole Blood 261 mg/dL (75-99)
--- NOTE | 2021-05-27 13:42 | PN ---
PROGRESS NOTE Patient is seen for followup for hyponatremia. Serum sodium improves with Samsca and sodium chloride tabs were discontinued. The sodium had gone up to 133 with a drop back down to 126 yesterday. The patient received a dose late yesterday of 15 mg of tolvaptan. Her sodium is still at 126. today. Patient denies any significant symptoms. She has had some lower extremity edema because of which the sodium chloride tabs were decreased. PHYSICAL EXAMINATION: On examination today, she is comfortable. Blood pressure is 108/71, heart rate 93 per minute. Patient is afebrile. Examination of the heart S1, S2. Examination of the lungs, bilateral breath sounds are heard. Abdomen is soft, nontender. Examination of lower extremities shows edema 1+ bilaterally. H[employer] WORK[employer] exam grossly intact. LABS: Show sodium 126, potassium 3.9, hemoglobin 11.7. ASSESSMENT: 1. 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 The patient needs the Samsca every 2-3 days. The sodium chloride tabs were decreased secondary to lower extremity edema. I will continue with the 1 g for now. The patient did receive Samsca yesterday evening. Her sodium remains at 126. We will check another sodium level this evening before giving her another dose of Samsca today. Continue to maintain good oral protein intake as tolerated. 2. Metastatic breast cancer. PLAN: Continue sodium chloride tabs 1 g per day and repeat sodium this afternoon and repeat another dose of Samsca if sodium is not better. MMODL / IJN: [id number] /
[2021-05-27 17:23] LABS: Glucose,Whole Blood 233 mg/dL (75-99)
[2021-05-27 20:27] LABS: Glucose,Whole Blood 242 mg/dL (75-99)
[2021-05-27] MEDS: ALPRAZolam 0.5 MG TAB PO PRN (20:37)
[2021-05-27] MEDS: oxyCODONE-APAP 5-325MG 1 EACH TAB PO PRN (20:37)
[2021-05-28 05:38] LABS: Anisocytosis Slight; HCT 31.3 % (34.0-46.0); HGB 11.1 gm/dL (11.4-16.0); MCH 33.8 pg (25.0-35.0); MCHC 35.5 g/dL (31.0-37.0); MCV 95.3 fL (80.0-100.0); Macrocytosis Slight; Mean Platelet Volume 6.7; Platelet Count 216 k/uL (150-450); RBC 3.29 m/uL (3.80-5.40); RDW 16.3 % (11.5-15.5); WBC 5.9 k/uL (3.8-10.6)
[2021-05-28 06:58] LABS: Glucose,Whole Blood 164 mg/dL (75-99)
[2021-05-28] MEDS: INSULIN ASPART (NovoLOG) 100 UNIT/ML VIAL SQ SCH ×4 (07:40→20:16)
[2021-05-28] MEDS: APIXABAN 5 MG TAB PO SCH ×2 (07:41→20:16)
[2021-05-28] MEDS: DULoxetine HCL 30 MG CAPSULE.DR PO SCH ×2 (07:41→20:16)
[2021-05-28] MEDS: CHOLECALCIFEROL 25 MCG (1000 IU) TABLET PO SCH (07:41)
[2021-05-28] MEDS: DEXAMETHASONE SOD PHOSPHATE 4 MG/ML 1 ML VIAL IV SCH ×2 (07:41→16:38)
[2021-05-28] MEDS: PANTOPRAZOLE 40 MG TABLET PO SCH ×2 (07:41→17:32)
[2021-05-28] MEDS: CALCIUM CARBONATE 500 MG CHEWABLE PO SCH ×2 (07:41→20:16)
[2021-05-28] MEDS: ACETAMINOPHEN TAB 325 MG TAB PO PRN (07:42)
[2021-05-28] MEDS: VITAMIN E (DL,TOCOPHERYL ACET) 400 UNIT (180 MG) CAP PO SCH (07:42)
[2021-05-28] MEDS: SODIUM CHLORIDE TAB 1 GM TAB PO SCH (07:42)
--- NOTE | 2021-05-28 08:57 | P.PN ---
Subjective Patient is seen in follow-up for hyponatremia. Sodium level stable at 126 the last couple of days. Oral intake.. No vomiting or diarrhea. Vital signs are stable. General: The patient appeared well nourished and normally developed. HEENT: Head exam is unremarkable. Neck is without jugular venous distension. LUNGS: Breath sounds decreased. HEART: Rate and Rhythm are regular. ABDOMEN: Soft, no distention. EXTREMITITES: No edema. Objective - Vital Signs Vital signs: Vital Signs Temp 98.4 F 05/28/21 05:00 Pulse 86 05/28/21 05:00 Resp 16 05/28/21 05:00 BP 136/80 05/28/21 05:00 Pulse Ox 97 05/28/21 05:00 Intake & Output 05/27/21 05/28/21 05/28/21 18:59 06:59 18:59 Intake Total 750 50 Balance 750 50 Intake: Oral 750 50 Other: Voiding Method Toilet Toilet Toilet # Voids 3 2 - Labs CBC & Chem 7: 05/28/21 05:09 05/27/21 16:01 Labs: Abnormal Lab Results - Last 24 Hours (Table) 05/27/21 05/27/21 05/27/21 Range/Units 10:34 10:34 11:58 RBC 3.43 L (3.80-5.40) m/uL Hgb (11.4-16.0) gm/dL Hct 33.0 L (34.0-46.0) % RDW 16.4 H (11.5-15.5) % Sodium 126 L (137-145) mmol/L BUN 19 H (7-17) mg/dL Creatinine 0.43 L (0.52-1.04) mg/dL Glucose 264 H (74-99) mg/dL POC Glucose (mg/dL) 261 H (75-99) mg/dL Calcium 8.1 L (8.4-10.2) mg/dL 05/27/21 05/27/21 05/27/21 Range/Units 16:01 17:22 20:19 RBC (3.80-5.40) m/uL Hgb (11.4-16.0) gm/dL Hct (34.0-46.0) % RDW (11.5-15.5) % Sodium 126 L (137-145) mmol/L BUN (7-17) mg/dL Creatinine (0.52-1.04) mg/dL Glucose (74-99) mg/dL POC Glucose (mg/dL) 233 H 242 H (75-99) mg/dL Calcium (8.4-10.2) mg/dL 05/28/21 05/28/21 Range/Units 05:09 06:56 RBC 3.29 L (3.80-5.40) m/uL Hgb 11.1 L (11.4-16.0) gm/dL Hct 31.3 L (34.0-46.0) % RDW 16.3 H (11.5-15.5) % Sodium (137-145) mmol/L BUN (7-17) mg/dL Creatinine (0.52-1.04) mg/dL Glucose (74-99) mg/dL POC Glucose (mg/dL) 164 H (75-99) mg/dL Calcium (8.4-10.2) mg/dL Assessment and Plan Plan: Assessment: 1. 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 TSH normal. Urine osmolality 410 and urine sodium 45. 2. Breast cancer with metastatic disease. Maintained on chemotherapy outpatient. 3. UTI s/p antibiotics. Plan: 1200 mL fluid restriction. Encouraged oral intake, particularly protein. Maintain sodium chloride tabs. Follow-up morning labs. If sodium level not improving, will give a dose of Samsca.
[2021-05-28 10:57] LABS: African American GFR (CKD) 123.2 (60.0-200.0); Anion Gap 5.1 mmol/L (4.00-12.00); Calcium 7.9 mg/dL (8.7-10.3); Carbon Dioxide 25.9 mmol/L (21.6-31.8); Magnesium 1.7 mg/dL (1.5-2.4); Non-African American GFR(CKD) 106.3 (60.0-200.0); Potassium 4.4 mmol/L (3.5-5.5)
[2021-05-28 11:10] LABS: Glucose,Whole Blood 246 mg/dL (75-99)
--- NOTE | 2021-05-28 11:20 | P.PN ---
Subjective Progress Note Date: 05/28/21 Principal diagnosis: Neuropathy, weakness, Pain Tired this am during assessment and oral thrush noted on exam. Objective - Vital Signs Vital signs: Vital Signs Temp 98.4 F 05/28/21 05:00 Pulse 86 05/28/21 05:00 Resp 16 05/28/21 05:00 BP 136/80 05/28/21 05:00 Pulse Ox 97 05/28/21 05:00 Intake & Output 05/27/21 05/28/21 05/28/21 18:59 06:59 18:59 Intake Total 750 50 Balance 750 50 Intake: Oral 750 50 Other: Voiding Method Toilet Toilet Toilet # Voids 3 2 - Exam - Constitutional General appearance: cooperative, no acute distress - EENT Eyes: EOMI ENT: hard of hearing, NA/AT - Neck Neck: normal ROM - Respiratory Respiratory: bilateral: diminished - Cardiovascular Rhythm: regularly irregular leg Peripheral Edema: bilateral: Other (Decreased sensation to touch on inner aspect though and soles feet L>R) - Gastrointestinal General gastrointestinal: normal bowel sounds, soft, tenderness - Integumentary Integumentary: pale - Neurologic poor historian, no loss of bladder - Musculoskeletal Musculoskeletal: generalized weakness, right sided weakness, left sided weakness - Psychiatric Psychiatric: A&O x's 3 - Labs CBC & Chem 7: 05/28/21 05:09 05/28/21 05:09 Labs: Abnormal Lab Results - Last 24 Hours (Table) 05/27/21 05/27/21 05/27/21 Range/Units 10:34 11:58 16:01 RBC (3.80-5.40) m/uL Hgb (11.4-16.0) gm/dL Hct (34.0-46.0) % RDW (11.5-15.5) % Sodium 126 L 126 L (137-145) mmol/L BUN 19 H (7-17) mg/dL Creatinine 0.43 L (0.52-1.04) mg/dL BUN/Creatinine Ratio (12.00-20.00) Ratio Glucose 264 H (74-99) mg/dL POC Glucose (mg/dL) 261 H (75-99) mg/dL Calcium 8.1 L (8.4-10.2) mg/dL 0705/27/21 05/28/21 Range/Units 17:22 20:19 05:09 RBC 3.29 L (3.80-5.40) m/uL Hgb 11.1 L (11.4-16.0) gm/dL Hct 31.3 L (34.0-46.0) % RDW 16.3 H (11.5-15.5) % Sodium (137-145) mmol/L BUN (7-17) mg/dL Creatinine (0.52-1.04) mg/dL BUN/Creatinine Ratio (12.00-20.00) Ratio Glucose (74-99) mg/dL POC Glucose (mg/dL) 233 H 242 H (75-99) mg/dL Calcium (8.4-10.2) mg/dL 05/28/21 05/28/21 05/28/21 Range/Units 05:09 06:56 11:09 RBC (3.80-5.40) m/uL Hgb (11.4-16.0) gm/dL Hct (34.0-46.0) % RDW (11.5-15.5) % Sodium 130 L (137-145) mmol/L BUN (7-17) mg/dL Creatinine 0.4 L (0.52-1.04) mg/dL BUN/Creatinine Ratio 45.00 H (12.00-20.00) Ratio Glucose 183 H (74-99) mg/dL POC Glucose (mg/dL) 164 H 246 H (75-99) mg/dL Calcium 7.9 L (8.4-10.2) mg/dL Assessment and Plan (1) Lower extremity weakness Current Visit: Yes Status: Acute Code(s): R29.898 - [facility] SYMPTOMS AND SIGNS INVOLVING THE MUSCULOSKELETAL SYSTEM SNOMED Code(s): 190297606 (2) Back pain Current Visit: Yes Status: Acute Code(s): M54.9 - DORSALGIA, UNSPECIFIED SNOMED Code(s): 573023118 (3) Neuropathy Current Visit: Yes Status: Acute Code(s): G62.9 - POLYNEUROPATHY, UNSPECIFIED SNOMED Code(s): 261878966 (4) Hyponatremia Current Visit: Yes Status: Acute Code(s): E87.1 - HYPO-OSMOLALITY AND HYPONATREMIA SNOMED Code(s): 93101060 (5) Urinary tract infection Current Visit: Yes Status: Acute Code(s): N39.0 - URINARY TRACT INFECTION, SITE NOT SPECIFIED SNOMED Code(s): 42568291 (6) Brain metastases Current Visit: No Status: Acute Priority: High Code(s): C79.31 - SECONDARY MALIGNANT NEOPLASM OF BRAIN SNOMED Code(s): 83773784 (7) Breast cancer Current Visit: No Status: Chronic Priority: High Code(s): C50.919 - MALIGNANT NEOPLASM OF UNSP SITE OF UNSPECIFIED FEMALE BREAST SNOMED Code(s): 029514273 Plan: Assessment and Recommendations: Will need to confirm no progression of disease involving spinal cord with new onset lower back pain and unilateral sensation. Peripheral neuropathy from previous treatments and recently treated brain metastasis maybe contributing factors, however will need to further evaluate: - MRI Thoracic/Lumbarsacral Ordered - Dexamethasone 4mg q8 IV and PPI initiated will attempt wean HYponatremia:Improving - POssible component of SIADH with brain metastasis: - Check osmolarity urine and blood Anemia: - Likely due to metastatic cancer to bone/bone marrow - Recheck CBC today and monitor daily - Nutritional replacements maybe given to assist in symptoms if warranted Sacral Met: - Plan to complete inpatient palliative radiation with Dr. Han Peripheral Neuropathy: WOrsening: - PT/OT Daily please - IPR Assessment - Primary team to aggressively control GLUCOSE to improve symptoms - Re-education and discussionCymbalta - Will need therapy, Plan xrt to complete inpatient and then hopes to re- evaluated IPR. Oral Diana: - Add Nystatin Discussed with Radiation Oncology, Patient and Daughter Alise in Detail MOnitor left arm weakness COntinue percocet for pain and scheduled bowel regimen for constipation prevention. CBC and CMP in am ordered COntinue plan of care radiation to completion then re-evaluate discharge with IPR versus home with PT/OT Physician Attest: I have completed the full history and physical and agree with above, dictated as a ascribe.
[2021-05-28] MEDS: oxyCODONE-APAP 5-325MG 1 EACH TAB PO PRN ×2 (12:47→20:16)
[2021-05-28] MEDS: NYSTATIN 100,000 UNIT/ML SUSP 500,000 UNIT/5 ML CUP PO SCH ×3 (12:47→20:19)
--- NOTE | 2021-05-28 13:31 | P.PN ---
<Aaron Butler - Last Filed: 05/28/21 13:28> Subjective Progress Note Date: 05/28/21 Hospital course: Patient is a 70-year-old female with a past medical history of metastatic breast cancer to brain on Xelojda and dexamethasone taper. She presented to our facility on 05/18/21 with a chief complaint of weakness of her lower extremities and back pain. Patient was admitted under our services with consultation to oncology. She was found to have a UTI with urine culture positive for E. coli and place on IV antibiotic Rocephin. She had an EKG done which revealed normal sinus rhythm at 83 bpm with no noted T-wave or ST abnormalities. A chest x-ray was completed which was negative for acute cardiopulmonary process. MRI lumbar spine showed spondylitic changes in the lumbar spine with lateral recess stenosis and disc herniation with lesions in the S1 and S2 vertebral body c onsistent with metastatic disease. MRI thoracic spine also showing lesions in T4 and T8 as well as T10 vertebra consistent with metastatic disease. Plan is for patient to remain in hospital through Friday to complete course of palliative radiation treatment. Physical exam: Patient seen and fully evaluated at bedside this morning. She was resting comfo rtably in bed at this time. She reports feeling a little weak today as she feels as though she may have overdone it a bit yesterday. Patient scheduled for radiation this afternoon. She continues to make progress with ambulation daily and denies having any other complaints at this time including headache, lightheadedness, dizziness, chest pain, palpitations, or shortness of breath. General: non toxic, chronically ill appearing, no acute distress, appears at stated age Derm: warm, dry, pale Head: atraumatic, normocephalic, symmetric Eyes: EOMI, no lid lag, anicteric sclera Mouth: no lip lesion, mucus membranes moist Cardiovascular: S1S2 reg, no murmur, positive posterior tibial pulses bilat erally Lungs: CTA bilateral, no rhonchi, no rales , no accessory muscle use Abdominal: soft, nontender to palpation, no guarding, no appreciable organomegaly Ext: no gross muscle atrophy, no edema, no contractures Neuro: CN II-XI grossly intact, no focal neuro deficits Psych: Alert, oriented, appropriate affect Plan of care: Breast cancer with metastasis to brain and spinal cord vertebra -MRI lumbar spine showed spondylitic changes in the lumbar spine with lateral recess stenosis and disc herniation with lesions in the S1 and S2 vertebral body consistent with metastatic disease. -MRI thoracic spine also showing lesions in T4 and T8 as well as T10 vertebra consistent with metastatic disease. -Oncology following currently recommending to continue palliative treatment and patient to remain in hospital through Friday to complete palliative radiation treatment. -PT/OT -Symptomatic care and pain management -Bowel regimen -Dexamethasone 4 mg every 8 hours Hyponatremia, improving -Nephrology following -Continue sodium chloride tablets -Monitor I's and O's closely watching for fluid retention and edema -Continued close monitoring with repeat a.m. labs E. coli positive Urinary tract infection -Patient received 5 day course of IV antibiotics with Rocephin. Antibiotic therapy completed. CODE STATUS: DO NOT RESUSCITATE/DO NOT INTUBATE DVT prophylaxis: Elisa Discussed with: Patient and RN Anticipated discharge date: Tomorrow Anticipated discharge place: home with daughter and home health palliative care. A total of 45 minutes was spent on the care of this complex patient more than 50% of the time was spent in counseling and care coordination. Objective - Vital Signs Vital signs: Vital Signs Temp 98.2 F 05/28/21 11:48 Pulse 86 05/28/21 11:48 Resp 17 05/28/21 11:48 BP 126/78 05/28/21 11:48 Pulse Ox 94 L 05/28/21 11:48 Intake & Output 05/27/21 05/28/21 05/28/21 18:59 06:59 18:59 Intake Total 750 50 Balance 750 50 Intake: Oral 750 50 Other: Voiding Method Toilet Toilet Toilet # Voids 3 2 - Labs CBC & Chem 7: 05/28/21 05:09 05/28/21 05:09 Labs: Abnormal Lab Results - Last 24 Hours (Table) 05/27/21 05/27/21 05/27/21 Range/Units 16:01 17:22 20:19 RBC (3.80-5.40) m/uL Hgb (11.4-16.0) gm/dL Hct (34.0-46.0) % RDW (11.5-15.5) % Sodium 126 L (137-145) mmol/L Creatinine (0.6-1.5) mg/dL BUN/Creatinine Ratio (12.00-20.00) Ratio Glucose (70-110) mg/dL POC Glucose (mg/dL) 233 H 242 H (75-99) mg/dL Calcium (8.7-10.3) mg/dL 05/28/21 05/28/21 05/28/21 Range/Units 05:09 05:09 06:56 RBC 3.29 L (3.80-5.40) m/uL Hgb 11.1 L (11.4-16.0) gm/dL Hct 31.3 L (34.0-46.0) % RDW 16.3 H (11.5-15.5) % Sodium 130 L (137-145) mmol/L Creatinine 0.4 L (0.6-1.5) mg/dL BUN/Creatinine Ratio 45.00 H (12.00-20.00) Ratio Glucose 183 H (70-110) mg/dL POC Glucose (mg/dL) 164 H (75-99) mg/dL Calcium 7.9 L (8.7-10.3) mg/dL 05/28/21 Range/Units 11:09 RBC (3.80-5.40) m/uL Hgb (11.4-16.0) gm/dL Hct (34.0-46.0) % RDW (11.5-15.5) % Sodium (137-145) mmol/L Creatinine (0.6-1.5) mg/dL BUN/Creatinine Ratio (12.00-20.00) Ratio Glucose (70-110) mg/dL POC Glucose (mg/dL) 246 H (75-99) mg/dL Calcium (8.7-10.3) mg/dL <Selin Garza - Last Filed: 05/28/21 15:40> Objective - Vital Signs Vital signs: Vital Signs Temp 98.2 F 05/28/21 11:48 Pulse 86 05/28/21 11:48 Resp 17 05/28/21 11:48 BP 126/78 05/28/21 11:48 Pulse Ox 94 L 05/28/21 11:48 Intake & Output 05/27/21 05/28/21 05/28/21 18:59 06:59 18:59 Intake Total 750 50 Balance 750 50 Intake: Oral 750 50 Other: Voiding Method Toilet Toilet Toilet # Voids 3 2 - Labs CBC & Chem 7: 05/28/21 05:09 05/28/21 05:09 Labs: Abnormal Lab Results - Last 24 Hours (Table) 05/27/21 05/27/21 05/27/21 Range/Units 16:01 17:22 20:19 RBC (3.80-5.40) m/uL Hgb (11.4-16.0) gm/dL Hct (34.0-46.0) % RDW (11.5-15.5) % Sodium 126 L (137-145) mmol/L Creatinine (0.6-1.5) mg/dL BUN/Creatinine Ratio (12.00-20.00) Ratio Glucose (70-110) mg/dL POC Glucose (mg/dL) 233 H 242 H (75-99) mg/dL Calcium (8.7-10.3) mg/dL 05/28/21 05/28/21 05/28/21 Range/Units 05:09 05:09 06:56 RBC 3.29 L (3.80-5.40) m/uL Hgb 11.1 L (11.4-16.0) gm/dL Hct 31.3 L (34.0-46.0) % RDW 16.3 H (11.5-15.5) % Sodium 130 L (137-145) mmol/L Creatinine 0.4 L (0.6-1.5) mg/dL BUN/Creatinine Ratio 45.00 H (12.00-20.00) Ratio Glucose 183 H (70-110) mg/dL POC Glucose (mg/dL) 164 H (75-99) mg/dL Calcium 7.9 L (8.7-10.3) mg/dL 05/28/21 Range/Units 11:09 RBC (3.80-5.40) m/uL Hgb (11.4-16.0) gm/dL Hct (34.0-46.0) % RDW (11.5-15.5) % Sodium (137-145) mmol/L Creatinine (0.6-1.5) mg/dL BUN/Creatinine Ratio (12.00-20.00) Ratio Glucose (70-110) mg/dL POC Glucose (mg/dL) 246 H (75-99) mg/dL Calcium (8.7-10.3) mg/dL Assessment and Plan Assessment: Aaron Butler NP rendered care for this patient independently, reviewed the findings and plan as documented in the note above. I did not physically speak with or examine the patient on this date.
[2021-05-28] MEDS ORDERED: TOLVAPTAN 15 MG 1/2 TABLET PO ONE (14:45)
[2021-05-28 17:04] LABS: Glucose,Whole Blood 196 mg/dL (75-99)
[2021-05-28 20:08] LABS: Glucose,Whole Blood 275 mg/dL (75-99)
[2021-05-28] MEDS: ALPRAZolam 0.5 MG TAB PO PRN (20:16)
[2021-05-28 20:48] VITALS: RESP 16
[2021-05-29 06:03] LABS: Anisocytosis Slight; HCT 34.9 % (34.0-46.0); HGB 11.8 gm/dL (11.4-16.0); MCH 33.3 pg (25.0-35.0); MCHC 33.9 g/dL (31.0-37.0); MCV 98.1 fL (80.0-100.0); Macrocytosis Slight; Platelet Count 241 k/uL (150-450); RBC 3.55 m/uL (3.80-5.40); RDW 16.1 % (11.5-15.5); WBC 7.3 k/uL (3.8-10.6)
[2021-05-29 06:14] LABS: African American GFR (CKD) >90 (>60 ml/min/1.73 sqM); Anion Gap 4 mmol/L; Blood Urea Nitrogen 14 mg/dL (7-17); Calcium 8.8 mg/dL (8.4-10.2); Carbon Dioxide 27 mmol/L (22-30); Chloride 97 mmol/L (98-107); Glucose 163 mg/dL (74-99); Non-African American GFR(CKD) >90 (>60 ml/min/1.73 sqM); Potassium 4.3 mmol/L (3.5-5.1); Sodium 128 mmol/L (137-145)
[2021-05-29 07:28] LABS: Glucose,Whole Blood 170 mg/dL (75-99)
[2021-05-29] MEDS: DULoxetine HCL 30 MG CAPSULE.DR PO SCH (07:53)
[2021-05-29] MEDS: INSULIN ASPART (NovoLOG) 100 UNIT/ML VIAL SQ SCH ×2 (07:53→12:46)
[2021-05-29] MEDS: DEXAMETHASONE SOD PHOSPHATE 4 MG/ML 1 ML VIAL IV SCH ×3 (07:53→15:56)
[2021-05-29] MEDS: NYSTATIN 100,000 UNIT/ML SUSP 500,000 UNIT/5 ML CUP PO SCH ×2 (07:53→12:46)
[2021-05-29] MEDS: CHOLECALCIFEROL 25 MCG (1000 IU) TABLET PO SCH (07:54)
[2021-05-29] MEDS: PANTOPRAZOLE 40 MG TABLET PO SCH (07:54)
[2021-05-29] MEDS: VITAMIN E (DL,TOCOPHERYL ACET) 400 UNIT (180 MG) CAP PO SCH (07:54)
[2021-05-29] MEDS: SODIUM CHLORIDE TAB 1 GM TAB PO SCH (07:54)
[2021-05-29] MEDS: CALCIUM CARBONATE 500 MG CHEWABLE PO SCH (07:54)
[2021-05-29] MEDS: APIXABAN 5 MG TAB PO SCH (07:54)
[2021-05-29] MEDS: ACETAMINOPHEN TAB 325 MG TAB PO PRN (08:00)
[2021-05-29] MEDS ORDERED: TOLVAPTAN 15 MG 1/2 TABLET PO SCH (09:00)
--- NOTE | 2021-05-29 09:04 | P.PN ---
Subjective Patient is seen in follow-up for hyponatremia. Sodium level 128 this AM. Oral intake fair. No vomiting or diarrhea. No changes overnight. Vital signs are stable. General: The patient appeared well nourished and normally developed. HEENT: Head exam is unremarkable. Neck is without jugular venous distension. LUNGS: Breath sounds decreased. HEART: Rate and Rhythm are regular. ABDOMEN: Soft, no distention. EXTREMITITES: No edema. Objective - Vital Signs Vital signs: Vital Signs Temp 98 F 05/29/21 05:00 Pulse 79 05/29/21 05:00 Resp 16 05/29/21 05:00 BP 122/78 05/29/21 05:00 Pulse Ox 95 05/29/21 05:00 Intake & Output 05/28/21 05/29/21 05/29/21 18:59 06:59 18:59 Intake Total 600 60 Balance 600 60 Intake: Oral 600 60 Other: Voiding Method Toilet Toilet Bedside Commode # Voids 4 - Labs CBC & Chem 7: 05/29/21 05:32 05/29/21 05:32 Labs: Abnormal Lab Results - Last 24 Hours (Table) 05/28/21 05/28/21 05/28/21 Range/Units 05:09 11:09 17:03 RBC (3.80-5.40) m/uL RDW (11.5-15.5) % Sodium 130 L (135-145) mmol/L Chloride (98-107) mmol/L Creatinine 0.4 L (0.6-1.5) mg/dL BUN/Creatinine Ratio 45.00 H (12.00-20.00) Ratio Glucose 183 H (70-110) mg/dL POC Glucose (mg/dL) 246 H 196 H (75-99) mg/dL Calcium 7.9 L (8.7-10.3) mg/dL 05/28/21 05/29/21 05/29/21 Range/Units 20:05 05:32 05:32 RBC 3.55 L (3.80-5.40) m/uL RDW 16.1 H (11.5-15.5) % Sodium 128 L (135-145) mmol/L Chloride 97 L (98-107) mmol/L Creatinine 0.36 L (0.6-1.5) mg/dL BUN/Creatinine Ratio (12.00-20.00) Ratio Glucose 163 H (70-110) mg/dL POC Glucose (mg/dL) 275 H (75-99) mg/dL Calcium (8.7-10.3) mg/dL 05/29/21 Range/Units 07:26 RBC (3.80-5.40) m/uL RDW (11.5-15.5) % Sodium (135-145) mmol/L Chloride (98-107) mmol/L Creatinine (0.6-1.5) mg/dL BUN/Creatinine Ratio (12.00-20.00) Ratio Glucose (70-110) mg/dL POC Glucose (mg/dL) 170 H (75-99) mg/dL Calcium (8.7-10.3) mg/dL Assessment and Plan Plan: Assessment: 1. 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 TSH normal. Urine osmolality 410 and urine sodium 45. 2. Breast cancer with metastatic disease. Maintained on chemotherapy outpatient. 3. UTI s/p antibiotics. Plan: 1200 mL fluid restriction. Encouraged oral intake, particularly protein. Maintain sodium chloride tabs. Add Samsca 15 mg once daily. Possible discharge today. Repeat BMP and magnesium level 2-3 days postdischarge. Follow up outpatient in 1 week. Case discussed with the primary team.
--- NOTE | 2021-05-29 10:39 | P.DS ---
<Aaron Butler - Last Filed: 05/29/21 10:39> Providers Expected date of discharge: 05/29/21 Hospital Course: Discharge Diagnosis: Breast cancer with metastasis to brain and spinal cord vertebra Hyponatremia, improving E. coli positive Urinary tract infection Hospital Course: Patient is a 70-year-old female with a past medical history of metastatic breast cancer to brain on Xelojda and dexamethasone taper. She presented to our facility on 05/18/21 with a chief complaint of weakness of her lower extremities and back pain. Patient was admitted under our services with consultation to oncology. She was found to have a UTI with urine culture positive for E. coli and place on IV antibiotic Rocephin and completed 5 day course of antibiotics. She had an EKG done which revealed normal sinus rhythm at 83 bpm with no noted T-wave or ST abnormalities. A chest x-ray was completed which was negative for acute cardiopulmonary process. MRI lumbar spine showed spondylitic changes in the lumbar spine with lateral recess stenosis and disc herniation with lesions in the S1 and S2 vertebral body consistent with metastatic disease. MRI thoracic spine also showing lesions in T4 and T8 as well as T10 vertebra consistent with metastatic disease. Oncology started patient on course of palliative radiation treatment. Patient was kept in hospital to complete this radiation while she received daily physical therapy. Palliative radiation course to be completed this afternoon and patient will then be transferred to [facility]. Patient to continue to follow up with nephrology for monitoring of her hyponatremia and oncology for treatment of metastatic cancer. Nephrology recommending patient to continue Samsca and sodium chloride tablets as ordered. Patient sent with prescription to have a repeat BMP to monitor her sodium levels in 3 days, PCP/nephrology to follow up with results and make medication changes/adjustments as needed. Physical exam: Patient scheduled for radiation this afternoon. She reports feeling a little tired today but otherwise denies having any other complaints at this time including headache, lightheadedness, dizziness, chest pain, palpitations, shortness of breath, abdominal pain, nausea, vomiting, or experiencing any numbness/tingling/weakness/swelling in her extremities at this time.. General: non toxic, chronically ill appearing, no acute distress, appears at stated age Derm: warm, dry, pale Head: atraumatic, normocephalic, symmetric Eyes: EOMI, no lid lag, anicteric sclera Mouth: no lip lesion, mucus membranes moist Cardiovascular: S1S2 reg, no murmur, positive posterior tibial pulses bilaterally Lungs: CTA bilateral, no rhonchi, no rales , no accessory muscle use Abdominal: soft, nontender to palpation, no guarding, no appreciable organomegaly Ext: no gross muscle atrophy, no edema, no contractures Neuro: CN II-XI grossly intact, no focal neuro deficits Psych: Alert, oriented, appropriate affect A total of 45 minutes of time were spent preparing this complex discharge summary. Plan - Discharge Summary Discharge Rx Participant: Yes New Discharge Prescriptions: New DULoxetine HCL [Cymbalta] 30 mg PO BID 30 Days #60 capsule. Nystatin 100,000 Unit/ml Susp [Mycostatin Oral Susp] 500,000 unit PO QID 12 Days #1 bottle Sodium Chloride Tab 1 gm PO DAILY 30 Days #30 tab Tolvaptan [Samsca] 15 mg PO DAILY 30 Days #30 tablet oxyCODONE-APAP 5-325MG [Percocet 5-325 mg] 1 each PO Q4HR PRN tab PRN Reason: Severe Pain traMADol HCl [Ultram] 50 mg PO Q6H PRN tab PRN Reason: Moderate Pain Continue Calcium Carbonate [Calcium] 600 mg PO BID HYDROcodone/APAP 7.5-325MG [Sharples 7.5-325] 1 tab PO Q6H PRN PRN Reason: Pain Sennosides [Senokot] 8.6 mg PO BID PRN #30 tab PRN Reason: Constipation Acetaminophen Tab [Tylenol] 500 mg PO Q6HR PRN PRN Reason: Pain Pantoprazole Sodium [Protonix] 40 mg PO DAILY Albuterol Inhaler [Ventolin Hfa Inhaler] 2 puff INHALATION RT-QID PRN PRN Reason: Shortness Of Breath Cholecalciferol [Vitamin D3 (25 Mcg = 1000 Iu)] 25 mcg PO DAILY Vitamin E 100 unit PO DAILY Ondansetron HCl [Zofran] 4 mg PO QID PRN PRN Reason: Nausea And Vomiting polyethylene glycoL 3350 [Miralax] 17 gm PO DAILY PRN 30 Days #30 powd.pack PRN Reason: Constipation Dexamethasone [Decadron] See Taper PO QID Apixaban [Eliquis Starter Pack (for VTE)] 5 mg PO BID Discontinued Capecitabine [Xeloda] 1,000 mg PO BID Discharge Medication List Calcium Carbonate [Calcium] 600 mg PO BID 01/25/21 [History] HYDROcodone/APAP 7.5-325MG [Sharples 7.5-325] 1 tab PO Q6H PRN 04/12/21 [History] Ondansetron HCl [Zofran] 4 mg PO QID PRN 04/12/21 [History] Vitamin E 100 unit PO DAILY 04/12/21 [History] Sennosides [Senokot] 8.6 mg PO BID PRN #30 tab 04/16/21 [Rx] polyethylene glycoL 3350 [Miralax] 17 gm PO DAILY PRN 30 Days #30 powd.pack 04/16/21 [Rx] Acetaminophen Tab [Tylenol] 500 mg PO Q6HR PRN 04/21/21 [History] Dexamethasone [Decadron] See Taper PO QID 04/21/21 [History] Pantoprazole Sodium [Protonix] 40 mg PO DAILY 04/21/21 [History] Albuterol Inhaler [Ventolin Hfa Inhaler] 2 puff INHALATION RT-QID PRN 05/18/21 [History] Apixaban [Eliquis Starter Pack (for VTE)] 5 mg PO BID 05/18/21 [History] Cholecalciferol [Vitamin D3 (25 Mcg = 1000 Iu)] 25 mcg PO DAILY 05/18/21 [History] DULoxetine HCL [Cymbalta] 30 mg PO BID 30 Days #60 capsule. 05/29/21 [Rx] Nystatin 100,000 Unit/ml Susp [Mycostatin Oral Susp] 500,000 unit PO QID 12 Days #1 bottle 05/29/21 [Rx] Sodium Chloride Tab 1 gm PO DAILY 30 Days #30 tab 05/29/21 [Rx] Tolvaptan [Samsca] 15 mg PO DAILY 30 Days #30 tablet 05/29/21 [Rx] oxyCODONE-APAP 5-325MG [Percocet 5-325 mg] 1 each PO Q4HR PRN tab 05/29/21 [Rx] traMADol HCl [Ultram] 50 mg PO Q6H PRN tab 05/29/21 [Rx] Follow up Appointment(s)/Referral(s): Lang Morocho MD [STAFF PHYSICIAN] - 1 Week Elaina Coles MD [Primary Care Provider] - 1-2 days Shiv Gage DO [STAFF PHYSICIAN] - 1 Week Ambulatory/Diagnostic Orders: Basic Metabolic Panel [LAB.AMB] Time Frame: 3 Days, Location: None Selected Activity/Diet/Wound Care/Special Instructions: Activity: As tolerated Special Instructions: Dr. Gage, [employer] Specialist recommending you continue Tolvaptan and Sodium chloride tablets for your low sodium levels. It is very important to take these medications as directed and to follow up with repeat labs in 3 days and in office visit. Discharge Disposition: TRANSFER TO SNF/ECF Care Plan Goals (MU): residential home care- resumption. 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 Patient was also seen by Aaron Butler NP and case was discussed. I am in agreement with subjective, physical exam, assessment and plan as written above and amended below. Pain is currently well controlled, we talked about the importance of rehab, she is in agreement. All questions answered. General: non toxic, no distress, appears at stated age Derm: warm, dry Head: atraumatic, normocephalic, symmetric Eyes: EOMI, no lid lag, anicteric sclera Mouth: no lip lesion, mucus membranes moist Cardiovascular: S1S2 reg, no murmur, positive posterior tibial pulse bilateral, Lungs: CTA bilateral, no rhonchi, no rales , no accessory muscle use Psych: Alert, oriented, appropriate affect
[2021-05-29 11:55] LABS: Glucose,Whole Blood 234 mg/dL (75-99)
[2021-05-29 12:04] VITALS: BP 122/81; PULSE 84; TEMP 97.9
[2021-05-29] MEDS: oxyCODONE-APAP 5-325MG 1 EACH TAB PO PRN (12:46)
--- NOTE | 2021-05-29 13:59 | P.PN ---
Subjective Progress Note Date: 05/29/21 Principal diagnosis: Neuropathy, weakness, Pain Patient has completed treatment with palliaitive radiation. She is tired and more weak although approved for [facility]. We will plan to transfer to [facility] today. I will hold her xeloda the next couple days and evluate her strength. If she is improving then we will restart. Objective - Vital Signs Vital signs: Vital Signs Temp 97.9 F 05/29/21 12:03 Pulse 84 05/29/21 12:03 Resp 16 05/29/21 12:03 BP 122/81 05/29/21 12:03 Pulse Ox 96 05/29/21 12:03 Intake & Output 05/28/21 05/29/21 05/29/21 18:59 06:59 18:59 Intake Total 600 60 Balance 600 60 Intake: Oral 600 60 Other: Voiding Method Toilet Toilet Bedside Commode # Voids 4 - Exam - Constitutional General appearance: cooperative, no acute distress - EENT Eyes: EOMI ENT: hard of hearing, NA/AT - Neck Neck: normal ROM - Respiratory Respiratory: bilateral: diminished - Cardiovascular Rhythm: regularly irregular leg Peripheral Edema: bilateral: Other (Decreased sensation to touch on inner aspect though and soles feet L>R) - Gastrointestinal General gastrointestinal: normal bowel sounds, soft, tenderness - Integumentary Integumentary: pale - Neurologic poor historian, no loss of bladder - Musculoskeletal Musculoskeletal: generalized weakness, right sided weakness, left sided weakness - Psychiatric Psychiatric: A&O x's 3 - Labs CBC & Chem 7: 05/29/21 05:32 05/29/21 05:32 Labs: Abnormal Lab Results - Last 24 Hours (Table) 05/28/21 05/28/21 05/29/21 Range/Units 17:03 20:05 05:32 RBC (3.80-5.40) m/uL RDW (11.5-15.5) % Sodium 128 L (137-145) mmol/L Chloride 97 L (98-107) mmol/L Creatinine 0.36 L (0.52-1.04) mg/dL Glucose 163 H (74-99) mg/dL POC Glucose (mg/dL) 196 H 275 H (75-99) mg/dL 07/20/21 07/20/21 07/20/21 Range/Units 05:32 07:26 11:44 RBC 3.55 L (3.80-5.40) m/uL RDW 16.1 H (11.5-15.5) % Sodium (137-145) mmol/L Chloride (98-107) mmol/L Creatinine (0.52-1.04) mg/dL Glucose (74-99) mg/dL POC Glucose (mg/dL) 170 H 234 H (75-99) mg/dL Assessment and Plan (1) Lower extremity weakness Current Visit: Yes Status: Acute Code(s): R29.898 - OTH SYMPTOMS AND SIGNS INVOLVING THE MUSCULOSKELETAL SYSTEM SNOMED Code(s): 454974868 (2) Back pain Current Visit: Yes Status: Acute Code(s): M54.9 - DORSALGIA, UNSPECIFIED SNOMED Code(s): 039289841 (3) Neuropathy Current Visit: Yes Status: Acute Code(s): G62.9 - POLYNEUROPATHY, UNSPECIFIE D SNOMED Code(s): 106679234 (4) Hyponatremia Current Visit: Yes Status: Acute Code(s): E87.1 - HYPO-OSMOLALITY AND HYPONATREMIA SNOMED Code(s): 05852405 (5) Urinary tract infection Current Visit: Yes Status: Acute Code(s): N39.0 - URINARY TRACT INFECTION, SITE NOT SPECIFIED SNOMED Code(s): 81626361 (6) Brain metastases Current Visit: No Status: Acute Priority: High Code(s): C79.31 - SECONDARY MALIGNANT NEOPLASM OF BRAIN SNOMED Code(s): 25677348 (7) Breast cancer Current Visit: No Status: Chronic Priority: High Code(s): C50.919 - MALIGNANT NEOPLASM OF UNSP SITE OF UNSPECIFIED FEMALE BREAST SNOMED Code(s): 580775133 Plan: Assessment and Recommendations: Will need to confirm no progression of disease involving spinal cord with new onset lower back pain and unilateral sensation. Peripheral neuropathy from previous treatments and recently treated brain metastasis maybe contributing factors, however will need to further evaluate: - MRI Thoracic/Lumbarsacral Ordered - Dexamethasone 4mg q8 IV and PPI initiated will attempt wean HYponatremia:Improving - POssible component of SIADH with brain metastasis: - Check osmolarity urine and blood Anemia: - Likely due to metastatic cancer to bone/bone marrow - Recheck CBC today and monitor daily - Nutritional replacements maybe given to assist in symptoms if warranted Sacral Met: - Plan to complete inpatient palliative radiation with Dr. Han Peripheral Neuropathy: stable - PT/OT Daily please - IPR Assessment - Primary team to aggressively control GLUCOSE to improve symptoms - Re-education and discussionCymbalta - Pallaiitive radiation completed to sacrum Oral Diana: - continue Nystatin Patient has completed treatment with palliaitive radiation. She is tired and more weak although approved for [facility]. We will plan to transfer to [facility] today. I will hold her xeloda the next couple days and evluate her strength. If she is improving then we will restart. Discussed with daughter and case folder and [employer] with primary
== END 2021-05-29 14:30 | DRG 543 ==
LOC: EC 12:15 → 5NMEDONC 15:15
PROVIDERS: ADMIT Internal Medicine; ATTEND Internal Medicine
PROC: DW062ZZ Beam Radiation of Pelvic Region using Photons >10 MeV (ICD-10-PCS; principal; 2021-05-22)
DX: C79.51 Secondary malignant neoplasm of bone (principal); N39.0 Urinary tract infection, site not specified; E22.2 Syndrome of inappropriate secretion of antidiuretic hormone; C79.31 Secondary malignant neoplasm of brain; B37.0 Candidal stomatitis; R53.1 Weakness; C50.919 Malignant neoplasm of unspecified site of unspecified female breast; Z92.21 Personal history of antineoplastic chemotherapy; Z87.891 Personal history of nicotine dependence; Z82.49 Family history of ischemic heart disease and other diseases of the circulatory system; R73.9 Hyperglycemia, unspecified; E78.5 Hyperlipidemia, unspecified; Z90.13 Acquired absence of bilateral breasts and nipples; Z80.3 Family history of malignant neoplasm of breast; W05.0XXA Fall from non-moving wheelchair, initial encounter; G62.9 Polyneuropathy, unspecified; Z51.5 Encounter for palliative care; Z66 Do not resuscitate; Z92.3 Personal history of irradiation; B96.20 Unspecified Escherichia coli [E. coli] as the cause of diseases classified elsewhere; Z80.0 Family history of malignant neoplasm of digestive organs; N63.10 Unspecified lump in the right breast, unspecified quadrant; M51.26 Other intervertebral disc displacement, lumbar region; M47.9 Spondylosis, unspecified; D63.0 Anemia in neoplastic disease; E86.1 Hypovolemia; G47.00 Insomnia, unspecified; M48.061 Spinal stenosis, lumbar region without neurogenic claudication; Z17.1 Estrogen receptor negative status [ER-]; Z85.3 Personal history of malignant neoplasm of breast; Z86.718 Personal history of other venous thrombosis and embolism; Z82.5 Family history of asthma and other chronic lower respiratory diseases; Z79.899 Other long term (current) drug therapy
CPT/HCPCS: 36415; 71046; 72157; 72158; 72197; 77280; 77290; 77307; 77332; 77334; 77336; 77387; 77412; 80048; 80053; 81001; 81003; 82306; 82607; 82746; 83540; 83550; 83605; 83735; 83921; 83930; 83935; 84295; 84300; 84443; 84484; 85025; 85027; 85610; 85730; 87077; 87086; 87186; 93005; 94640; 99285